=== PATIENT | female | born 1945 | race Caucasian/White ===

== ENCOUNTER 2020-12-26 15:11 | Inpatient (IN) | payer MEDICAID, MEDICARE, OTHER ==
[~2020-12-26] VITALS: Ht 167.6 cm; Wt 75.7 kg
--- NOTE | 2020-12-26 15:14 | NUR ---
[id number] FRM HOME, NOTED ALTERED X 3 DAYS W/ O2 SATURATION IN HIGH 80'S. ON 04 11 3LPM VIA NC. CONNECTED TO THE MONITOR AND PULSE OX. KEPT COMFORTABLE,W ILL CONTINUE TO MONITOR ACCORDINGLY.
[2020-12-26 15:42] LABS: ABG BASE EXCESS -1.3 mmol/L; ABG OXYGEN SATURATION 92.1 % (92.0-98.5); ABG PCO2 33.4 mmHg (35.0-45.0); ABG PH 7.438 (7.350-7.450); ABG PO2 60.9 mmHg (75.0-100.0); AaDO2 99.3 mmHg; COHb 0.3 % (0.5-1.5); MetHb 0.4 % (0.0-1.5); O2Hb 91.5 % (94.0-97.0); SITE, ABG Right Radial; VENT MODE, BG 2L NC
[2020-12-26] MEDS ORDERED: LORA-258 PO (15:56)
[2020-12-26] MEDS ORDERED: DICL100G34 TP (15:56)
[2020-12-26] MEDS ORDERED: PRED5DRO17 RIGHTEYE (15:56)
[2020-12-26] MEDS ORDERED: BROM3DRO RIGHTEYE (15:56)
[2020-12-26] MEDS ORDERED: AMLO-212 PO (15:56)
[2020-12-26] MEDS ORDERED: GABA-532 PO (15:56)
[2020-12-26] MEDS ORDERED: OLME40TA18 PO (15:56)
[2020-12-26] MEDS ORDERED: ARIP2TAB3 PO (15:56)
[2020-12-26] MEDS ORDERED: CITA20TA16 PO (15:56)
[2020-12-26] MEDS ORDERED: MONT10TA22 PO (15:56)
[2020-12-26] MEDS ORDERED: METO-357 PO (15:57)
[2020-12-26] MEDS ORDERED: LATA2.5D15 EACHEYE (15:57)
[2020-12-26] MEDS ORDERED: FLUT1BLS INH (15:57)
--- NOTE | 2020-12-26 16:52 | NUR ---
CALLED FOR MIDLINE
[2020-12-26 17:04] LABS: BILIRUBIN,URINE Negative (NEGATIVE); COLOR,URINE YELLOW (YELLOW); LEUKOCYTE ESTERASE ,URINE Negative (NEGATIVE); NITRITE, URINE Negative (NEGATIVE); PH,URINE 6.5 (5.0-8.0); PROTEIN,URINE Negative (NEGATIVE); UGLUCOSE Negative (NEGATIVE); UROBILINOGEN,URINE 0.2 EU/dL (0.2)
--- NOTE | 2020-12-26 17:10 | NUR ---
covid swab and urine collected and sent to lab.
[2020-12-26 17:15] LABS: RBC,URINE 0-2 /HPF (0-2)
[2020-12-26 17:16] LABS: BACTERIA,URINE None seen /HPF (None Seen); SQUAMOUS EPITHELIAL CELL,UR Few /HPF (None Seen)
--- NOTE | 2020-12-26 18:08 | NUR ---
received a call from the lab reagrding patient covid result (+), notified.
[2020-12-26] MEDS ORDERED: CEFTRIAXONE 1 G in IV D5W 50 ML IV ONE (18:30)
[2020-12-26] MEDS ORDERED: AZITHROMYCIN 500 MG in IV D5W 250 ML IV ONE (18:30)
[2020-12-26] MEDS ORDERED: CEFTRIAXONE 1GM BAG (ER ONLY) 50 ML IV ONE (18:36)
--- NOTE | 2020-12-26 18:58 | NUR ---
blood collected from the midline and sent to lab.
[2020-12-26 19:08] LABS: HEMATOCRIT 42 % (33-45); HEMOGLOBIN 14.2 g/dL (11.5-14.8); LYMPHOCYTES % (AUTO) 24.1 % (20.0-44.0); MEAN CORPUSCULAR HGB CONC 34 g/dl (31.0-36.0); MEAN CORPUSCULAR VOLUME 97 fL (82-100); MONOCYTES # (AUTO) 0.2 K/uL (0.1-1.30); MONOCYTES % (AUTO) 4.3 % (2.0-12.0); NEUTROPHILS % (AUTO) 70.6 % (43.0-81.0); PLATELET COUNT (AUTO) 162 K/uL (150-450); RED BLOOD CELL COUNT(AUTO) 4.35 MIL/uL (4.0-5.2); WHITE BLOOD COUNT (AUTO) 4.3 K/uL (4.3-11.0)
[2020-12-26 19:17] LABS: CALCIUM, SERUM 8.2 mg/dL (8.5-10.1); CREATININE 1.1 mg/dL (0.6-1.3); POTASSIUM 3.8 mmol/L (3.5-5.1)
--- NOTE | 2020-12-26 19:20 | NUR ---
report given to Winifred ATKINS for agnélica.
[2020-12-26 19:31] LABS: ALBUMIN 3.6 g/dL (3.4-5.0); BILIRUBIN,DIRECT 0.2 mg/dL (0.0-0.2); BILIRUBIN,TOTAL 0.3 mg/dL (0.2-1.0); TOTAL PROTEIN, SERUM 7.7 g/dL (6.4-8.2)
[2020-12-26 19:43] LABS: D-DIMER 1.52 mg/L(FEU (0.17-0.50)
[2020-12-26 20:25] LABS: C-REACTIVE PROTEIN 4.9 mg/dL (0.0-0.9)
[2020-12-26] MEDS ORDERED: IOHEXOL-350 100 ML VIAL IV ONE (20:37)
[2020-12-26] MEDS ORDERED: CT SWABBABLE VALVE TRANS SET 1 EA INFUS.SET MC ONE (20:38)
[2020-12-26] MEDS ORDERED: IV NS 0.9% 250 ML IV ONE (20:38)
[2020-12-26] MEDS ORDERED: DEXAMETHASONE SOD PHOSPHATE 10 MG/ML VIAL IV ONE (21:00)
--- NOTE | 2020-12-26 21:05 | NUR ---
PATIENT GOING TO CT
--- NOTE | 2020-12-26 21:17 | NUR ---
PATIETN BACK FROM CT
--- NOTE | 2020-12-26 21:26 | NUR ---
PER ER MD LIN, 1G TYLENOL REC. VERBAL ORDER.
--- NOTE | 2020-12-26 21:26 | NUR ---
TELE BED 102
[2020-12-26] MEDS ORDERED: ACETAMINOPHEN 650 MG/SUPP.RECT RC ONE (21:29)
[2020-12-26] MEDS ORDERED: ACETAMINOPHEN 650 MG/SUPP.RECT RC PRN ×2 (21:30)
[2020-12-26] MEDS ORDERED: DEXAMETHASONE SOD PHOSPHATE 10 MG/ML VIAL ONE (21:30)
--- NOTE | 2020-12-26 21:32 | NUR ---
ULTRASOUND AT BEDSIDE
--- NOTE | 2020-12-26 21:40 | NUR ---
CALLED JORGE FOR TA READ
--- NOTE | 2020-12-26 22:42 | NUR ---
report given to goldy ATKINS
[2020-12-26] MEDS ORDERED: Z GUARD REMEDY 2 OZ OINT TP PRN (23:00)
[2020-12-26] MEDS ORDERED: ONDANSETRON HCL/PF 4 MG/2 ML VIAL IVP PRN (23:00)
[2020-12-26] MEDS ORDERED: ENOXAPARIN SODIUM 40 MG/0.4 ML DISP.SYRIN SQ SCH (23:00)
--- NOTE | 2020-12-26 23:08 | NUR ---
RN NOTES, AT 2305 RECEIVED PATIENT FROM ER IN COMPANY OF 2 NURSE, PATIENT PLACED ON BED, UPON TAKING VS NOTED PATIENT VERY TACHYPNEIC, RR 60, 98/60, 101.2, 100% AT 5LPM, AT THIS TIME HAYLEY MARTINEZ ENTER ROOM, ASSESSED PATIENT AND GAVE ORDER TO CALL RT STAT, SUCTIONED PATIENT AND TRANSFERRED TO ICU.
--- NOTE | 2020-12-26 23:12 | NUR ---
RN NOTES, RT AT BEDSIDE, MICHELLE HARDY AT BEDSIDE AND ORDERED STAT ABGS.
--- NOTE | 2020-12-26 23:22 | NUR ---
MANAGED CARE NURSE: PT RECEIVED FROM [facility] TRANSFER. ON 5L 02 VIA NC, ON DROPLET ISOLATION FOR COVID PNA. NOTED WT TACHYPNEA AND SHALLOW BREATHING. ALERT TO SELF, UNABLE TO MAKE NEEDS KNOWN. SINUS TACH ON PAD CUTTER. LOW GRADE FEVER. COLD BED BATH RENDERED. NO SKIN BREAKDOWN. TIN MIDLINE AND LEFT WRIST IV INTACT WT NO S/S OF INFILTRATION. F/C PATENT AND INTACT DRAINING YELLOW URINE TO GRAVITY. HOB ON HIGH SAGE'S. BED IN LOWEST POSITION AND LOCKED, BED ALARM ON, SIDE RAILS UP X3. WILL CONTINUE TO MONITOR.
[2020-12-26 23:29] LABS: ABG OXYGEN SATURATION 95.6 % (92.0-98.5); ABG PO2 69.7 mmHg (75.0-100.0); AaDO2 187.9 mmHg; COHb 0.2 % (0.5-1.5); MetHb 0.3 % (0.0-1.5); O2Hb 95.1 % (94.0-97.0); SITE, ABG Right Brachial; VENT MODE, BG Nasal Cannula
[2020-12-26 23:30] VITALS: BP 94/61
[2020-12-26] MEDS ORDERED: CEFEPIME 2 GM in IV D5W 100 ML IV ONE (23:30)
--- NOTE | 2020-12-26 23:40 | NUR ---
RN NOTES, PATIENT TRANSFERRED WITH ALL ACLS PROTOCOL, TO ICU ROOM 255, REPORT GIVEN TO BECKIE ATKINS.
[2020-12-27] VITALS (33 sets, daily range): BP systolic 89–156; BP diastolic 30–101
[2020-12-27] MEDS: IV NS 0.9% 250 ML IV PRN (00:06)
[2020-12-27] MEDS ORDERED: CEFEPIME 1 GM VIAL ONE (00:07)
--- NOTE | 2020-12-27 00:45 | NUR ---
ATHLETIC TRAINING INTERNSHIP: PT RESTLESS, TRYING TO REMOVE IV AND TUBINGS. OBTAINED ORDER FOR BILAT. SOFT WRIST RESTRAINTS. SAFETY PRECAUTION NOTED AT ALL TIMES.
[2020-12-27 04:32] LABS: BASOPHILS # (AUTO) 0.1 K/uL (0.0-0.2); BASOPHILS % (AUTO) 0.8 % (0.0-2.0); HEMATOCRIT 40 % (33-45); HEMOGLOBIN 13.3 g/dL (11.5-14.8); LYMPHOCYTES % (AUTO) 14.7 % (20.0-44.0); MEAN CORPUSCULAR HGB CONC 34 g/dl (31.0-36.0); MEAN CORPUSCULAR VOLUME 99 fL (82-100); MONOCYTES # (AUTO) 0.2 K/uL (0.1-1.30); MONOCYTES % (AUTO) 2.4 % (2.0-12.0); NEUTROPHILS # (AUTO) 5.5 K/uL (1.8-8.9); NEUTROPHILS % (AUTO) 82.1 % (43.0-81.0); PLATELET COUNT (AUTO) 150 K/uL (150-450); WHITE BLOOD COUNT (AUTO) 6.7 K/uL (4.3-11.0)
[2020-12-27 04:43] LABS: CHOLESTEROL 75 mg/dL (<200); HDL CHOLESTEROL 18 mg/dL (40-60); LDL 35 mg/dL (0-99); TRIGLYCERIDES 155 mg/dL (30-150)
[2020-12-27 04:56] LABS: CALCIUM, SERUM 7.8 mg/dL (8.5-10.1); CARBON DIOXIDE 23 mmol/L (21-32); CHLORIDE 102 mmol/L (98-107); CREATININE 1.5 mg/dL (0.6-1.3); GLUCOSE 171 mg/dL (74-106); MAGNESIUM 2.1 mg/dL (1.8-2.4); PHOSPHORUS 5.2 mg/dL (2.5-4.9); POTASSIUM 4.3 mmol/L (3.5-5.1); SODIUM SERUM 137 mmol/L (136-145); UREA NITROGEN, BLOOD 21 mg/dL (7-18)
--- NOTE | 2020-12-27 06:15 | NUR ---
SILVERWARE WASHER: STILL ON 5L 02 VIA NC. NO ACUTE DISTRESS, NO EVIDENCE OF DISCOMFORT. UNABLE TO FOLLOW COMMANDS. NSR ON JAVASCRIPT PROGRAMMER. AFEBRILE. WT EPISODES OF TRYING TO REACH FOR TUBINGS. BILAT. SOFT WRIST RESTRAINTS IN PLACE. SKIN AND CIRCULATION WNL. SAFETY PRECAUTION NOTED AT ALL TIMES.
--- NOTE | 2020-12-27 07:30 | NUR ---
CENTRAL SUPPLY ASSISTANT OPENING NOTES Patient received asleep and on 5 liters and 02 sat of 90%. Breathing even and labored. Lung sounds noted with wheezing. Louie cath and hanging to gravity. Patient noted with bilateral wrist restraints with no s/s of skin breakdown. HOB kept elevated. Bed is in lowest and locked position.
--- NOTE | 2020-12-27 09:00 | NUR ---
02 saturation of 87-89% on 5lpm via n/c. Dr Conley made aware, Order for abg. Order placed and RT made aware.
[2020-12-27 09:22] LABS: ABG BASE EXCESS -7.4 mmol/L; ABG OXYGEN SATURATION 89.6 % (92.0-98.5); ABG PCO2 34.5 mmHg (35.0-45.0); ABG PH 7.327 (7.350-7.450); ABG PO2 56.8 mmHg (75.0-100.0); AaDO2 210.4 mmHg; COHb 0.3 % (0.5-1.5); MetHb 0.3 % (0.0-1.5); O2Hb 89.1 % (94.0-97.0); SITE, ABG Right Brachial; VENT MODE, BG NASAL CANNULA
--- NOTE | 2020-12-27 09:30 | NUR ---
Patient's abg results relayed to Dr Conley and new orders for HI- FLOW 02 via n/c on 40 liters at 100% fi 02. RT placed 02 delivery method. 02 saturation of 98%.
[2020-12-27] MEDS ORDERED: TOCILIZUMAB 400 MG in IV NS 0.9% 80 ML IV ONE (10:30)
[2020-12-27] MEDS ORDERED: REMDESIVIR (CHARGED) 200 MG, *LOADING DOSE 1 EA in IV NS 0.9% 210 ML IV ONE (10:30)
[2020-12-27] MEDS ORDERED: ENOXAPARIN SODIUM 40 MG/0.4 ML DISP.SYRIN SQ SCH (10:30)
--- NOTE | 2020-12-27 10:35 | NUR ---
Patient's Fi 02 lowered to 80% from 100 % at 40 liters by RT, will monitor
[2020-12-27] MEDS ORDERED: IV NS 0.9% 1,000 ML IV ONE (13:30)
[2020-12-27 15:21] LABS: C-REACTIVE PROTEIN 7.2 mg/dL (0.0-0.9)
[2020-12-27] MEDS: AZITHROMYCIN 500 MG in IV D5W 250 ML IV SCH (19:15)
--- NOTE | 2020-12-27 19:28 | NUR ---
CORRECTIONS SERGEANT CLOSING NOTES Patient is alert but confused and forgetful. Breathing even and unlabored. on hi flow o2 at 40 lpm and fi02 of 80% with saturation of 98%. No c/o pain or discomfort. Louie cath with output of 500 cc during shift. Patient able to free self and removed all iv lines during end of the shift. MD made aware. New midline placed in right upper arm. Patient noted with bilateral wrist restraints with no s/s of skin breakdown. HOB kept elevated. Bed is in lowest and locked position. Endorsed to next shift for JOSE.
--- NOTE | 2020-12-27 19:45 | NUR ---
ICU/ACCOUNT REVIEW SPECIALIST RECIEVED REPORT FROM DAY SHIFT NURSE. SEE FLOWSHEET FOR ASSESSMENT, THERE ARE NO SKIN ISSUES THAT ARE ADDRESSED ON THE FLOWSHEET. THERE ARE IV'S WHICH ARE ADDRESSED ON THE IV SPREAD SHEET. PT WAS TURNED AND REPOSITIONED FOR COMFORT AND CARE. WILL CONTINUE TO MONITOR THIS PT. NO ACUTE DISTRESS SEEN AT THIS TIME.
--- NOTE | 2020-12-27 20:07 | NUR ---
RECEIVED PT ON HFNC, PT IS AWAKE AND TOLERATING SETTINGS. O2 SAT 100%. CONTINUE TO MONITOR. Addendum: 12/27/20 at 2009 by RAQUEL BERMUDEZ RT Amended: Links added.
--- NOTE | 2020-12-27 22:30 | NUR ---
ICU/ACOUSTICAL ENGINEER PT WAS GIVEN ORAL CARE ALONG WITH PM CARE. PT REMAINS ON HIGH FLOW WITH CURRENT SETTINGS WITH SATURATION AT 99-100%. PT WAS TURNED AND REPOSITIONED FOR COMFORT AND CARE. WILL CONTINUE TO MONITOR THIS PT. NO ACUTE DISTRESS SEEN AT THIS TIME.
[2020-12-27] MEDS: CEFEPIME 2 GM in IV D5W 100 ML IV SCH (22:55)
[2020-12-27] MEDS ORDERED: ENOXAPARIN SODIUM 30 MG/0.3 ML DISP.SYRIN SQ SCH (23:00)
[2020-12-28] VITALS (25 sets, daily range): BP systolic 98–140; BP diastolic 59–92
--- NOTE | 2020-12-28 01:39 | NUR ---
FiO2 titrated to 65%, RN notified. O2 sat 99%.
--- NOTE | 2020-12-28 01:45 | NUR ---
ICU/JUNIOR ENGINEER FIO2 WAS DECREASED DOWN TO 65% FROM 80%, PT REMAINS ON HIGH FLOW. WILL CONTINUE TO THIS PT'S SATURATION.
--- NOTE | 2020-12-28 03:00 | NUR ---
ICU/TUFTING MACHINE OPERATOR SINGLE NEEDLE PT WAS GIVEN ORAL CARE ALONG WITH AM CARE. PT REMAINS ON HIGH FLOW WITH CURRENT SETTINGS WITH SATURATION AT 99-100%. PT WAS TURNED AND REPOSITIONED FOR COMFORT AND CARE. WILL CONTINUE TO MONITOR THIS PT. NO ACUTE DISTRESS SEEN AT THIS TIME.
[2020-12-28 04:42] LABS: BASOPHILS % (AUTO) 0.2 % (0.0-2.0); HEMATOCRIT 36 % (33-45); LYMPHOCYTES # (AUTO) 0.9 K/uL (0.8-4.8); LYMPHOCYTES % (AUTO) 15.4 % (20.0-44.0); MEAN CORPUSCULAR HGB CONC 34 g/dl (31.0-36.0); MEAN CORPUSCULAR VOLUME 98 fL (82-100); MONOCYTES # (AUTO) 0.4 K/uL (0.1-1.30); MONOCYTES % (AUTO) 6.1 % (2.0-12.0); NEUTROPHILS # (AUTO) 4.8 K/uL (1.8-8.9); NEUTROPHILS % (AUTO) 78.3 % (43.0-81.0); RED BLOOD CELL COUNT(AUTO) 3.62 MIL/uL (4.0-5.2); WHITE BLOOD COUNT (AUTO) 6.1 K/uL (4.3-11.0)
[2020-12-28] MEDS: IV NS 0.9% 250 ML IV PRN (04:55)
[2020-12-28 04:58] LABS: CALCIUM, SERUM 7.8 mg/dL (8.5-10.1); CARBON DIOXIDE 23 mmol/L (21-32); CHLORIDE 105 mmol/L (98-107); CREATININE 1.1 mg/dL (0.6-1.3); GLUCOSE 126 mg/dL (74-106); MAGNESIUM 2.2 mg/dL (1.8-2.4); PHOSPHORUS 2.4 mg/dL (2.5-4.9); POTASSIUM 3.5 mmol/L (3.5-5.1); SODIUM SERUM 141 mmol/L (136-145); UREA NITROGEN, BLOOD 23 mg/dL (7-18)
--- NOTE | 2020-12-28 05:14 | NUR ---
ICU/PLATE PUT IN WORKER AM LABS ALONG WITH CHEST XARY DONE , AWAIT FOR ANY ABNORMAL RESULTS.
[2020-12-28 05:49] LABS: CREATINE KINASE, TOTAL > 1000 U/L (26-192); FERRITIN > 1000 ng/mL (8-388)
[2020-12-28 06:54] LABS: BAND % (MANUAL) 1 % (0.0-5.0); LYMPHOCYTES % (MANUAL) 16 % (16-48); MONOCYTES % (MANUAL) 3 % (0-11.0); NEUTROPHILS % (MANUAL) 80 (42-76)
[2020-12-28 06:56] LABS: PLATELET COUNT (AUTO) 143 K/uL (150-450)
--- NOTE | 2020-12-28 07:30 | NUR ---
FIRER LOW PRESSURE OPENING NOTES Patient received awake and on hi flow with fi02 of 65% liters and 02 sat of 98%. Breathing even and labored. Louie cath and hanging to gravity. Patient noted with bilateral wrist restraints with no s/s of skin breakdown. HOB kept elevated. Bed is in lowest and locked position. Midline noted to be on right upper arm and saline lock. Safety precautions noted.
--- NOTE | 2020-12-28 07:45 | NUR ---
RT changed patient's hi flow to 6 lpm via nc/ o2 sat of 93%. will monitor.
[2020-12-28 08:55] LABS: ABG BASE EXCESS -0.7 mmol/L; ABG OXYGEN SATURATION 93.5 % (92.0-98.5); ABG PCO2 37.3 mmHg (35.0-45.0); ABG PH 7.417 (7.350-7.450); AaDO2 205.2 mmHg; COHb 0.2 % (0.5-1.5); MetHb 0.1 % (0.0-1.5); O2Hb 93.2 % (94.0-97.0); SITE, ABG Right Radial; VENT MODE, BG NASAL CANNULA
[2020-12-28] MEDS ORDERED: REMDESIVIR (CHARGED) 100 MG in IV NS 0.9% 100 ML IV SCH (10:30)
[2020-12-28] MEDS ORDERED: REMDESIVIR (CHARGED) 200 MG, *LOADING DOSE 1 EA in IV NS 0.9% 210 ML IV ONE (11:30)
[2020-12-28] MEDS: DEXAMETHASONE SOD PHOSPHATE 10 MG/ML VIAL IV SCH (11:43)
[2020-12-28] MEDS ORDERED: Sodium Phosphate 30 MMOL in IV NS 0.9% 250 ML IV SCH (12:30)
[2020-12-28] MEDS: AZITHROMYCIN 500 MG in IV D5W 250 ML IV SCH (18:03)
--- NOTE | 2020-12-28 19:26 | NUR ---
BUTCHER SCULLION CLOSING NOTES Patient is alert but confused and forgetful. Breathing even and unlabored. on 02 via n/c at 6 lpm with saturation of 98%. No c/o pain or discomfort. Louie cath with output of 800 cc during shift. Patient noted with bilateral wrist restraints with no s/s of skin breakdown. HOB kept elevated. Bed is in lowest and locked position. Endorsed to next shift for JOSE.
--- NOTE | 2020-12-28 19:45 | NUR ---
ICU/DOBBY LOOM WEAVER RECIEVED REPORT FROM DAY SHIFT NURSE. SEE FLOWSHEET FOR ASSESSMENT, THERE ARE NO SKIN ISSUES THAT ARE ADDRESSED ON THE FLOWSHEET. THERE ARE NO IV'S WHICH ARE ADDRESSED. PT WAS TURNED AND REPOSITIONED FOR COMFORT AND CARE. WILL CONTINUE TO MONITOR THIS PT. NO ACUTE DISTRESS SEEN AT THIS TIME.
--- NOTE | 2020-12-28 21:10 | NUR ---
ICU/MONONITROTOLUENE OPERATOR PT WAS REPOSITIONED FOR COMFORT AND CARE. PT REMAINS AGITATED AND MOVING LEGS TRYING TO GET OUT OF BED. BED ALARMS ARE IN PLACE.
[2020-12-28] MEDS: ENOXAPARIN SODIUM 40 MG/0.4 ML DISP.SYRIN SQ SCH (22:00)
--- NOTE | 2020-12-28 22:30 | NUR ---
ICU/DIRECTOR MEDICAL ECONOMICS PT WAS REPOSITIONED FOR COMFORT AND CARE. PT REMAINS AGITATED AND MOVING LEGS TRYING TO GET OUT OF BED.
[2020-12-28] MEDS: CEFEPIME 2 GM in IV D5W 100 ML IV SCH (22:38)
[2020-12-29] VITALS (27 sets, daily range): BP systolic 100–200; BP diastolic 30–122
--- NOTE | 2020-12-29 00:30 | NUR ---
ICU/POLICE DISTRICT SWITCHBOARD OPERATOR PT WAS REPOSITIONED FOR COMFORT AND CARE. PT REMAINS AGITATED AND MOVING LEGS TRYING TO GET OUT OF BED. PT REMAINS AGITATED.
--- NOTE | 2020-12-29 02:10 | NUR ---
ICU/SOD FARMER PT WAS GIVEN AM CARE, THEN REPOSITIONED FOR COMFORT AND CARE. PT CONTINUES TO BE CONFUSED AND TRYING TO GET OUT OF BED. BED ALARM IN PLACE ALONG WITH RESTRAINTS TO KEEP OXYGEN ON.
[2020-12-29 04:34] LABS: BASOPHILS % (AUTO) 0.5 % (0.0-2.0); HEMATOCRIT 36 % (33-45); HEMOGLOBIN 12.4 g/dL (11.5-14.8); LYMPHOCYTES # (AUTO) 0.5 K/uL (0.8-4.8); LYMPHOCYTES % (AUTO) 8.9 % (20.0-44.0); MEAN CORPUSCULAR HGB CONC 35 g/dl (31.0-36.0); MEAN CORPUSCULAR VOLUME 98 fL (82-100); MONOCYTES # (AUTO) 0.4 K/uL (0.1-1.30); MONOCYTES % (AUTO) 6.9 % (2.0-12.0); NEUTROPHILS # (AUTO) 4.4 K/uL (1.8-8.9); NEUTROPHILS % (AUTO) 83.7 % (43.0-81.0); PLATELET COUNT (AUTO) 170 K/uL (150-450); RED BLOOD CELL COUNT(AUTO) 3.67 MIL/uL (4.0-5.2); WHITE BLOOD COUNT (AUTO) 5.3 K/uL (4.3-11.0)
--- NOTE | 2020-12-29 04:45 | NUR ---
ICU/TAFE REGISTRAR PT SATURATED DOWN TO 87% WITH INCREASED HEART RATE. HIGH FLOW WAS PLACED BACK ON WITH 45FIO2 AND 20L. WILL MONITOR THIS PT.
--- NOTE | 2020-12-29 05:03 | NUR ---
PT PLACED BACK ON HFNC DUE TO LOW O2 SATURATIONS. RN AWARE.
[2020-12-29 05:16] LABS: ALBUMIN 3.2 g/dL (3.4-5.0); BILIRUBIN,DIRECT 0.1 mg/dL (0.0-0.2); BILIRUBIN,TOTAL 0.3 mg/dL (0.2-1.0); CALCIUM, SERUM 8.1 mg/dL (8.5-10.1); CREATININE 1.2 mg/dL (0.6-1.3); MAGNESIUM 2.2 mg/dL (1.8-2.4); PHOSPHORUS 2.2 mg/dL (2.5-4.9); POTASSIUM 3.8 mmol/L (3.5-5.1); TOTAL PROTEIN, SERUM 7.2 g/dL (6.4-8.2)
[2020-12-29 05:55] LABS: CREATINE KINASE, TOTAL 1492 U/L (26-192); FERRITIN 2257 ng/mL (8-388)
[2020-12-29 06:44] LABS: BAND % (MANUAL) 2 % (0.0-5.0); LYMPHOCYTES % (MANUAL) 10 % (16-48); MONOCYTES % (MANUAL) 8 % (0-11.0); NEUTROPHILS % (MANUAL) 80 (42-76)
--- NOTE | 2020-12-29 06:51 | NUR ---
ICU/CAFETERIA AIDE [facility] OF [facility] 12.6 CALLED THE SENIOR PREMIUM AUDITOR ABOUT THIS. AWAIT FOR CALL BACK.
--- NOTE | 2020-12-29 07:30 | NUR ---
RN OPENING NOTES PT RECEIVED ON HIGH FLOW NASAL CANULA sat >92% WITH 20 L PLACED RECEIVING 45 FIO2%. PATIENT IS PLACED ON RESTRAINTS PATIENT ATTEMPTS TO PULL LOVELL AND REMOVE FROM BED. PT TACHY HR ABOVE 100-105's. CRITICAL LAB OF [facility] OF 12.6 PASSED FROM QUALITY CONTROL TECH [employer] NAVJOT. WILL FOLLOW UP WITH MD. PATIENT PLACED ON LOW BED POSITION. WILL FOLLOW UP.
--- NOTE | 2020-12-29 07:31 | NUR ---
ICU/HUSBANDRY TECHNICIAN CRITICAL LAB OF [facility] 12.[address] FANG. PASSED THIS ON TO DAY NURSE TO FOLLOW UP WITH THE DAY MD.
[2020-12-29] MEDS: DEXAMETHASONE SOD PHOSPHATE 10 MG/ML VIAL IV SCH (09:04)
[2020-12-29] MEDS ORDERED: Sodium Phosphate 15 MMOL in IV NS 0.9% 245 ML IV SCH (11:00)
[2020-12-29] MEDS: REMDESIVIR (CHARGED) 100 MG in IV NS 0.9% 100 ML IV SCH (12:07)
[2020-12-29] MEDS: IV 1/2NS 1000 ML 1,000 ML IV SCH (13:55)
[2020-12-29] MEDS: AZITHROMYCIN 500 MG in IV D5W 250 ML IV SCH (18:00)
--- NOTE | 2020-12-29 18:38 | NUR ---
RN CLOSING NOTES PT STABLE O2 SAT >92%. PT RECEIVING HFNC 20L AT 40% FiO2. URINE OUTPUT OF 1200M THROUGHOUT SHIFT. PT CONFUSED AND REQUIRES FREQUENT REPOSITIONING. PT REFUSED DINNER. PT LEFT ON LOWEST BED POSITION.
--- NOTE | 2020-12-29 20:20 | NUR ---
ICU/FILTER TENDER PT'S SATURATION FELL WHILE ON 20LITERS AND [id number]%. RT NOTIFED ABOUT THIS INCREASED THE FIO2 TO 50% PLUS 30LITERS. WILL CONTINUE TO MONITOR THIS PT AND HER SATURATION.
[2020-12-29] MEDS: ENOXAPARIN SODIUM 40 MG/0.4 ML DISP.SYRIN SQ SCH (21:49)
--- NOTE | 2020-12-29 22:45 | NUR ---
ICU/DIRECTOR DATABASE SATHYA IS DRIVER LICENSE EXAMINER, NOTIFED HER ABOUT THE MORNING LAB OF [facility] 12.6. DAY MD DID NOT ADDRESS THIS. SHE WAS NOTIFED AND SAID SHE WOULD ADDRESS THIS.
[2020-12-29] MEDS: CEFEPIME 2 GM in IV D5W 100 ML IV SCH (23:58)
[2020-12-30] VITALS (25 sets, daily range): BP systolic 112–161; BP diastolic 31–123
--- NOTE | 2020-12-30 01:00 | NUR ---
ICU/GREEN CHAIN MARKER PT WAS REPOSITIONED FOR COMFORT AND CARE. PT REMAINS AGITATED AND MOVING LEGS TRYING TO GET OUT OF BED. PT REMAINS AGITATED.
--- NOTE | 2020-12-30 04:30 | NUR ---
ICU/HARBOR MASTER AM LABS WERE DONE AWAIT FOR ANY ABNORMAL RESULTS.
--- NOTE | 2020-12-30 07:25 | NUR ---
RN NOTES PT FOUND SUPINE DISPLAYING NO S/S OF DISTRESS, FLACC = 0 AND BREATHING IS EVEN AND UNLABORED ON RA. PT IS CONFUSED AND HAS REMOVED HIGH ALMA OXYGEN FROM FACE. PT ALSO SLUMPED DOWN TO LOWER ASPECT OF BED. RESTRAINTS PERMIT CONSIDERABLE MOVEMENT OF ARMS. LOVELL CATH IS INTACT AND PATIENT DRAINING BY GRAVITY. VSS, RN WILL TREAT AND MONITOR THROUGHOUT SHIFT. SAFETY MEASURES IN PLACE, BED LOCKED AND IN LOWEST POSITION, SIDE RAILS UPX3, CALL LIGHT WITHIN REACH, BED ALARM ARMED.
[2020-12-30] MEDS: DEXAMETHASONE SOD PHOSPHATE 10 MG/ML VIAL IV SCH (08:09)
--- NOTE | 2020-12-30 08:15 | NUR ---
RN NOTES UPON ENTERING, PT'S LEFT LEG WAS HUNG OVER SIDE RAIL. SPO2 = 62%. HI ALMA O2 REAPPLIED, SPO2 GREATLY IMPROVED. RESTRAINTS GIVEN TRIAL REMOVAL. PT IMMEDIATELY ATTEMPTED TO REMOVE IV LINES AND HI ALMA NC. AROM PERFORMED BILATERALLY UPPER EXTREMITY. RESTRAINTS REAPPLIED AND TIGHTENED LEASH TO PERMIT LITTLE MOVEMENT. RADIAL PULSES PALPATED BILATERALLY, CAP REFILL < 3 SECONDS. PT SUPINE WITH LEGS ELEVATED TO DISCOURAGE MOVEMENT IN BED. PT LEFT OFFLOADED TO THE LEFT, BED ALARM ARMED WITH STABLE V/S.
[2020-12-30 09:42] LABS: BASOPHILS % (AUTO) 0.5 % (0.0-2.0); EOSINOPHILS % (AUTO) 0.1 % (0.0-6.0); HEMATOCRIT 37 % (33-45); HEMOGLOBIN 12.4 g/dL (11.5-14.8); LYMPHOCYTES # (AUTO) 0.6 K/uL (0.8-4.8); LYMPHOCYTES % (AUTO) 16.9 % (20.0-44.0); MEAN CORPUSCULAR HGB CONC 34 g/dl (31.0-36.0); MEAN CORPUSCULAR VOLUME 99 fL (82-100); MONOCYTES # (AUTO) 0.6 K/uL (0.1-1.30); MONOCYTES % (AUTO) 16.2 % (2.0-12.0); NEUTROPHILS # (AUTO) 2.4 K/uL (1.8-8.9); NEUTROPHILS % (AUTO) 66.3 % (43.0-81.0); PLATELET COUNT (AUTO) 203 K/uL (150-450); RED BLOOD CELL COUNT(AUTO) 3.73 MIL/uL (4.0-5.2); WHITE BLOOD COUNT (AUTO) 3.7 K/uL (4.3-11.0)
[2020-12-30] MEDS: GLUCERNA SHAKE 237 ML CAN PO SCH ×2 (11:30→17:00)
[2020-12-30] MEDS: IV 1/2NS 1000 ML 1,000 ML IV SCH (11:33)
[2020-12-30] MEDS: REMDESIVIR (CHARGED) 100 MG in IV NS 0.9% 100 ML IV SCH (12:05)
[2020-12-30 13:37] LABS: CHLORIDE 115 mmol/L (98-107); POTASSIUM 3.9 mmol/L (3.5-5.1); SODIUM SERUM 150 mmol/L (136-145)
[2020-12-30 13:38] LABS: BILIRUBIN,DIRECT 0.1 mg/dL (0.0-0.2); BILIRUBIN,TOTAL 0.4 mg/dL (0.2-1.0); CALCIUM, SERUM 8.1 mg/dL (8.5-10.1); CARBON DIOXIDE 25 mmol/L (21-32); CREATININE 1.1 mg/dL (0.6-1.3); GLUCOSE 218 mg/dL (74-106); PHOSPHORUS 2.8 mg/dL (2.5-4.9); UREA NITROGEN, BLOOD 20 mg/dL (7-18)
[2020-12-30 13:39] LABS: ALANINE AMINOTRANSFERASE 77 U/L (12-78); ALBUMIN 3.2 g/dL (3.4-5.0); ALKALINE PHOSPHATASE 71 U/L (46-116); ASPARTATE AMINOTRANSFERASE 123 U/L (15-37); TOTAL PROTEIN, SERUM 7.3 g/dL (6.4-8.2)
[2020-12-30 14:01] LABS: C-REACTIVE PROTEIN 3.3 mg/dL (0.0-0.9)
--- NOTE | 2020-12-30 19:00 | NUR ---
RN NOTES PT FOUND SUPINE DISPLAYING NO S/S OF DISTRESS, FLACC = 0 AND BREATHING IS EVEN AND UNLABORED ON HI FLOW NC. PT JUST CLEANED, RESTRAINTS APPLIED FOR SAFETY, PULSES PALPATED BILATERALLY AND CAP REFILL < 3 SECONDS. L UA MIDLINE IS PATIENT AND INTACT. LOVELL CATH IS BELOW PATIENT AND DRAINING BY GRAVITY. SBAR AND REPORT GIVEN TO TRADE MANAGER. SAFETY MEASURES IN PLACE, BED LOCKED AND IN LOWEST POSITION, SIDE RAILS UPX3, CALL LIGHT WITHIN REACH, BED ALARM ARMED. PT ENDORSED IN STABLE CONDITION FOR JOSE, ALL QUESTIONS ANSWERED.
[2020-12-30] MEDS: AZITHROMYCIN 500 MG in IV D5W 250 ML IV SCH (19:03)
--- NOTE | 2020-12-30 19:31 | NUR ---
RT Notes Pt received on High Flow Nasal Cannula on flow of 30LPM and FIO2 50%. Pt awake and tolerating settings. Pt SPO2 is 94%. Will cont to monitor. Addendum: 12/30/20 at 1959 by JESSENIA ANAYA RT Amended: Links added.
--- NOTE | 2020-12-30 19:40 | NUR ---
ICU/PRINTING PRESS OPERATOR APPRENTICE RECIEVED REPORT FROM DAY SHIFT NURSE. SEE FLOWSHEET FOR ASSESSMENT, THERE ARE NO SKIN ISSUES THAT ARE ADDRESSED ON THE FLOWSHEET. THERE IS A MAINTENANCE IV'S WHICH IS ADDRESSED. PT TURNS SELF AND REPOSITIONS SELF FOR COMFORT AND CARE. WILL CONTINUE TO MONITOR THIS PT. NO ACUTE DISTRESS SEEN AT THIS TIME. PT REMAINS ON HIGH FLOW
--- NOTE | 2020-12-30 20:10 | NUR ---
ICU/CONTRACT ADMINISTRATION MANAGER LOOKS LIKE LOVENOX WAS PULLED OUT FROM THE PIXIS DURING THE DAY SHIFT HOWEVER WAS NOT SCANNED. CHARGE NURSE MADE AWARE OF THIS.
[2020-12-30] MEDS: ENOXAPARIN SODIUM 40 MG/0.4 ML DISP.SYRIN SQ SCH (22:09)
[2020-12-30] MEDS: CEFEPIME 2 GM in IV D5W 100 ML IV SCH (22:11)
--- NOTE | 2020-12-30 23:10 | NUR ---
ICU/PACKAGING TECH DAUGHTER CALLED [phone] CALLED GAVE UPDATE ON PT'S STATUS. SAID SHE WILL CALL AGAIN TOMORROW.
[2020-12-31] VITALS (24 sets, daily range): BP systolic 98–176; BP diastolic 39–109
--- NOTE | 2020-12-31 02:00 | NUR ---
ICU/CIVIL RIGHTS INVESTIGATOR PT APPEARS TO ASLEEP, RESTRAINTS WERE TAKEN OFF. WILL MONITOR THIS PT.
--- NOTE | 2020-12-31 04:30 | NUR ---
ICU/VICE PRESIDENT EDUCATION AM LABS WERE DONE, AWAIT FOR ANY ABNORMAL RESULTS.
--- NOTE | 2020-12-31 06:00 | NUR ---
ICU/CLEANERS PT APPEARS CALM, RESTRAINTS WERE TAKEN OFF. WILL MONITOR THIS PT SHOULD SHE GET AGITATED TRY TO GET OUT OF BED THEN CAN PLACE BACK AGAIN.
[2020-12-31 06:01] LABS: BASOPHILS % (AUTO) 0.2 % (0.0-2.0); HEMATOCRIT 38 % (33-45); HEMOGLOBIN 12.7 g/dL (11.5-14.8); LYMPHOCYTES # (AUTO) 0.5 K/uL (0.8-4.8); LYMPHOCYTES % (AUTO) 13.2 % (20.0-44.0); MEAN CORPUSCULAR HGB CONC 33 g/dl (31.0-36.0); MEAN CORPUSCULAR VOLUME 102 fL (82-100); MONOCYTES # (AUTO) 0.7 K/uL (0.1-1.30); MONOCYTES % (AUTO) 16.4 % (2.0-12.0); NEUTROPHILS # (AUTO) 2.9 K/uL (1.8-8.9); NEUTROPHILS % (AUTO) 70.2 % (43.0-81.0); PLATELET COUNT (AUTO) 222 K/uL (150-450); RED BLOOD CELL COUNT(AUTO) 3.77 MIL/uL (4.0-5.2); WHITE BLOOD COUNT (AUTO) 4.2 K/uL (4.3-11.0)
[2020-12-31 06:12] LABS: ALANINE AMINOTRANSFERASE 72 U/L (12-78); ALKALINE PHOSPHATASE 66 U/L (46-116); ASPARTATE AMINOTRANSFERASE 109 U/L (15-37); BILIRUBIN,DIRECT 0.1 mg/dL (0.0-0.2); BILIRUBIN,TOTAL 0.3 mg/dL (0.2-1.0); CALCIUM, SERUM 7.9 mg/dL (8.5-10.1); CARBON DIOXIDE 26 mmol/L (21-32); CHLORIDE 117 mmol/L (98-107); CREATININE 1.1 mg/dL (0.6-1.3); GLUCOSE 228 mg/dL (74-106); SODIUM SERUM 150 mmol/L (136-145); TOTAL PROTEIN, SERUM 6.9 g/dL (6.4-8.2); UREA NITROGEN, BLOOD 23 mg/dL (7-18)
[2020-12-31] MEDS: IV NS 0.9% 250 ML IV PRN (06:27)
[2020-12-31] MEDS: IV 1/2NS 1000 ML 1,000 ML IV SCH (06:27)
[2020-12-31 06:51] LABS: CREATINE KINASE, TOTAL 1232 U/L (26-192); FERRITIN 2595 ng/mL (8-388)
--- NOTE | 2020-12-31 07:25 | NUR ---
RN NOTES PT FOUND SEMI SAGE'S POSITION DISPLAYING NO S/S OF DISTRESS, FLACC = 0 AND BREATHING IS EVEN AND UNLABORED ON HIGH FLOW OXYGEN. PT OFF RESTRAINTS AND PT HAS NOT YET REMOVED LINES/TUBES. R UA MIDLINE IS PATIENT AND INTACT. LOVELL CATH IS BELOW PATIENT DRAINING BY GRAVITY. VSS, RN WILL MONITOR AND TREAT THROUGHOUT SHIFT. SAFETY MEASURES IN PLACE, BED LOCKED AND IN LOWEST POSITION, SIDE RAILS UPX3, CALL LIGHT WITHIN REACH, BED ALARM ARMED.
[2020-12-31] MEDS: DEXAMETHASONE SOD PHOSPHATE 10 MG/ML VIAL IV SCH (08:43)
[2020-12-31] MEDS: GLUCERNA SHAKE 237 ML CAN PO SCH ×2 (08:53→17:07)
[2020-12-31] MEDS: ACETAMINOPHEN 650 MG/SUPP.RECT RC PRN (08:55)
--- NOTE | 2020-12-31 09:00 | NUR ---
RN NOTE PT FOUND ATTEMPTING TO GET OUT OF BED, PT PLACED SAFELY BACK IN BED, RESTRAINTS REAPPLIED, PULSES PALPATED BILATERALLY AND CAP REFILL < 3 SECONDS BILATERALLY. PT LEFT IN BED SET TO THE LOWEST POSITION, SIDE RAILS UPX3, CALL LIGHT WITHIN REACH, BED ALARM ARMED.
[2020-12-31] MEDS: REMDESIVIR (CHARGED) 100 MG in IV NS 0.9% 100 ML IV SCH (12:13)
[2020-12-31] MEDS: IV D5W 1,000 ML IV PRN (13:32)
--- NOTE | 2020-12-31 14:02 | NUR ---
RN NOTE INTERVENTION DOC PT IS CONFUSED Addendum: 12/31/20 at 1403 by ELKIN MENDEZ RN Amended: Links added.
--- NOTE | 2020-12-31 19:00 | NUR ---
RN NOTES PT FOUND SEMI SAGE'S POSITION DISPLAYING NO S/S OF DISTRESS, FLACC = 0 AND BREATHING IS EVEN AND UNLABORED ON HIGH FLOW OXYGEN. FACIAL ERYTHEMA HAS BEEN REPORTED TO PROVIDERS AND THEY ARE AWARE. PT OFF RESTRAINTS AGAIN. R UA MIDLINE IS PATIENT AND INTACT. LOVELL CATH IS BELOW PATIENT DRAINING BY GRAVITY. SBAR AND REPORT GIVEN TO CLINICAL NURSE REVIEWER. SAFETY MEASURES IN PLACE, BED LOCKED AND IN LOWEST POSITION, SIDE RAILS UPX3, CALL LIGHT WITHIN REACH, BED ALARM ARMED. PT ENDORSED IN STABLE CONDITION FOR JOSE. ALL QUESTIONS ANSWERED.
--- NOTE | 2020-12-31 19:45 | NUR ---
RN NOTE PT RECEIVED IN BED. PT IS A/OX1/CONFUSED. CURRENTLY ON HIGH FLOW OXYGEN AT 30L AND 50% FIO2. PT SHOWING NSR ON MONITOR. LOVELL CATH NOTED. RESTRAINTS NOTED. IV ACCESS NOTED ON RIGHT UPPER ARM MIDLINE. D5W RUNNING AT 50 ML/HR. LINE FLUSHED, PATENT, AND INTACT WITH NO SIGNS OF INFILTRATION. ALL SAFETY MEASURES IMPLEMENTED. CALL LIGHT WITHIN REACH. BED ALARM ON. BED LOCKED AND IN LOWEST POSITION. WILL CONTINUE TO MONITOR AND ASSESS FOR ANY CHANGES THROUGHOUT THE SHIFT.
[2020-12-31] MEDS: ENOXAPARIN SODIUM 40 MG/0.4 ML DISP.SYRIN SQ SCH (20:51)
[2020-12-31] MEDS: CEFEPIME 2 GM in IV D5W 100 ML IV SCH (23:10)
[2021-01-01] VITALS (24 sets, daily range): BP systolic 93–154; BP diastolic 41–104
[2021-01-01 05:05] LABS: ALANINE AMINOTRANSFERASE 69 U/L (12-78); ALKALINE PHOSPHATASE 65 U/L (46-116); ASPARTATE AMINOTRANSFERASE 84 U/L (15-37); BILIRUBIN,DIRECT 0.1 mg/dL (0.0-0.2); BILIRUBIN,TOTAL 0.2 mg/dL (0.2-1.0); CALCIUM, SERUM 8.1 mg/dL (8.5-10.1); CARBON DIOXIDE 26 mmol/L (21-32); CHLORIDE 119 mmol/L (98-107); CREATININE 1.1 mg/dL (0.6-1.3); GLUCOSE 288 mg/dL (74-106); MAGNESIUM 2.1 mg/dL (1.8-2.4); PHOSPHORUS 2.6 mg/dL (2.5-4.9); SODIUM SERUM 154 mmol/L (136-145); UREA NITROGEN, BLOOD 26 mg/dL (7-18)
[2021-01-01 05:37] LABS: BASOPHILS # (AUTO) 0.1 K/uL (0.0-0.2); EOSINOPHILS % (AUTO) 0.1 % (0.0-6.0); HEMATOCRIT 39 % (33-45); HEMOGLOBIN 12.9 g/dL (11.5-14.8); LYMPHOCYTES # (AUTO) 0.7 K/uL (0.8-4.8); LYMPHOCYTES % (AUTO) 11.7 % (20.0-44.0); MEAN CORPUSCULAR HGB CONC 33 g/dl (31.0-36.0); MEAN CORPUSCULAR VOLUME 99 fL (82-100); MONOCYTES # (AUTO) 0.8 K/uL (0.1-1.30); MONOCYTES % (AUTO) 13.9 % (2.0-12.0); NEUTROPHILS # (AUTO) 4.4 K/uL (1.8-8.9); NEUTROPHILS % (AUTO) 73.3 % (43.0-81.0); RED BLOOD CELL COUNT(AUTO) 3.91 MIL/uL (4.0-5.2); WHITE BLOOD COUNT (AUTO) 6.1 K/uL (4.3-11.0)
[2021-01-01 06:02] LABS: PLATELET COUNT (AUTO) 257 K/uL (150-450)
[2021-01-01 06:05] LABS: BAND % (MANUAL) 3 % (0.0-5.0); LYMPHOCYTES % (MANUAL) 16 % (16-48); MONOCYTES % (MANUAL) 5 % (0-11.0); NEUTROPHILS % (MANUAL) 76 (42-76)
--- NOTE | 2021-01-01 06:56 | NUR ---
RN NOTE NO CHANGES IN PT CONDITION DURING SHIFT. PT IS A/OX1/CONFUSED. CURRENTLY ON HIGH FLOW OXYGEN AT 30L AND 50% FIO2. PT SHOWING NSR ON MONITOR. LOVELL CATH NOTED WITH 850 ML OUTPUT. IV ACCESS NOTED ON RIGHT UPPER ARM MIDLINE. D5W RUNNING AT 50 ML/HR. LINE FLUSHED, PATENT, AND INTACT WITH NO SIGNS OF INFILTRATION. ALL DUE MEDS GIVEN ORDERED. PT KEPT CLEAN AND COMFORTABLE. ALL SAFETY MEASURES IMPLEMENTED. CALL LIGHT WITHIN REACH. BED ALARM ON. BED LOCKED AND IN LOWEST POSITION. WILL ENDORSE TO MORNING SHIFT RN FOR JOSE.
[2021-01-01] MEDS: IV D5W 1,000 ML IV PRN (07:58)
[2021-01-01] MEDS: GLUCERNA SHAKE 237 ML CAN PO SCH ×2 (07:58→17:00)
[2021-01-01] MEDS: DEXAMETHASONE SOD PHOSPHATE 10 MG/ML VIAL IV SCH (08:00)
--- NOTE | 2021-01-01 08:15 | NUR ---
RT Pt received on high flow nasal cannula, pt tried on 6L nasal cannula and tolerating well with adequate SpO2. No SOB or respiratory distress noted. Addendum: 01/01/21 at 0828 by KATELYN FOSS RT Amended: Links added.
[2021-01-01] MEDS: ACETAMINOPHEN 325 MG TABLET PO PRN (10:53)
[2021-01-01] MEDS: REMDESIVIR (CHARGED) 100 MG in IV NS 0.9% 100 ML IV SCH (12:16)
--- NOTE | 2021-01-01 17:47 | NUR ---
RN NOTES; PT TRANSFERRED FROM ICU AT APPROXIMATELY 1730. PT A/OX1 WITH MILD CONFUSION. PT DX COVID PNA. SKIN IS INTACT. NO SOB NOTED, NO DISTRESS NOTED. TIN ML, PATENT WITH NO SIGNS OF INFILTRATION. PT RUNNING DSW @100ML/HR. SAFETY MEASURES RENDERED, BED LOCKED IN LOWEST POS. WITH CALL LIGHT WITHIN REACH. WILL CONTINUE TO MONITOR.
--- NOTE | 2021-01-01 18:45 | NUR ---
RN CLOSING NOTE PATIENT IN BED, AWAKE. PATIENT ON 5L O2 NC WITH NO SIGNS OF LABORED BREATHING AT THIS TIME. PATIENT ON TELE MONITOR. LOVELL CATHETER IN PLACE AND PATENT. BILATERAL SOFT WRIST RESTRAINS ON, SKIN INTACT. RIGHT UA MIDLINE 18G IN PLACE RUNNING D5W AT 50CC/HR. NO SIGNS OF DISTRESS AT THIS TIME. BED LOCKED AND IN LOWEST POSITION, 3 SIDE RAILS UP, CALL LIGHT WITHIN REACH, ALL SAFETY MEASURES IMPLEMENTED. WILL ENDORSE TO FACILITY SALES AND ADMIN NURSE.
--- NOTE | 2021-01-01 20:00 | NUR ---
WATER SERVICE DISPATCHER NOTE 0730:RECEIVED REPORT FROM PM NURSE.PATIENT IN BED, AWAKE CONFUSED,DUTCH SPEAKING. PATIENT ON HIGH FLOW O2 WITH NO SIGNS OF LABORED BREATHING AT THIS TIME. PATIENT ON TELE MONITOR SR. LOVELL CATHETER IN PLACE AND PATENT DRAINING CLEAR YELLOW URINE. BILATERAL SOFT WRIST RESTRAINS ON, SKIN CHECK DONE.SKIN INTACT.MILD REDNESS NOTED ON BUE. RIGHT UA MIDLINE 18G IN PLACE RUNNING D5W AT 50CC/HR. BED LOCKED AND IN LOWEST POSITION, 3 SIDE RAILS UP, CALL LIGHT WITHIN REACH, ALL SAFETY MEASURES IMPLEMENTED. WILL CONTINUE TO MONITOR. 1000:FAMILY MEMBER UPDATED ABOUT PATIENT CONDITION,SPOKE TO THE PATIENT IN THE ROOM WITH PHONE. 1500:OK TO TRANSFER PATIENT TO [facility] PER ,SEEN THE PATIENT. 1715:PATIENT TRANSFERRED TO [facility],WITH HER BELONGINGS CELL PHONE AND MECHANICAL PRODUCT DESIGN ENGINEER,NO OTHER BELONGINGS.REPORT GIVEN TO ÁNGELA ATKINS.SKIN IS INTACT.IV IN PLACE AND INTACT.DINNER TO GIVE TO PATIENT.
--- NOTE | 2021-01-01 20:00 | NUR ---
[facility] RN NOTE PT IN BED AWAKE. A/O X 2, SPEAKS CHADIAN ONLY. NO SOB, NO DISTRESS OR DISCOMFORT NOTED. DENIES PAIN. TIN MIDLINE #18 G INTACT AND PATENT. INFUSING D5W AT 100 ML/HR, NO S/S OF INFILTRATION NOTED. PT REMAIN IN ISOLATION FOR COVID POSITIVE. ISOLATION PRECAUTIONS TAKEN. ON TELE SR HR 84. PT WITH BILATERAL SOFT WRIST RESTRAINTS. SIDE RAILS UP X 3 AND CALL LIGHT WITHIN REACH. VSS. CONTINUE TO MONITOR HER.
[2021-01-01] MEDS: ENOXAPARIN SODIUM 40 MG/0.4 ML DISP.SYRIN SQ SCH (20:58)
[2021-01-01] MEDS: CEFEPIME 2 GM in IV D5W 100 ML IV SCH (23:11)
[2021-01-02] VITALS: BP 110/74
--- NOTE | 2021-01-02 00:30 | NUR ---
[facility] RN NOTE PT NOTED REMOVED HER O2 NC, QUICKLY REAPPLIED THE NC, O2 DROPPED TO 85% ON 5L NC. APPLIED NON REBREATHING MASK WITH 15L O2, O2 SAT CAME UP TO 96%, INFORMED MICHELLE HARDY NP. NO NEW ORDER GIVEN CONTINUE TO MONITOR PT WITH NRB MASK 15L O2. PT MENTAL STATUS NO CHANGE. NO PAIN OR DISTRESS NOTED. NO SOB NOTED. CONTINUE TO MONITOR HER.
--- NOTE | 2021-01-02 03:00 | NUR ---
[facility] RN NOTE PT ABLE TO REMOVE THE MASK , O2 DROPPED TO 80'S. QUICKLY SECRUED THE NRB MASK AT 15 L, O2 SAT CAME BACK UP TO 96%. CONTINUE TO MONITOR HER CLOSELY.
[2021-01-02 04:00] VITALS: BP 130/80
[2021-01-02] MEDS: IV D5W 1,000 ML IV PRN (05:12)
--- NOTE | 2021-01-02 06:17 | NUR ---
[facility] RN NOTE PT IN BED AWAKE. KEPT ON SLIDING DOWN AND ABLE TO REMOVE MASK, EVEN WITH BILATERAL RESTRAINTS. REMINDED PT NOT TO DO THAT. ON TELE SR WITH OCCASIONAL PVC. REPOSITIONED HER Q2H, KEPT HER DRY AND CLEAN. ALL NEEDS ATTENDED. WILL ENDORSE TO DAY SHIFT NURSE FOR CONTINUE TO CARE.
--- NOTE | 2021-01-02 07:12 | NUR ---
[facility] OPENING NOTES; RECEIVED PT SLEEPING, IN SUPINE POS. PT A/OX1, PT IS CONFUSED, DOES NOT SPEAK ALGERIAN. SIN IS INTACT. PT ON NRB MASK @ 15L SATING AT 96-97%. TIN MIDLINE NOTED, PATENT, WITH NO SIGNS OF INFILTRATION. RELEASED RESTRAINTS. SKIN IS INTACT. PT REPOSITIONED. WILL CONTINUE TO MONITOR.
[2021-01-02 08:00] VITALS: BP 140/90
[2021-01-02] MEDS: GLUCERNA SHAKE 237 ML CAN PO SCH ×2 (08:18→17:17)
[2021-01-02] MEDS: DEXAMETHASONE SOD PHOSPHATE 10 MG/ML VIAL IV SCH (08:18)
[2021-01-02 12:00] VITALS: BP 123/84
[2021-01-02 12:23] LABS: BASOPHILS # (AUTO) 0.1 K/uL (0.0-0.2); BASOPHILS % (AUTO) 0.7 % (0.0-2.0); EOSINOPHILS % (AUTO) 0.2 % (0.0-6.0); HEMATOCRIT 39 % (33-45); HEMOGLOBIN 13.4 g/dL (11.5-14.8); LYMPHOCYTES # (AUTO) 0.9 K/uL (0.8-4.8); MEAN CORPUSCULAR HGB CONC 34 g/dl (31.0-36.0); MEAN CORPUSCULAR VOLUME 102 fL (82-100); MONOCYTES # (AUTO) 0.9 K/uL (0.1-1.30); NEUTROPHILS # (AUTO) 6.9 K/uL (1.8-8.9); NEUTROPHILS % (AUTO) 79.1 % (43.0-81.0); PLATELET COUNT (AUTO) 279 K/uL (150-450); RED BLOOD CELL COUNT(AUTO) 3.82 MIL/uL (4.0-5.2); WHITE BLOOD COUNT (AUTO) 8.7 K/uL (4.3-11.0)
[2021-01-02 16:00] VITALS: BP 140/89
[2021-01-02 16:05] LABS: CREATININE 1.1 mg/dL (0.6-1.3); POTASSIUM 4.6 mmol/L (3.5-5.1)
[2021-01-02 16:06] LABS: CALCIUM, SERUM 8.2 mg/dL (8.5-10.1)
[2021-01-02 16:17] LABS: ALBUMIN 2.9 g/dL (3.4-5.0); BILIRUBIN,TOTAL 0.5 mg/dL (0.2-1.0); MAGNESIUM 2.4 mg/dL (1.8-2.4); PHOSPHORUS 3.9 mg/dL (2.5-4.9)
[2021-01-02 16:18] LABS: TOTAL PROTEIN, SERUM 7.2 g/dL (6.4-8.2)
--- NOTE | 2021-01-02 16:52 | NUR ---
RN NOTES; LAB CALLED TO REPORT PT GLUCOSE WAS 416. RECHECK B/S TO CONFIRM WITH RESULT 379. PAGED DNP. PT IS ON D5W @100ML/HR. PT IS EATING AND DRINKING BETWEEN 50%-75%. PT IS TAKING DEXAMETHASONE. AWAITING FOR FURTHER ORDERS. WILL CONTINUE TO MONITOR.
[2021-01-02] MEDS: BLOOD SUGAR DIAGNOSTIC 1 EACH STRIP IN SCH ×2 (17:18→22:20)
[2021-01-02] MEDS: prednisoLONE ACETATE 1% SUSP 5 ML BOTTLE RIGHTEYE SCH (17:24)
[2021-01-02] MEDS: INSULIN REGULAR, HUMAN 100 UNIT/ML 3 ML VIAL SQ PRN ×2 (17:25→22:22)
[2021-01-02] MEDS ORDERED: DEXTROSE 50%-WATER 50 ML DISP.SYRIN IV PRN (17:30)
--- NOTE | 2021-01-02 18:48 | NUR ---
RN CLOSING NOTES PT IN BED RESTING, PT REPOSITIONED Q2H. PT A/OX1, CONFUSED. PT DOES NOT SPEAK MONGOLIAN. PT ON NRB @ 15L SAT AT 99%. PT ON R&L SOFT WRIST RESTRAINTS TO BE RENEWED AT 0300. TIN#18 RUNNING D5W @100ML/HR. PATENT, WITH NO SIGNS OF INFILTRATION. PT ON ACCU CHECK Q6H. NO SIGNIFICANT CHANGES IN PT HEALTH STATUS. PT KEPT CLEAN, DRY, AND COMFORTABLE. SAFETY MEASURES RENDERED, BED IN LOWEST POSITION, LOCKED WITH CALL LIGHT WITHIN REACH. ENDORSED TO PHYSICAL THERAPY TEACHER RN IN STABLE CONDITION.
[2021-01-02 20:00] VITALS: BP 137/86
[2021-01-02] MEDS: CITALOPRAM HYDROBROMIDE 20 MG TABLET PO SCH (21:13)
[2021-01-02] MEDS: LATANOPROST EYE DROP 0.005% 2.5 ML BOTTLE EACHEYE SCH (21:13)
[2021-01-02] MEDS: ARIPIPRAZOLE 2 MG TABLET PO SCH (21:13)
[2021-01-02] MEDS: ENOXAPARIN SODIUM 40 MG/0.4 ML DISP.SYRIN SQ SCH (21:35)
[2021-01-02] MEDS: CEFEPIME 2 GM in IV D5W 100 ML IV SCH (22:12)
[2021-01-03] VITALS (30 sets, daily range): BP systolic 80–159; BP diastolic 23–132
--- NOTE | 2021-01-03 06:52 | NUR ---
RN CLOSING NOTES; PATIENT ON 15L NRM, PATIENT ATTEMPTING TO REMOVE MASK EVEN WITH RESTRAINS, PATIENT TENTS TO DESATURATES QUICKLY, SOON PATIENT REMOVES O2 MASK, O2 DROPS TO 70S, CLOSELY MONITORING DURING THE NIGHT, KEPT PATIENT SAFE ALL NIGHT, BILATERAL WRIST RESTRAINS IN PLACED, FREQUENT SKIN CHECKS DONE, NO CIRCULATION COMPROMISED, AND NO ABNORMALITIES NOTES AT SITE, PT KEPT CLEAN, DRY, ALL SAFETY MEASURES RENDERED, BED LOCKED AND IN LOWEST POSITION, WITH CALL LIGHT WITHIN REACH, WILL ENDORSED PATIENT TO ONCOMING NURSE FOR CONTINUATION OF CARE.
[2021-01-03 06:54] LABS: CALCIUM, SERUM 8.9 mg/dL (8.5-10.1); MAGNESIUM 2.6 mg/dL (1.8-2.4); PHOSPHORUS 3.1 mg/dL (2.5-4.9)
[2021-01-03 07:29] LABS: BASOPHILS # (AUTO) 0.1 K/uL (0.0-0.2); BASOPHILS % (AUTO) 0.9 % (0.0-2.0); EOSINOPHILS % (AUTO) 0.4 % (0.0-6.0); HEMATOCRIT 40 % (33-45); HEMOGLOBIN 13.9 g/dL (11.5-14.8); LYMPHOCYTES # (AUTO) 1.3 K/uL (0.8-4.8); LYMPHOCYTES % (AUTO) 11.7 % (20.0-44.0); MEAN CORPUSCULAR HGB CONC 35 g/dl (31.0-36.0); MEAN CORPUSCULAR VOLUME 104 fL (82-100); MONOCYTES # (AUTO) 1.1 K/uL (0.1-1.30); MONOCYTES % (AUTO) 10.2 % (2.0-12.0); NEUTROPHILS # (AUTO) 8.5 K/uL (1.8-8.9); NEUTROPHILS % (AUTO) 76.8 % (43.0-81.0); PLATELET COUNT (AUTO) 322 K/uL (150-450); RED BLOOD CELL COUNT(AUTO) 3.86 MIL/uL (4.0-5.2)
--- NOTE | 2021-01-03 07:32 | NUR ---
RN NOTE PATIENT IS IN BED WITH HOB AT SEMI FOWLERS POSITION. PATIENT IS ON 15L NRB MASK. PATIENT IS CONFUSED. TIN MIDLINE IS PATENT AND INTACT. BED IS LOCKED IN THE LOWEST POSITION, 3 GUARD RAILS RAISED, CALL MCGOVERN WITHIN REACH, AND ALL HOSPITAL SAFETY PRECAUTIONS ARE BEING FOLLOWED. WILL CONTINUE TO MONITOR THROUGHOUT SHIFT.
[2021-01-03] MEDS: BLOOD SUGAR DIAGNOSTIC 1 EACH STRIP IN SCH ×4 (07:44→22:00)
--- NOTE | 2021-01-03 08:00 | NUR ---
RN NOTE DESIRAE MIDLINE REMOVED BY PATIENT.
[2021-01-03 08:35] LABS: C-REACTIVE PROTEIN 2.1 mg/dL (0.0-0.9)
[2021-01-03] MEDS: GABAPENTIN 100 MG CAPSULE PO SCH (08:43)
[2021-01-03] MEDS: FLUTICASONE/VILANTEROL 1 EACH BLST.W.DEV IH SCH (08:44)
[2021-01-03] MEDS: DEXAMETHASONE SOD PHOSPHATE 10 MG/ML VIAL IV SCH ×2 (08:44→09:00)
[2021-01-03] MEDS: GLUCERNA SHAKE 237 ML CAN PO SCH ×2 (08:44→16:23)
[2021-01-03] MEDS: prednisoLONE ACETATE 1% SUSP 5 ML BOTTLE RIGHTEYE SCH ×3 (08:45→16:41)
[2021-01-03] MEDS ORDERED: LOSARTAN POTASSIUM 50 MG TABLET PO SCH (09:00)
[2021-01-03] MEDS ORDERED: AMLODIPINE BESYLATE 5 MG TABLET PO SCH (09:00)
[2021-01-03] MEDS ORDERED: METOPROLOL SUCCINATE 50 MG TAB.SR.24H PO SCH (09:00)
[2021-01-03] MEDS: INSULIN REGULAR, HUMAN 100 UNIT/ML 3 ML VIAL SQ PRN ×3 (11:40→23:43)
--- NOTE | 2021-01-03 12:00 | NUR ---
RN NOTE PATIENT SATURATING 85% ON 15L NRB. RT NOTIFIED AND PLACED PATIENT ON HI FLOW 40L 100%. DR. PATEL AWARE. WILL CONTINUE TO MONITOR.
--- NOTE | 2021-01-03 12:15 | NUR ---
RT PT FOUND ON 15L VIA NRB, SpO2 AT 85-86%. PLACED PT ON HFNC 40L, 100% PER MD ORDER. SARAH ATKINS AWARE. WILL CONTINUE TO MONITOR THE PATIENT CLOSELY.
--- NOTE | 2021-01-03 14:06 | NUR ---
RT NOTE ABG MACHINE DOWN. DOWNTIME PROCEDURES DONE. POST ABG RESULTS SHOWN TO CHARGE NURSE ADALBERTO. NO CHANGES AT THIS TIME. TRANSFERRED PT TO ICU PER MD ORDER. PLACED PT BACK ON HFNC AT 40L, 100%. WILL CONTINUE TO MONITOR THE PATIENT CLOSELY FOR ANY CHANGES.
--- NOTE | 2021-01-03 14:53 | NUR ---
RN NOTES RECEIVED PT FROM TELE IN ROOM 255, PT IS FRISIAN SPEAKING , CONFUSED , OPEN EYES TO VERBAL STIMULI, LETHARGIC , ON TELE SR HR IN 80'S , ON HIGH FLOW O2 , LOVELL DRAINING TO GRAVITY. R UPPER ARM MIDLINE SITE CLEAN ,DRY AND INTACT, SR UP x3, CALL LIGHT WITHIN EASY REACH, CONTINUE TO MONITOR
[2021-01-03] MEDS: IV D5W 1,000 ML IV PRN (15:28)
--- NOTE | 2021-01-03 18:15 | NUR ---
RN NOTES PT SBP IS IN LOW 80'S , REHAB NURSE NOTIFIED, ORDER RECEIVED TO START PT ON LEVO DRIP .
[2021-01-03] MEDS: NOREPINEPHRINE 8 MG in IV NS 0.9% 242 ML IV PRN (18:22)
--- NOTE | 2021-01-03 18:40 | NUR ---
RN NOTES PT REMAINS ON HIGH FLOW O2 , LETHARGIC , RESPONDS TO VERBAL STIMULI, ON LEVO , DRIP AT .1 MCG/KG/HR, O2 SAT WNL, SR UP x3, CALL LIGHT WITHIN EASY REACH, BED LOCKED AND IN LOWEST POSITION, WILL ENDORSE TO TIEING MACHINE OPERATOR NURSE FOR CONTINUITY OF CARE .
--- NOTE | 2021-01-03 21:08 | NUR ---
RECEIVED PT ON HFNC 40L AND FIO2 100%. O2 SAT 92%. CONTINUE TO MONITOR. Addendum: 01/03/21 at 2109 by RAQUEL BERMUDEZ RT Amended: Links added.
--- NOTE | 2021-01-03 21:46 | NUR ---
ICU/BRAIN PICKER LOVENOX SQ LOOKS LIKE IT WAS PULLED OUT IN THE MORNING. THIS WAS CHANGED TO REFLECT THAT THIS SHOULD BE GIVEN IN THE MORNING.
[2021-01-03] MEDS: MONTELUKAST SODIUM (10MG) 10 MG TABLET PO SCH (22:00)
[2021-01-03] MEDS: LATANOPROST EYE DROP 0.005% 2.5 ML BOTTLE EACHEYE SCH (22:00)
[2021-01-03] MEDS: CITALOPRAM HYDROBROMIDE 20 MG TABLET PO SCH (22:00)
[2021-01-03] MEDS: ARIPIPRAZOLE 2 MG TABLET PO SCH (22:00)
[2021-01-03] MEDS: CEFEPIME 2 GM in IV D5W 100 ML IV SCH (22:30)
--- NOTE | 2021-01-03 23:31 | NUR ---
ICU/CAR CLEANER MEDICATION @2200 MARLO CEBALLOS SINGULAR WERE HELD DUE TO PT IS VERY LETHARGIC. THIS WAS HELD DUE TO THE FACT FOR POTENTIAL ASPIRATION. WILL CONTINUE TO MONITOR THIS PT.
[2021-01-04] VITALS (94 sets, daily range): BP systolic 48–147; BP diastolic 13–97
[2021-01-04] MEDS: IV D5W 1,000 ML IV PRN ×3 (01:06→20:23)
--- NOTE | 2021-01-04 01:35 | NUR ---
ICU/FIRE CONTROL TECHNICIAN G LEFT TWITCHING NOTED MADE MD AWARE, ALSO SATURATION IS HIGH 80'S. MD SCRAP BREAKER MADE AWARE OF THIS SAID TO DO ABG THEN CALL BACK WITH RESULTS.
--- NOTE | 2021-01-04 01:58 | NUR ---
STAT ABG DONE. RN NOTIFIED WITH THE RESULT.
--- NOTE | 2021-01-04 02:10 | NUR ---
ICU/DISPLAY ASSOCIATE STAT ABG DONE, RESULTS GIVEN TO TICKET MAKER HAMM[facility]. PT IS PLACED IN 15 LITERS NRB MASK. ALSO CHARGE NURSE AWARE OF THESE RESULTS. PT IS NOW 40L WITH FIO2 100% PLUS 15L NRB, PT HAS COVID.
--- NOTE | 2021-01-04 04:07 | NUR ---
ICU/TRANSPORTATION ENGINEERING TECHNICIAN PT WAS CLEAN AND REPOSITIONED TO HELP INCREASE OXYGENATION.
[2021-01-04 04:24] LABS: BASOPHILS % (AUTO) 0.4 % (0.0-2.0); EOSINOPHILS % (AUTO) 1.4 % (0.0-6.0); HEMATOCRIT 32 % (33-45); HEMOGLOBIN 12.5 g/dL (11.5-14.8); LYMPHOCYTES # (AUTO) 1.5 K/uL (0.8-4.8); LYMPHOCYTES % (AUTO) 13.5 % (20.0-44.0); MEAN CORPUSCULAR HGB CONC 39 g/dl (31.0-36.0); MEAN CORPUSCULAR VOLUME 111 fL (82-100); MONOCYTES # (AUTO) 0.7 K/uL (0.1-1.30); MONOCYTES % (AUTO) 5.8 % (2.0-12.0); NEUTROPHILS % (AUTO) 78.9 % (43.0-81.0); PLATELET COUNT (AUTO) 317 K/uL (150-450); RED BLOOD CELL COUNT(AUTO) 2.85 MIL/uL (4.0-5.2); WHITE BLOOD COUNT (AUTO) 11.5 K/uL (4.3-11.0)
[2021-01-04 04:36] LABS: CALCIUM, SERUM 7.5 mg/dL (8.5-10.1); CARBON DIOXIDE 24 mmol/L (21-32); CHLORIDE 117 mmol/L (98-107); CREATININE 1.5 mg/dL (0.6-1.3); GLUCOSE 220 mg/dL (74-106); MAGNESIUM 2.5 mg/dL (1.8-2.4); PHOSPHORUS 3.8 mg/dL (2.5-4.9); POTASSIUM 3.7 mmol/L (3.5-5.1); SODIUM SERUM 152 mmol/L (136-145); UREA NITROGEN, BLOOD 43 mg/dL (7-18)
--- NOTE | 2021-01-04 06:35 | NUR ---
ICU/RICE DRIER PT CONTINUES TO HAVE LOW SATURATION AT 86-89% WHILE ON HIGH FLOW PLUS NRB 15LITERS. WILL CONTINUE TO MONITOR THIS PT.
--- NOTE | 2021-01-04 07:00 | NUR ---
RN NOTES RECEIVED PT ON BED, QATARI SPEAKING , CONFUSED , OPEN EYES TO VERBAL STIMULI, LETHARGIC , ON HIGH FLOW O2 AND NONREBREATHER MASK , O2 SAT IN LOW 90'S , ON TELE SR HR IN 80'S , ON LEVO DRIP AT .1 MCG/KG/MIN RUNNING FOR BP SUPPORT, LOVELL DRAINING TO GRAVITY. R UPPER ARM MIDLINE SITE CLEAN ,DRY AND INTACT, SR UP x3, CALL LIGHT WITHIN EASY REACH, CONTINUE TO MONITOR
[2021-01-04] MEDS: BLOOD SUGAR DIAGNOSTIC 1 EACH STRIP IN SCH ×5 (07:44→23:30)
[2021-01-04] MEDS: INSULIN REGULAR, HUMAN 100 UNIT/ML 3 ML VIAL SQ PRN ×3 (07:44→17:46)
[2021-01-04] MEDS: GLUCERNA SHAKE 237 ML CAN PO SCH ×2 (08:00→16:49)
[2021-01-04] MEDS: GABAPENTIN 100 MG CAPSULE PO SCH (08:11)
[2021-01-04] MEDS: prednisoLONE ACETATE 1% SUSP 5 ML BOTTLE RIGHTEYE SCH ×3 (08:12→16:50)
[2021-01-04] MEDS: FLUTICASONE/VILANTEROL 1 EACH BLST.W.DEV IH SCH (08:13)
[2021-01-04] MEDS: DEXAMETHASONE SOD PHOSPHATE 10 MG/ML VIAL IV SCH (08:13)
--- NOTE | 2021-01-04 08:14 | NUR ---
RN NOTES PT IS LETHARGIC AND DOES NOT FOLLOW COMMAND, PO MEDS AND NASAL SPRAYS HELD AT THIS TIME
[2021-01-04] MEDS: ACETAMINOPHEN 650 MG/SUPP.RECT RC PRN (08:16)
--- NOTE | 2021-01-04 11:00 | NUR ---
RN NOTES PT'S DAUGHTER REQUESTING TO TALK TO PCP, MAY REAL ESTATE BROKER NOTIFIED.
[2021-01-04] MEDS: NOREPINEPHRINE 8 MG in IV NS 0.9% 242 ML IV PRN (11:51)
--- NOTE | 2021-01-04 12:00 | NUR ---
RN NOTES PT ON HIGH FLOW AND NON REBREATHER MASK , O2 SAT WNL, CONTINUE TO MONITOR.
[2021-01-04] MEDS: ACETAMINOPHEN 325 MG TABLET PO PRN (15:50)
--- NOTE | 2021-01-04 18:00 | NUR ---
RN NOTES PT REMAINS ON HIGH FLOW AND NONREBREATHER MASK, O2 SAT WNL. PT IS LETHARGIC AT TIMES ,IVF AT 100CC/HR RUNNING , LEVO DRIP AT .06 MCG/KG/MIN RUNNING FOR BP SUPPORT, T=99.0 AXILIARY, AT THIS TIME, SR UP x3, CALL LIGHT WITHIN EASY REACH, BED LOCKED AND IN LOWEST POSITION, WILL ENDORSE TO EMERGENCY DEPARTMENT COORDINATOR NURSE FOR CONTINUITY OF CARE .
--- NOTE | 2021-01-04 19:00 | NUR ---
RN NOTE RECEIVED PATIENT IN BED, LETHARGIC, SLUGGISH, IN NO S/SX OF ACUTE DISTRESS AT THIS TIME. RESPIRATIONS APPEARS UNLABORED, SATURATION AT 95% ON 40L VIA HIGH FLOW NC AT 100% FIO2 AND 15LPM VIA NON REBREATHER MASK, SR ON THE MONITOR, HR IS 68. NOTED TIN MIDLINE, PATENT AND FLUSHING WELL, NO S/S OF INFECTION, WITH D5W INFUSING AT 100 ML/HR, AND LEVOPHED AT DOSE RATE OF 0.06 MCG/KG/MIN. B SOFT WRIST RESTRAINTS IN PLACE, SKIN AND CIRCULATION WAS CHECKED PER PROTOCOL. LOVELL CATHETER CONNECTED TO URINE BAG IN PLACE, DRAINING TO A CLEAR, YELLOW OUTPUT. SAFETY MEASURES IMPLEMENTED. PATIENT BED ALARM IS ON. HEAD OF BED ELEVATED. BED IS LOCKED, IN LOWEST POSITION AND SIDE RAILS UP. CALL LIGHT WITHIN REACH OF THE PATIENT. WILL CONTINUE TO MONITOR AND REASSESS FOR ANY CHANGES.
--- NOTE | 2021-01-04 20:19 | NUR ---
RECEIVED PT ON DOUBLE OXYGEN SET UP HFNC 40L, 100% + NRB 15L. O2 SAT 97%. CONTINUE TO MONITOR. Addendum: 01/04/21 at 2020 by RAQUEL BERMUDEZ RT Amended: Links added.
[2021-01-04] MEDS: CITALOPRAM HYDROBROMIDE 20 MG TABLET PO SCH (22:00)
[2021-01-04] MEDS: ARIPIPRAZOLE 2 MG TABLET PO SCH (22:00)
[2021-01-04] MEDS: LATANOPROST EYE DROP 0.005% 2.5 ML BOTTLE EACHEYE SCH (22:00)
[2021-01-04] MEDS: MONTELUKAST SODIUM (10MG) 10 MG TABLET PO SCH (22:00)
[2021-01-04] MEDS: CEFEPIME 2 GM in IV D5W 100 ML IV SCH (22:12)
--- NOTE | 2021-01-04 22:20 | NUR ---
RN NOTE ACCUCHECK RESULTED 356 DESPITE PT UNABLE TO EAT SINCE LAST NIGHT DUE TO RISK OF ASPIRATION PATIENT HAS BEEN LETHARGIC. DR CUEVA WAS NOTIFIED, ORDER RECEIVED TO CHANGE SLIDING SCALE FROM MILD TO AGGRESSIVE. ACCOUNTING MACHINE MECHANIC EUGENIO AWARE.
[2021-01-04] MEDS: *INSULIN REGULAR(HUMULIN R)HUM 100 UNIT/ML VIAL SQ PRN (23:34)
[2021-01-05] VITALS (75 sets, daily range): BP systolic 39–149; BP diastolic 28–94
--- NOTE | 2021-01-05 01:00 | NUR ---
RN NOTE NOTED PATIENT MORE AWAKE, AND REQUESTED FOR WATER. PROVIDED PATIENT WITH SLOW SIPS, NO GAGGING OR COUGHING NOTED. WILL CONTINUE TO MONITOR PATIENT.
[2021-01-05 04:27] LABS: BASOPHILS % (AUTO) 0.3 % (0.0-2.0); EOSINOPHILS % (AUTO) 0.2 % (0.0-6.0); HEMATOCRIT 32 % (33-45); HEMOGLOBIN 12.2 g/dL (11.5-14.8); LYMPHOCYTES % (AUTO) 7.6 % (20.0-44.0); MEAN CORPUSCULAR HGB CONC 38 g/dl (31.0-36.0); MEAN CORPUSCULAR VOLUME 107 fL (82-100); MONOCYTES # (AUTO) 0.8 K/uL (0.1-1.30); MONOCYTES % (AUTO) 6.6 % (2.0-12.0); NEUTROPHILS % (AUTO) 85.3 % (43.0-81.0); PLATELET COUNT (AUTO) 332 K/uL (150-450); RED BLOOD CELL COUNT(AUTO) 2.97 MIL/uL (4.0-5.2); WHITE BLOOD COUNT (AUTO) 12.9 K/uL (4.3-11.0)
[2021-01-05 04:42] LABS: ALANINE AMINOTRANSFERASE 47 U/L (12-78); ALBUMIN 2.4 g/dL (3.4-5.0); ALKALINE PHOSPHATASE 67 U/L (46-116); ASPARTATE AMINOTRANSFERASE 38 U/L (15-37); BILIRUBIN,TOTAL 0.3 mg/dL (0.2-1.0); CARBON DIOXIDE 24 mmol/L (21-32); CHLORIDE 114 mmol/L (98-107); CREATININE 1.4 mg/dL (0.6-1.3); GLUCOSE 297 mg/dL (74-106); MAGNESIUM 2.4 mg/dL (1.8-2.4); PHOSPHORUS 2.4 mg/dL (2.5-4.9); SODIUM SERUM 147 mmol/L (136-145); TOTAL PROTEIN, SERUM 7.1 g/dL (6.4-8.2); UREA NITROGEN, BLOOD 34 mg/dL (7-18)
[2021-01-05 05:10] LABS: FERRITIN 1674 ng/mL (8-388)
[2021-01-05 05:26] LABS: C-REACTIVE PROTEIN 13.7 mg/dL (0.0-0.9)
[2021-01-05] MEDS: IV D5W 1,000 ML IV PRN ×2 (06:52→16:52)
[2021-01-05] MEDS: BLOOD SUGAR DIAGNOSTIC 1 EACH STRIP IN SCH ×4 (07:49→21:36)
[2021-01-05] MEDS: GLUCERNA SHAKE 237 ML CAN PO SCH ×2 (08:00→17:19)
[2021-01-05] MEDS: prednisoLONE ACETATE 1% SUSP 5 ML BOTTLE RIGHTEYE SCH ×3 (09:00→17:20)
--- NOTE | 2021-01-05 09:00 | NUR ---
RN NOTE UNABLE TO ADMINISTER PREDNISOLONE ACETATE CALLED PHARMACY TO DISPENSE MEDICATION, MEDICATION NOT DELIVERED AFTER FOLLOW UP MULTIPLE TIMES.
[2021-01-05] MEDS: INSULIN REGULAR, HUMAN 100 UNIT/ML 3 ML VIAL SQ PRN ×3 (09:12→17:37)
[2021-01-05] MEDS: FLUTICASONE/VILANTEROL 1 EACH BLST.W.DEV IH SCH (09:12)
[2021-01-05] MEDS: DEXAMETHASONE SOD PHOSPHATE 10 MG/ML VIAL IV SCH (09:12)
[2021-01-05] MEDS: ENOXAPARIN SODIUM 40 MG/0.4 ML DISP.SYRIN SQ SCH (09:13)
[2021-01-05] MEDS: GABAPENTIN 100 MG CAPSULE PO SCH (09:13)
[2021-01-05] MEDS ORDERED: K PHOS NEUTRAL 250 MG TABLET PO ONE (10:00)
--- NOTE | 2021-01-05 11:26 | NUR ---
RN NOTE UNABLE TO ADMINISTER PREDNISOLONE ACETATE CALLED PHARMACY TO DISPENSE MEDICATION, MEDICATION NOT DELIVERED AFTER FOLLOW UP MULTIPLE TIMES. DR OLVERA, NOTIFIED AND MADE AWARE.
--- NOTE | 2021-01-05 14:30 | NUR ---
RN NOTE REPORT GIVEN TO RN COTY.
--- NOTE | 2021-01-05 14:30 | NUR ---
Patient's report received from nurse and patient will be monitored.
[2021-01-05] MEDS: NOREPINEPHRINE 8 MG in IV NS 0.9% 242 ML IV PRN (16:51)
--- NOTE | 2021-01-05 19:06 | NUR ---
RN CLOSING NOTES Patient is alert and oriented with forgetfulness. Patient is on high flow 40 liters with 100%. Patient is saturating of 98%. No c/o pain or discomfort. Bilateral soft wrist restraints noted and restraints free period. Patient's hob kept elevated. Will continue to monitor. Call light with in reach.
--- NOTE | 2021-01-05 19:35 | NUR ---
PT IS AWAKE ON HFNC 40L, FIO2 100%. PT TOLERATING SETTINGS. O2 SAT 92%. CONTINUE TO MONITOR. Addendum: 01/05/21 at 1937 by RAQUEL BERMUDEZ RT Amended: Links added.
[2021-01-05] MEDS: LORAZEPAM 0.5 MG TABLET PO PRN (20:05)
[2021-01-05] MEDS: CITALOPRAM HYDROBROMIDE 20 MG TABLET PO SCH (21:35)
[2021-01-05] MEDS: ARIPIPRAZOLE 2 MG TABLET PO SCH (21:35)
[2021-01-05] MEDS: MONTELUKAST SODIUM (10MG) 10 MG TABLET PO SCH (21:36)
[2021-01-05] MEDS: *INSULIN REGULAR(HUMULIN R)HUM 100 UNIT/ML VIAL SQ PRN (21:45)
[2021-01-05] MEDS: LATANOPROST EYE DROP 0.005% 2.5 ML BOTTLE EACHEYE SCH (22:00)
[2021-01-06] VITALS (54 sets, daily range): BP systolic 99–151; BP diastolic 35–87
[2021-01-06] MEDS: IV D5W 1,000 ML IV PRN ×2 (02:16→13:05)
[2021-01-06 04:49] LABS: EOSINOPHILS % (AUTO) 0.1 % (0.0-6.0); HEMOGLOBIN 11.8 g/dL (11.5-14.8); MONOCYTES # (AUTO) 0.8 K/uL (0.1-1.30)
[2021-01-06 05:00] LABS: BASOPHILS # (AUTO) 0.1 K/uL (0.0-0.2); BASOPHILS % (AUTO) 0.6 % (0.0-2.0); HEMATOCRIT 35 % (33-45); LYMPHOCYTES # (AUTO) 1.1 K/uL (0.8-4.8); LYMPHOCYTES % (AUTO) 7.3 % (20.0-44.0); MEAN CORPUSCULAR HGB CONC 34 g/dl (31.0-36.0); MEAN CORPUSCULAR VOLUME 103 fL (82-100); MONOCYTES % (AUTO) 5.2 % (2.0-12.0); NEUTROPHILS # (AUTO) 12.6 K/uL (1.8-8.9); NEUTROPHILS % (AUTO) 86.8 % (43.0-81.0); PLATELET COUNT (AUTO) 324 K/uL (150-450); RED BLOOD CELL COUNT(AUTO) 3.38 MIL/uL (4.0-5.2); WHITE BLOOD COUNT (AUTO) 14.5 K/uL (4.3-11.0)
[2021-01-06 05:25] LABS: CARBON DIOXIDE 24 mmol/L (21-32); CHLORIDE 110 mmol/L (98-107); CREATININE 1.2 mg/dL (0.6-1.3); GLUCOSE 332 mg/dL (74-106); MAGNESIUM 2.3 mg/dL (1.8-2.4); PHOSPHORUS 2.4 mg/dL (2.5-4.9); POTASSIUM 3.7 mmol/L (3.5-5.1); SODIUM SERUM 143 mmol/L (136-145); UREA NITROGEN, BLOOD 24 mg/dL (7-18)
--- NOTE | 2021-01-06 07:10 | NUR ---
RN OPENING NOTES RECEIVED PT IN BED, AWAKE. PITCAIRN ISLANDER SPEAKING. ON 40L VIA HIGH FLOW NC AT 100% FIO2. NO SOB OOR S/SX OF ACUTE DISTRESS AT THIS TIME. SR ON MONITOR. TIN MIDLINE INTACT, PATENT AND FLUSHED. D5W @100 ML/HR AND LEVO @0.04MCG/KG/MIN. B SOFT WRIST RESTRAINTS IN PLACE. SKIN AND CIRCULATION WAS CHECKED PER PROTOCOL. LOVELL CATH IN PLACE DRAINING CLEAR YELLOW URINE. SAFETY MEASURES IMPLEMENTED. CALL LIGHT WITHIN REACH. HOB ELEVATED. BED LOCKED AND IN LOWEST POSITION WITH SIDE RAILS UP X3. WILL CONTINUE TO MONITOR.
[2021-01-06] MEDS: BLOOD SUGAR DIAGNOSTIC 1 EACH STRIP IN SCH ×4 (08:00→22:20)
[2021-01-06] MEDS: GLUCERNA SHAKE 237 ML CAN PO SCH ×2 (08:00→18:21)
[2021-01-06] MEDS: DEXAMETHASONE SOD PHOSPHATE 10 MG/ML VIAL IV SCH (08:08)
[2021-01-06] MEDS: GABAPENTIN 100 MG CAPSULE PO SCH (08:08)
[2021-01-06] MEDS: FLUTICASONE/VILANTEROL 1 EACH BLST.W.DEV IH SCH (08:09)
[2021-01-06] MEDS: prednisoLONE ACETATE 1% SUSP 5 ML BOTTLE RIGHTEYE SCH ×3 (08:09→16:42)
[2021-01-06] MEDS: INSULIN REGULAR, HUMAN 100 UNIT/ML 3 ML VIAL SQ PRN ×4 (08:13→22:59)
[2021-01-06] MEDS: ENOXAPARIN SODIUM 40 MG/0.4 ML DISP.SYRIN SQ SCH (08:14)
[2021-01-06] MEDS ORDERED: K PHOS NEUTRAL 250 MG TABLET PO ONE (09:00)
[2021-01-06] MEDS: HYDROCORTISONE SOD SUCCINATE 100 MG/2 ML VIAL IV SCH ×2 (12:34→22:56)
--- NOTE | 2021-01-06 13:34 | NUR ---
RT Sterile water bag for Vapotherm changed. No SOB or respiratory distress noted. Addendum: 01/06/21 at 1335 by KATELYN FOSS RT Amended: Links added.
--- NOTE | 2021-01-06 16:00 | NUR ---
RN NOTES PT PULLED OUT MIDLINE. CHARGE NURSE MADE. NURSING SUP MADE AWARE. ATTEMPTED PERIPHERAL IV, UNSUCCESSFUL. VS STABLE.
--- NOTE | 2021-01-06 16:30 | NUR ---
RN NOTES PER NURSING SUP MIDLINE NURSE WILL BE AVAILABLE @2200.
--- NOTE | 2021-01-06 18:00 | NUR ---
RN NOTES BS OF 125, NO INSULIN COVERAGE.
--- NOTE | 2021-01-06 19:16 | NUR ---
RN NOTES NO SIGNIFICANT CHANGES THROUGHOUT THE SHIFT. FOR MIDLINE INSERTION. NO SOB. ALL DUE MEDS GIVEN. NEEDS ATTENDED. KEPT CLEAN AND COMFORTABLE. SAFETY MEASURES IN PLACE. ENDORSED TO NIGHT RN FOR JOSE.
--- NOTE | 2021-01-06 19:45 | NUR ---
RECAPPER OPENING NOTE REC'D PT IN BED, ALERT, VINCENTIAN SPEAKING. PT IS ON HIGH FLOW 40L @90% NO RESP DISTRESS OR SOB NOTED. PT REMAINS WITH SR ON TELE MONITOR, BP WNL OFF LEVO. PT HAS NO IV ACCESS AT THIS TIME, PT PULLED OUT ACCESS PER REPORT. MIDLINE NURSE TO PLACE THIS SHIFT, WILL RSEUME IVF WHEN PLACED. PT HAS LOVELL CATH DRAINING TO GRAVITY. AT THIS TIME PT REMAINS ON SOFT YARA WRIST RESTRAINTS, CIRCULATION SKIN CHECKED PER PROTOCOL. SAFETY MEASURES IN PLACE. HOB ELEVATED TOLERATED.SIDE RAILS UP X3, BED LOCKED IN LOWEST POSITION BED ALARM ON. WILL CONT TO MONITOR THROUGHOUT SHIFT.
--- NOTE | 2021-01-06 21:30 | NUR ---
PT O2 SAT 84-86% FIO2 INCREASED TO 100% WILL CONT TO MONITOR Addendum: 01/07/21 at 0602 by ROSIBEL BROTHERS RN PT O2 SAT AFTER INCREASE O2 89-91%
[2021-01-06] MEDS: LATANOPROST EYE DROP 0.005% 2.5 ML BOTTLE EACHEYE SCH (22:00)
[2021-01-06] MEDS: CITALOPRAM HYDROBROMIDE 20 MG TABLET PO SCH (22:20)
[2021-01-06] MEDS: ARIPIPRAZOLE 2 MG TABLET PO SCH (22:20)
[2021-01-06] MEDS: MONTELUKAST SODIUM (10MG) 10 MG TABLET PO SCH (22:20)
--- NOTE | 2021-01-06 22:50 | NUR ---
RN NOTE MIDLINE PLACED, TIN #18 GOOD BLOOD RETURN NOTED, PT CONNECTED BACK TO IVF D5W RUNNING AT 60ML/HR
[2021-01-06] MEDS: *INSULIN REGULAR(HUMULIN R)HUM 100 UNIT/ML VIAL SQ PRN (23:46)
[2021-01-07] VITALS (45 sets, daily range): BP systolic 37–149; BP diastolic 16–108
--- NOTE | 2021-01-07 01:00 | NUR ---
RN NOTE PER DAY SHIFT NURSE, PT HAS POOR INTAKE, UNSUCCESSFUL WHEN FEEDING FOOD DAUGHTER BROUGHT FROM HOME. PT TOOK ONLY A FEW SMALL BITES.
[2021-01-07] MEDS: LORAZEPAM 0.5 MG TABLET PO PRN (01:28)
[2021-01-07] MEDS: HYDROCORTISONE SOD SUCCINATE 100 MG/2 ML VIAL IV SCH ×3 (04:16→21:17)
[2021-01-07 04:25] LABS: BASOPHILS # (AUTO) 0.1 K/uL (0.0-0.2); BASOPHILS % (AUTO) 0.7 % (0.0-2.0); HEMATOCRIT 33 % (33-45); LYMPHOCYTES # (AUTO) 0.7 K/uL (0.8-4.8); LYMPHOCYTES % (AUTO) 7.1 % (20.0-44.0); MEAN CORPUSCULAR HGB CONC 33 g/dl (31.0-36.0); MEAN CORPUSCULAR VOLUME 99 fL (82-100); MONOCYTES # (AUTO) 0.5 K/uL (0.1-1.30); MONOCYTES % (AUTO) 5.2 % (2.0-12.0); NEUTROPHILS # (AUTO) 8.3 K/uL (1.8-8.9); PLATELET COUNT (AUTO) 232 K/uL (150-450); RED BLOOD CELL COUNT(AUTO) 3.36 MIL/uL (4.0-5.2); WHITE BLOOD COUNT (AUTO) 9.5 K/uL (4.3-11.0)
[2021-01-07 05:00] LABS: D-DIMER 1.46 mg/L(FEU (0.17-0.50)
[2021-01-07 05:19] LABS: BILIRUBIN,TOTAL 0.5 mg/dL (0.2-1.0); CALCIUM, SERUM 7.8 mg/dL (8.5-10.1); CREATININE 1.1 mg/dL (0.6-1.3); MAGNESIUM 2.1 mg/dL (1.8-2.4); PHOSPHORUS 3.3 mg/dL (2.5-4.9); POTASSIUM 3.9 mmol/L (3.5-5.1); TOTAL PROTEIN, SERUM 6.2 g/dL (6.4-8.2)
[2021-01-07] MEDS: IV D5W 1,000 ML IV PRN ×2 (05:36→13:33)
[2021-01-07 06:16] LABS: C-REACTIVE PROTEIN 3.7 mg/dL (0.0-0.9)
--- NOTE | 2021-01-07 06:38 | NUR ---
RN CLOSING NOTE PT IS TOLERATING INCREASE IN FIO2, O2 SATURATION IS 92% AT THIS TIME, TIN MIDLINE PLACED, SOFTWARE ASSET MANAGEMENT ANALYST UTILIZED, IVF RUNNING ORDERED. PT HAD 375CC URINE OUTPUT, BED BATH DOWN, ORAL CARE DONE. PT FREQUENTLY OFFERED NOURISHMENT/HYDRATION. NO S/S OF PAIN NOTED. BP STABLE OFF LEVO. SAFETY MEASURES IN PLACE. HOB ELEVATED TOLERATED, SIDE RAILS UP X3, BED LOCKED IN LOWEST POSITION WITH BED ALARM ON. WILL ENDORSE TO DAY SHIFT RN FOR CONTINUATION OF CARE
--- NOTE | 2021-01-07 07:00 | NUR ---
RN NOTES RECEIVED PT ON BED, ALERT, BULGARIAN SPEAKING. PT IS ON HIGH FLOW 40L @90% NO RESP DISTRESS OR SOB NOTED. PT REMAINS WITH SR ON TELE MONITOR, RIGHT UPPER ARM MIDLINE SITE CLEAN, DRY AND INTACT, PT HAS LOVELL CATH DRAINING TO GRAVITY. AT THIS TIME PT REMAINS ON SOFT YARA WRIST RESTRAINTS, CIRCULATION SKIN CHECKED PER PROTOCOL. SAFETY MEASURES IN PLACE. HOB ELEVATED TOLERATED.SIDE RAILS UP X3, BED LOCKED IN LOWEST POSITION BED ALARM ON. WILL CONT TO MONITOR .
[2021-01-07] MEDS: INSULIN REGULAR, HUMAN 100 UNIT/ML 3 ML VIAL SQ PRN ×4 (08:14→21:54)
[2021-01-07] MEDS: BLOOD SUGAR DIAGNOSTIC 1 EACH STRIP IN SCH ×4 (08:14→21:53)
[2021-01-07] MEDS: GABAPENTIN 100 MG CAPSULE PO SCH (08:16)
[2021-01-07] MEDS: ENOXAPARIN SODIUM 40 MG/0.4 ML DISP.SYRIN SQ SCH (08:16)
[2021-01-07] MEDS: DEXAMETHASONE SOD PHOSPHATE 10 MG/ML VIAL IV SCH (08:16)
[2021-01-07] MEDS: FLUTICASONE/VILANTEROL 1 EACH BLST.W.DEV IH SCH (08:17)
[2021-01-07] MEDS: GLUCERNA SHAKE 237 ML CAN PO SCH ×2 (08:18→16:43)
[2021-01-07] MEDS: prednisoLONE ACETATE 1% SUSP 5 ML BOTTLE RIGHTEYE SCH ×3 (08:18→16:44)
--- NOTE | 2021-01-07 10:00 | NUR ---
RN NOTE HIGH FLOW DECREASED TO 40% AND FIO2 TO 90% , O2 SAT WNL , NO DISTRESS NOTED, CONTINUE TO MONITOR.
--- NOTE | 2021-01-07 14:00 | NUR ---
RN NOTES PT IS MORE ALERT AND ORIENTED, O2 SAT WNL, ON 90% AND 40 L HIGH FLOW , CONTINUE TO MONITOR.
--- NOTE | 2021-01-07 18:00 | NUR ---
RN NOTES NO SIGNIFICANT CHANGES NOTED ON THIS SHIFT, PT REMAINS ON HIGH FLOW AT 90% AND 40L . O2 SAT WNL, WILL ENDORSE TO PROFESSOR OF ARCHAEOLOGY NURSE FOR CONTINUITY OF CARE .
--- NOTE | 2021-01-07 19:30 | NUR ---
RN NOTES RECEIVED PATIENT AWAKE ON BED. ON ISOALTION PRECAUTION DUE TO COVID+ WITH HI FLOW O2 40L AND FIO2 90%. AFEBRILE. VSS. PATIENT IS AOX2 PERSIAN SPEAKING. SR ON MONITOR. DENIES PAIN NO SOB OR APPARENT DISTRESS NOTED. IV SITE ON TIN MIDLINE RUNNING WITH D5W @ 60 ML.HR INTACT AND PATENT WITH GOOD BLD RETURN. ENCOURAGED TO TURN AND REPOSITION SAFELY WHILE ON BED. OFF FROM RESTRAINT WILL CLOSELY MONITOR. KEPT PT CLEAN AND DRY.
[2021-01-07] MEDS: CITALOPRAM HYDROBROMIDE 20 MG TABLET PO SCH (21:17)
[2021-01-07] MEDS: ARIPIPRAZOLE 2 MG TABLET PO SCH (21:18)
[2021-01-07] MEDS: MONTELUKAST SODIUM (10MG) 10 MG TABLET PO SCH (21:18)
[2021-01-07] MEDS: LATANOPROST EYE DROP 0.005% 2.5 ML BOTTLE EACHEYE SCH (21:20)
[2021-01-08] VITALS (27 sets, daily range): BP systolic 89–145; BP diastolic 47–82
[2021-01-08 04:36] LABS: BASOPHILS % (AUTO) 0.3 % (0.0-2.0); EOSINOPHILS % (AUTO) 0.1 % (0.0-6.0); HEMATOCRIT 32 % (33-45); HEMOGLOBIN 10.9 g/dL (11.5-14.8); LYMPHOCYTES # (AUTO) 0.8 K/uL (0.8-4.8); LYMPHOCYTES % (AUTO) 8.9 % (20.0-44.0); MEAN CORPUSCULAR HGB CONC 34 g/dl (31.0-36.0); MEAN CORPUSCULAR VOLUME 99 fL (82-100); MONOCYTES # (AUTO) 0.4 K/uL (0.1-1.30); MONOCYTES % (AUTO) 4.7 % (2.0-12.0); NEUTROPHILS # (AUTO) 7.7 K/uL (1.8-8.9); PLATELET COUNT (AUTO) 219 K/uL (150-450); RED BLOOD CELL COUNT(AUTO) 3.25 MIL/uL (4.0-5.2)
[2021-01-08 04:44] LABS: CALCIUM, SERUM 7.6 mg/dL (8.5-10.1); CREATININE 0.9 mg/dL (0.6-1.3); POTASSIUM 4.1 mmol/L (3.5-5.1)
[2021-01-08] MEDS: HYDROCORTISONE SOD SUCCINATE 100 MG/2 ML VIAL IV SCH ×3 (05:07→20:30)
--- NOTE | 2021-01-08 07:00 | NUR ---
RN NOTES RECEIVED PATIENT AWAKE ON BED. ON ISOLATION PRECAUTION DUE TO COVID+ WITH HI FLOW O2 40L AND FIO2 90%. AFEBRILE. PATIENT IS AOX2 STATELESS SPEAKING. SR ON MONITOR. DENIES PAIN NO SOB OR APPARENT DISTRESS NOTED. IV SITE ON TIN MIDLINE RUNNING WITH D5W @ 60 ML/hr , ENCOURAGED PO INTAKE AND TO TURN AND REPOSITION SAFELY WHILE ON BED. SR UP x3, CALL LIGHT WITHIN EASY REACH, CONTINUE TO MONITOR.
[2021-01-08] MEDS: IV D5W 1,000 ML IV PRN ×2 (07:07→07:13)
--- NOTE | 2021-01-08 07:14 | NUR ---
RN NOTES PATIENT ASLEEP WELL. NO ACUTE RESPIRATORY DISTRESS ON HI FLOW 40LPM FIO2 90%. DENIES PAIN. AFEBRILE. VSS. SR ON MONITOR. CONTINUE ON IVF OF D5 W @ 60 ML/HR. NO SIGNIFICANT CHANGES THROUGHOUT THE SHIFT. WILL ENDORSED CONTINUITY OF CARE TO AM NURSE.
[2021-01-08] MEDS: GLUCERNA SHAKE 237 ML CAN PO SCH ×2 (08:00→16:34)
[2021-01-08] MEDS: BLOOD SUGAR DIAGNOSTIC 1 EACH STRIP IN SCH ×4 (08:16→21:24)
[2021-01-08] MEDS: INSULIN REGULAR, HUMAN 100 UNIT/ML 3 ML VIAL SQ PRN ×2 (08:16→12:31)
[2021-01-08] MEDS: prednisoLONE ACETATE 1% SUSP 5 ML BOTTLE RIGHTEYE SCH ×3 (08:17→16:35)
[2021-01-08] MEDS: FLUTICASONE/VILANTEROL 1 EACH BLST.W.DEV IH SCH (08:17)
[2021-01-08] MEDS: GABAPENTIN 100 MG CAPSULE PO SCH (08:17)
[2021-01-08] MEDS: ENOXAPARIN SODIUM 40 MG/0.4 ML DISP.SYRIN SQ SCH (08:18)
--- NOTE | 2021-01-08 10:09 | NUR ---
fio2 incresed chula 90% to 95% due to 82% saturation. Addendum: 01/08/21 at 1010 by DUSTIN GAN RT Amended: Links added.
--- NOTE | 2021-01-08 14:00 | NUR ---
RN NOTES NAS D/ANTONIA PER DR FLOYD ORDER .
--- NOTE | 2021-01-08 18:00 | NUR ---
RN NOTES PT REMAINS ON 95% AND 40L HIGH FLOW O2, O2 SAT 88-93%, TACHYPNEIC AT TIMES , AFEBRILE , NO SIGNIFICANT. CHANGES NOTED ON THIS SHIFT, WILL ENDORSE TO DISASTER RECOVERY CONSULTANT NURSE FOR CONTINUITY OF CARE
--- NOTE | 2021-01-08 19:10 | NUR ---
EQUIPMENT SERVICES ASSOCIATE NOTE RECEIVED PATIENT IN BED RESTING ALERT ORIENTED X2 VERBALLY RESPONSIVE ON HIGH FLOW OXYGEN 40L FIO2:95% O2:90% IV SITE IS ON RIGHT UPPER ARM MIDLINE INTACT PATENT,INCONTINENT BOWEL/BLADDER SAFETY MEASURE IMPLEMENT BED IN LOW POSITION AND LOCKED HEAD OF THE BED ELEVATED,CONTINUE TO MONITOR.
[2021-01-08] MEDS: MONTELUKAST SODIUM (10MG) 10 MG TABLET PO SCH (21:00)
[2021-01-08] MEDS: ARIPIPRAZOLE 2 MG TABLET PO SCH (21:00)
[2021-01-08] MEDS: CITALOPRAM HYDROBROMIDE 20 MG TABLET PO SCH (21:00)
[2021-01-08] MEDS: LATANOPROST EYE DROP 0.005% 2.5 ML BOTTLE EACHEYE SCH (21:00)
[2021-01-08] MEDS: *INSULIN REGULAR(HUMULIN R)HUM 100 UNIT/ML VIAL SQ PRN (21:25)
[2021-01-09] VITALS (26 sets, daily range): BP systolic 70–145; BP diastolic 45–89
--- NOTE | 2021-01-09 03:00 | NUR ---
RN/ICU- PT. NON COMPLIANT, REMOVING O2 HF NC AND NRB IN SPITE OF VERBAL REMINDER,DESATURATING ALL THE WAY DOWN TO 45%. BILATERAL SOFT WRIST RESTRAINTS APPLIED PER PROTOCOL. WILL NOTIFY DNP [facility] AND OBTAIN ORDER.
--- NOTE | 2021-01-09 03:08 | NUR ---
RT NOTE CALLED FOR NON COMPLIANT PT, REMOVING HFNC. FOUND PT SATTING IN THE 50'S. NRB PLACED ON PT. WILL CONT TO MONITOR. Addendum: 01/09/21 at 0628 by ALLEGRA VILLALTA RT Amended: Links added.
--- NOTE | 2021-01-09 03:20 | NUR ---
HUNTER NOTE PUT PATIENT ON 40L HIGH FLOW OXYGEN WITH 15 L NON BREATHER MASK NOTIFIED INVENTORY CONTROL COORDINATOR SHERICE CUEVA CONTINUE TO MONITOR.
[2021-01-09] MEDS: HYDROCORTISONE SOD SUCCINATE 100 MG/2 ML VIAL IV SCH ×3 (04:20→20:17)
[2021-01-09 04:54] LABS: BASOPHILS % (AUTO) 0.3 % (0.0-2.0); EOSINOPHILS % (AUTO) 0.2 % (0.0-6.0); HEMATOCRIT 36 % (33-45); HEMOGLOBIN 12.7 g/dL (11.5-14.8); LYMPHOCYTES # (AUTO) 1.2 K/uL (0.8-4.8); LYMPHOCYTES % (AUTO) 8.8 % (20.0-44.0); MEAN CORPUSCULAR HGB CONC 35 g/dl (31.0-36.0); MEAN CORPUSCULAR VOLUME 103 fL (82-100); MONOCYTES # (AUTO) 0.3 K/uL (0.1-1.30); MONOCYTES % (AUTO) 2.6 % (2.0-12.0); NEUTROPHILS # (AUTO) 11.6 K/uL (1.8-8.9); NEUTROPHILS % (AUTO) 88.1 % (43.0-81.0); PLATELET COUNT (AUTO) 236 K/uL (150-450); RED BLOOD CELL COUNT(AUTO) 3.49 MIL/uL (4.0-5.2); WHITE BLOOD COUNT (AUTO) 13.2 K/uL (4.3-11.0)
[2021-01-09 05:03] LABS: CALCIUM, SERUM 8.3 mg/dL (8.5-10.1); CARBON DIOXIDE 24 mmol/L (21-32); CHLORIDE 108 mmol/L (98-107); CREATININE 0.9 mg/dL (0.6-1.3); GLUCOSE 92 mg/dL (74-106); MAGNESIUM 2.2 mg/dL (1.8-2.4); PHOSPHORUS 3.3 mg/dL (2.5-4.9); POTASSIUM 3.7 mmol/L (3.5-5.1); SODIUM SERUM 143 mmol/L (136-145); UREA NITROGEN, BLOOD 24 mg/dL (7-18)
[2021-01-09 05:38] LABS: FERRITIN 1453 ng/mL (8-388)
[2021-01-09 05:48] LABS: C-REACTIVE PROTEIN 4.3 mg/dL (0.0-0.9)
--- NOTE | 2021-01-09 06:58 | NUR ---
LACE MENDER NOTE PATIENT REMAINS ON ALERT ORIENTED X2 ON HIGH FLOW OXYGEN 40L FIO2:95% AND 15L NONBREATHER MASK O2:90% IV SITE IS ON RIGHT UPPER ARM MIDLINE INTACT PATENT ALL DUE MEDS GIVEN MD ORDERED SHE HAD ONE BM IN SHIFT REPOSITIONED EVERY 2 HOURS,SOFT BILATERAL WRIST RESTRAIN IN PLACE CHECKED EVERY 15MIS\ FOR SKIN BREAKDOWN AND CIRCULATION HEAD OF BED ELEVATED ALL NEEDS MET ENDORSE NEXT COMING SHIFT FOR CONTINUATION OF CARE.
--- NOTE | 2021-01-09 07:22 | NUR ---
RN NOTE PATIENT IS IN BED WITH HOB AT SEMI FOWLERS POSITION. PATIENT IS ON HIGH FLOW 40L 95% AND NRB 15L SATURATING 90%. PATIENT IS AOX1. TIN ML IS PATENT AND INTACT. BED IS LOCKED IN THE LOWEST POSITION, 3 GUARD RAILS RAISED, CALL MCGOVERN WITHIN REACH, AND ALL HOSPITAL SAFETY PRECAUTIONS ARE BEING FOLLOWED. WILL CONTINUE TO MONITOR THROUGHOUT SHIFT.
--- NOTE | 2021-01-09 07:30 | NUR ---
RT PATIENT REC'D ON HFNC 40L 100% MAINTAINING SPO2 ABOVE 90%. PATIENT AWAKE, CONFUSED, APPEARS COMFORTABLE. CHANDLERU BAG AT HOB Addendum: 01/09/21 at 1032 by MARIAN SHELTON RT Amended: Links added.
[2021-01-09] MEDS: BLOOD SUGAR DIAGNOSTIC 1 EACH STRIP IN SCH ×4 (07:45→21:47)
[2021-01-09] MEDS: GLUCERNA SHAKE 237 ML CAN PO SCH ×2 (08:00→16:42)
[2021-01-09] MEDS: GABAPENTIN 100 MG CAPSULE PO SCH (08:07)
[2021-01-09] MEDS: ENOXAPARIN SODIUM 40 MG/0.4 ML DISP.SYRIN SQ SCH ×2 (08:09→16:41)
[2021-01-09] MEDS: INSULIN REGULAR, HUMAN 100 UNIT/ML 3 ML VIAL SQ PRN ×3 (08:14→17:42)
[2021-01-09] MEDS: prednisoLONE ACETATE 1% SUSP 5 ML BOTTLE RIGHTEYE SCH ×3 (08:27→16:42)
[2021-01-09] MEDS: FLUTICASONE/VILANTEROL 1 EACH BLST.W.DEV IH SCH (08:27)
[2021-01-09 11:51] LABS: ABG OXYGEN SATURATION 90.8 % (92.0-98.5); ABG PCO2 27.7 mmHg (35.0-45.0); ABG PH 7.482 (7.350-7.450); ABG PO2 59.8 mmHg (75.0-100.0); AaDO2 625.5 mmHg; COHb 0.3 % (0.5-1.5); MetHb 0.2 % (0.0-1.5); O2Hb 90.3 % (94.0-97.0); SITE, ABG Right Radial; VENT MODE, BG 40L 100% HF + NRB
--- NOTE | 2021-01-09 18:47 | NUR ---
RN NOTE PATIENT IS IN BED WITH HOB AT SEMI FOWLERS POSITION. PATIENT IS ON HIGH FLOW 40L 100% AND NRB 15L SATURATING 88%. PATIENT IS AOX1. TIN ML IS PATENT AND INTACT. BED IS LOCKED IN THE LOWEST POSITION, 3 GUARD RAILS RAISED, CALL MCGOVERN WITHIN REACH, AND ALL HOSPITAL SAFETY PRECAUTIONS ARE BEING FOLLOWED. ALL DUE MEDS GIVEN ADN PATIENT REMAINED STABLE THROUGHOUT SHIFT. WILL ENDORSE TO PIANO MECHANIC RN.
--- NOTE | 2021-01-09 21:04 | NUR ---
RT NOTE PT RECEIVED ON HIGH FLOW 40LPM @ 100%. PT AWAKE/ALERT. PT ON VAPOTHERM AND TOLERATING WELL AT THIS TIME. WATER BAG CHECKED. WILL CONTINUE TO MONITOR CLOSELY. Addendum: 01/09/21 at 2105 by RAFAEL FRANCOIS RT Amended: Links added.
--- NOTE | 2021-01-09 21:04 | NUR ---
RT NOTE PT IS ON HIGH FLOW NASAL CANNULA WITH 100% NONREBREATHER MASK.
[2021-01-09] MEDS: LATANOPROST EYE DROP 0.005% 2.5 ML BOTTLE EACHEYE SCH (21:20)
[2021-01-09] MEDS: CITALOPRAM HYDROBROMIDE 20 MG TABLET PO SCH (21:20)
[2021-01-09] MEDS: MONTELUKAST SODIUM (10MG) 10 MG TABLET PO SCH (21:20)
[2021-01-09] MEDS: ARIPIPRAZOLE 2 MG TABLET PO SCH (21:20)
[2021-01-09] MEDS: *INSULIN REGULAR(HUMULIN R)HUM 100 UNIT/ML VIAL SQ PRN (21:50)
--- NOTE | 2021-01-09 23:09 | NUR ---
PT ON BED ASLEEP STILL ON HIGHFLOW 40L 100% FIO2 AND 15L VIA NRM SPO2 88-91% NO SIGN OF RESPIRATORY DISTRESS, WILL CONT TO MONITOR THE PT
[2021-01-10] VITALS (27 sets, daily range): BP systolic 108–166; BP diastolic 58–110
--- NOTE | 2021-01-10 02:14 | NUR ---
RT NOTE PT REMOVED OFF 100% NON-REBREATHER. PT TOLERATING WELL. RN SOY NOTIFIED. WILL CONTINUE TO MONITOR CLOSELY.
[2021-01-10] MEDS: HYDROCORTISONE SOD SUCCINATE 100 MG/2 ML VIAL IV SCH ×3 (04:48→21:03)
[2021-01-10 04:53] LABS: BASOPHILS % (AUTO) 0.3 % (0.0-2.0); EOSINOPHILS % (AUTO) 0.4 % (0.0-6.0); HEMATOCRIT 37 % (33-45); LYMPHOCYTES # (AUTO) 0.7 K/uL (0.8-4.8); LYMPHOCYTES % (AUTO) 6.2 % (20.0-44.0); MEAN CORPUSCULAR HGB CONC 35 g/dl (31.0-36.0); MEAN CORPUSCULAR VOLUME 102 fL (82-100); MONOCYTES # (AUTO) 0.3 K/uL (0.1-1.30); MONOCYTES % (AUTO) 2.6 % (2.0-12.0); NEUTROPHILS # (AUTO) 10.1 K/uL (1.8-8.9); NEUTROPHILS % (AUTO) 90.5 % (43.0-81.0); PLATELET COUNT (AUTO) 232 K/uL (150-450); RED BLOOD CELL COUNT(AUTO) 3.64 MIL/uL (4.0-5.2); WHITE BLOOD COUNT (AUTO) 11.1 K/uL (4.3-11.0)
[2021-01-10 05:07] LABS: CALCIUM, SERUM 8.2 mg/dL (8.5-10.1); CARBON DIOXIDE 25 mmol/L (21-32); CHLORIDE 114 mmol/L (98-107); CREATININE 0.9 mg/dL (0.6-1.3); GLUCOSE 90 mg/dL (74-106); MAGNESIUM 2.4 mg/dL (1.8-2.4); PHOSPHORUS 3.4 mg/dL (2.5-4.9); POTASSIUM 4.1 mmol/L (3.5-5.1); SODIUM SERUM 148 mmol/L (136-145); UREA NITROGEN, BLOOD 22 mg/dL (7-18)
--- NOTE | 2021-01-10 07:18 | NUR ---
RN OPENING NOTES; PT IN BED RESTING IN SUPINE POS. A/OX2, SPANISH SPEAKING. NO DISTRESS NOTED, PT HAS NO C/O PAIN. SAFETY MEASURES RENDERED, BED IN LOWEST POS. LOCKED WITH CALL LIGHT IN PLACE. AWAITING MIDLINE INSERTION TODAY. WILL CONTINUE TO MONITOR.
--- NOTE | 2021-01-10 07:29 | NUR ---
PT ON BED ASLEEP EASY TO WAKE UP STILL A//O X2 CONFUSION STILL NOTED, ON HIGH FLOW 40L % 100% WITH SPO2 >90% NO SING OF RESPIRATORY DISTRESS, HAVE R WRIST # 22 IV PATENT AND FLUSHED, HAVE PUREWICK EXTERNAL VAGINAL CATHETER CONNECTED TO SUCTION WITH OUT PUT 150ML YELLOW URINE, STILL HAVE BILATERAL WRIST SOFT RESTRAINT CIRCULATION WAS CHECKED, BED ON LOWEST POSITION AND LOCKED SIDE RAILS UP X2 CALL LIGHT WITHIN REACH WILL ENDORSED TO AM SHIFT NURSE
[2021-01-10] MEDS: BLOOD SUGAR DIAGNOSTIC 1 EACH STRIP IN SCH ×4 (07:44→21:28)
[2021-01-10] MEDS: INSULIN REGULAR, HUMAN 100 UNIT/ML 3 ML VIAL SQ PRN ×3 (07:44→16:54)
--- NOTE | 2021-01-10 07:45 | NUR ---
RN NOTES; BS TAKEN WITH RESULTS OF 121. NO INSULIN NEEDED PER SLIDING SCALE.
[2021-01-10] MEDS: GLUCERNA SHAKE 237 ML CAN PO SCH ×2 (07:59→16:45)
[2021-01-10] MEDS: GABAPENTIN 100 MG CAPSULE PO SCH (08:16)
[2021-01-10] MEDS: ENOXAPARIN SODIUM 40 MG/0.4 ML DISP.SYRIN SQ SCH ×2 (08:17→16:46)
[2021-01-10] MEDS: FLUTICASONE/VILANTEROL 1 EACH BLST.W.DEV IH SCH (08:17)
[2021-01-10] MEDS: prednisoLONE ACETATE 1% SUSP 5 ML BOTTLE RIGHTEYE SCH ×3 (08:28→16:45)
[2021-01-10 15:54] LABS: C-REACTIVE PROTEIN 18.2 mg/dL (0.0-0.9)
--- NOTE | 2021-01-10 16:54 | NUR ---
RN NOTES; B/S TAKEN WITH RESULT OF 95. NO INSULIN GIVEN PER SLIDING SCALE.
--- NOTE | 2021-01-10 18:48 | NUR ---
RN CLOSING NOTES; PT IN BED RESTING SUPINE POS. PT ON NON REBREATHER AT 15L, SAT BETWEEN 86-96. OKLUCILA WITH PATIENT SAT ABOUT 85. PT A/OX2, SPEAKS ITALIAN. DAUGHTER CALLED AND WAS GIVEN UPDATE ON PT CONDITION. ALL MEDICATIONS GIVEN AND TOLERATED WELL. TIN ML PUT IN TODAY, FLUSHED AND PATENT. ALL SAFETY MEASURES RENDERED AND WELL TOLERATED. PT KEPT CLEAN, DRY AND COMFORTABLE. BED LOCKED IN LOWEST POS. WITH CALL LIGHT WITHIN REACH. NO SIGNIFICANT CHANGES IN PT HEALTH STATUS. ENDORSED TO TEACHING DIETITIAN RN IN STABLE CONDITION.
--- NOTE | 2021-01-10 19:05 | NUR ---
RECEIVED PT ON BED ASLEEP EASY TO WAKE UP ON O2 HIG FLOW 40L 100% FIO2 SPO2 88-92%NO SIGN OF RESPIRATORY DISTRESS, TELE MONITOR READS SINUS RHYTHM 80'S HAVE TIN MIDLINE PATENT AND FLUSHED, HAVE PUREWICK ON PLACE CONNECTED TO SUCTION, HAVE BILATERAL WRIST SOFT RESTRAINTS DUE TO PT PULLING LINES AND HER OXYGEN AND SHE DESATURATE VERY QUICK, CIRCULATION WAS CHECKED AND ORAL FLUID WAS OFFERED, PT DRINK VERY WELL BUT STILL HAVE VERY POOR APPETITE, BED ON LOWEST POSITION AND LOCKED SIDE RAILS UP X2 CALL LIGHT WITHIN REACH WILL CONT TO MONITOR
--- NOTE | 2021-01-10 20:07 | NUR ---
RECEIVED PT ON HIGH FLOW 40L, FIO2 100%. PT IS AWAKE TOLERATING SETTINGS. CONTINUE TO MONITOR. Addendum: 01/10/21 at 2009 by RAQUEL BERMUDEZ RT Amended: Links added.
[2021-01-10] MEDS: MONTELUKAST SODIUM (10MG) 10 MG TABLET PO SCH (21:05)
[2021-01-10] MEDS: CITALOPRAM HYDROBROMIDE 20 MG TABLET PO SCH (21:05)
[2021-01-10] MEDS: ARIPIPRAZOLE 2 MG TABLET PO SCH (21:05)
[2021-01-10] MEDS: LATANOPROST EYE DROP 0.005% 2.5 ML BOTTLE EACHEYE SCH (21:05)
[2021-01-10] MEDS: *INSULIN REGULAR(HUMULIN R)HUM 100 UNIT/ML VIAL SQ PRN (21:29)
[2021-01-11] VITALS (24 sets, daily range): BP systolic 105–162; BP diastolic 49–97
[2021-01-11 04:26] LABS: BASOPHILS % (AUTO) 0.2 % (0.0-2.0); EOSINOPHILS % (AUTO) 0.9 % (0.0-6.0); HEMATOCRIT 35 % (33-45); HEMOGLOBIN 11.7 g/dL (11.5-14.8); LYMPHOCYTES # (AUTO) 0.5 K/uL (0.8-4.8); LYMPHOCYTES % (AUTO) 3.7 % (20.0-44.0); MEAN CORPUSCULAR HGB CONC 34 g/dl (31.0-36.0); MEAN CORPUSCULAR VOLUME 101 fL (82-100); MONOCYTES # (AUTO) 0.2 K/uL (0.1-1.30); MONOCYTES % (AUTO) 1.5 % (2.0-12.0); NEUTROPHILS # (AUTO) 12.7 K/uL (1.8-8.9); NEUTROPHILS % (AUTO) 93.7 % (43.0-81.0); PLATELET COUNT (AUTO) 234 K/uL (150-450); RED BLOOD CELL COUNT(AUTO) 3.42 MIL/uL (4.0-5.2); WHITE BLOOD COUNT (AUTO) 13.6 K/uL (4.3-11.0)
[2021-01-11 05:11] LABS: CALCIUM, SERUM 7.7 mg/dL (8.5-10.1); CARBON DIOXIDE 24 mmol/L (21-32); CHLORIDE 115 mmol/L (98-107); CREATININE 0.9 mg/dL (0.6-1.3); GLUCOSE 147 mg/dL (74-106); MAGNESIUM 2.2 mg/dL (1.8-2.4); PHOSPHORUS 3.7 mg/dL (2.5-4.9); POTASSIUM 4.1 mmol/L (3.5-5.1); SODIUM SERUM 150 mmol/L (136-145); UREA NITROGEN, BLOOD 22 mg/dL (7-18)
[2021-01-11] MEDS: HYDROCORTISONE SOD SUCCINATE 100 MG/2 ML VIAL IV SCH ×3 (05:17→21:35)
[2021-01-11 05:18] LABS: CREATINE KINASE, TOTAL 26 U/L (26-192); FERRITIN 926 ng/mL (8-388)
--- NOTE | 2021-01-11 07:05 | NUR ---
RN NOTES RECEIVED PATIENT AWAKE ON BED. ON ISOLATION PRECAUTION DUE TO COVID+ WITH HI FLOW O2 40L AND FIO2 100%, AFEBRILE. JAMAICAN SPEAKING. SR ON MONITOR. DENIES PAIN NO SOB OR APPARENT DISTRESS NOTED. IV SITES LEAN DRY AND INTACT, ENCOURAGED PO INTAKE AND TO TURN AND REPOSITION SAFELY WHILE ON BED. SR UP x3, CALL LIGHT WITHIN EASY REACH, BED LOCKED AND IN LOWEST POSITION, CONTINUE TO MONITOR.
--- NOTE | 2021-01-11 07:13 | NUR ---
PT ON BED ASLEEP EASY TO WAKE UP STILL A//O X2 CONFUSION STILL NOTED, ON HIGH FLOW 40L % 100% WITH SPO2 >90% NO SING OF RESPIRATORY DISTRESS, HAVE R WRIST # 22 IV AND TIN MIDLINE PATENT AND FLUSHED, HAVE PUREWICK EXTERNAL VAGINAL CATHETER CONNECTED TO SUCTION , STILL HAVE BILATERAL WRIST SOFT RESTRAINT CIRCULATION WAS CHECKED, BED ON LOWEST POSITION AND LOCKED SIDE RAILS UP X2 CALL LIGHT WITHIN REACH WILL ENDORSED TO AM SHIFT NURSE
[2021-01-11] MEDS: GABAPENTIN 100 MG CAPSULE PO SCH (08:03)
[2021-01-11] MEDS: ENOXAPARIN SODIUM 40 MG/0.4 ML DISP.SYRIN SQ SCH (08:04)
[2021-01-11] MEDS: prednisoLONE ACETATE 1% SUSP 5 ML BOTTLE RIGHTEYE SCH ×3 (08:05→17:14)
[2021-01-11] MEDS: FLUTICASONE/VILANTEROL 1 EACH BLST.W.DEV IH SCH (08:05)
[2021-01-11] MEDS: GLUCERNA SHAKE 237 ML CAN PO SCH ×2 (08:05→17:00)
[2021-01-11] MEDS: BLOOD SUGAR DIAGNOSTIC 1 EACH STRIP IN SCH ×4 (08:27→21:51)
[2021-01-11] MEDS: INSULIN REGULAR, HUMAN 100 UNIT/ML 3 ML VIAL SQ PRN ×3 (08:28→21:50)
--- NOTE | 2021-01-11 10:00 | NUR ---
RN NOTES DR REDDY NOTIFIED REGARDING YARA. DVT , NEW ORDER RECEIVED. CONTINUE TO MONITOR .
--- NOTE | 2021-01-11 12:00 | NUR ---
RN NOTES DR CROSS NOTIFIED REGARDING DVT RESULTS .
[2021-01-11] MEDS: APIXABAN 5 MG TABLET PO SCH (17:12)
--- NOTE | 2021-01-11 18:00 | NUR ---
RN NOTES PT STILL ON 100% AND 40 L HIGH FLOW , O2 SAT IN 90'S , PT REFUSING TO EAT , ONLY WANTS WATER, ENCOURAGED PO INTAKE , PT REFUSED TO EAT FOOD FROM HOME ALSO, MD AWARE, IV SITES CLEAN, DRY AND INTACT, PT IS CONFUSED AT TIMES, PULLS ON HER HIGH FLOW O2 AND IV SITES . YARA SOFT RESTRAINS ON FOR PT SAFETY, SR UP x3, BED LOCKED AND IN LOWEST POSITION, WILL ENDORSE TO KILN REMOVER NURSE FOR CONTINUITY OF CARE.
--- NOTE | 2021-01-11 19:30 | NUR ---
RN/ICU-RECEIVED PT. FROM DAYSHIFT WILBERT GUERRIER, PT. AWAKE ,ALERT, GEORGIAN SPEAKING,RESTLESS ON STIMULATION, WANTING TO REMOVE YARA. SOFT WRIST RESTRAINTS. BUT PT. NOTED TO PULL O2 SUPPORT OFF WHEN OFF RESTRAINTS AND DESATURATES TO THE 40'S. BREATHING SPONTANEOUSLY TO ROOM AIR W/ O2 SUPPORT OF HF 40L/100%, SATS.-96%. EKG SR W/ HR-88/MIN. BP-117/78, NO S/S OF DISTRESS OR PAIN. AFEBRILE-98.4/F. ON AIRBORNE/CONTACT ISOLATION FOR COVID 19. PRECAUTIONS IN EFFECT. PT. IS A FULL CODE.
[2021-01-11] MEDS: ARIPIPRAZOLE 2 MG TABLET PO SCH (21:35)
[2021-01-11] MEDS: MONTELUKAST SODIUM (10MG) 10 MG TABLET PO SCH (21:35)
[2021-01-11] MEDS: LATANOPROST EYE DROP 0.005% 2.5 ML BOTTLE EACHEYE SCH (21:35)
[2021-01-11] MEDS: CITALOPRAM HYDROBROMIDE 20 MG TABLET PO SCH (21:36)
--- NOTE | 2021-01-11 22:57 | NUR ---
RN/ICU-DAUGHTER ROSA CALLED, REGARDING UPDATE ON PT. STATUS.REQUESTING TO DC ISOLATION TO BE W/ PATIENT. WILL FOLLOW UP IN AM W/ MD AND INFECTION CONTROL REGARDING FAMILY REQUEST. WILL CONTINUE TO MONITOR PT. CLOSELY AND PRACTICE ISOLATION PER PROTOCOL.
[2021-01-12] VITALS (27 sets, daily range): BP systolic 104–151; BP diastolic 53–95
[2021-01-12] MEDS: HYDROCORTISONE SOD SUCCINATE 100 MG/2 ML VIAL IV SCH ×3 (05:08→21:25)
[2021-01-12 05:09] LABS: BASOPHILS % (AUTO) 0.4 % (0.0-2.0); EOSINOPHILS % (AUTO) 0.3 % (0.0-6.0); HEMATOCRIT 36 % (33-45); LYMPHOCYTES # (AUTO) 0.6 K/uL (0.8-4.8); LYMPHOCYTES % (AUTO) 5.6 % (20.0-44.0); MEAN CORPUSCULAR HGB CONC 34 g/dl (31.0-36.0); MEAN CORPUSCULAR VOLUME 100 fL (82-100); MONOCYTES # (AUTO) 0.2 K/uL (0.1-1.30); MONOCYTES % (AUTO) 2.1 % (2.0-12.0); NEUTROPHILS % (AUTO) 91.6 % (43.0-81.0); PLATELET COUNT (AUTO) 252 K/uL (150-450); RED BLOOD CELL COUNT(AUTO) 3.57 MIL/uL (4.0-5.2)
[2021-01-12 05:29] LABS: ALBUMIN 1.9 g/dL (3.4-5.0); BILIRUBIN,TOTAL 0.4 mg/dL (0.2-1.0); CALCIUM, SERUM 8.3 mg/dL (8.5-10.1); CREATININE 1.1 mg/dL (0.6-1.3); MAGNESIUM 2.5 mg/dL (1.8-2.4); PHOSPHORUS 3.6 mg/dL (2.5-4.9); POTASSIUM 3.4 mmol/L (3.5-5.1); TOTAL PROTEIN, SERUM 7.2 g/dL (6.4-8.2)
--- NOTE | 2021-01-12 07:00 | NUR ---
RN NOTES RECEIVED PATIENT AWAKE ON BED. ON ISOLATION PRECAUTION DUE TO COVID+ WITH HI FLOW O2 40L AND 90% , AFEBRILE. GIBRALTARIAN SPEAKING. SR ON MONITOR. DENIES PAIN NO SOB OR APPARENT DISTRESS NOTED. IV SITES LEAN DRY AND INTACT, ENCOURAGED PO INTAKE AND TO TURN AND REPOSITION SAFELY WHILE ON BED. SR UP x3, CALL LIGHT WITHIN EASY REACH, BED LOCKED AND IN LOWEST POSITION, CONTINUE TO MONITOR.
[2021-01-12] MEDS: GLUCERNA SHAKE 237 ML CAN PO SCH ×2 (08:00→17:00)
[2021-01-12] MEDS: BLOOD SUGAR DIAGNOSTIC 1 EACH STRIP IN SCH ×4 (08:34→21:26)
[2021-01-12] MEDS: INSULIN REGULAR, HUMAN 100 UNIT/ML 3 ML VIAL SQ PRN ×2 (08:34→12:08)
[2021-01-12] MEDS: GABAPENTIN 100 MG CAPSULE PO SCH (08:35)
[2021-01-12] MEDS: APIXABAN 5 MG TABLET PO SCH ×2 (08:35→17:24)
[2021-01-12] MEDS: FLUTICASONE/VILANTEROL 1 EACH BLST.W.DEV IH SCH (08:36)
[2021-01-12] MEDS: prednisoLONE ACETATE 1% SUSP 5 ML BOTTLE RIGHTEYE SCH ×3 (08:37→17:25)
[2021-01-12] MEDS ORDERED: POTASSIUM CHLORIDE 20 MEQ TAB.PRT.SR PO SCH (10:00)
[2021-01-12] MEDS: POTASSIUM CL. PREMIX PERIPHER. 50 ML IV SCH ×2 (10:14→11:37)
--- NOTE | 2021-01-12 12:00 | NUR ---
RN NOTES PT REFUSED TO EAT LUNCH.
--- NOTE | 2021-01-12 16:00 | NUR ---
RN NOTES PT TOLERATING 75% AND 40 L HIGH FLOW , O2 SAT WNL, STILL REFUSING TO EAT , CONTINUE TO MONITOR .
--- NOTE | 2021-01-12 18:23 | NUR ---
RN NOTES NO SIGNIFICANT CHANGES NOTED ON THIS SHIFT, PT ON 40L AND 75% HIGH FLOW, O2 SAT WNL , WILL ENDORSE TO WILDLIFE VETERINARIAN NURSE FOR CONTINUITY OF CARE .
--- NOTE | 2021-01-12 19:15 | NUR ---
ENGRAVER SEALS RCD PT W/DX COVID 19 PT IS ALERT ARABIC SPEAKING; RESTLESS NOTED MULTIPLE TIMES BY PREVIOUS NURSE TO BE REMOVING HFNC; BSWR REMAIN IN PLACE. NSR ON MONITOR. TOLERATING HFNC 40 L FIO2 75%. SKIN INTACT. TIN MIDLINE SL NO BLOOD RETURN NOTED. BLE DVT NO REDNESS OR SWELLING NOTED. PROVIDED ORAL CARE.
--- NOTE | 2021-01-12 19:49 | NUR ---
RECEIVED PT ON HFNC 40L FIO2 75%. PT IS AWAKE AND TOLERATING SETTINGS. CONTINUE TO MONITOR. Addendum: 01/12/21 at 1949 by RAQUEL BERMUDEZ RT Amended: Links added.
[2021-01-12] MEDS: ARIPIPRAZOLE 2 MG TABLET PO SCH (21:25)
[2021-01-12] MEDS: MONTELUKAST SODIUM (10MG) 10 MG TABLET PO SCH (21:25)
[2021-01-12] MEDS: CITALOPRAM HYDROBROMIDE 20 MG TABLET PO SCH (21:25)
[2021-01-12] MEDS: LATANOPROST EYE DROP 0.005% 2.5 ML BOTTLE EACHEYE SCH (21:26)
[2021-01-12] MEDS: *INSULIN REGULAR(HUMULIN R)HUM 100 UNIT/ML VIAL SQ PRN (21:49)
--- NOTE | 2021-01-12 21:50 | NUR ---
VEST TAILOR BLOOD GLUCOSE 173; 3 UNITS REGULAR INSULIN GIVEN. TURNED AND REPOSITIONED. PT NOTED TO HAVE REMOVED HFNC EARLIER; BSWR REMAIN IN PLACE.
[2021-01-13] VITALS (28 sets, daily range): BP systolic 89–139; BP diastolic 51–104
[2021-01-13] MEDS: HYDROCORTISONE SOD SUCCINATE 100 MG/2 ML VIAL IV SCH ×3 (04:02→21:02)
[2021-01-13 05:20] LABS: BASOPHILS % (AUTO) 0.4 % (0.0-2.0); EOSINOPHILS % (AUTO) 0.6 % (0.0-6.0); HEMATOCRIT 37 % (33-45); HEMOGLOBIN 12.5 g/dL (11.5-14.8); LYMPHOCYTES # (AUTO) 0.7 K/uL (0.8-4.8); LYMPHOCYTES % (AUTO) 6.7 % (20.0-44.0); MEAN CORPUSCULAR HGB CONC 34 g/dl (31.0-36.0); MEAN CORPUSCULAR VOLUME 103 fL (82-100); MONOCYTES # (AUTO) 0.2 K/uL (0.1-1.30); NEUTROPHILS # (AUTO) 9.7 K/uL (1.8-8.9); NEUTROPHILS % (AUTO) 90.3 % (43.0-81.0); PLATELET COUNT (AUTO) 171 K/uL (150-450); RED BLOOD CELL COUNT(AUTO) 3.57 MIL/uL (4.0-5.2); WHITE BLOOD COUNT (AUTO) 10.8 K/uL (4.3-11.0)
[2021-01-13] MEDS: GABAPENTIN 100 MG CAPSULE PO SCH (07:57)
[2021-01-13] MEDS: prednisoLONE ACETATE 1% SUSP 5 ML BOTTLE RIGHTEYE SCH ×3 (07:59→16:55)
[2021-01-13] MEDS: FLUTICASONE/VILANTEROL 1 EACH BLST.W.DEV IH SCH (07:59)
[2021-01-13] MEDS: BLOOD SUGAR DIAGNOSTIC 1 EACH STRIP IN SCH ×4 (08:00→21:39)
[2021-01-13] MEDS: GLUCERNA SHAKE 237 ML CAN PO SCH ×2 (08:00→16:55)
--- NOTE | 2021-01-13 08:00 | NUR ---
rn notes seen patient on HF 40/75%, no CUTE RESPIRATORY DISTRESS, A/O X3. PATIENT REFUSED PAIN. ASSIST PATIENT MORNING CARE TOLERATED BREAKFAST 25%, MOUTH CARE DONE, DUE MEDICATION ADMINISTERED. PAIN MEDICATION ADMINISTERED, VSS. ASSIST TURN AND REPOSTION Q 2HR. PATIENT SKIN INTACT, RECHECKED BILATERAL WRIST RESTRAIN CIRCULATION. CALL LIGHT WITHIN TO REACH. WILL FOLLOW UP.
[2021-01-13] MEDS: APIXABAN 5 MG TABLET PO SCH ×2 (08:02→16:53)
[2021-01-13] MEDS: INSULIN REGULAR, HUMAN 100 UNIT/ML 3 ML VIAL SQ PRN ×2 (08:49→13:11)
[2021-01-13 10:32] LABS: ALBUMIN 1.9 g/dL (3.4-5.0); BILIRUBIN,TOTAL 0.4 mg/dL (0.2-1.0); CALCIUM, SERUM 8.2 mg/dL (8.5-10.1); CREATININE 1.1 mg/dL (0.6-1.3); MAGNESIUM 2.7 mg/dL (1.8-2.4); PHOSPHORUS 4.2 mg/dL (2.5-4.9); POTASSIUM 3.9 mmol/L (3.5-5.1)
--- NOTE | 2021-01-13 13:00 | NUR ---
RN NOTES BS-232 MG/DL COVERAGE GIVEN. ASSIST FOR LUNCH 15% WITH TOTAL ASSIST WHICH WAS BRINGS BY THE DAUGHTER FROM HOME. PATIENT KEEP ASKING WATER TO DRINK. ASSIST TURN AND REPOSTION Q 2 HR. [address] CROSS GET ORDER CHANGE DIET WELL CHOPPED FOOD . ORDER TAKEN AND CARRIED OUT.
--- NOTE | 2021-01-13 18:30 | NUR ---
RN NOTES PATENT STABLE , NO ACUTE RESPIRATORY DISTRESS. POOR EATER 15% WITH ASSIST, REFUSED PAIN DUE MEDICATION ADMINISTERED, VSS. PATIENT ABLE TO TURN AND REPOSTION WITH GUIDELINES, TURKMEN SPEAKER, CALL LIGHT WITHIN TO REACH. BS-121 MG/DL NO COVERAGE GIVEN. ENDORSED ONCOMING NURSE FOLLOW JOSE.
--- NOTE | 2021-01-13 19:43 | NUR ---
RT NOTE PT RECEIVED ON HIGH FLOW NASAL CANNULA 40LPM @ 75%. PT IS AWAKE/ALERT. HIGH FLOW PLUGGED TO RED OUTLET. WATER BAG CHECKED. PT TOLERATING CURRENT SETTINGS WELL. WILL CONTINUE TO MONITOR CLOSELY. Addendum: 01/13/21 at 2006 by RAFAEL FRANCOIS RT Amended: Links added.
[2021-01-13] MEDS: ARIPIPRAZOLE 2 MG TABLET PO SCH (21:02)
[2021-01-13] MEDS: CITALOPRAM HYDROBROMIDE 20 MG TABLET PO SCH (21:03)
[2021-01-13] MEDS: MONTELUKAST SODIUM (10MG) 10 MG TABLET PO SCH (21:03)
[2021-01-13] MEDS: LATANOPROST EYE DROP 0.005% 2.5 ML BOTTLE EACHEYE SCH (21:38)
[2021-01-14] VITALS (27 sets, daily range): BP systolic 62–158; BP diastolic 42–90
--- NOTE | 2021-01-14 03:39 | NUR ---
RT NOTE FIO2 TITRATION TO 65%. PT TOLERATING WELL. WILBERT GARCIA NOTIFIED. WILL CONTINUE TO MONITOR CLOSELY.
[2021-01-14 05:01] LABS: ALANINE AMINOTRANSFERASE 58 U/L (12-78); ALKALINE PHOSPHATASE 108 U/L (46-116); ASPARTATE AMINOTRANSFERASE 41 U/L (15-37); BILIRUBIN,TOTAL 0.5 mg/dL (0.2-1.0); CALCIUM, SERUM 8.1 mg/dL (8.5-10.1); CARBON DIOXIDE 26 mmol/L (21-32); CHLORIDE 117 mmol/L (98-107); CREATININE 1.1 mg/dL (0.6-1.3); GLUCOSE 200 mg/dL (74-106); MAGNESIUM 2.7 mg/dL (1.8-2.4); PHOSPHORUS 4.6 mg/dL (2.5-4.9); POTASSIUM 4.2 mmol/L (3.5-5.1); SODIUM SERUM 152 mmol/L (136-145); TOTAL PROTEIN, SERUM 7.1 g/dL (6.4-8.2); UREA NITROGEN, BLOOD 33 mg/dL (7-18)
[2021-01-14 05:31] LABS: BASOPHILS # (AUTO) 0.1 K/uL (0.0-0.2); BASOPHILS % (AUTO) 0.9 % (0.0-2.0); EOSINOPHILS % (AUTO) 0.4 % (0.0-6.0); HEMATOCRIT 34 % (33-45); HEMOGLOBIN 11.4 g/dL (11.5-14.8); LYMPHOCYTES # (AUTO) 0.9 K/uL (0.8-4.8); LYMPHOCYTES % (AUTO) 8.7 % (20.0-44.0); MEAN CORPUSCULAR HGB CONC 34 g/dl (31.0-36.0); MEAN CORPUSCULAR VOLUME 98 fL (82-100); MONOCYTES # (AUTO) 0.2 K/uL (0.1-1.30); MONOCYTES % (AUTO) 2.4 % (2.0-12.0); NEUTROPHILS # (AUTO) 8.7 K/uL (1.8-8.9); NEUTROPHILS % (AUTO) 87.6 % (43.0-81.0); PLATELET COUNT (AUTO) 166 K/uL (150-450); RED BLOOD CELL COUNT(AUTO) 3.46 MIL/uL (4.0-5.2)
[2021-01-14] MEDS: HYDROCORTISONE SOD SUCCINATE 100 MG/2 ML VIAL IV SCH ×3 (05:42→21:25)
--- NOTE | 2021-01-14 06:30 | NUR ---
EMPLOYMENT COACH: NO SIGNIFICANT JOSE DURING THE SHIFT. ABLE TO TOLERATE WEANING HFNC TO 65% FI02 FROM 75%. O2 SAT 92% AND ABOVE. TOLERATED SEMI-PRONING DURING THE SHIFT. ALERT AND AWAKE, ABLE TO FOLLOW SIMPLE COMMANDS AND MAKE NEEDS KNOWN. VS WITHIN BASELINE. BILAT. WRIST RESTRAINTS IN PLACE FOR EPISODES OF TRYING TO PULL OUT TUBINGS AND ABLE TO PULL OUT IV ACCESS. NO ACTIVE BLEEDING. SKIN AND CIRCULATION WNL. GOOD SKIN CARE RENDERED. BED KEPT IN LOWEST POSITION AND LOCKED, BED ALARM ON. SIDE RAILS UP X2. CALL LIGHT WITHIN REACH.
[2021-01-14] MEDS: BLOOD SUGAR DIAGNOSTIC 1 EACH STRIP IN SCH ×4 (07:26→21:27)
[2021-01-14] MEDS: GLUCERNA SHAKE 237 ML CAN PO SCH ×2 (07:27→17:23)
[2021-01-14] MEDS: FLUTICASONE/VILANTEROL 1 EACH BLST.W.DEV IH SCH (08:00)
--- NOTE | 2021-01-14 08:00 | NUR ---
RN NOTES RECEIVED PATIENT GETTING NEW MIDLINE ON LEFT UPPER ARM INSERTION AT THIS TIME, BS-188MG/DL COVERAGE GIVEN, VSS, REFUSED PAIN, NO SOB NOTES. PATIENT ON HF40/65%, ADMINISTERED DUE MEDICATION, REFUSED PAIN. ASSIST BREAKFAST 25% TOLERATED WITH TOTAL ASSIST. TURN AND REPOSTION Q 2 HR. WILL FOLLOW UP. RECHECKED BILATERAL SOFT RESTRAIN CIRCULATION Q 2 HR.
[2021-01-14] MEDS: prednisoLONE ACETATE 1% SUSP 5 ML BOTTLE RIGHTEYE SCH ×3 (08:01→17:23)
[2021-01-14] MEDS: GABAPENTIN 100 MG CAPSULE PO SCH (08:06)
[2021-01-14] MEDS: APIXABAN 5 MG TABLET PO SCH ×2 (08:08→17:24)
[2021-01-14] MEDS: INSULIN REGULAR, HUMAN 100 UNIT/ML 3 ML VIAL SQ PRN ×2 (08:09→12:30)
--- NOTE | 2021-01-14 13:21 | NUR ---
rn notes bs264 mg/dl, coverag given, patient a/o x3 with mild delirium, assist turn and reposition q 2 hr. due medication administered. Patient seen hospitalist Dr Coreas, no new orders. call light within to reach. continued monitoring.
[2021-01-14] MEDS: IV 1/2NS 1000 ML 1,000 ML IV PRN (17:00)
--- NOTE | 2021-01-14 17:00 | NUR ---
RN NOTES ADMINISTERED DEXTROSE BS-WAS 42MG/DL. ALSO GIVEN ASSIST DINNER TO EAT, AND SOME JUICES. WILL FOLLOW UP.
[2021-01-14] MEDS: DEXTROSE 50%-WATER 50 ML DISP.SYRIN IV PRN (17:40)
--- NOTE | 2021-01-14 18:30 | NUR ---
RN NOTES RECHECKED BS-216MG/DL NO COVERAGE GIVEN, PATIENT A/O X3 WITH SOME CONFUSION. DUE MEDICATION ADMINISTERED, VSS, URINATED 200ML, INFUSING 1/2 NS @50ML/HR ON LEFT UA MIDLINE INTACT. RECHECKED BILATERAL RESTRAIN, RENEWED RESTRAIN ORDER. CALL LIGHT WITHIN TO REACH. ENDORSED ONCOMING NURSE JOSE. ASSIST TURN AND REPOSTION Q 2 HR.
--- NOTE | 2021-01-14 19:30 | NUR ---
LIQUOR BRIDGE OPERATOR NOTE PT IN BED AWAKE. A/O X 2 UPPER SORBIAN SPEAKING. NO DISTRESS OR DISCOMFORT NOTED. NO S/S OF PAIN. IVF 1/2 NS INFUSING AT 50 ML/HR. NO S/S OF INFILTRATION NOTED. ON TELE SR 75. NO S/S OF HYPO OR HYPERGLYCEMIA NOTED. REPOSITION HER FOR COMFORT AND SKIN MANAGEMENT. KEPT HER DRY AND CLEAN. ALL NEEDS ATTENDED. VSS. CONTINUE TO MONITOR HER.
[2021-01-14] MEDS: CITALOPRAM HYDROBROMIDE 20 MG TABLET PO SCH (21:24)
[2021-01-14] MEDS: MONTELUKAST SODIUM (10MG) 10 MG TABLET PO SCH (21:24)
[2021-01-14] MEDS: LORAZEPAM 0.5 MG TABLET PO PRN (21:25)
[2021-01-14] MEDS: LATANOPROST EYE DROP 0.005% 2.5 ML BOTTLE EACHEYE SCH (21:26)
[2021-01-14] MEDS: ARIPIPRAZOLE 2 MG TABLET PO SCH (21:28)
--- NOTE | 2021-01-14 21:30 | NUR ---
VICE SQUAD POLICE OFFICER NOTE BS 181, PT REFUSED IT, DAY SHIFT PT BS DROPPED. CONTINUE TO MONITOR HER.
--- NOTE | 2021-01-14 23:30 | NUR ---
RT NOTE FIO2 INCREASED TO 100% DUE TO LOW SATURATION. WILBERT ARECHIGA AWARE. WILL CONTINUE TO MONITOR.
[2021-01-15] VITALS (29 sets, daily range): BP systolic 74–138; BP diastolic 48–80
[2021-01-15 04:37] LABS: BASOPHILS # (AUTO) 0.1 K/uL (0.0-0.2); BASOPHILS % (AUTO) 0.5 % (0.0-2.0); EOSINOPHILS % (AUTO) 0.5 % (0.0-6.0); HEMATOCRIT 33 % (33-45); LYMPHOCYTES # (AUTO) 0.6 K/uL (0.8-4.8); LYMPHOCYTES % (AUTO) 5.3 % (20.0-44.0); MEAN CORPUSCULAR HGB CONC 33 g/dl (31.0-36.0); MEAN CORPUSCULAR VOLUME 99 fL (82-100); MONOCYTES # (AUTO) 0.2 K/uL (0.1-1.30); MONOCYTES % (AUTO) 1.9 % (2.0-12.0); NEUTROPHILS # (AUTO) 11.1 K/uL (1.8-8.9); NEUTROPHILS % (AUTO) 91.8 % (43.0-81.0); PLATELET COUNT (AUTO) 151 K/uL (150-450); RED BLOOD CELL COUNT(AUTO) 3.33 MIL/uL (4.0-5.2)
[2021-01-15] MEDS: HYDROCORTISONE SOD SUCCINATE 100 MG/2 ML VIAL IV SCH ×3 (04:50→21:01)
[2021-01-15 05:15] LABS: ALANINE AMINOTRANSFERASE 50 U/L (12-78); ALBUMIN 1.8 g/dL (3.4-5.0); ALKALINE PHOSPHATASE 87 U/L (46-116); ASPARTATE AMINOTRANSFERASE 33 U/L (15-37); BILIRUBIN,TOTAL 0.5 mg/dL (0.2-1.0); CALCIUM, SERUM 7.5 mg/dL (8.5-10.1); CARBON DIOXIDE 27 mmol/L (21-32); CHLORIDE 118 mmol/L (98-107); CREATININE 1.1 mg/dL (0.6-1.3); GLUCOSE 200 mg/dL (74-106); MAGNESIUM 2.3 mg/dL (1.8-2.4); PHOSPHORUS 3.5 mg/dL (2.5-4.9); POTASSIUM 4.1 mmol/L (3.5-5.1); SODIUM SERUM 152 mmol/L (136-145); TOTAL PROTEIN, SERUM 6.4 g/dL (6.4-8.2); UREA NITROGEN, BLOOD 31 mg/dL (7-18)
--- NOTE | 2021-01-15 05:28 | NUR ---
RT NOTE FIO2 TITRATED TO 85%. PT SPO2 @ 92-93%. GEOSCIENCE SPECIALIST ED NOTIFIED. PT TOLERATING WELL.
--- NOTE | 2021-01-15 06:55 | NUR ---
TELEVISION WRITER NOTE PT IN BED AWAKE. INCONTINENCE CARE GIVEN. URINE SUCTION UNIT WORKING WELL. ON TELE SR HR 77. IVF NS AT 50 MLL/HR INFUSING WELL. NO S/S OF INFILTRATION NOTED. KEPT HER DRY AND CLEAN. ALL NEEDS ATTENDED. VSS ENDORSE TO DAY SHIFT NURSE FOR CONTINUE TO CARE.
[2021-01-15] MEDS: BLOOD SUGAR DIAGNOSTIC 1 EACH STRIP IN SCH ×4 (07:42→21:44)
[2021-01-15] MEDS: GLUCERNA SHAKE 237 ML CAN PO SCH ×2 (07:43→16:48)
--- NOTE | 2021-01-15 08:00 | NUR ---
rn notes received patient awake, asking water as usual, bs-216 mg/dl coverage given, assist eating breakfast tolerated 25%. Refused pain. no acute respiratory distress at this time, Hf-40-65%. due medication administered, infusing 1/2 NS @50ml/hr intact on left ua midline. patient still need constant redirection. rechecked bilateral soft restrain q 2 hr. call light within to reach. assist turn and reposition q 2 hr. will follow up.
[2021-01-15] MEDS: GABAPENTIN 100 MG CAPSULE PO SCH (08:07)
[2021-01-15] MEDS: APIXABAN 5 MG TABLET PO SCH ×2 (08:07→16:46)
[2021-01-15] MEDS: FLUTICASONE/VILANTEROL 1 EACH BLST.W.DEV IH SCH (08:08)
[2021-01-15] MEDS: prednisoLONE ACETATE 1% SUSP 5 ML BOTTLE RIGHTEYE SCH ×3 (08:08→16:48)
[2021-01-15] MEDS: INSULIN REGULAR, HUMAN 100 UNIT/ML 3 ML VIAL SQ PRN ×2 (08:11→12:13)
--- NOTE | 2021-01-15 12:05 | NUR ---
RN NOTES SEEN PATIENT VIA HOSPITALIST Dr AMARO, AND GET NEW ORDER DIET CHANGE FOR PUREED, AND FLUID THINKER, BS-205 MG/DL, DUE MEDICATION ADMINISTERED, PATIENT A/OX2 AT THIS TIME.
[2021-01-15] MEDS: IV 1/2NS 1000 ML 1,000 ML IV PRN (12:09)
--- NOTE | 2021-01-15 17:00 | NUR ---
RN NOTES BS-66MG/DL, ADMINISTERED ORANGE JUICE, AND ASSIST EATING DINNER, PER DAUGHTER BROTH HOME FOOD ASSIST EATING WELL, TOLERATED 30%. WILL FOLLOW UP.
--- NOTE | 2021-01-15 18:30 | NUR ---
RN NOTES RECHECKED BS-138 MG/DL, OFFERED MORE ORANGE JUICE,. PATIENT STABLE, AT THIS TIME, NO ACUTE RESPIRATORY DISTRESS, DUE MEDICATION ADMINISTERED, PM CARE DONE. URINE OUTPUT WAS 500ML. ASSIST TURN AND REPOSTION Q 2 HR. ENDORSED ONCOMING NURSE FOLLOW PLAN OF CARE.
--- NOTE | 2021-01-15 20:00 | NUR ---
RN NOTES RECEIVED PATIENT ASLEEP ON BED WITH HFNC 40L FIO2 65% SATURATION BETWEEN 90-93%. BREATHING EVEN AND UNLABORED. RESPONSIVE TO NAME AND TACTILE STIMULI. AFEBRILE. VSS. ISOLATION PRECAUTION STRICTLY OBSERVED DUE TO + COVID PNA. PATIENT ON IVF 1/2 NS @ 50 ML/HR INTACT AND PATENT. INCONTINENT CARE RENDERED DESPITE THE PUREWICK IS IN PLACED. RIGHT WRIST RESTRAINT KEPT IN PLACED. KEPT PT CLEAN AND COMFORTABLE IN BED. KEPT BED IN LOW POSITION. WILL CLOSELY MONITOR.
[2021-01-15] MEDS: CITALOPRAM HYDROBROMIDE 20 MG TABLET PO SCH (21:07)
[2021-01-15] MEDS: MONTELUKAST SODIUM (10MG) 10 MG TABLET PO SCH (21:07)
[2021-01-15] MEDS: ARIPIPRAZOLE 2 MG TABLET PO SCH (21:07)
[2021-01-15] MEDS: LATANOPROST EYE DROP 0.005% 2.5 ML BOTTLE EACHEYE SCH (21:10)
[2021-01-15] MEDS: *INSULIN REGULAR(HUMULIN R)HUM 100 UNIT/ML VIAL SQ PRN (21:43)
[2021-01-16] VITALS (26 sets, daily range): BP systolic 94–167; BP diastolic 56–101
--- NOTE | 2021-01-16 02:00 | NUR ---
RN NOTES NOTED PATIENT GOWN HAS BLOOD, RIGHT WRIST RESTRAINT WAS OFF AND MIDLINE PULLED OUT. NEEDLE INTACT DRESSING TO IV SITE INITIATE. PLACED NEW PERIPHERAL IV SITE ON RIGHT FOREARM WITH GOOD BLOOD RETURN CONTINUE ON 03/11 NS @ 50 CC/HR. KEPT PT CLEAN AND DRY.. WILL CONTINUE TO MONITOR.
[2021-01-16 04:33] LABS: BASOPHILS # (AUTO) 0.1 K/uL (0.0-0.2); BASOPHILS % (AUTO) 0.7 % (0.0-2.0); HEMATOCRIT 32 % (33-45); HEMOGLOBIN 10.6 g/dL (11.5-14.8); LYMPHOCYTES # (AUTO) 0.8 K/uL (0.8-4.8); LYMPHOCYTES % (AUTO) 7.5 % (20.0-44.0); MEAN CORPUSCULAR HGB CONC 34 g/dl (31.0-36.0); MEAN CORPUSCULAR VOLUME 99 fL (82-100); MONOCYTES # (AUTO) 0.2 K/uL (0.1-1.30); MONOCYTES % (AUTO) 1.7 % (2.0-12.0); NEUTROPHILS # (AUTO) 9.3 K/uL (1.8-8.9); NEUTROPHILS % (AUTO) 89.1 % (43.0-81.0); PLATELET COUNT (AUTO) 133 K/uL (150-450); WHITE BLOOD COUNT (AUTO) 10.4 K/uL (4.3-11.0)
[2021-01-16 04:37] LABS: ALANINE AMINOTRANSFERASE 38 U/L (12-78); ALBUMIN 1.7 g/dL (3.4-5.0); ALKALINE PHOSPHATASE 87 U/L (46-116); ASPARTATE AMINOTRANSFERASE 30 U/L (15-37); BILIRUBIN,TOTAL 0.3 mg/dL (0.2-1.0); CALCIUM, SERUM 7.6 mg/dL (8.5-10.1); CARBON DIOXIDE 29 mmol/L (21-32); CHLORIDE 116 mmol/L (98-107); GLUCOSE 162 mg/dL (74-106); MAGNESIUM 2.3 mg/dL (1.8-2.4); PHOSPHORUS 2.9 mg/dL (2.5-4.9); POTASSIUM 3.9 mmol/L (3.5-5.1); SODIUM SERUM 150 mmol/L (136-145); TOTAL PROTEIN, SERUM 6.2 g/dL (6.4-8.2); UREA NITROGEN, BLOOD 28 mg/dL (7-18)
[2021-01-16] MEDS: HYDROCORTISONE SOD SUCCINATE 100 MG/2 ML VIAL IV SCH ×3 (05:36→21:52)
[2021-01-16] MEDS: IV 1/2NS 1000 ML 1,000 ML IV PRN ×2 (05:41→21:59)
--- NOTE | 2021-01-16 06:28 | NUR ---
RN NOTES SPOKE TO DR. VELAZQUEZ INFORMED THAT MIDLINE GOT PULLED OUT BY PATIENT. PER MD NO NEED FOR MIDLINE UNLESS IT REALLY NEEDED SINCE THE PATIENT HAS PERIPHERAL LINE. PATIENT ASLEEP AT THIS TIME. NO SOB OR RESPIRATORY DISTRESS. CONTINUE ON STRICT ISOLATION PRECAUTION DUE TO COVID PNA. BILATERAL WRIST RESTRAINT KEPT IN PLACED. KEPT PT CLEAN AND DRY. WILL ENDORSED CONTINUITY OF CARE TO NURSE.
--- NOTE | 2021-01-16 07:00 | NUR ---
RN NOTES RECEIVED PATIENT ON BED WELSH SPEAKING , WITH HFNC 40L FIO2 65% SATURATION BETWEEN 90-93%. BREATHING EVEN AND UNLABORED. RESPONSIVE TO NAME AND TACTILE STIMULI. ON TELE SR HR IN 70'S, AFEBRILE. VSS. ISOLATION PRECAUTION STRICTLY OBSERVED DUE TO + COVID PNA. PATIENT ON IVF 1/2 NS @ 50 ML/HR INTACT AND PATENT. INCONTINENT CARE RENDERED DESPITE THE PUREWICK IS IN PLACED. RIGHT WRIST RESTRAINT KEPT IN PLACED. KEPT PT CLEAN AND COMFORTABLE IN BED. KEPT BED IN LOW POSITION. WILL CLOSELY MONITOR
[2021-01-16] MEDS: GLUCERNA SHAKE 237 ML CAN PO SCH ×2 (08:00→17:00)
[2021-01-16] MEDS: APIXABAN 5 MG TABLET PO SCH ×2 (08:19→17:12)
[2021-01-16] MEDS: GABAPENTIN 100 MG CAPSULE PO SCH (08:19)
[2021-01-16] MEDS: FLUTICASONE/VILANTEROL 1 EACH BLST.W.DEV IH SCH (08:20)
[2021-01-16] MEDS: INSULIN REGULAR, HUMAN 100 UNIT/ML 3 ML VIAL SQ PRN ×2 (08:21→11:42)
[2021-01-16] MEDS: BLOOD SUGAR DIAGNOSTIC 1 EACH STRIP IN SCH ×4 (08:21→21:57)
[2021-01-16] MEDS: prednisoLONE ACETATE 1% SUSP 5 ML BOTTLE RIGHTEYE SCH ×3 (08:25→17:13)
--- NOTE | 2021-01-16 12:00 | NUR ---
RN NOTES PT TOLERATING HIGH FLOW AT 40 L AND 65% , O2 SAT IN LOW 90'S. ENCOURAGED PO INTAKE, CONTINUE TO MONITOR .
--- NOTE | 2021-01-16 17:00 | NUR ---
RN NOTES O2 SAT IN HIGH 80'S , HIGH FLOW FIO2 INCREASED TO 70%, CONTINUE TO MONITOR .
[2021-01-16] MEDS: ACETAMINOPHEN 325 MG TABLET PO PRN (17:24)
[2021-01-16] MEDS ORDERED: VASOPRESSIN INJ 40 UNIT in IV NS 0.9% 38 ML IV PRN (18:00)
--- NOTE | 2021-01-16 18:00 | NUR ---
RN NOTES PT REMANINS ON HIGH FLOW , A/Ox3, POOR APPETITE, ON TELE SR , IVF AT 70 CC/HR RUNNING VIA RFA IV SITE, NO SIGNIFICANT CHANGES NOTED ON THIS SHIFT , WILL ENDORSE TO GASOLINE POWER SHOVEL OPERATOR NURSE FOR CONTINUITY OF CARE .
--- NOTE | 2021-01-16 19:20 | NUR ---
RN NOTES RECEIVED PATIENT ASLEEP ON BED ON HFNC 40L FIO2 70% SATURATION BETWEEN 90% BREATHING EVEN AND UNLABORED. AOX1-2 WITH EPISODE OF CONFUSION NOTED. CUBAN SPEAKING ONLY. NSR ON MONITOR. AFEBRILE. VSS. DROPLET PRECAUTION STRICTLY OBSERVED DUE TO + COVID PNA. PATIENT ON IVF /2 NS @ 70 ML/HR INTACT AND PATENT ON RIGHT FOREARM. BILATERAL SOFT WRIST RESTRAINT KEPT IN PLACED. KEPT PT CLEAN AND COMFORTABLE IN BED. KEPT BED IN LOW POSITION. ALARM ON . WILL CLOSELY MONITOR.
[2021-01-16] MEDS: CITALOPRAM HYDROBROMIDE 20 MG TABLET PO SCH (21:52)
[2021-01-16] MEDS: ARIPIPRAZOLE 2 MG TABLET PO SCH (21:52)
[2021-01-16] MEDS: MONTELUKAST SODIUM (10MG) 10 MG TABLET PO SCH (21:52)
[2021-01-16] MEDS: LATANOPROST EYE DROP 0.005% 2.5 ML BOTTLE EACHEYE SCH (21:57)
[2021-01-17] VITALS (24 sets, daily range): BP systolic 116–155; BP diastolic 64–98
[2021-01-17 04:57] LABS: BASOPHILS % (AUTO) 0.1 % (0.0-2.0); EOSINOPHILS % (AUTO) 0.3 % (0.0-6.0); HEMATOCRIT 32 % (33-45); HEMOGLOBIN 10.6 g/dL (11.5-14.8); LYMPHOCYTES # (AUTO) 0.7 K/uL (0.8-4.8); MEAN CORPUSCULAR HGB CONC 34 g/dl (31.0-36.0); MEAN CORPUSCULAR VOLUME 99 fL (82-100); MONOCYTES # (AUTO) 0.2 K/uL (0.1-1.30); MONOCYTES % (AUTO) 2.2 % (2.0-12.0); NEUTROPHILS # (AUTO) 9.4 K/uL (1.8-8.9); NEUTROPHILS % (AUTO) 90.4 % (43.0-81.0); PLATELET COUNT (AUTO) 140 K/uL (150-450); WHITE BLOOD COUNT (AUTO) 10.4 K/uL (4.3-11.0)
[2021-01-17 05:27] LABS: CALCIUM, SERUM 7.5 mg/dL (8.5-10.1); CARBON DIOXIDE 29 mmol/L (21-32); CHLORIDE 118 mmol/L (98-107); CREATININE 1.1 mg/dL (0.6-1.3); GLUCOSE 216 mg/dL (74-106); MAGNESIUM 2.2 mg/dL (1.8-2.4); PHOSPHORUS 3.5 mg/dL (2.5-4.9); POTASSIUM 3.7 mmol/L (3.5-5.1); SODIUM SERUM 153 mmol/L (136-145); UREA NITROGEN, BLOOD 24 mg/dL (7-18)
[2021-01-17] MEDS: HYDROCORTISONE SOD SUCCINATE 100 MG/2 ML VIAL IV SCH ×3 (06:38→20:29)
--- NOTE | 2021-01-17 07:00 | NUR ---
RN NOTES RECEIVED PATIENT ON HIGH FLOW O2 , 40L FIO2 70% , O2 SAT WNL, TACHYPNEIC AT TIMES, ANXIOUS , UZBEK SPEAKING ONLY. NSR ON MONITOR. AFEBRILE. VSS. DROPLET PRECAUTION STRICTLY OBSERVED DUE TO + COVID PNA. PATIENT ON IVF 1/2 NS @ 70 ML/HR INTACT AND PATENT ON RIGHT FOREARM. BILATERAL SOFT WRIST RESTRAINT KEPT IN PLACED FOR PT SAFTEY , PT HAS TENDENCY TO PULL ON HER HIGH FLOW N/C , KEPT PT CLEAN AND COMFORTABLE IN BED. SR UP x3, CALL LIGHT WITHIN EASY REACH, BED LOCKED AND IN LOWEST POSITION, . WILL CLOSELY MONITOR.
--- NOTE | 2021-01-17 07:13 | NUR ---
RN NOTES PATIENT ASLEEP WELL ON BED. BREATHING EVEN AND UNLABORED. DENIES PAIN. NO SOB OR APPARENT DISTRESS. AFEBRILE. VSS. SATURATION KEPT >90%. WITH HIGH FLOW O2 40LPM FIO2 70% VIA NC. CONTINUE ON PUREWICK TOLERATED WELL. IVF 1/2 NS @ 70 ML/HR TOLERATED. TURNED AND REPOSITIONED Q2H AND PRN. KEPT PT CLEAN AND COMFORTABLE IN BED. DROPLET PRECAUTION CONTINUE . ENDORSED CONTINUITY OF CARE TO AM NURSE.
[2021-01-17] MEDS: INSULIN REGULAR, HUMAN 100 UNIT/ML 3 ML VIAL SQ PRN ×3 (08:21→17:29)
[2021-01-17] MEDS: FLUTICASONE/VILANTEROL 1 EACH BLST.W.DEV IH SCH (08:22)
[2021-01-17] MEDS: GLUCERNA SHAKE 237 ML CAN PO SCH ×2 (08:22→17:12)
[2021-01-17] MEDS: BLOOD SUGAR DIAGNOSTIC 1 EACH STRIP IN SCH ×4 (08:22→21:17)
[2021-01-17] MEDS: APIXABAN 5 MG TABLET PO SCH ×2 (08:24→17:10)
[2021-01-17] MEDS: GABAPENTIN 100 MG CAPSULE PO SCH (08:24)
[2021-01-17] MEDS: prednisoLONE ACETATE 1% SUSP 5 ML BOTTLE RIGHTEYE SCH ×3 (08:25→17:12)
--- NOTE | 2021-01-17 12:00 | NUR ---
RN NOTES FIO2 IS 65%, PT TOLERATING WELL, O2 SAT WNL, CONTINUE TO MONITOR .
[2021-01-17] MEDS: IV 1/2NS 1000 ML 1,000 ML IV PRN (13:03)
--- NOTE | 2021-01-17 16:00 | NUR ---
RN NOTES FIO2 55% , 40 L HIGH FLOW AT THIS TIME, O2 SAT WNL, CONTINUE TO MONITOR .
[2021-01-17] MEDS: IV D5W 1,000 ML IV PRN (17:27)
--- NOTE | 2021-01-17 18:42 | NUR ---
RN NOTES PATIENT ON HIGH FLOW O2 40L , 55%, O2 SAT WNL, BREATHING EVEN AND UNLABORED. PT'S DAUGHTER AT THE BEDSIDE VISITING PT, DENIES PAIN. NO SOB OR APPARENT DISTRESS. AFEBRILE. CONTINUE ON PUREWICK TOLERATED WELL. IVF AT 75 ML/HR TOLERATED. TURNED AND REPOSITIONED Q2H AND PRN. KEPT PT CLEAN AND COMFORTABLE IN BED. WILL ENDORSE TO [facility]ERS NURSE FOR CONTINUITY OF CARE.
--- NOTE | 2021-01-17 20:00 | NUR ---
CYLINDER WORKER NOTES RECEIVED PTS IN BED AWAKE A/OX3 SPEAKS CHINESE ON 40 LITERS HI FLOW 45%FIO2 SATING 91-92% NO SOB NO DISTRESS BREATHING EVEN AND UNLABORED. DENIES PAIN. AFEBRILE. VSS. CONTINUE ON PUREWICK TOLERATED WELL. LEFT FA g#20 INTACT AND PATENT , IVF D5W AT @ 75 ML/HR TOLERATED. TURNED AND REPOSITIONED Q2H AND PRN. KEPT PT CLEAN AND COMFORTABLE IN BED. DUE MEDS GIVEN ORDERED . ON BILATERAL RESTRAINT ON TO PREVENT PULLING OF INVASIVE TUBING ALL NEEDS ATTENDED TOO CALL LIGHT WITH IN REACH , WILL CONTINUE TO MONITOR PTS.
--- NOTE | 2021-01-17 20:07 | NUR ---
RECEIVED PT ON HFNC 40L, 45%. NO RESP DISTRESS. PT SLEEPING. CONTINUE TO MONITOR. Addendum: 01/17/21 at 2008 by RAQUEL BERMUDEZ RT Amended: Links added.
[2021-01-17] MEDS: ARIPIPRAZOLE 2 MG TABLET PO SCH (21:01)
[2021-01-17] MEDS: MONTELUKAST SODIUM (10MG) 10 MG TABLET PO SCH (21:01)
[2021-01-17] MEDS: CITALOPRAM HYDROBROMIDE 20 MG TABLET PO SCH (21:01)
[2021-01-17] MEDS: LATANOPROST EYE DROP 0.005% 2.5 ML BOTTLE EACHEYE SCH (21:02)
[2021-01-17] MEDS: *INSULIN REGULAR(HUMULIN R)HUM 100 UNIT/ML VIAL SQ PRN (21:13)
--- NOTE | 2021-01-17 21:13 | NUR ---
rn review notes iregular insulin 8 units unable to scan the barcode , use manual scanning witness by Connie rios
--- NOTE | 2021-01-17 21:33 | NUR ---
agriculturist notes Blood sugar for 10pm is 350 8 units of regular insulin given per sliding scale
--- NOTE | 2021-01-17 22:00 | NUR ---
COMPUTER TESTER NOTES DUE MEDS GIVEN ORDERED , PTS ON TELE SR ON THE MONITOR . WILL CONTINUE TO MONITOR PTS.
--- NOTE | 2021-01-17 23:00 | NUR ---
specialist icu notes RECEIVED A CALL FROM DAUGHTER .UPDATED WITH PTS CONDITION , PTS V/S STABLE AFEBRILE ON HI FLOW 40 LITERS ,50%FIO2 SATING 88-89%, NO SOB NO DISTRESS NOTED .AND PTS STILL ON BILATERAL RESTRAINT ON.BLOOD SUGAR OF 350 AT 10PM ,COVERS WITH 8 UNITS OF REGULAR INSULIN PER SLIDING SCALE. WILL CONTINUE TO MONITOR PTS.
--- NOTE | 2021-01-17 23:20 | NUR ---
FIO2 INCREASED TO 50% DUE TO LOW O2 SAT, RN NOTIFIED.
[2021-01-18] VITALS (28 sets, daily range): BP systolic 89–163; BP diastolic 45–98
[2021-01-18] MEDS: IV D5W 1,000 ML IV PRN ×3 (04:38→21:21)
[2021-01-18 05:05] LABS: BASOPHILS # (AUTO) 0.1 K/uL (0.0-0.2); BASOPHILS % (AUTO) 0.8 % (0.0-2.0); EOSINOPHILS % (AUTO) 0.6 % (0.0-6.0); HEMATOCRIT 32 % (33-45); HEMOGLOBIN 10.8 g/dL (11.5-14.8); LYMPHOCYTES # (AUTO) 0.7 K/uL (0.8-4.8); LYMPHOCYTES % (AUTO) 8.3 % (20.0-44.0); MEAN CORPUSCULAR HGB CONC 34 g/dl (31.0-36.0); MEAN CORPUSCULAR VOLUME 99 fL (82-100); MONOCYTES # (AUTO) 0.2 K/uL (0.1-1.30); MONOCYTES % (AUTO) 1.9 % (2.0-12.0); NEUTROPHILS # (AUTO) 7.7 K/uL (1.8-8.9); NEUTROPHILS % (AUTO) 88.4 % (43.0-81.0); PLATELET COUNT (AUTO) 153 K/uL (150-450); RED BLOOD CELL COUNT(AUTO) 3.24 MIL/uL (4.0-5.2); WHITE BLOOD COUNT (AUTO) 8.7 K/uL (4.3-11.0)
[2021-01-18 05:44] LABS: CALCIUM, SERUM 7.7 mg/dL (8.5-10.1); MAGNESIUM 2.5 mg/dL (1.8-2.4); PHOSPHORUS 2.6 mg/dL (2.5-4.9); POTASSIUM 3.1 mmol/L (3.5-5.1)
[2021-01-18] MEDS: HYDROCORTISONE SOD SUCCINATE 100 MG/2 ML VIAL IV SCH ×3 (06:22→20:35)
--- NOTE | 2021-01-18 07:29 | NUR ---
agricultural engineering technologist notes Pts remains in bed awake continue on 40 liters hiflow and 50% fio2 , continue on restraint renewed at 130am , pts endorse to rn day shift el for continuity of care , v/s stable afebrile no distress noted.
--- NOTE | 2021-01-18 07:29 | NUR ---
agriculture research director note Patient, on tele monitor hr in bed alert oriented on high flow of o2 saturation 85%, on tele monitor hr 70 at this time, with soft restrain trying to remove lt hernandez hl i place on ivf as ordered, bed in lowest and locked position , call light within reach with urine device to suction noted 100 ml of yellow color urine , bed in lowest and locked position , will cont to monitor closely all lines,
--- NOTE | 2021-01-18 07:58 | NUR ---
agricultural aircraft pilot note rt at bedside ,changed high flow to fio2 60%, will monitor
[2021-01-18] MEDS: BLOOD SUGAR DIAGNOSTIC 1 EACH STRIP IN SCH ×4 (07:59→21:46)
[2021-01-18] MEDS: GLUCERNA SHAKE 237 ML CAN PO SCH ×2 (08:14→16:27)
[2021-01-18] MEDS: GABAPENTIN 100 MG CAPSULE PO SCH (08:17)
[2021-01-18] MEDS: APIXABAN 5 MG TABLET PO SCH ×2 (08:18→16:26)
[2021-01-18] MEDS: prednisoLONE ACETATE 1% SUSP 5 ML BOTTLE RIGHTEYE SCH ×3 (08:19→16:27)
[2021-01-18] MEDS: FLUTICASONE/VILANTEROL 1 EACH BLST.W.DEV IH SCH (08:23)
[2021-01-18] MEDS: INSULIN REGULAR, HUMAN 100 UNIT/ML 3 ML VIAL SQ PRN ×4 (08:51→22:17)
--- NOTE | 2021-01-18 09:00 | NUR ---
VET TECH NOTE FED PATIENT ,ATE 25% OF BREAKFAST ,ALL NEEDS ATTENDED
[2021-01-18] MEDS: POTASSIUM CHLORIDE 20 MEQ TAB.PRT.SR PO SCH ×2 (09:33→10:39)
--- NOTE | 2021-01-18 09:48 | NUR ---
RETAIL COVERAGE MERCHANDISER LEAD NOTE DR CASTRO SUPERVISOR FERTILIZER AT BEDSIDE ,AWARE OF PATIENT CONDITION THAT HIGH FLOW AT THIS TIME 60% SATURATION 88% ,WILL MONITOR
--- NOTE | 2021-01-18 11:18 | NUR ---
DIRECTOR OF SLEEP NOTE TURN REPOSITION ON SIDE SATURATION 96% AT THIS TIME
--- NOTE | 2021-01-18 12:52 | NUR ---
CONCRETE PLACEMENT EQUIPMENT OPERATOR NOTE SEEN BY DR FLOYD IS SUPPORT ANALYST AWARE THAT NA 15 OK TO DRINK FREE WATER ,WILL F\U Addendum: 01/18/21 at 1253 by ANTOINE GARCIA RN DAUGHTER AT BEDSIDE FED PATIENT, ATE 50% OF DIET
--- NOTE | 2021-01-18 15:00 | NUR ---
LOAF COUNTER NOTE ROUND MADE , ALL NEEDS ATTENDED ,SATURATION 95% AT THIS TIME, WILL MONITOR
--- NOTE | 2021-01-18 18:00 | NUR ---
GUT DROPPER NOTE FED PATIENT, ABLE TO EAT 25% OF DINNER , CONT ON IVF ORDERED ,ABLE TO URINATE 800 ML OF YELLOW COLOR URINE , ON TELE MONITOR SR , STILL ON HIGH FLOW FIO2 60% 40L SATURATION 94% AT THIS TIME,ON IVF A ORDERED , STILL WITH SOFT RESTRAIN UNABLE TO REMOVE PATIENT TRYING TO REMOVE ALL LINES, KEEP CLEAN DRY , CALL LIGHT WITHIN REACH , TURN REPOSITION , SAFETY MEASURE IN PLACED
--- NOTE | 2021-01-18 19:00 | NUR ---
RN NOTE RECEIVED PATIENT IN BED RESTING ALERT ORIENTED X2-3 VERBALLY RESPONSIVE ON 40L HIGH FLOW OXYGEN FIO2:60% O2:96% IV SITE IS ON RIGHT FOREARM INTACT PATENT ON IV HYDRATION D5W 75CC/HR,INCONTINENT BOWEL/BLADDER,SOFT BILATERAL SOFT RESTRAIN IN PLACE WILL CHECK EVERY 15 MINS FOR SKIN BREAKDOWN AND CIRCULATION,SAFETY MEASURE IMPLEMENT BED IN LOW POSITION AND LOCKED,HEAD OF THE BED ELEVATED CONTINUE TO MONITOR
--- NOTE | 2021-01-18 19:15 | NUR ---
design engineer agricultural equipment note face to face assessment done ,still truing to remove all lines, per dr Hua Wilkinson ok to renew soft restrain , order carried out
--- NOTE | 2021-01-18 20:04 | NUR ---
RECEIVED PT ON HFNC 40L, 60%. NO RESP DISTRESS. O2 SAT 96%. CONTINUE TO MONITOR. Addendum: 01/18/21 at 2005 by RAQUEL BERMUDEZ RT Amended: Links added.
--- NOTE | 2021-01-18 20:40 | NUR ---
RN NOTE PATIENT DAUGHTER CAME TO VISIT PATIENT AND FED THE PATIENT CONTINUE TO MONITOR.
[2021-01-18] MEDS: LATANOPROST EYE DROP 0.005% 2.5 ML BOTTLE EACHEYE SCH (21:07)
[2021-01-18] MEDS: CITALOPRAM HYDROBROMIDE 20 MG TABLET PO SCH (21:27)
[2021-01-18] MEDS: MONTELUKAST SODIUM (10MG) 10 MG TABLET PO SCH (21:27)
[2021-01-18] MEDS: ARIPIPRAZOLE 2 MG TABLET PO SCH (21:45)
[2021-01-19] VITALS (25 sets, daily range): BP systolic 96–157; BP diastolic 51–93
[2021-01-19] MEDS: HYDROCORTISONE SOD SUCCINATE 100 MG/2 ML VIAL IV SCH ×3 (04:33→21:07)
[2021-01-19 04:40] LABS: BASOPHILS % (AUTO) 0.5 % (0.0-2.0); EOSINOPHILS % (AUTO) 0.8 % (0.0-6.0); HEMATOCRIT 31 % (33-45); HEMOGLOBIN 10.6 g/dL (11.5-14.8); LYMPHOCYTES # (AUTO) 0.9 K/uL (0.8-4.8); LYMPHOCYTES % (AUTO) 10.1 % (20.0-44.0); MEAN CORPUSCULAR HGB CONC 34 g/dl (31.0-36.0); MEAN CORPUSCULAR VOLUME 97 fL (82-100); MONOCYTES # (AUTO) 0.2 K/uL (0.1-1.30); MONOCYTES % (AUTO) 2.7 % (2.0-12.0); NEUTROPHILS % (AUTO) 85.9 % (43.0-81.0); PLATELET COUNT (AUTO) 139 K/uL (150-450); WHITE BLOOD COUNT (AUTO) 9.3 K/uL (4.3-11.0)
[2021-01-19 04:59] LABS: CALCIUM, SERUM 7.2 mg/dL (8.5-10.1); CARBON DIOXIDE 30 mmol/L (21-32); CHLORIDE 110 mmol/L (98-107); CREATININE 0.8 mg/dL (0.6-1.3); GLUCOSE 180 mg/dL (74-106); MAGNESIUM 2.1 mg/dL (1.8-2.4); PHOSPHORUS 2.6 mg/dL (2.5-4.9); POTASSIUM 3.5 mmol/L (3.5-5.1); SODIUM SERUM 146 mmol/L (136-145); UREA NITROGEN, BLOOD 16 mg/dL (7-18)
--- NOTE | 2021-01-19 06:52 | NUR ---
RN NOTE PATIENT REMAINS ON ALERT ORIENTED 2-3 VERBALLY RESPONSIVE ON HIGH FLOW OXYGEN 40L FIO2 60% O2:90% IV SITE IS ON RIGHT FOREARM INTACT PATENT ON IV HYDRATION D5W 75CC/HR,ALL DUE MEDS GIVEN MD ORDERED KEPT CLEAN AND DRY ALL THE TIME,REPOSITIONED EVERY 2 HOURS,ENDORSE NEXT COMING SHIFT FOR CONTINUATION OF CARE.
[2021-01-19] MEDS ORDERED: hydrALAZINE HCL IV 20 MG VIAL IV PRN (07:00)
--- NOTE | 2021-01-19 07:00 | NUR ---
RN NOTES RECEIVED PATIENT ON HIGH FLOW O2 , 40L FIO2 60% , O2 SAT WNL, ANXIOUS , GABONESE SPEAKING ONLY. NSR ON MONITOR. AFEBRILE. PATIENT ON IVF AT 75 ML/HR RUNNING , IV SITE , INTACT AND PATENT ON RIGHT FOREARM. BILATERAL SOFT WRIST RESTRAINT KEPT IN PLACED FOR PT SAFETY , PT HAS TENDENCY TO PULL ON HER HIGH FLOW N/C , KEPT PT CLEAN AND COMFORTABLE IN BED. SR UP x3, CALL LIGHT WITHIN EASY REACH, BED LOCKED AND IN LOWEST POSITION, . WILL CLOSELY MONITOR.
[2021-01-19] MEDS: INSULIN REGULAR, HUMAN 100 UNIT/ML 3 ML VIAL SQ PRN ×3 (07:53→16:54)
[2021-01-19] MEDS: GLUCERNA SHAKE 237 ML CAN PO SCH ×2 (07:54→16:26)
[2021-01-19] MEDS: BLOOD SUGAR DIAGNOSTIC 1 EACH STRIP IN SCH ×4 (07:54→21:32)
[2021-01-19] MEDS: FLUTICASONE/VILANTEROL 1 EACH BLST.W.DEV IH SCH (08:01)
[2021-01-19] MEDS: prednisoLONE ACETATE 1% SUSP 5 ML BOTTLE RIGHTEYE SCH ×3 (08:06→16:26)
[2021-01-19] MEDS: APIXABAN 5 MG TABLET PO SCH ×2 (08:09→16:28)
[2021-01-19] MEDS: GABAPENTIN 100 MG CAPSULE PO SCH (08:10)
[2021-01-19] MEDS: IV D5W 1,000 ML IV PRN ×2 (11:46→21:35)
--- NOTE | 2021-01-19 12:00 | NUR ---
RN NOTES PT ON 40L AND 40% FIO2 HIGH FLOW O2, NO DISTRESS NOTED, CONTINUE TO MONITOR .
--- NOTE | 2021-01-19 18:31 | NUR ---
RN NOTE PATIENT REMAINS ALERT ORIENTED 2-3 VERBALLY RESPONSIVE ON HIGH FLOW OXYGEN 40L FIO2 40% O2 SAT WNL, IV SITE IS ON RIGHT FOREARM INTACT PATENT ON IV HYDRATION D5W 75CC/HR, ORDERED KEPT CLEAN AND DRY , REPOSITIONED EVERY 2 HOURS,WILL ENDORSE TO [employer] SHIFT NURSE FOR CONTINUITY OF CARE.
--- NOTE | 2021-01-19 20:30 | NUR ---
ICU/SHOPPER MARKETING MANAGER RECIEVED PT ON FIO2 AT 40 HOWEVER AFTER PT WAS GIVEN PM CARE, PT'S SATURATION CAME DOWN TO 85-87%. INCREASED THE FIO2 TO 45. WILL CONTINUE TO MONITOR THIS PT'S SATURATION.
[2021-01-19] MEDS: LATANOPROST EYE DROP 0.005% 2.5 ML BOTTLE EACHEYE SCH (21:09)
[2021-01-19] MEDS: MONTELUKAST SODIUM (10MG) 10 MG TABLET PO SCH (21:09)
[2021-01-19] MEDS: CITALOPRAM HYDROBROMIDE 20 MG TABLET PO SCH (21:09)
[2021-01-19] MEDS: ARIPIPRAZOLE 2 MG TABLET PO SCH (21:09)
[2021-01-19] MEDS: *INSULIN REGULAR(HUMULIN R)HUM 100 UNIT/ML VIAL SQ PRN (21:35)
--- NOTE | 2021-01-19 22:00 | NUR ---
ICU/VINER OPERATOR PT'S SATURATION AFTER INCREASE OF FIO2 HAS BEEN 92-95%. WILL CONTINUE TO MONITOR THIS PT'S SATURATION. NO ACUTE DISTRESS SEEN.
[2021-01-20] VITALS (24 sets, daily range): BP systolic 85–155; BP diastolic 48–90
[2021-01-20] MEDS: HYDROCORTISONE SOD SUCCINATE 100 MG/2 ML VIAL IV SCH ×3 (04:55→21:56)
[2021-01-20] MEDS: BLOOD SUGAR DIAGNOSTIC 1 EACH STRIP IN SCH ×4 (07:52→21:54)
[2021-01-20] MEDS: GABAPENTIN 100 MG CAPSULE PO SCH (08:46)
[2021-01-20] MEDS: INSULIN REGULAR, HUMAN 100 UNIT/ML 3 ML VIAL SQ PRN ×3 (08:50→17:36)
[2021-01-20] MEDS: APIXABAN 5 MG TABLET PO SCH ×2 (08:50→17:20)
[2021-01-20] MEDS: GLUCERNA SHAKE 237 ML CAN PO SCH ×2 (08:51→17:04)
[2021-01-20] MEDS: FLUTICASONE/VILANTEROL 1 EACH BLST.W.DEV IH SCH (09:00)
[2021-01-20] MEDS: prednisoLONE ACETATE 1% SUSP 5 ML BOTTLE RIGHTEYE SCH ×3 (09:00→17:04)
[2021-01-20] MEDS: IV D5W 1,000 ML IV PRN (10:52)
[2021-01-20] MEDS: MONTELUKAST SODIUM (10MG) 10 MG TABLET PO SCH (21:53)
[2021-01-20] MEDS: CITALOPRAM HYDROBROMIDE 20 MG TABLET PO SCH (21:53)
[2021-01-20] MEDS: ARIPIPRAZOLE 2 MG TABLET PO SCH (21:53)
[2021-01-20] MEDS: LATANOPROST EYE DROP 0.005% 2.5 ML BOTTLE EACHEYE SCH (21:54)
[2021-01-21] VITALS (27 sets, daily range): BP systolic 88–137; BP diastolic 35–94
[2021-01-21] MEDS: HYDROCORTISONE SOD SUCCINATE 100 MG/2 ML VIAL IV SCH ×3 (05:25→21:49)
[2021-01-21 05:52] LABS: BASOPHILS # (AUTO) 0.1 K/uL (0.0-0.2); BASOPHILS % (AUTO) 0.6 % (0.0-2.0); EOSINOPHILS % (AUTO) 0.9 % (0.0-6.0); HEMATOCRIT 31 % (33-45); HEMOGLOBIN 11.2 g/dL (11.5-14.8); LYMPHOCYTES # (AUTO) 1.4 K/uL (0.8-4.8); LYMPHOCYTES % (AUTO) 13.7 % (20.0-44.0); MEAN CORPUSCULAR HGB CONC 36 g/dl (31.0-36.0); MEAN CORPUSCULAR VOLUME 102 fL (82-100); MONOCYTES # (AUTO) 0.3 K/uL (0.1-1.30); MONOCYTES % (AUTO) 2.6 % (2.0-12.0); NEUTROPHILS # (AUTO) 8.1 K/uL (1.8-8.9); NEUTROPHILS % (AUTO) 82.2 % (43.0-81.0); PLATELET COUNT (AUTO) 171 K/uL (150-450); RED BLOOD CELL COUNT(AUTO) 3.09 MIL/uL (4.0-5.2); WHITE BLOOD COUNT (AUTO) 9.9 K/uL (4.3-11.0)
[2021-01-21 06:17] LABS: ALBUMIN 1.7 g/dL (3.4-5.0); BILIRUBIN,TOTAL 0.4 mg/dL (0.2-1.0); CALCIUM, SERUM 7.3 mg/dL (8.5-10.1); CREATININE 0.9 mg/dL (0.6-1.3); TOTAL PROTEIN, SERUM 6.2 g/dL (6.4-8.2)
[2021-01-21] MEDS: IV D5W 1,000 ML IV PRN (06:24)
[2021-01-21 06:38] LABS: POTASSIUM 2.7 mmol/L (3.5-5.1)
--- NOTE | 2021-01-21 06:45 | NUR ---
ICU/ROR ENGINEER THIS MORNING POTASSIUM IS 2.7, CALLED THE MD TOOL AND DIE MAKER REI, WHO ORDERED 60MEQ KCL. THIS ORDER WAS PLACED IN COMPUTER AND WILL CARRY OUT BOTH BY DAY AND TECHNICAL DIRECTOR.
[2021-01-21] MEDS: POTASSIUM CL. PREMIX PERIPHER. 50 ML IV SCH ×2 (07:44→09:44)
[2021-01-21] MEDS: BLOOD SUGAR DIAGNOSTIC 1 EACH STRIP IN SCH ×4 (07:44→22:49)
[2021-01-21] MEDS: GLUCERNA SHAKE 237 ML CAN PO SCH ×2 (07:56→16:50)
[2021-01-21] MEDS: FLUTICASONE/VILANTEROL 1 EACH BLST.W.DEV IH SCH (07:58)
--- NOTE | 2021-01-21 08:00 | NUR ---
rn notes received patient a/o x3 with forgetfulness, Turkish speaker. patient on nc-6l at this time. so2-92NC. patient has no acute respiratory distress, vss. patient bs- 194 mg/dl coverage given, due medication administered. patient has soft restrain bilateral wrist rechecked circulation. patient able to turn and reposition in the bed with small assist. tolerated breakfast 30% by self. has redness perineal area, applied z-guard. assist turn and reposition q 2 hr. call light within to reach. will follow up.
--- NOTE | 2021-01-21 08:00 | NUR ---
RT PATIENT REMOVED FROM HFNC AND PLACED ON 6L NC LUIZ WELL, MAINTAINING SPO2 ABOVE 92%
[2021-01-21] MEDS ORDERED: IV NS 0.9% 250 ML IV PRN (08:30)
[2021-01-21] MEDS: INSULIN REGULAR, HUMAN 100 UNIT/ML 3 ML VIAL SQ PRN ×3 (08:50→16:58)
--- NOTE | 2021-01-21 09:00 | NUR ---
rn notes patient get midline insertion on right ua at this time per hospitalist order.
[2021-01-21] MEDS: GABAPENTIN 100 MG CAPSULE PO SCH (09:46)
[2021-01-21] MEDS: APIXABAN 5 MG TABLET PO SCH ×2 (09:52→16:50)
[2021-01-21] MEDS: prednisoLONE ACETATE 1% SUSP 5 ML BOTTLE RIGHTEYE SCH ×3 (09:52→16:51)
[2021-01-21] MEDS ORDERED: POTASSIUM CHLORIDE 20 MEQ TAB.PRT.SR PO ONE (11:30)
--- NOTE | 2021-01-21 13:34 | NUR ---
RN NOTES BS-266MG/DL COVERAGE GIVEN, INFUSING D5W WITH 75/ML/HR. RIGHT MIDLINE INTACT. TOLERATED LUNCH 75%, DAUGHTER NEXT TO THE BED. SEEN LEASING PROPERTY MANAGER DR GLYNN GET ORDER PT. ORDER TAKEN AND CARRIED OUT.
--- NOTE | 2021-01-21 18:30 | NUR ---
RN NOTES BS-25 MG/DL COVERAGE GIVEN, PATIENT STABLE , PM CARE DONE, DUE MEDICATION ADMINISTERED, REFUSED PAIN. TOLERATED DINNER 30% BY SELF. PATIENT STABLE, ABLE TO VERBALIZE NEEDS. CALL LIGHT WITHIN TO REACH. ENDORSED ONCOMING NURSE FOLLOW JOSE.
[2021-01-21] MEDS: CITALOPRAM HYDROBROMIDE 20 MG TABLET PO SCH (22:50)
[2021-01-21] MEDS: MONTELUKAST SODIUM (10MG) 10 MG TABLET PO SCH (22:50)
[2021-01-21] MEDS: LATANOPROST EYE DROP 0.005% 2.5 ML BOTTLE EACHEYE SCH (22:50)
[2021-01-21] MEDS: ARIPIPRAZOLE 2 MG TABLET PO SCH (22:50)
[2021-01-22] VITALS (29 sets, daily range): BP systolic 73–144; BP diastolic 37–91
[2021-01-22] MEDS: HYDROCORTISONE SOD SUCCINATE 100 MG/2 ML VIAL IV SCH ×3 (04:11→21:18)
[2021-01-22 04:35] LABS: BASOPHILS # (AUTO) 0.1 K/uL (0.0-0.2); BASOPHILS % (AUTO) 0.9 % (0.0-2.0); EOSINOPHILS % (AUTO) 1.1 % (0.0-6.0); HEMATOCRIT 31 % (33-45); HEMOGLOBIN 10.7 g/dL (11.5-14.8); LYMPHOCYTES # (AUTO) 1.3 K/uL (0.8-4.8); LYMPHOCYTES % (AUTO) 12.8 % (20.0-44.0); MEAN CORPUSCULAR HGB CONC 34 g/dl (31.0-36.0); MEAN CORPUSCULAR VOLUME 97 fL (82-100); MONOCYTES # (AUTO) 0.2 K/uL (0.1-1.30); NEUTROPHILS # (AUTO) 8.5 K/uL (1.8-8.9); NEUTROPHILS % (AUTO) 83.2 % (43.0-81.0); PLATELET COUNT (AUTO) 176 K/uL (150-450); RED BLOOD CELL COUNT(AUTO) 3.25 MIL/uL (4.0-5.2); WHITE BLOOD COUNT (AUTO) 10.3 K/uL (4.3-11.0)
[2021-01-22 04:47] LABS: CALCIUM, SERUM 7.5 mg/dL (8.5-10.1); CREATININE 0.9 mg/dL (0.6-1.3); MAGNESIUM 2.2 mg/dL (1.8-2.4); PHOSPHORUS 3.2 mg/dL (2.5-4.9); POTASSIUM 3.4 mmol/L (3.5-5.1)
[2021-01-22] MEDS: BLOOD SUGAR DIAGNOSTIC 1 EACH STRIP IN SCH ×4 (06:10→21:27)
--- NOTE | 2021-01-22 06:46 | NUR ---
ICU/ACTIVITIES COUNSELOR PT HAS BEEN ON 6 LITERS VIA N/C WITH SATURATION AT LOW 90'S HOWEVER @0600 THIS MORNING PT'S SATURATION FELL TO LOW 80'S, RT CALLED TO PLACE PT BACK ON HIGH FLOW.
--- NOTE | 2021-01-22 07:53 | NUR ---
WOUND CARE CONSULT: PT SEEN FOR RASH ON BUTTOCKS. RECOMMENDATIONS MADE FOR SKIN PROTECTION. DISCUSSED WITH NURSING STAFF. PT INCONTINENT OF URINE AND LOOSE STOOL. MD IN AGREEMENT WITH PLAN OF CARE.
--- NOTE | 2021-01-22 08:00 | NUR ---
rn notes Received patient at this time agitated because of non-rebreathe mask, and saturation going down 88%trying to remove mask. patient Uzbek speaker a/ox2/3 with confusion, forgetfulness, explained 9mportant of keep mask on. administered due medication. patient calm down after reinforcement, tolerated breakfast well self. call light within to reach. bs-92mg/dl, will follow up.
[2021-01-22] MEDS: GABAPENTIN 100 MG CAPSULE PO SCH (08:34)
[2021-01-22] MEDS: GLUCERNA SHAKE 237 ML CAN PO SCH ×2 (08:34→17:21)
[2021-01-22] MEDS: APIXABAN 5 MG TABLET PO SCH ×2 (08:35→17:20)
[2021-01-22] MEDS: FLUTICASONE/VILANTEROL 1 EACH BLST.W.DEV IH SCH (08:35)
[2021-01-22] MEDS: prednisoLONE ACETATE 1% SUSP 5 ML BOTTLE RIGHTEYE SCH ×3 (08:36→17:21)
[2021-01-22] MEDS: CLOTRIMAZOLE 1% 15 GM TUBE TP SCH ×2 (09:24→17:21)
--- NOTE | 2021-01-22 10:16 | NUR ---
rn notes pt with the patient at this time, sitting in the edge of the bed. patient was complaining of dizziness. b0p 99/64, p-64, o2-97 o2nc. assist patient back to the bed.
[2021-01-22] MEDS ORDERED: POTASSIUM CHLORIDE 20 MEQ TAB.PRT.SR PO SCH (10:30)
[2021-01-22] MEDS: INSULIN REGULAR, HUMAN 100 UNIT/ML 3 ML VIAL SQ PRN ×2 (12:08→17:23)
--- NOTE | 2021-01-22 12:08 | NUR ---
rn notes bs-174 mg/dl coverage given , tolerated lunch 60% self, assist turn and reposition q 2 hr.
--- NOTE | 2021-01-22 14:15 | NUR ---
rn notes assist patient to seat edge of the bed , but stile can not tolerated because of feeling dizzy, pm care done, assist turn and reposition q 2 hr, will follow up.
--- NOTE | 2021-01-22 18:30 | NUR ---
RN NOTES PATIENT STABLE, ON O2-6LNC, NO ACUTE RESPIRATORY DISTRESS, BS-155MG/DL, COVERAGE GIVEN, DUE MEDICATION ADMINISTERED, PATIENT TOLERATED DINNER 100% SELF. DAUGHTER NEXT TO THE BED. PATIENT USING DIAPER AND PRE VICH FOR SUCTION URINE. CALL LIGHT WITHIN TO REACH. ENDORSED ONCOMING NURSE FOLLOW JOSE.
--- NOTE | 2021-01-22 19:33 | NUR ---
RN NOTES RECEIVED PATIENT AWAKE ON BED SLEEPY. FOLLOWS COMMAND. NO SOB OR RESPIRATORY DISTRESS ON O2 6LPM VIA NC. SATURATION 95%. AFEBRILE. VSS. SR ON MONITOR. WITH IV TIN MIDLINE AND RFA G 20 INTACT AND PATENT. FLUSHED WELL. PATIENT HAS PUREWICK FAMILY REQUESTED AND TOLERATED WELL, INCONTINENT CARE STILL PROVIDED. KEPT PT CLEAN AND COMFORTABLE IN BED. CALL LIGHT KEPT WITHIN EASY REACH. WILL CONTINUE TO MONITOR.
[2021-01-22] MEDS: MONTELUKAST SODIUM (10MG) 10 MG TABLET PO SCH (21:18)
[2021-01-22] MEDS: CITALOPRAM HYDROBROMIDE 20 MG TABLET PO SCH (21:18)
[2021-01-22] MEDS: ARIPIPRAZOLE 2 MG TABLET PO SCH (21:18)
[2021-01-22] MEDS: LATANOPROST EYE DROP 0.005% 2.5 ML BOTTLE EACHEYE SCH (21:27)
[2021-01-22] MEDS: *INSULIN REGULAR(HUMULIN R)HUM 100 UNIT/ML VIAL SQ PRN (21:37)
--- NOTE | 2021-01-22 22:15 | NUR ---
RN NOTES PATIENT HAS GOOD APPETITE, ATE THE REST OF HIS OWN FOOD IN THE CONTAINER AND TOLERATED WELL. KEPT HOB ELEVATED FOR AWHILE.
[2021-01-23] VITALS (25 sets, daily range): BP systolic 87–155; BP diastolic 50–93
[2021-01-23 04:42] LABS: BASOPHILS # (AUTO) 0.1 K/uL (0.0-0.2); BASOPHILS % (AUTO) 0.6 % (0.0-2.0); EOSINOPHILS % (AUTO) 0.8 % (0.0-6.0); HEMATOCRIT 32 % (33-45); HEMOGLOBIN 10.6 g/dL (11.5-14.8); LYMPHOCYTES # (AUTO) 1.1 K/uL (0.8-4.8); LYMPHOCYTES % (AUTO) 11.8 % (20.0-44.0); MEAN CORPUSCULAR HGB CONC 34 g/dl (31.0-36.0); MEAN CORPUSCULAR VOLUME 98 fL (82-100); MONOCYTES # (AUTO) 0.2 K/uL (0.1-1.30); MONOCYTES % (AUTO) 2.5 % (2.0-12.0); NEUTROPHILS # (AUTO) 7.9 K/uL (1.8-8.9); NEUTROPHILS % (AUTO) 84.3 % (43.0-81.0); PLATELET COUNT (AUTO) 199 K/uL (150-450); RED BLOOD CELL COUNT(AUTO) 3.22 MIL/uL (4.0-5.2); WHITE BLOOD COUNT (AUTO) 9.3 K/uL (4.3-11.0)
[2021-01-23 05:05] LABS: CALCIUM, SERUM 7.5 mg/dL (8.5-10.1); CARBON DIOXIDE 31 mmol/L (21-32); CHLORIDE 102 mmol/L (98-107); GLUCOSE 254 mg/dL (74-106); MAGNESIUM 2.2 mg/dL (1.8-2.4); PHOSPHORUS 3.3 mg/dL (2.5-4.9); POTASSIUM 3.4 mmol/L (3.5-5.1); SODIUM SERUM 139 mmol/L (136-145); UREA NITROGEN, BLOOD 22 mg/dL (7-18)
[2021-01-23] MEDS: HYDROCORTISONE SOD SUCCINATE 100 MG/2 ML VIAL IV SCH (06:26)
--- NOTE | 2021-01-23 07:00 | NUR ---
RN NOTES PATIENT REMAINED STABLE. NO CHANGE OF MENTAL STATUS. BREATHING EVEN AND UNLABORED. ON O2 6LPM VIA NC. SATURATION BETWEEN 90- 94%. AFEBRILE. VSS. CONTINUE ON BSR DUE TO EPISODE OF PULLING OUT LINES. DENIES PAIN. IV KEPT IN PLACED. ALL DUE MEDICINE TOLERATED WELL. BED KEPT IN LOWEST POSITION. SAFETY MEASURES PROVIDED. WILL ENDORSED CONT. OF CARE TO AM NURSE.
--- NOTE | 2021-01-23 08:00 | NUR ---
RN NOTES PT RECEIVED IN BED ALERT AND ORIENTED X2-3, ANXIOUS BECAUSE OF RESTRAIN BILATERAL, LAO SPEAKER, PT ON OXYGEN 2L/MIN WITH NO SIG OF SOB, NO PAIN REPORTED, PT AM CARE DONE MADE PT COMFORTABLE DUE MED ADMINISTERED. PT TOLERATED BREAKFAST WELL 100% SELF. IV MIDLINE ON RIGHT UPPER ARM INTACT AND FLUSHING WELL, BLOOD SUGAR 150 INDULINE GIVEN, PATIENT IS BACK TO SLEEP COMFORTABLE AND WARM, CALL LIGHT WITHIN REACH AND BED ALARM ON SAFETY MEASURES IN PLACE, WILL CONTINUE TO MONITOR
[2021-01-23] MEDS: GLUCERNA SHAKE 237 ML CAN PO SCH ×2 (08:05→17:15)
[2021-01-23] MEDS: FLUTICASONE/VILANTEROL 1 EACH BLST.W.DEV IH SCH (08:06)
[2021-01-23] MEDS: prednisoLONE ACETATE 1% SUSP 5 ML BOTTLE RIGHTEYE SCH ×3 (08:06→17:14)
[2021-01-23] MEDS: CLOTRIMAZOLE 1% 15 GM TUBE TP SCH ×2 (08:07→17:14)
[2021-01-23] MEDS: BLOOD SUGAR DIAGNOSTIC 1 EACH STRIP IN SCH ×4 (08:08→17:06)
[2021-01-23] MEDS: GABAPENTIN 100 MG CAPSULE PO SCH (08:09)
[2021-01-23] MEDS: APIXABAN 5 MG TABLET PO SCH ×2 (08:09→17:12)
[2021-01-23] MEDS: INSULIN REGULAR, HUMAN 100 UNIT/ML 3 ML VIAL SQ PRN ×2 (08:15→12:00)
[2021-01-23] MEDS ORDERED: POTASSIUM CHLORIDE 20 MEQ TAB.PRT.SR PO SCH (09:30)
--- NOTE | 2021-01-23 14:40 | NUR ---
RN NOTES PHYSICAL THERAPY WAS AT BEDSIDE WITH THE PATIENT WHO WAS ABLE TO STAND UP BUT WAS NOT ABLE TO AMBULATE BECAUSE OF DIZZINESS, VITAL SIGN ARE STABLE, WATER OFFERED, PT IS COMFORTABLE BACK TO BED
[2021-01-23] MEDS: *INSULIN REGULAR(HUMULIN R)HUM 100 UNIT/ML VIAL SQ PRN ×2 (17:05→22:57)
--- NOTE | 2021-01-23 18:23 | NUR ---
RN PT TRANSFERRED TO TELE-[facility] ROOM 109 BED 1 WITH STABLE CONDITION, PATIENT ON NC 6L, NO ACUTE RESPIRATORY DISTRESS, VSS, TELEPHONE REPORT GIVEN TO WILBERT HASKINS. DUE MEDICATION ADMINISTERED, BS-137 MG/DL COVERAGE GIVEN. PATIENT LAST MINUTES REMOVED IV FILER METAL PATTERNS NOTIFIED TO INSERT NEW LINE. PATIENT HAS NO IV INFUSION MEDS. RN VERBALIZED UNDERSTANDING. WILL FOLLOW UP JOSE.
--- NOTE | 2021-01-23 18:30 | NUR ---
RN NOTE PATIENT ARRIVED FROM ICU TO [facility] UNIT AT ROOM 109 ALERT ORIENTED 2-3 AUGUSTIN SPEAKING ON 6L OXYGEN VIA NASAL CANNULA O2:94% NO IV ACCESS PATIENT REMOVED BEFORE TRANSFER,INCONTINENT TO BOWEL/BLADDER SAFETY MEASURE IMPLEMENT PUT BED IN LOW POSITION AND LOCKED,HEAD OF THE BED ELEVATED, BED ALARM IS DOUGHNUT MACHINE OPERATOR HELPER LIGHT WITHIN REACH ENDORSE NEXT COMING SHIFT FOR CONTINUATION OF CARE.
--- NOTE | 2021-01-23 20:00 | NUR ---
RN NOTE RECEIVED PT AWAKE ALERT, BANGLADESHI SPEAKING. ON 6L O2 VIA NC. NOT IN ANY DISTRESS. PT ON TELE MONITORING SHOWS SINUS RHYTHM WITH HR OF 71. DENIES ANY PAIN AT THIS TIME. PT WITH SOFT WRIST RESTRAINTS. GOOD CIRCULATION. PT WITH NO IV LINE, UNABLE TO FIND GOOD VEIN. NOTED WITH MULTIPLE BRUISES ON ARM AND HAND MORE LIKELY FROM NEEDLE POKE. ALL SAFETY MEASURES IN PLACE PER PROTOCOL. WILL CONTINUE TO MONITOR.
--- NOTE | 2021-01-23 21:30 | NUR ---
RN NOTE NEW MIDLINE 18G INSERTED BY PICC LINE NURSE. FLUSHES WELL. WITH GOOD BLOOD RETURN.
[2021-01-23] MEDS ORDERED: ARIPIPRAZOLE 2 MG TABLET ONE (22:22)
[2021-01-23] MEDS: MONTELUKAST SODIUM (10MG) 10 MG TABLET PO SCH (22:23)
[2021-01-23] MEDS: ARIPIPRAZOLE 2 MG TABLET PO SCH (22:23)
[2021-01-23] MEDS: CITALOPRAM HYDROBROMIDE 20 MG TABLET PO SCH (22:23)
[2021-01-23] MEDS: LATANOPROST EYE DROP 0.005% 2.5 ML BOTTLE EACHEYE SCH (22:47)
--- NOTE | 2021-01-23 22:59 | NUR ---
RN NOTE PT FSBS 108. NO INSULIN COVERAGE GIVEN.
[2021-01-24] VITALS: BP 150/81
--- NOTE | 2021-01-24 | NUR ---
RN NOTE PT DESATS TO 81 % ON 6L. NO SIGNS OF DISTRESS NOTED. PT KEEP ON TALKING IN [place]. CHANGED TO SIMPLE MASK AT 10L, SATING TO 86-88%. PUT ON NON REBREATHER 15L. O2 SAT AT 94-95%. WILL CONTINUE TO MONITOR.
[2021-01-24 04:00] VITALS: BP 150/82
[2021-01-24 06:33] LABS: BASOPHILS % (AUTO) 0.3 % (0.0-2.0); EOSINOPHILS % (AUTO) 3.8 % (0.0-6.0); HEMATOCRIT 33 % (33-45); HEMOGLOBIN 11.6 g/dL (11.5-14.8); LYMPHOCYTES # (AUTO) 1.3 K/uL (0.8-4.8); LYMPHOCYTES % (AUTO) 11.8 % (20.0-44.0); MEAN CORPUSCULAR HGB CONC 35 g/dl (31.0-36.0); MEAN CORPUSCULAR VOLUME 100 fL (82-100); MONOCYTES # (AUTO) 0.2 K/uL (0.1-1.30); MONOCYTES % (AUTO) 1.5 % (2.0-12.0); NEUTROPHILS # (AUTO) 8.8 K/uL (1.8-8.9); NEUTROPHILS % (AUTO) 82.6 % (43.0-81.0); PLATELET COUNT (AUTO) 223 K/uL (150-450); RED BLOOD CELL COUNT(AUTO) 3.32 MIL/uL (4.0-5.2); WHITE BLOOD COUNT (AUTO) 10.6 K/uL (4.3-11.0)
--- NOTE | 2021-01-24 07:00 | NUR ---
RN NOTE PT REMAIN ON NRB AT 15L, 99% TRIED TO TITRATE TO 10L SIMPLE MASK, PT WOULD DESAT TO 83%. NO S/SX OF RESP DISTRESS NOTED. PT CONTINUE WITH BILATERAL WRIST RESTRAINTS, STILL WITH EPISODES OF PULLING OUT TUBINGS. NO NEW SKIN BREAKDOWN NOTED. ON FREQUENT VISUAL CHECK. ALL SAFETY MEASURES MAINTAINED. WILL ENDORSE TO NEXT SHIFT NURSE FOR JOSE.
[2021-01-24 07:11] LABS: CALCIUM, SERUM 7.7 mg/dL (8.5-10.1); CREATININE 0.8 mg/dL (0.6-1.3); MAGNESIUM 2.3 mg/dL (1.8-2.4); PHOSPHORUS 2.9 mg/dL (2.5-4.9); POTASSIUM 3.4 mmol/L (3.5-5.1)
--- NOTE | 2021-01-24 07:45 | NUR ---
RN NOTES PATIENT RECEIVED IN BED ALERT AND ORIENTED X 2 [place] ISLANDER SPEAKER. WITH NO SIGN OF DISTRESS AT THIS TIME, ON CONTINUES OXYGEN 15L VIA NON REBREATHER MASK TOLERATING WELL NOT IN DISTRESS, RIGHT UPPER ARM MIDLINE, INTACT AND PATENT. PATIENT ON PUREWICK, SAFETY MEASURES IN PLACE CALL LIGHT WITHIN REACH, FALL AND SAFETY PRECAUTIONS MAINTAINED. BED LOCKED AND IN LOWEST POSITION WILL CONTINUE TO MONITOR
[2021-01-24 08:00] VITALS: BP 143/70
[2021-01-24] MEDS: BLOOD SUGAR DIAGNOSTIC 1 EACH STRIP IN SCH ×4 (08:00→21:33)
[2021-01-24] MEDS: GLUCERNA SHAKE 237 ML CAN PO SCH ×2 (08:02→17:02)
[2021-01-24] MEDS: DEXTROSE 50%-WATER 50 ML DISP.SYRIN IV PRN (08:12)
--- NOTE | 2021-01-24 08:12 | NUR ---
RN NOTE PATIENT AWAKE AND ORIENTED. VERBALLY RESPONSIVE SRI LANKAN SPEAKING , BLOOD SUGAR LEVEL OF 54 NOTIFIED MICHELLE HARDY, ADMINISTERED D50 ORDERED, WILL CONTINUE TO MONITOR.
[2021-01-24] MEDS: GABAPENTIN 100 MG CAPSULE PO SCH (08:17)
[2021-01-24] MEDS: HYDROCORTISONE SOD SUCCINATE 100 MG/2 ML VIAL IV SCH (08:19)
[2021-01-24] MEDS: APIXABAN 5 MG TABLET PO SCH ×2 (08:20→17:04)
[2021-01-24] MEDS: prednisoLONE ACETATE 1% SUSP 5 ML BOTTLE RIGHTEYE SCH ×3 (08:27→17:01)
[2021-01-24] MEDS: FLUTICASONE/VILANTEROL 1 EACH BLST.W.DEV IH SCH (08:27)
[2021-01-24] MEDS: CLOTRIMAZOLE 1% 15 GM TUBE TP SCH ×2 (08:34→17:01)
--- NOTE | 2021-01-24 08:43 | NUR ---
RN NOTE RECHECK PATIENT BLOOD GLUCOSE LEVEL OF 130, PATIENT AWAKE AND ORIENTED VERBALLY RESPONSIVE.
[2021-01-24 09:55] LABS: BAND % (MANUAL) 2 % (0.0-5.0); EOSINOPHILS % (MANUAL) 4 % (0-4); LYMPHOCYTES % (MANUAL) 9 % (16-48); MONOCYTES % (MANUAL) 2 % (0-11.0); NEUTROPHILS % (MANUAL) 83 (42-76)
[2021-01-24 10:20] LABS: ABG BASE EXCESS 5.9 mmol/L; ABG OXYGEN SATURATION 95.8 % (92.0-98.5); ABG PO2 80.7 mmHg (75.0-100.0); AaDO2 591.3 mmHg; MetHb 0.4 % (0.0-1.5); O2Hb 95.4 % (94.0-97.0); SITE, ABG Left Radial; VENT MODE, BG NRB
--- NOTE | 2021-01-24 11:23 | NUR ---
RN NOTES PATIENT SEEN BY HAYLEY, BED SIDE REPORT GIVEN, UPDATED REGARDING PT CURRENT CONDITION
[2021-01-24] MEDS ORDERED: POTASSIUM CHLORIDE 20 MEQ TAB.PRT.SR PO SCH (11:30)
[2021-01-24 12:00] VITALS: BP 123/77
[2021-01-24] MEDS: INSULIN REGULAR, HUMAN 100 UNIT/ML 3 ML VIAL SQ PRN ×2 (12:44→18:08)
[2021-01-24 16:00] VITALS: BP 100/63
--- NOTE | 2021-01-24 18:53 | NUR ---
RN NOTES PATIENT RESTING IN BED ALERT AND ORIENTED X 2 CYPRIOT SPEAKER. WITH NO SIGN OF DISTRESS AT THIS TIME, ON CONTINUES OXYGEN 10L VIA NON REBREATHER MASK TOLERATING WELL NOT IN DISTRESS AT THIS TIME, RIGHT UPPER ARM MIDLINE, INTACT AND PATENT. PATIENT ON PUREWICK, 1300 OUTPUT, SAFETY MEASURES IN PLACE CALL LIGHT WITHIN REACH, FALL AND SAFETY PRECAUTIONS MAINTAINED. BED LOCKED AND IN LOWEST POSITION WILL ENDORSE TO PASSENGER SERVICE MANAGER NURSE
[2021-01-24 20:00] VITALS: BP 136/78
[2021-01-24] MEDS: ARIPIPRAZOLE 2 MG TABLET PO SCH (21:07)
[2021-01-24] MEDS: MONTELUKAST SODIUM (10MG) 10 MG TABLET PO SCH (21:07)
[2021-01-24] MEDS: CITALOPRAM HYDROBROMIDE 20 MG TABLET PO SCH (21:08)
--- NOTE | 2021-01-24 21:30 | NUR ---
RN NOTES DAUGHTER CAME AND VISITED HER MOM AND FEED THE PATIENT. DAUGHTER IS AWARE ABOUT THE WHOLE CONDITION OF THE PATIENT. REQUESTING TO DISCHARGE THE PATIENT TOMORROW AND THEY TAKE CARE OF HER WITH O2 DEVICE AT HOME. WILL ENDORSED TO AM SHIFT TO FOLLOW UP PRIMARY MD IN AM. DAUGHTER IS AWARE.
[2021-01-24] MEDS: LATANOPROST EYE DROP 0.005% 2.5 ML BOTTLE EACHEYE SCH (22:52)
[2021-01-25] VITALS: BP 124/78
[2021-01-25 04:00] VITALS: BP 147/87
--- NOTE | 2021-01-25 06:37 | NUR ---
RN NOTES PATIENT IS AOX 2. WITH PERIODS OF CONFUSION. AFEBRILE. VSS. NO SOB OR RESPIRATORY DISTRESS ON O2 5-6 LPM VIA NC SATURATION BETWEEN 91-95%. SENIOR ORACLE PL SQL DEVELOPER KEPT IN PLACED DUE TO EPISODE OF PULLING OUT O2 AND PATIENT ABRUPTLY DESATING. NO SIGNIFICANT CHANGES THROUGHOUT THE SHIFT. PUREWICK KEPT ON AND CHANGES WHEN NEEDED. INCONTINENT CARE PROVIDED. KEPT PT CLEAN AND DRY. HOB KEPT ELEVATED WILL ENDORSED CONTINUITY OF CARE TO AM NURSE.
[2021-01-25 07:20] LABS: CALCIUM, SERUM 7.9 mg/dL (8.5-10.1); CREATININE 0.9 mg/dL (0.6-1.3); POTASSIUM 3.3 mmol/L (3.5-5.1)
--- NOTE | 2021-01-25 07:20 | NUR ---
RN NOTE PT OBSERVED IN BED, AWAKE, ON NRB 15 LPM 02 SAT 96%, NO RESPIRATORY DISTRESS NOTED. A/O X 2, CONGOLESE SPEAKING. PT ON BILATERAL SOFT RESTRAINTS, SKIN INTACT. MIDLINE ON RIGHT UPPER ARM 18 GAUGE, PATENT. SAFETY MEASURES OBSERVED. CALL LIGHT WITHIN REACH. WILL CONTINUE TO MONITOR.
--- NOTE | 2021-01-25 07:30 | NUR ---
RN NOTE PATIENT BS OF 61 GAVE ORANGE JUICE WILL CONTINUE TO MONITOR.
[2021-01-25] MEDS: DEXTROSE 50%-WATER 50 ML DISP.SYRIN IV PRN (07:43)
--- NOTE | 2021-01-25 07:44 | NUR ---
RN NOTE RE CHECK BLOOD GLUCOSE LEVEL RESULTED 55, WILL ADMINISTER D50% ORDERED.
[2021-01-25 08:00] VITALS: BP 128/75
[2021-01-25] MEDS: BLOOD SUGAR DIAGNOSTIC 1 EACH STRIP IN SCH ×4 (08:21→22:56)
[2021-01-25] MEDS: INSULIN REGULAR, HUMAN 100 UNIT/ML 3 ML VIAL SQ PRN ×3 (08:30→17:26)
[2021-01-25] MEDS: GLUCERNA SHAKE 237 ML CAN PO SCH ×2 (08:48→16:48)
[2021-01-25] MEDS ORDERED: SULFAMETH/TRIMETH 800/160 MG 1 UDTAB TABLET PO SCH (09:00)
[2021-01-25] MEDS ORDERED: ATOVAQUONE 750 MG/5 ML UDC PO SCH (09:00)
[2021-01-25] MEDS: GABAPENTIN 100 MG CAPSULE PO SCH (09:13)
[2021-01-25] MEDS: HYDROCORTISONE SOD SUCCINATE 100 MG/2 ML VIAL IV SCH (09:13)
[2021-01-25] MEDS: FLUTICASONE/VILANTEROL 1 EACH BLST.W.DEV IH SCH (09:13)
[2021-01-25] MEDS: APIXABAN 5 MG TABLET PO SCH ×2 (09:15→16:40)
[2021-01-25] MEDS: ATOVAQUONE 750 MG/5 ML UDC PO SCH (09:15)
[2021-01-25] MEDS: prednisoLONE ACETATE 1% SUSP 5 ML BOTTLE RIGHTEYE SCH ×3 (09:19→16:43)
[2021-01-25] MEDS: CLOTRIMAZOLE 1% 15 GM TUBE TP SCH ×2 (09:19→16:43)
[2021-01-25] MEDS ORDERED: Sodium Chloride 77 MEQ in IV 10% DEXTROSE 1,000 ML IV PRN (09:30)
[2021-01-25] MEDS ORDERED: POTASSIUM CHLORIDE 20 MEQ TAB.PRT.SR PO ONE (09:30)
[2021-01-25 09:36] LABS: BASOPHILS # (AUTO) 0.1 K/uL (0.0-0.2); BASOPHILS % (AUTO) 0.6 % (0.0-2.0); EOSINOPHILS % (AUTO) 3.9 % (0.0-6.0); HEMATOCRIT 33 % (33-45); HEMOGLOBIN 11.1 g/dL (11.5-14.8); LYMPHOCYTES # (AUTO) 1.7 K/uL (0.8-4.8); LYMPHOCYTES % (AUTO) 17.7 % (20.0-44.0); MEAN CORPUSCULAR HGB CONC 34 g/dl (31.0-36.0); MEAN CORPUSCULAR VOLUME 99 fL (82-100); MONOCYTES # (AUTO) 0.2 K/uL (0.1-1.30); NEUTROPHILS # (AUTO) 7.2 K/uL (1.8-8.9); NEUTROPHILS % (AUTO) 75.8 % (43.0-81.0); PLATELET COUNT (AUTO) 238 K/uL (150-450); RED BLOOD CELL COUNT(AUTO) 3.35 MIL/uL (4.0-5.2); WHITE BLOOD COUNT (AUTO) 9.4 K/uL (4.3-11.0)
[2021-01-25] MEDS ORDERED: IV D5W 1,000 ML IV PRN (10:00)
[2021-01-25 12:00] VITALS: BP 128/75
--- NOTE | 2021-01-25 15:54 | NUR ---
RN NOTE BP OF 80/50 NOTIFIED HAYLEY MARTINEZ, NO NEW ORDERS AT THIS TIME.
[2021-01-25 16:00] VITALS: BP 80/50
--- NOTE | 2021-01-25 18:56 | NUR ---
RN NOTE PT OBSERVED IN BED, AWAKE, ON NRB 8 LPM 02 SAT 96%, NO RESPIRATORY DISTRESS NOTED. A/O X 2, BENGALI SPEAKING. PT ON BILATERAL SOFT RESTRAINTS, SKIN INTACT. MIDLINE ON RIGHT UPPER ARM 18 GAUGE, PATENT. POTASSIUM REPLACED ORDERED. SAFETY MEASURES OBSERVED. CALL LIGHT WITHIN REACH. WILL CONTINUE TO MONITOR. WILL ENDORSE TO NOC SHIFT.
[2021-01-25 21:52] VITALS: BP_SYST 116; BP_SYST 123; BP_DIAS 69; BP_DIAS 99
[2021-01-25] MEDS: MONTELUKAST SODIUM (10MG) 10 MG TABLET PO SCH (22:19)
[2021-01-25] MEDS: ARIPIPRAZOLE 2 MG TABLET PO SCH (22:19)
[2021-01-25] MEDS: CITALOPRAM HYDROBROMIDE 20 MG TABLET PO SCH (22:20)
[2021-01-25] MEDS: *INSULIN REGULAR(HUMULIN R)HUM 100 UNIT/ML VIAL SQ PRN (22:56)
[2021-01-25] MEDS: LATANOPROST EYE DROP 0.005% 2.5 ML BOTTLE EACHEYE SCH (22:57)
[2021-01-26] VITALS: BP 122/69
[2021-01-26 04:00] VITALS: BP 132/68
--- NOTE | 2021-01-26 06:53 | NUR ---
RN notes In bed resting comfortably with no distress noted. Breathing even and unlabored. On 6lpm mask, tolerating well. Alert and oriented, indonesian speaking. No complaint of pain or discomfort. Vital signs wnl. Kept clean and dry. Will endorse to next shift for continuity of care.
[2021-01-26] MEDS: BLOOD SUGAR DIAGNOSTIC 1 EACH STRIP IN SCH ×4 (07:49→23:50)
[2021-01-26 07:55] LABS: BASOPHILS # (AUTO) 0.1 K/uL (0.0-0.2); BASOPHILS % (AUTO) 0.7 % (0.0-2.0); HEMATOCRIT 36 % (33-45); HEMOGLOBIN 11.7 g/dL (11.5-14.8); LYMPHOCYTES # (AUTO) 1.5 K/uL (0.8-4.8); LYMPHOCYTES % (AUTO) 19.9 % (20.0-44.0); MEAN CORPUSCULAR HGB CONC 33 g/dl (31.0-36.0); MEAN CORPUSCULAR VOLUME 99 fL (82-100); MONOCYTES # (AUTO) 0.2 K/uL (0.1-1.30); MONOCYTES % (AUTO) 2.6 % (2.0-12.0); NEUTROPHILS # (AUTO) 5.7 K/uL (1.8-8.9); NEUTROPHILS % (AUTO) 73.8 % (43.0-81.0); PLATELET COUNT (AUTO) 250 K/uL (150-450); RED BLOOD CELL COUNT(AUTO) 3.62 MIL/uL (4.0-5.2); WHITE BLOOD COUNT (AUTO) 7.7 K/uL (4.3-11.0)
[2021-01-26 08:00] VITALS: BP 129/70
[2021-01-26] MEDS: GLUCERNA SHAKE 237 ML CAN PO SCH ×2 (08:00→17:52)
[2021-01-26] MEDS: GABAPENTIN 100 MG CAPSULE PO SCH (08:35)
[2021-01-26] MEDS: ACETAMINOPHEN 325 MG TABLET PO PRN (08:35)
[2021-01-26] MEDS: HYDROCORTISONE SOD SUCCINATE 100 MG/2 ML VIAL IV SCH (08:36)
[2021-01-26] MEDS: APIXABAN 5 MG TABLET PO SCH ×2 (08:39→17:51)
[2021-01-26 08:55] LABS: CALCIUM, SERUM 8.2 mg/dL (8.5-10.1); MAGNESIUM 2.2 mg/dL (1.8-2.4); PHOSPHORUS 2.9 mg/dL (2.5-4.9); POTASSIUM 3.9 mmol/L (3.5-5.1)
[2021-01-26] MEDS: CLOTRIMAZOLE 1% 15 GM TUBE TP SCH ×2 (09:00→17:51)
[2021-01-26] MEDS ORDERED: DEXTROSE 50%-WATER 50 ML DISP.SYRIN IV PRN (09:30)
[2021-01-26] MEDS: prednisoLONE ACETATE 1% SUSP 5 ML BOTTLE RIGHTEYE SCH ×3 (10:17→17:52)
[2021-01-26] MEDS: ATOVAQUONE 750 MG/5 ML UDC PO SCH (10:17)
--- NOTE | 2021-01-26 10:32 | NUR ---
RN OPENING NOTE PATIENT IN STABLE CONDITION. RECEIVING OXYGEN VIA REGULAR MASK @ 6L/MIN. O2 SAT 90% AND ABOVE. ALL SAFETY MEASURE IN PLACE. BED ON LOWEST POSITION WITH HOB ELEVATED AND 3 SIDE RAIL UP. CALL LIGHT WITHIN REACH. WILL CONTINUE TO MONITOR.
[2021-01-26 12:00] VITALS: BP 130/64
[2021-01-26 12:44] LABS: ABG BASE EXCESS 6.4 mmol/L; ABG PCO2 51.2 mmHg (35.0-45.0); ABG PH 7.414 (7.350-7.450); ABG PO2 75.3 mmHg (75.0-100.0); COHb 0.3 % (0.5-1.5); MetHb 0.3 % (0.0-1.5); O2Hb 93.8 % (94.0-97.0); SITE, ABG Right Radial; VENT MODE, BG SIMPLE MASK
[2021-01-26] MEDS: FLUTICASONE/VILANTEROL 1 EACH BLST.W.DEV IH SCH (12:47)
[2021-01-26] MEDS: INSULIN REGULAR, HUMAN 100 UNIT/ML 3 ML VIAL SQ PRN ×3 (12:59→23:44)
[2021-01-26 16:00] VITALS: BP 101/57
[2021-01-26] MEDS ORDERED: IV NS 0.9% 500 ML IV ONE (16:00)
--- NOTE | 2021-01-26 18:59 | NUR ---
RN CLOSING NOTE PATIENT REMAIN INSTABLE CONDITION WITH NO SIGN OF DISTRESS. PATIENT O2 DELIVERY HAVE BEEN TITRATE DOWN FROM SIMPLE MASK AT 6L TO NC AT 4L. A/O X2. PUREED DIET. TAKE PILLS WITH APPLE SAUCE. ALL SAFETY MEASURE IN PLACE. BED ON LOWEST POSITION WITH HOB ELEVATED AND 3 SIDE RAIL UP. CALL LIGHT WITHIN REACH. WILL CONTINUE TO MONITOR AND GIVE REPORT TO ON COMING NURSE.
[2021-01-26 20:00] VITALS: BP 135/69
[2021-01-26] MEDS: LATANOPROST EYE DROP 0.005% 2.5 ML BOTTLE EACHEYE SCH (21:28)
[2021-01-26] MEDS: ARIPIPRAZOLE 2 MG TABLET PO SCH (21:29)
[2021-01-26] MEDS: CITALOPRAM HYDROBROMIDE 20 MG TABLET PO SCH (21:29)
[2021-01-26] MEDS: MONTELUKAST SODIUM (10MG) 10 MG TABLET PO SCH (21:29)
--- NOTE | 2021-01-26 23:00 | NUR ---
PATIENT RECEIVED IN BED ASLEEP AT THIS MOMENT. O2 SAT WITH 5L/MIN VIA NASAL CANNULA. COOPERATIVE WITH CARE. MEDICATIONS GIVEN ORDERED AND TOLERATED WELL. DAUGHTER AT BEDSIDE. VITAL SIGNS STABLE. BILATERAL SOFT RESTRAINT ON BOTH ARM TO PREVENT INJURY. BLOOD SUGAR 174. 3 UNITS OF REGULAR INSULIN GIVEN. NO S/S OF HYPER/HYPOGLYCEMIA NOTED. NO OTHER SIGNIFICANT CHANGES. WILL CONTINUE TO MONITOR.
[2021-01-27] VITALS: BP 151/88
--- NOTE | 2021-01-27 02:43 | NUR ---
Pt desaturate to 82-86% SPO2 on 6LPM NC, place pt on 10 LPM NRB, pt went up to 96%, will continue to monitor Addendum: 01/27/21 at 0245 by DAWOOD SANDOVAL RT Amended: Links added.
[2021-01-27 04:00] VITALS: BP 117/70
--- NOTE | 2021-01-27 04:47 | NUR ---
RN NOTES 0430 NOTED PATIENT TO BE LESS RESPONSIVE. ASKED ANOTHER RN TO TRANSLATE, NEURO CHECK DONE. UNABLE TO FOLLOW COMMANDS. CALLED CREATIVE WRITING PROFESSOR AND CHECKED BLOOD SUGAR 11MG/DL, D50 1 AMP GIVEN ;PATIENT MORE RESPONSIVE, FOLLOWS COMMANDS WITH THE RN THAT SPEAKS HER LANGUAGE. CREATIVE WRITING PROFESSOR CANCELLED. 0442 BS RECHECKED 70mg/dl; PASSED SWALLOW SCREEN AND GAVE ORANGE JUICE PER REQUEST. WILL CONTINUE TO MONITOR
--- NOTE | 2021-01-27 04:48 | NUR ---
rapid response called, pt desaturating to 87-88%, increase FIO2 to 100% with NRB mask, pt SPO2 went up to 95% Addendum: 01/27/21 at 0450 by DAWOOD SANDOVAL RT Amended: Links added.
--- NOTE | 2021-01-27 06:15 | NUR ---
RN CLOSING NOTE: RECEIVED RESIDENT IN BED ALERT AND VERBALLY RESPONSIVE. BLOOD SUGAR CHECKED 124- NO S/S OF HYPER/HYPOGLYCEMIA. RESIDENT IS HIGH FLOW NON-BREATHING 15 L/MIN. O2 SAT 98%. NO RESPIRATORY DISTRESS NOTED. BILATERAL SOFT RESTRAINTS ON PLACE. BED IN LOW POSITION WITH BOTH SIDE RAILS UP. NO C/O PAIN OR DISCOMFORT. INCONTINENT ON BOWEL AND BLADDER. NO BOWEL MOVEMENT. ABLE TO VOID X2 WITHOUT ANY DIFFICULTIES.NO CHANGE IN CONDITIONS. WILL ENDORSE TO MORNING SHIFT NURSE.
[2021-01-27 06:27] LABS: BASOPHILS # (AUTO) 0.1 K/uL (0.0-0.2); BASOPHILS % (AUTO) 0.6 % (0.0-2.0); EOSINOPHILS % (AUTO) 2.1 % (0.0-6.0); HEMATOCRIT 35 % (33-45); HEMOGLOBIN 11.5 g/dL (11.5-14.8); LYMPHOCYTES # (AUTO) 2.2 K/uL (0.8-4.8); LYMPHOCYTES % (AUTO) 22.3 % (20.0-44.0); MEAN CORPUSCULAR HGB CONC 33 g/dl (31.0-36.0); MEAN CORPUSCULAR VOLUME 98 fL (82-100); MONOCYTES # (AUTO) 0.3 K/uL (0.1-1.30); PLATELET COUNT (AUTO) 236 K/uL (150-450); RED BLOOD CELL COUNT(AUTO) 3.58 MIL/uL (4.0-5.2); WHITE BLOOD COUNT (AUTO) 9.8 K/uL (4.3-11.0)
[2021-01-27 06:40] LABS: CREATININE 1.1 mg/dL (0.6-1.3); MAGNESIUM 2.2 mg/dL (1.8-2.4); PHOSPHORUS 3.1 mg/dL (2.5-4.9); POTASSIUM 3.4 mmol/L (3.5-5.1)
--- NOTE | 2021-01-27 07:35 | NUR ---
WILBERT OPEN NOTES: RECEIVED PATIENT IN BED ALERT AND ORIENTED X3 WITH NO SIGN OF DISTRESS OR SOB AT THIS TIME, PT ON NON-BREATHING 15 L/MIN. O2 SAT 98%. BILATERAL SOFT RESTRAINTS IN PLACE. SKIN INTACT, TIN MID LINE IN PACE PATENT AND FLUSHING WELL, SAFETY MEASURES IN PLACE CALL LIGHT WITHIN REACH BED IN LOWEST POSITION WILL CONTINUE TO MONITOR Addendum: 01/27/21 at 1423 by ISIDRA PRATT RN correction: PATIENT ON NON REBREATHER MASK 15L
[2021-01-27] MEDS: BLOOD SUGAR DIAGNOSTIC 1 EACH STRIP IN SCH ×4 (07:52→22:06)
[2021-01-27 08:00] VITALS: BP 150/91
[2021-01-27] MEDS: GABAPENTIN 100 MG CAPSULE PO SCH ×2 (09:00→09:19)
[2021-01-27] MEDS: HYDROCORTISONE SOD SUCCINATE 100 MG/2 ML VIAL IV SCH (09:18)
[2021-01-27] MEDS: APIXABAN 5 MG TABLET PO SCH ×2 (09:20→17:02)
[2021-01-27] MEDS: GLUCERNA SHAKE 237 ML CAN PO SCH ×2 (09:24→16:53)
[2021-01-27] MEDS: CLOTRIMAZOLE 1% 15 GM TUBE TP SCH ×2 (09:25→16:54)
[2021-01-27] MEDS: prednisoLONE ACETATE 1% SUSP 5 ML BOTTLE RIGHTEYE SCH ×3 (09:26→16:54)
[2021-01-27] MEDS: FLUTICASONE/VILANTEROL 1 EACH BLST.W.DEV IH SCH (09:29)
[2021-01-27] MEDS: ATOVAQUONE 750 MG/5 ML UDC PO SCH (09:30)
[2021-01-27] MEDS ORDERED: GABAPENTIN 100 MG CAPSULE PO ONE (10:00)
[2021-01-27] MEDS ORDERED: IV D5/0.45 NACL 1,000 ML IV PRN (10:30)
[2021-01-27] MEDS ORDERED: POTASSIUM CHLORIDE 20 MEQ TAB.PRT.SR PO ONE ×2 (10:30)
[2021-01-27 11:11] LABS: ABG BASE EXCESS 8.5 mmol/L; ABG PCO2 46.9 mmHg (35.0-45.0); ABG PH 7.468 (7.350-7.450); ABG PO2 62.7 mmHg (75.0-100.0); MetHb 0.3 % (0.0-1.5); O2Hb 90.4 % (94.0-97.0); SITE, ABG Right Brachial; VENT MODE, BG O2 MASK
[2021-01-27 12:00] VITALS: BP 98/61
--- NOTE | 2021-01-27 15:35 | NUR ---
RN NOTES DAUGHTER REMOVED NRM MASK AND PLACED PT ON O2 NASAL CANULA AT 5 LITERS. SATTING 93%. NOTIFIED .
[2021-01-27 16:00] VITALS: BP 111/65
--- NOTE | 2021-01-27 18:00 | NUR ---
rn notes accu-check 266 doctor Cheyenne informed there is no coverage continue to monitor
--- NOTE | 2021-01-27 18:43 | NUR ---
RN CLOSING NOTE: PATIENT REMAINS IN BED ALERT AND VERBALLY RESPONSIVE. LAST BLOOD SUGAR CHECKED 266 WITH NO COVERAGE, DR HARDY INFORMED. PT IS ON 4L NASAL CANULA TOLERATING WELL, O2 SAT 94-95 %. NO RESPIRATORY DISTRESS NOTED. BILATERAL SOFT RESTRAINTS ON PLACE. NO SIGN OF PAIN OR DISCOMFORT. PER DOCTOR IS OK TO USE PUREWICK BROUGHT BY THE DAUGHTER CHANGE IT [place] 12H. SAFETY MEASURES IN PLACE BED IN LOWEST POSITION WITH BOTH SIDE RAILS UP.WILL ENDORSE TO NEXT SHIFT NURSE.
[2021-01-27 20:00] VITALS: BP 131/80
[2021-01-27] MEDS: CITALOPRAM HYDROBROMIDE 20 MG TABLET PO SCH (21:36)
[2021-01-27] MEDS: ARIPIPRAZOLE 2 MG TABLET PO SCH (21:41)
[2021-01-27] MEDS: LATANOPROST EYE DROP 0.005% 2.5 ML BOTTLE EACHEYE SCH (22:07)
[2021-01-27] MEDS: MONTELUKAST SODIUM (10MG) 10 MG TABLET PO SCH (22:11)
--- NOTE | 2021-01-27 22:28 | NUR ---
RN NOTES 2200 assumed care per daughter's request. Patient alert and responsive. BS checked as 183; no coverage ordered. On IVF;with midline on TIN patent and intact. Repositioned for comfort. O2 saturation 95% at this time
[2021-01-28] VITALS: BP 141/83
[2021-01-28 04:00] VITALS: BP 137/75
[2021-01-28 07:20] LABS: BASOPHILS # (AUTO) 0.1 K/uL (0.0-0.2); BASOPHILS % (AUTO) 0.7 % (0.0-2.0); EOSINOPHILS % (AUTO) 2.6 % (0.0-6.0); HEMATOCRIT 31 % (33-45); HEMOGLOBIN 10.3 g/dL (11.5-14.8); LYMPHOCYTES # (AUTO) 2.8 K/uL (0.8-4.8); LYMPHOCYTES % (AUTO) 29.3 % (20.0-44.0); MEAN CORPUSCULAR HGB CONC 34 g/dl (31.0-36.0); MEAN CORPUSCULAR VOLUME 97 fL (82-100); MONOCYTES # (AUTO) 0.4 K/uL (0.1-1.30); NEUTROPHILS % (AUTO) 63.4 % (43.0-81.0); PLATELET COUNT (AUTO) 227 K/uL (150-450); RED BLOOD CELL COUNT(AUTO) 3.15 MIL/uL (4.0-5.2); WHITE BLOOD COUNT (AUTO) 9.4 K/uL (4.3-11.0)
--- NOTE | 2021-01-28 07:27 | NUR ---
RN OPEN NOTES: RECEIVED PATIENT IN BED ALERT AND ORIENTED X3 WITH NO SIGN OF DISTRESS OR SOB AT THIS TIME, MACEDONIAN SPEAKING PT IS ON NASAL CANULA 5L/MIN O2 SAT 94%. BILATERAL SOFT RESTRAINTS IN PLACE. SKIN INTACT, TIN MID LINE IN PACE PATENT AND FLUSHING WELL, SAFETY MEASURES IN PLACE CALL LIGHT WITHIN REACH BED IN LOWEST POSITION WILL CONTINUE TO MONITOR
[2021-01-28 07:38] LABS: CALCIUM, SERUM 8.6 mg/dL (8.5-10.1); CREATININE 0.9 mg/dL (0.6-1.3); MAGNESIUM 2.3 mg/dL (1.8-2.4); PHOSPHORUS 2.9 mg/dL (2.5-4.9); POTASSIUM 4.3 mmol/L (3.5-5.1)
[2021-01-28 08:00] VITALS: BP 149/84
[2021-01-28] MEDS: BLOOD SUGAR DIAGNOSTIC 1 EACH STRIP IN SCH ×4 (08:40→21:29)
[2021-01-28] MEDS: GLUCERNA SHAKE 237 ML CAN PO SCH ×2 (08:41→16:23)
[2021-01-28] MEDS: HYDROCORTISONE SOD SUCCINATE 100 MG/2 ML VIAL IV SCH (09:36)
[2021-01-28] MEDS: FLUTICASONE/VILANTEROL 1 EACH BLST.W.DEV IH SCH (09:36)
[2021-01-28] MEDS: APIXABAN 5 MG TABLET PO SCH ×2 (09:39→16:31)
[2021-01-28] MEDS: ATOVAQUONE 750 MG/5 ML UDC PO SCH (09:39)
[2021-01-28] MEDS: prednisoLONE ACETATE 1% SUSP 5 ML BOTTLE RIGHTEYE SCH ×3 (09:43→16:24)
[2021-01-28] MEDS: CLOTRIMAZOLE 1% 15 GM TUBE TP SCH ×2 (09:43→16:26)
[2021-01-28 12:00] VITALS: BP 141/77
--- NOTE | 2021-01-28 12:00 | NUR ---
RN NOTES PULMONOLOGY AT BED SIDE SPOKE TO FAMILY MEMBER TO KEEP NON REBREATHER MASK ON 15L/MIN PT IS TOLERATING WELL
[2021-01-28] MEDS ORDERED: FUROSEMIDE 20 MG/2 ML VIAL IV SCH (14:00)
[2021-01-28] MEDS ORDERED: FUROSEMIDE 20 MG/2 ML VIAL IV ONE (15:30)
--- NOTE | 2021-01-28 15:38 | NUR ---
rn notes furosemide administered per doctor Cheyenne order will continue to monitor
[2021-01-28 16:00] VITALS: BP 103/62
--- NOTE | 2021-01-28 18:25 | NUR ---
RN CLOSING NOTE: PATIENT REMAINS IN BED ALERT AND VERBALLY RESPONSIVE. RESTING COMFORTABLE WITH NO SIGN OF DISTRESS OR SOB AT THIS MOMENT, PT IS BACK TO NRM 15/L PER PULMONOLOGY ORDER, TOLERATING WELL, O2 SAT 98 %. LAST BLOOD SUGAR CHECKED 265 WITH NO COVERAGE, FUROSEMIDE IV 2ML ADMINISTERED TOLERATED WELL, ENSURE ORDERED AT BED TIME TO PREVENT HYPOGLYCEMIA, BILATERAL SOFT RESTRAINTS ON PLACE AND RENEWED, NO SIGN OF PAIN OR DISCOMFORT. PUREWICK OUTPUT 2000 ML, SAFETY MEASURES IN PLACE BED IN LOWEST POSITION WITH BOTH SIDE RAILS UP. WILL ENDORSE TO NEXT SHIFT NURSE.
--- NOTE | 2021-01-28 19:20 | NUR ---
RN NOTE PATIENT ON NON BREATHER MASK AT 10 L STATING AT 97%, IS NOT IN ANY DISTRESS, AND DOES NOT HAVE LABORED BREATHING. PATIENT RESTING IN BED, WITH DAUGHTER AT SIDE. A/O X2 PATIENT HAS PERWICK, ON SOFT BILATERAL RESTRAINTS, WILL CHECK FOR SKIN BREAKDOWN AND CIRCULATION EVERY 15 MINS.. SAFETY MEASURES IN PLACE, BED IN LOW POSITION, ELEVATED, LOCKED, WITH THREE SIDE RAILS UP. NO SIGN OF PAIN OR DISCOMFORT. WILL TO CONTINUE TO MONITOR.
[2021-01-28 20:00] VITALS: BP 114/66
[2021-01-28] MEDS: ARIPIPRAZOLE 2 MG TABLET PO SCH (21:28)
[2021-01-28] MEDS: LATANOPROST EYE DROP 0.005% 2.5 ML BOTTLE EACHEYE SCH (21:28)
[2021-01-28] MEDS: MONTELUKAST SODIUM (10MG) 10 MG TABLET PO SCH (21:28)
[2021-01-28] MEDS: CITALOPRAM HYDROBROMIDE 20 MG TABLET PO SCH (21:28)
[2021-01-28] MEDS: ENSURE ENLIVE CHOC 237 ML CAN PO SCH (21:54)
[2021-01-29] VITALS: BP 111/61
[2021-01-29 04:00] VITALS: BP 126/68
--- NOTE | 2021-01-29 06:41 | NUR ---
RN NOTE PATIENT REMAINS IN BED RESTING,. PATIENT IS NOT IN DISCOMFORT OR PAIN AT THE TIME. IS A/O *2. BED IN LOW POSITION, WITH THREE SIDE RAILS UP. ON 10 l NON BREATHER MASK. BILATERAL SOFT RESTRAINTS APPLIED. NO SKIN BREAKDOWN, AND PROPER CIRCULATION EVIDENT. ALL DUE MEDS GIVEN MD ORDER. KEPT PATIENT CLEAN AND DRY THROUGHOUT THE SHIFT. ALL NEEDS MET, WILL ENDORSE THE ONCOMING SHIFT FOR CONTINUOS CARE.
[2021-01-29 07:13] LABS: BASOPHILS # (AUTO) 0.1 K/uL (0.0-0.2); BASOPHILS % (AUTO) 1.3 % (0.0-2.0); EOSINOPHILS % (AUTO) 2.4 % (0.0-6.0); HEMATOCRIT 27 % (33-45); HEMOGLOBIN 9.3 g/dL (11.5-14.8); LYMPHOCYTES # (AUTO) 2.7 K/uL (0.8-4.8); LYMPHOCYTES % (AUTO) 31.8 % (20.0-44.0); MEAN CORPUSCULAR HGB CONC 34 g/dl (31.0-36.0); MEAN CORPUSCULAR VOLUME 95 fL (82-100); MONOCYTES # (AUTO) 0.4 K/uL (0.1-1.30); MONOCYTES % (AUTO) 4.2 % (2.0-12.0); NEUTROPHILS # (AUTO) 5.1 K/uL (1.8-8.9); NEUTROPHILS % (AUTO) 60.3 % (43.0-81.0); RED BLOOD CELL COUNT(AUTO) 2.84 MIL/uL (4.0-5.2); WHITE BLOOD COUNT (AUTO) 8.5 K/uL (4.3-11.0)
[2021-01-29] MEDS: BLOOD SUGAR DIAGNOSTIC 1 EACH STRIP IN SCH ×4 (07:30→22:12)
--- NOTE | 2021-01-29 07:30 | NUR ---
RN OPENING NOTES Patient on NRB 10 LITERS with 02 sat of 98%, No c/o sob or pain. Breathing even and unlabored. Patient noted with bilateral soft wrist restraints, no s/s of skin breakdown.Willl continue to monitor. Bed is in lowest and locked position.
[2021-01-29 07:37] LABS: CALCIUM, SERUM 7.8 mg/dL (8.5-10.1); CREATININE 0.9 mg/dL (0.6-1.3); MAGNESIUM 1.9 mg/dL (1.8-2.4); PHOSPHORUS 3.4 mg/dL (2.5-4.9)
[2021-01-29 08:00] VITALS: BP 124/69
[2021-01-29] MEDS: GLUCERNA SHAKE 237 ML CAN PO SCH ×2 (08:00→17:21)
[2021-01-29] MEDS: CLOTRIMAZOLE 1% 15 GM TUBE TP SCH ×2 (09:29→17:21)
[2021-01-29] MEDS: FLUTICASONE/VILANTEROL 1 EACH BLST.W.DEV IH SCH (09:29)
[2021-01-29] MEDS: ATOVAQUONE 750 MG/5 ML UDC PO SCH (09:36)
[2021-01-29] MEDS: prednisoLONE ACETATE 1% SUSP 5 ML BOTTLE RIGHTEYE SCH ×3 (09:36→17:21)
[2021-01-29] MEDS: HYDROCORTISONE SOD SUCCINATE 100 MG/2 ML VIAL IV SCH (09:36)
[2021-01-29] MEDS: POTASSIUM CHLORIDE 20 MEQ TAB.PRT.SR PO SCH ×3 (11:46→13:45)
[2021-01-29 12:00] VITALS: BP 115/66
[2021-01-29] MEDS: APIXABAN 5 MG TABLET PO SCH ×2 (12:42→17:41)
[2021-01-29] MEDS: FUROSEMIDE 40 MG/4 ML VIAL IV SCH ×2 (13:51→17:39)
[2021-01-29 14:00] LABS: PLATELET COUNT (AUTO) 197 K/uL (150-450)
[2021-01-29 16:00] VITALS: BP 98/68
--- NOTE | 2021-01-29 19:25 | NUR ---
RN CLOSING NOTES Patient on NRB 10 LITERS with 02 sat of 95%, No c/o sob or pain. Breathing even and unlabored. Patient noted with bilateral soft wrist restraints, no s/s of skin breakdown.Willl continue to monitor. Bed is in lowest and locked position.Endorsed to next shift.
--- NOTE | 2021-01-29 19:30 | NUR ---
RN OPENING NOTES Received patient from previous shift awake, with daughter at bed side. Patient was not in distress, was on non rebreather mask with 10L oxygen. Had no labor breathing, or retractions. Patient has soft bilateral restraints, checked for circulation on both arms. Bed in low position, locked, call light in reach. Patient is A/O * 3. Will continue to monitor patient throughout the shift.
[2021-01-29 20:00] VITALS: BP 97/61
[2021-01-29] MEDS ORDERED: ARIPIPRAZOLE 5 MG TABLET ONE (21:36)
[2021-01-29] MEDS: CITALOPRAM HYDROBROMIDE 20 MG TABLET PO SCH (21:43)
[2021-01-29] MEDS: ARIPIPRAZOLE 2 MG TABLET PO SCH (21:43)
[2021-01-29] MEDS: MONTELUKAST SODIUM (10MG) 10 MG TABLET PO SCH (21:43)
[2021-01-29] MEDS: LATANOPROST EYE DROP 0.005% 2.5 ML BOTTLE EACHEYE SCH (21:44)
[2021-01-29] MEDS: ENSURE ENLIVE CHOC 237 ML CAN PO SCH (22:00)
[2021-01-30] VITALS (7 sets, daily range): BP systolic 89–123; BP diastolic 42–71
--- NOTE | 2021-01-30 06:00 | NUR ---
RN CLOSING NOTES Patient resting in bed. Patient was not in distress, was on non rebreather mask with 10L oxygen. Had no labor breathing, or retractions. Patient has soft bilateral restraints, checked for circulation on both arms. Bed in low position, locked, call light in reach. Patient is A/O * 3. Patient diaper, gown, linen changed, and water was given to patient. Will endorse to oncoming shift.
[2021-01-30 06:42] LABS: BASOPHILS # (AUTO) 0.1 K/uL (0.0-0.2); BASOPHILS % (AUTO) 0.9 % (0.0-2.0); EOSINOPHILS % (AUTO) 2.7 % (0.0-6.0); HEMATOCRIT 28 % (33-45); HEMOGLOBIN 9.4 g/dL (11.5-14.8); LYMPHOCYTES # (AUTO) 2.1 K/uL (0.8-4.8); LYMPHOCYTES % (AUTO) 31.7 % (20.0-44.0); MEAN CORPUSCULAR HGB CONC 34 g/dl (31.0-36.0); MEAN CORPUSCULAR VOLUME 97 fL (82-100); MONOCYTES # (AUTO) 0.3 K/uL (0.1-1.30); MONOCYTES % (AUTO) 4.2 % (2.0-12.0); NEUTROPHILS # (AUTO) 4.1 K/uL (1.8-8.9); NEUTROPHILS % (AUTO) 60.5 % (43.0-81.0); PLATELET COUNT (AUTO) 204 K/uL (150-450); RED BLOOD CELL COUNT(AUTO) 2.88 MIL/uL (4.0-5.2); WHITE BLOOD COUNT (AUTO) 6.7 K/uL (4.3-11.0)
[2021-01-30 06:53] LABS: ALBUMIN 1.7 g/dL (3.4-5.0); BILIRUBIN,TOTAL 0.5 mg/dL (0.2-1.0); CALCIUM, SERUM 7.4 mg/dL (8.5-10.1); MAGNESIUM 1.9 mg/dL (1.8-2.4); PHOSPHORUS 3.8 mg/dL (2.5-4.9); POTASSIUM 3.1 mmol/L (3.5-5.1); TOTAL PROTEIN, SERUM 5.9 g/dL (6.4-8.2)
--- NOTE | 2021-01-30 07:30 | NUR ---
WELDER FITTER APPRENTICE OPENING NOTE RECEIVED PT AWAKE IN BED. A/O X3. PT IS [place] CITIZEN-SPEAKING. PT ON 10PM O2 VIA NRB SATS 97%. NO SOB OR S/S OF RESPIRATORY DISTRESS NOTED. PT ON EXTERNAL COTTON BALER READING NSR. PT HAS NO C/O PAIN OR DISCOMFORT AT THIS TIME. IV ACCESS IN TIN MIDLINE, INTACT AND PATENT. PT WITH BILATERAL SOFT WRIST RESTRAINTS FOR SAFETY, GOOD CIRCULATION NOTED. SAFETY PRECAUTIONS MAINTAINED. BED IN LOWEST LOCKED POSITION, HOB ELEVATED, SIDE RAILS UP X2. CALL LIGHT AND TABLE WITHIN REACH. WILL CONTINUE TO MONITOR.
[2021-01-30] MEDS: BLOOD SUGAR DIAGNOSTIC 1 EACH STRIP IN SCH ×3 (07:46→18:01)
[2021-01-30] MEDS: POTASSIUM CHLORIDE 20 MEQ TAB.PRT.SR PO SCH ×3 (08:34→11:11)
[2021-01-30] MEDS: HYDROCORTISONE SOD SUCCINATE 100 MG/2 ML VIAL IV SCH (08:34)
[2021-01-30] MEDS: ATOVAQUONE 750 MG/5 ML UDC PO SCH (08:34)
[2021-01-30] MEDS: APIXABAN 5 MG TABLET PO SCH ×2 (08:35→17:43)
[2021-01-30] MEDS: GLUCERNA SHAKE 237 ML CAN PO SCH ×2 (09:00→18:13)
[2021-01-30] MEDS: FLUTICASONE/VILANTEROL 1 EACH BLST.W.DEV IH SCH (09:00)
[2021-01-30] MEDS: CLOTRIMAZOLE 1% 15 GM TUBE TP SCH ×2 (09:01→17:47)
[2021-01-30] MEDS: prednisoLONE ACETATE 1% SUSP 5 ML BOTTLE RIGHTEYE SCH ×3 (09:02→17:45)
--- NOTE | 2021-01-30 13:23 | NUR ---
RT Attempted to perform ABG but patient refused (RTs Isacc Viveros). RN at bedside during refusal and aware. Patient currently on NRB 10Lpm (Sp02 97%). Will continue to monitor
--- NOTE | 2021-01-30 18:11 | NUR ---
RN NOTE BS NOTED AT 229. INFORMED DR. TAO AND RECEIVED ORDERS FOR MODERATE SLIDING SCALE ACHS. ORDERS READ BACK, ENTERED, AND CARRIED OUT.
[2021-01-30] MEDS: BLOOD SUGAR DIAGNOSTIC 1 EACH STRIP VI SCH ×2 (18:33→23:11)
--- NOTE | 2021-01-30 18:38 | NUR ---
TEA ROOM MANAGER CLOSING NOTE PT IS AWAKE IN BED. A/O X3. PT IS GUAT[place]AL[place]-SPEAKING. PT ON 10PM O2 VIA NRB SATS 98%. NO SOB OR S/S OF RESPIRATORY DISTRESS NOTED. PT ON EXTERNAL ADMINISTRATIVE OPERATIONS COORDINATOR READING NSR. PT HAS NO C/O PAIN OR DISCOMFORT AT THIS TIME. IV ACCESS IN TIN MIDLINE, INTACT AND PATENT. PT WITH BILATERAL SOFT WRIST RESTRAINTS FOR SAFETY, GOOD CIRCULATION NOTED. ALL NEEDS HAVE BEEN MET. SAFETY PRECAUTIONS MAINTAINED AT ALL TIMES. BED IN LOWEST LOCKED POSITION, HOB ELEVATED, SIDE RAILS UP X2. CALL LIGHT AND TABLE WITHIN REACH. WILL ENDORSE TO ONCOMING NURSE FOR JOSE.
[2021-01-30] MEDS: INSULIN REGULAR, HUMAN 100 UNIT/ML 3 ML VIAL SQ PRN (19:11)
--- NOTE | 2021-01-30 20:00 | NUR ---
RN OPENING NOTES RECEIVED PATIENT IN BED, RESTING, WITH DAUGHTER AT SITE. PATIENT ON NON REBREATHER MASK @10 L . PATIENT A/O *3. IV SITE AT RIGHT UPPER ARM- MIDLINE. NO SHORTNESS OF BREATH, PATIENT IS NOT IN DISTRESS OR PAIN. CONGOLESE/BELGIAN SPEAKING.BED IN LOW POSITION, RESTRAINTS RENEWED.HEAD OF THE BED ELEVATED, 3 SIDE RAILS UP. CALL LIGHT WITHIN REACH.
--- NOTE | 2021-01-30 21:06 | NUR ---
RN NOTE PATIENT HAD ELEVATED T WAVE, REPORTED BY CONTROL ROOM TECHNICIAN. PATIENT ALREADY RECEIVED 60MEQ POTASSIUM DURING DAY SHIFT. MAGNESIUM WITHIN NORMAL LIMITS, 1.9.
[2021-01-30] MEDS: ARIPIPRAZOLE 2 MG TABLET PO SCH (21:46)
[2021-01-30] MEDS: MONTELUKAST SODIUM (10MG) 10 MG TABLET PO SCH (21:46)
[2021-01-30] MEDS: CITALOPRAM HYDROBROMIDE 20 MG TABLET PO SCH (21:46)
[2021-01-30] MEDS: LATANOPROST EYE DROP 0.005% 2.5 ML BOTTLE EACHEYE SCH (21:52)
[2021-01-30] MEDS: ENSURE ENLIVE CHOC 237 ML CAN PO SCH (22:00)
[2021-01-30] MEDS: *INSULIN REGULAR(HUMULIN R)HUM 100 UNIT/ML VIAL SQ PRN (23:23)
[2021-01-31] VITALS: BP 116/60
[2021-01-31 04:00] VITALS: BP 105/50
--- NOTE | 2021-01-31 06:00 | NUR ---
RN CLOSING NOTES PATIENT IN BED, RESTING,SLEEPING. REMOVED HER MASK AND DESATURATED DOWN TO 40 FOR HER O2. PUT O2 ON 15L NON RE BREATHER UNTIL STATS CAME BACK UP, THEN TITRATED HER DOWN ACCORDINGLY TOLERATED. NOW ON SIMPLE MASK 8L, STATING 94%..PATIENT A/O *2, WITH PERIODS OF CONFUSION.. IV SITE AT RIGHT UPPER ARM- MIDLINE.PATIENT IS NOT IN DISTRESS OR PAIN. GREENLANDIC/FAROESE SPEAKING.BED IN LOW POSITION, RESTRAINTS RENEWED.HEAD OF THE BED ELEVATED, 3 SIDE RAILS UP. CALL LIGHT WITHIN REACH. WILL ENDORSE ONCOMING NURSE. Addendum: 01/31/21 at 0705 by Yanci Ashby RN PATIENT ON BILATERAL SOFT RESTRAINTS, CHECKED FOR CIRCULATION AND NO REDNESS PRESENT.
[2021-01-31 08:00] VITALS: BP 125/70
--- NOTE | 2021-01-31 08:10 | NUR ---
RN OPEN NOTES PT RECEIVED RESTING IN BED ON SEMI SAGE POSITION ALERT AND ORIENT X2 WITH NO SIGN OF DISTRESS OR SOB WITH EVEN BREATHING AND UNLABORED ON 9L/MIN SIMPLE MASK TOLERATING WELL O2 SAT 96 %, MIDLINE ON THE TIN PATENT AND INTACT, FLUSHING WELL. TELE READING SR, , SAFETY MEASURES IN PLACE, BD ALARM ON, LOCKED AND IN LOWEST POSITION SIDE RAILS UP CALL LIGHT WITHIN REACH WILL CONTINUE TO MONITOR
[2021-01-31] MEDS: BLOOD SUGAR DIAGNOSTIC 1 EACH STRIP VI SCH ×4 (08:23→22:14)
[2021-01-31] MEDS: GLUCERNA SHAKE 237 ML CAN PO SCH ×2 (08:24→16:39)
[2021-01-31] MEDS: ATOVAQUONE 750 MG/5 ML UDC PO SCH (09:38)
[2021-01-31] MEDS: APIXABAN 5 MG TABLET PO SCH ×2 (09:39→16:43)
[2021-01-31] MEDS: HYDROCORTISONE SOD SUCCINATE 100 MG/2 ML VIAL IV SCH (09:39)
[2021-01-31] MEDS: FLUTICASONE/VILANTEROL 1 EACH BLST.W.DEV IH SCH (09:45)
[2021-01-31] MEDS: CLOTRIMAZOLE 1% 15 GM TUBE TP SCH ×2 (09:45→16:39)
[2021-01-31] MEDS: prednisoLONE ACETATE 1% SUSP 5 ML BOTTLE RIGHTEYE SCH ×3 (09:45→16:39)
[2021-01-31 12:00] VITALS: BP 116/63
[2021-01-31 12:32] LABS: CALCIUM, SERUM 8.1 mg/dL (8.5-10.1); CREATININE 1.1 mg/dL (0.6-1.3); POTASSIUM 3.1 mmol/L (3.5-5.1)
[2021-01-31 12:37] LABS: ALBUMIN 1.8 g/dL (3.4-5.0); BILIRUBIN,TOTAL 0.5 mg/dL (0.2-1.0); MAGNESIUM 2.1 mg/dL (1.8-2.4); PHOSPHORUS 3.9 mg/dL (2.5-4.9); TOTAL PROTEIN, SERUM 6.2 g/dL (6.4-8.2)
[2021-01-31] MEDS ORDERED: POTASSIUM CHLORIDE 20 MEQ TAB.PRT.SR PO ONE (14:30)
[2021-01-31 16:00] VITALS: BP 123/70
[2021-01-31] MEDS: *INSULIN REGULAR(HUMULIN R)HUM 100 UNIT/ML VIAL SQ PRN ×2 (17:26→22:20)
--- NOTE | 2021-01-31 18:55 | NUR ---
RN closing NOTES PT REMAINS RESTING IN BED ON SEMI SAGE POSITION ALERT AND ORIENT X2 WITH NO SIGN OF DISTRESS OR SOB WITH EVEN BREATHING AND UNLABORED ON 8L/MIN SIMPLE MASK TOLERATING WELL O2 SAT 96 %, MIDLINE ON THE TIN PATENT AND INTACT, FLUSHING WELL. TELE READING SR, , SAFETY MEASURES IN PLACE, BD ALARM ON, LOCKED AND IN LOWEST POSITION SIDE RAILS UP CALL LIGHT WITHIN REACH WILL ENDORSE TO DIMENSIONAL ENGINEER NURSE
--- NOTE | 2021-01-31 19:30 | NUR ---
RN OPENING NOTE RECEIVED PATIENT IN BED. A/OX3, UKRAINIAN SPEAKING, LANGUAGE BARRIER. ON OXYGEN 6L/MIN VIA SIMPLE MASK. RESPIRATIONS ARE EVEN AND UNLABORED. NO S/S SOB NOTED. NO C/O PAIN AT THIS TIME. IN NO APPARENT DISTRESS. TELE MONITOR READS SINUS RHYTHM HR 72. IV ACCESS IN TIN MIDLINE PATENT AND SLAINE LOCKED, PATIENT IS CONNECTED TO PUREWICK. BILATERAL SOFT WRIST RESTRAINTS ARE PRESENT BUT NOT CURRENTLY ON PATIENT DAUGHTER IS AT BEDSIDE. BED IS LOW AND LOCKED, HOB ELEVATED IN SEMI FOWLERS, SIDE RIALS UP X3, CALL LIGHT WITHIN REACH. DAUGHTER WILL INFORM ME WHEN SHE IS LEAVING I CAN PLACE RESTRAINTS ON PATIENT.
[2021-01-31 20:00] VITALS: BP 106/72
--- NOTE | 2021-01-31 20:15 | NUR ---
RN NOTE DAUGHTER IS LEAVING, BILATERAL SOFT WRIST RESTRAINTS APPLIED, PATIENT REPOSITIONED. DAUGHTER STATES THAT PATIENT IS C/O HEADACHE, OFFERED PRN TYLENOL BUT PATIENT REFUSED.
[2021-01-31] MEDS: LATANOPROST EYE DROP 0.005% 2.5 ML BOTTLE EACHEYE SCH (21:07)
[2021-01-31] MEDS: MONTELUKAST SODIUM (10MG) 10 MG TABLET PO SCH (21:10)
[2021-01-31] MEDS: CITALOPRAM HYDROBROMIDE 20 MG TABLET PO SCH (21:11)
[2021-01-31] MEDS: ENSURE ENLIVE CHOC 237 ML CAN PO SCH (21:11)
[2021-01-31] MEDS: ARIPIPRAZOLE 2 MG TABLET PO SCH (21:11)
[2021-02-01] VITALS: BP 123/71
[2021-02-01 04:00] VITALS: BP 158/86
--- NOTE | 2021-02-01 07:30 | NUR ---
RN OPEN NOTE PATIENT RECEIVED RESTING IN BED. A/OX3, ON OXYGEN 10L/MIN VIA NONREBREATHER. DOWN TO 88% ON NRB 10L/MIN. SINUS RHYTHM. TIN MIDLINE SALINE LOCKED, BILATERAL SOFT WRIST RESTRAINTS ARE ON, READJUSTED MULTIPLE TIMES THROUGHOUT SHIFT. GOOD CAP REFILL. BED REMAINS LOW AND LOCKED, HOB ELEVATED IN SEMI FOWLERS, SIDE RIALS UP X3, CALL LIGHT WITHIN REACH. CONTINUE ASSESS AND MONITOR
--- NOTE | 2021-02-01 07:45 | NUR ---
RN CLOSING NOTE PATIENT RESTING IN BED. A/OX3, LANGUAGE BARRIER. ON OXYGEN 10L/MIN VIA NONREBREATHER. PATIENT DESATURATED WHEN LAYING FLAT FOR CLEANING. DOWN TO 88% ON NRB 15L/MIN. PATIENT HAS BEEN SEEN REMOVING HER OXYGEN MULTIPLE TIME AND O2 SATURATION SEEN IN THE 70S. SINUS RHYTHM. TIN MIDLINE SALINE LOCKED, UNFORTUNATELY THE PUREWICK DID NOT COLLECT URINE ON THIS SHIFT BUT SHE DID VOID AND WAS CHANGED 3 TIMES. BILATERAL SOFT WRIST RESTRAINTS ARE ON, READJUSTED MULTIPLE TIMES THROUGHOUT SHIFT. GOOD CAP REFILL. BED REMAINS LOW AND LOCKED, HOB ELEVATED IN SEMI FOWLERS, SIDE RIALS UP X3, CALL LIGHT WITHIN REACH. ENDORSED TO ONCOMING SHIFT.
[2021-02-01] MEDS: BLOOD SUGAR DIAGNOSTIC 1 EACH STRIP VI SCH ×4 (07:54→22:12)
[2021-02-01] MEDS: DEXTROSE 50%-WATER 50 ML DISP.SYRIN IV PRN (07:54)
--- NOTE | 2021-02-01 07:55 | NUR ---
pt blood glucose 55, notify supervisor metal fabricating and 5% dextrose given per order
[2021-02-01] MEDS: GLUCERNA SHAKE 237 ML CAN PO SCH ×2 (08:22→16:35)
[2021-02-01] MEDS: ATOVAQUONE 750 MG/5 ML UDC PO SCH (08:23)
[2021-02-01] MEDS: HYDROCORTISONE SOD SUCCINATE 100 MG/2 ML VIAL IV SCH (08:23)
[2021-02-01] MEDS: APIXABAN 5 MG TABLET PO SCH ×2 (08:25→16:35)
[2021-02-01] MEDS: FLUTICASONE/VILANTEROL 1 EACH BLST.W.DEV IH SCH (08:26)
[2021-02-01] MEDS: prednisoLONE ACETATE 1% SUSP 5 ML BOTTLE RIGHTEYE SCH ×3 (08:30→16:35)
[2021-02-01] MEDS: CLOTRIMAZOLE 1% 15 GM TUBE TP SCH ×2 (08:31→16:35)
[2021-02-01 09:59] VITALS: BP 108/61
[2021-02-01 12:00] VITALS: BP 99/41
--- NOTE | 2021-02-01 12:51 | NUR ---
BLLOD SUGAR AT 1200 WAS 160, CALL DR THOMAS, STATED PUT INSULIN ON HOLD PT ALERT , AWAKE . AND DOING WELL
[2021-02-01 16:00] VITALS: BP 100/59
[2021-02-01] MEDS: INSULIN REGULAR, HUMAN 100 UNIT/ML 3 ML VIAL SQ PRN (17:45)
--- NOTE | 2021-02-01 19:21 | NUR ---
RN CLOSING NOTE PATIENT REMAIN RESTING IN BED. A/OX3, LANGUAGE BARRIER. TITRATING OXYGEN FROM 10L/MIN VIA NONREBREATHER.TO 5L VIA NC. PATIENT HAS BEEN SEEN REMOVING HER OXYGEN MULTIPLE TIME AND O2 SATURATION SEEN IN THE 70S. SINUS RHYTHM. TIN MIDLINE SALINE REMOVED BY PT, AND NEW URA MIDLINE REPLACED. BLOOD GLUCOSE WAS 55 AT 7:30 AND D50 ADMINISTERED. BLOOD SUGAR WAS 297 AT 1700, 9 UNIT INSULIN GIVEN. SHE DID VOID AND WAS CHANGED 3 TIMES. BILATERAL SOFT WRIST RESTRAINTS ARE ON, READJUSTED MULTIPLE TIMES THROUGHOUT SHIFT. GOOD CAP REFILL. BED REMAINS LOW AND LOCKED, HOB ELEVATED IN SEMI FOWLERS, SIDE RIALS UP X3, CALL LIGHT WITHIN REACH. ENDORSED TO ONCOMING SHIFT.
--- NOTE | 2021-02-01 19:30 | NUR ---
RN NOTES RECEIVED REPORT FROM MORNING NURSE. PATIENT IN BED A/O X3 LUXEMBOURGER SPEAKING WITH PERIODS OF CONFUSION DAUGHTER AT BEDSIDE. WITH IV ACCESS AT R UA MIDLINE PATENT FLUSHES WELL. ON OXYGEN INHALATION AT 5LPM VIA NC TOLERATING WELL SATING 96%. WITH BILATERAL SOFT RESTRAINTS. ALL SAFETY MEASURES IN PLACE, BED ON LOWEST POSITION AND LOCKED. CALL LIGHT WITHIN REACH. HOB ELEVATED. WILL CONTINUE TO MONITOR PATIENT
[2021-02-01 20:00] VITALS: BP 98/59
[2021-02-01] MEDS: CITALOPRAM HYDROBROMIDE 20 MG TABLET PO SCH (21:48)
[2021-02-01] MEDS: MONTELUKAST SODIUM (10MG) 10 MG TABLET PO SCH (21:48)
[2021-02-01] MEDS: ARIPIPRAZOLE 2 MG TABLET PO SCH (21:48)
[2021-02-01] MEDS: LATANOPROST EYE DROP 0.005% 2.5 ML BOTTLE EACHEYE SCH (21:50)
[2021-02-01] MEDS: ENSURE ENLIVE CHOC 237 ML CAN PO SCH (22:07)
[2021-02-01] MEDS: *INSULIN REGULAR(HUMULIN R)HUM 100 UNIT/ML VIAL SQ PRN (22:19)
[2021-02-02] VITALS: BP 121/68
[2021-02-02 04:00] VITALS: BP 138/83
--- NOTE | 2021-02-02 06:55 | NUR ---
RN NOTES PATIENT COMFORTABLE IN BED NO SOB. ALL DUE MEDS GIVEN, HOB ELEVATED, CALL LIGHT WITHIN REACH. BOTH SIDERAILS UP FOR SAFETY, CALL LIGHT WITHIN REACH. STILL ON SOFT RESTRAINS. FREQUENT VISUAL MONITORING RENDERED. ALL NEEDS ATTENDED. WNDORSED
[2021-02-02 07:04] LABS: BASOPHILS # (AUTO) 0.1 K/uL (0.0-0.2); BASOPHILS % (AUTO) 0.8 % (0.0-2.0); EOSINOPHILS % (AUTO) 1.6 % (0.0-6.0); HEMATOCRIT 31 % (33-45); HEMOGLOBIN 10.6 g/dL (11.5-14.8); LYMPHOCYTES # (AUTO) 3.2 K/uL (0.8-4.8); LYMPHOCYTES % (AUTO) 38.6 % (20.0-44.0); MEAN CORPUSCULAR HGB CONC 34 g/dl (31.0-36.0); MEAN CORPUSCULAR VOLUME 101 fL (82-100); MONOCYTES # (AUTO) 0.3 K/uL (0.1-1.30); MONOCYTES % (AUTO) 3.2 % (2.0-12.0); NEUTROPHILS # (AUTO) 4.7 K/uL (1.8-8.9); NEUTROPHILS % (AUTO) 55.8 % (43.0-81.0); PLATELET COUNT (AUTO) 260 K/uL (150-450); RED BLOOD CELL COUNT(AUTO) 3.05 MIL/uL (4.0-5.2); WHITE BLOOD COUNT (AUTO) 8.4 K/uL (4.3-11.0)
[2021-02-02] MEDS: BLOOD SUGAR DIAGNOSTIC 1 EACH STRIP VI SCH ×4 (07:30→21:11)
--- NOTE | 2021-02-02 07:31 | NUR ---
RN OPENING NOTE RECEIVE REPORT FROM OUT GOING NURSE. PATIENT IN STABLE CONDITION AT TIME OF REPORT. CURRENTLY ON SIMPLE MASK AT 8L/MIN. WILL SWITCH TO NC AT 5L/MIN. SACRAL REDNESS. BED BOUND. ALL SAFETY MEASURE IN PLACE BED ON LOWEST POSITION WITH HOB ELEVATED AND 3 SIDE RAIL UP. CALL LIGHT WITHIN REACH. WILL CONTINUE TO MONITOR.
[2021-02-02 07:35] LABS: ALBUMIN 1.9 g/dL (3.4-5.0); BILIRUBIN,TOTAL 0.4 mg/dL (0.2-1.0); CALCIUM, SERUM 8.1 mg/dL (8.5-10.1); MAGNESIUM 2.6 mg/dL (1.8-2.4); PHOSPHORUS 3.5 mg/dL (2.5-4.9); POTASSIUM 3.6 mmol/L (3.5-5.1); TOTAL PROTEIN, SERUM 6.5 g/dL (6.4-8.2)
[2021-02-02 08:00] VITALS: BP 149/77
[2021-02-02] MEDS: GLUCERNA SHAKE 237 ML CAN PO SCH ×2 (08:00→17:00)
[2021-02-02] MEDS: FLUTICASONE/VILANTEROL 1 EACH BLST.W.DEV IH SCH (09:14)
[2021-02-02] MEDS: prednisoLONE ACETATE 1% SUSP 5 ML BOTTLE RIGHTEYE SCH ×3 (09:14→17:22)
[2021-02-02] MEDS: HYDROCORTISONE SOD SUCCINATE 100 MG/2 ML VIAL IV SCH (09:15)
[2021-02-02] MEDS: ATOVAQUONE 750 MG/5 ML UDC PO SCH (09:15)
[2021-02-02] MEDS: CLOTRIMAZOLE 1% 15 GM TUBE TP SCH ×2 (09:15→17:23)
[2021-02-02] MEDS: APIXABAN 5 MG TABLET PO SCH ×2 (09:16→17:17)
[2021-02-02 12:00] VITALS: BP 126/67
[2021-02-02] MEDS: *INSULIN REGULAR(HUMULIN R)HUM 100 UNIT/ML VIAL SQ PRN ×3 (13:08→21:15)
[2021-02-02 16:00] VITALS: BP 102/56
--- NOTE | 2021-02-02 18:11 | NUR ---
RN CLOSING NOTE PATIENT REMAIN STABLE THROUGH OUT SHIFT WITH NO SIGN OF DISTRESS. PATIENT WAS ON SIMPLE MASK WHEN RECEIVE PATIENT FROM WAFER FABRICATOR NURSE. 02 DELIVERY HAVE BEEN TITRATED TO NC @ 4L/MIN. O2 SAT IS 95% AND ABOVE. TOOK ALL MEDICATIONS. PATIENT WAS CLEAN AND TURNED PER PROTOCOL. PROPER INSOLATION PRECAUTION IN PLACE. ALL SAFETY MEASURE IN PLACE. BED ON LOWEST POSITION WITH HOB ELEVATED WITH 3 SIDE RAIL UP AND CALL LIGHT WITHIN REACH. WILL CONTINUE TO MONITOR AND ENDORSE TO ON COMING NURSE.
--- NOTE | 2021-02-02 19:00 | NUR ---
RN NOTE RECEIVED PATIENT IN BED, DAUGHTER AT BEDSIDE, AWAKE AND ALERT WITH PERIODS OF CONFUSION, IN NO S/SX OF ACUTE DISTRESS AT THIS TIME. SATURATION AT 97 ON 4L VIA NC%, SR ON THE MONITOR, HR IS 79. NOTED TIN MIDLINE, PATENT AND FLUSHING WELL, NO S/S OF INFECTION. SAFETY MEASURES IMPLEMENTED. PATIENT BED ALARM IS ON. HEAD OF BED ELEVATED. BED IS LOCKED, IN LOWEST POSITION AND SIDE RAILS UP. CALL LIGHT WITHIN REACH OF THE PATIENT. WILL CONTINUE TO MONITOR AND REASSESS FOR ANY CHANGES.
[2021-02-02 20:00] VITALS: BP 117/78
[2021-02-02] MEDS: ARIPIPRAZOLE 2 MG TABLET PO SCH (21:07)
[2021-02-02] MEDS: MONTELUKAST SODIUM (10MG) 10 MG TABLET PO SCH (21:07)
[2021-02-02] MEDS: CITALOPRAM HYDROBROMIDE 20 MG TABLET PO SCH (21:08)
[2021-02-02] MEDS: LATANOPROST EYE DROP 0.005% 2.5 ML BOTTLE EACHEYE SCH (21:11)
[2021-02-02] MEDS: ENSURE ENLIVE CHOC 237 ML CAN PO SCH (21:12)
[2021-02-03] VITALS: BP 140/83
[2021-02-03 04:00] VITALS: BP 97/52
[2021-02-03 07:17] LABS: CALCIUM, SERUM 8.4 mg/dL (8.5-10.1); CREATININE 0.9 mg/dL (0.6-1.3); MAGNESIUM 2.7 mg/dL (1.8-2.4); PHOSPHORUS 3.5 mg/dL (2.5-4.9); POTASSIUM 3.5 mmol/L (3.5-5.1)
[2021-02-03 07:33] LABS: MONOCYTES # (AUTO) 0.3 K/uL (0.1-1.30)
[2021-02-03] MEDS: BLOOD SUGAR DIAGNOSTIC 1 EACH STRIP VI SCH ×4 (07:39→22:03)
--- NOTE | 2021-02-03 07:45 | NUR ---
RN OPENING NOTE- PATIENT IN STABLE CONDITION AT TIME OF REPORT. CURRENTLY ON SIMPLE MASK AT 10L/MIN. WILL TITRATE TO NC AT 5L/MIN. SACRAL REDNESS. BED BOUND. SOFT RESTRAINTS WRISTS IN PLACE. MIDLINE TIN. ALL SAFETY MEASURE IN PLACE BED ON LOWEST POSITION WITH HOB ELEVATED AND 3 SIDE RAIL UP. CALL LIGHT WITHIN REACH. WILL CONTINUE TO MONITOR
[2021-02-03 08:00] VITALS: BP 121/68
[2021-02-03] MEDS: GLUCERNA SHAKE 237 ML CAN PO SCH ×2 (08:00→17:00)
[2021-02-03 08:27] LABS: BASOPHILS % (AUTO) 0.3 % (0.0-2.0); EOSINOPHILS % (AUTO) 1.9 % (0.0-6.0); HEMATOCRIT 34 % (33-45); HEMOGLOBIN 11.1 g/dL (11.5-14.8); LYMPHOCYTES # (AUTO) 3.9 K/uL (0.8-4.8); LYMPHOCYTES % (AUTO) 37.5 % (20.0-44.0); MEAN CORPUSCULAR HGB CONC 33 g/dl (31.0-36.0); MEAN CORPUSCULAR VOLUME 97 fL (82-100); NEUTROPHILS # (AUTO) 5.9 K/uL (1.8-8.9); NEUTROPHILS % (AUTO) 57.3 % (43.0-81.0); PLATELET COUNT (AUTO) 225 K/uL (150-450); RED BLOOD CELL COUNT(AUTO) 3.45 MIL/uL (4.0-5.2); WHITE BLOOD COUNT (AUTO) 10.3 K/uL (4.3-11.0)
[2021-02-03] MEDS: HYDROCORTISONE SOD SUCCINATE 100 MG/2 ML VIAL IV SCH (09:03)
[2021-02-03] MEDS: ATOVAQUONE 750 MG/5 ML UDC PO SCH (09:04)
[2021-02-03] MEDS: prednisoLONE ACETATE 1% SUSP 5 ML BOTTLE RIGHTEYE SCH ×3 (09:04→17:14)
[2021-02-03] MEDS: APIXABAN 5 MG TABLET PO SCH ×2 (09:05→17:16)
[2021-02-03] MEDS: FLUTICASONE/VILANTEROL 1 EACH BLST.W.DEV IH SCH (09:34)
[2021-02-03] MEDS: CLOTRIMAZOLE 1% 15 GM TUBE TP SCH ×2 (09:34→17:15)
[2021-02-03 12:00] VITALS: BP 113/66
[2021-02-03] MEDS: INSULIN REGULAR, HUMAN 100 UNIT/ML 3 ML VIAL SQ PRN ×3 (12:24→22:07)
[2021-02-03 16:00] VITALS: BP 122/65
--- NOTE | 2021-02-03 18:35 | NUR ---
RN CLOSING NOTE- FAMILY AT BEDSIDE EARLIER ASKING TO TAKE PT HOME. HAD THEM SPEAK W DR BARRIGA. PT SATS STILL AT 95-97 % W O2 AT 6 LPM. PO INTAKE FAIR, MED COMPLIANT, NEEDS ATTENDED, CALL LIGHT IN [facility]. BED LOCKED, SOFT WRIST RESTRAINTS IN PLACE. MONITOR ASSIST
--- NOTE | 2021-02-03 19:11 | NUR ---
RN NOTES: RECEIVED AWAKE ON BED, SHE WAS ON SOFT RESTRAINT TEMPORARILY REMOVED WHILE HER DAUGHTER IS PRESENT IN THE BED SIDE, NO SIGN OF AGGRESSIVE BEHAVIOR.SHE IS ON TELE MONITOR SR RATE-82, SPO2-91-92% WITH O2 AT 4L/MIN VIA NC, PER DAUGHTER THEY ARE JUST WAITING FOR HER TO BE TAPER DOWN THEN THEY WILL BE GOING HOME, ON MIDLINE-TIN, PATENT.FALL, SAFETY AND ASPIRATION PRECAUTION OBSERVED.
[2021-02-03 20:00] VITALS: BP 109/70
[2021-02-03] MEDS: CITALOPRAM HYDROBROMIDE 20 MG TABLET PO SCH (21:07)
[2021-02-03] MEDS: LATANOPROST EYE DROP 0.005% 2.5 ML BOTTLE EACHEYE SCH (21:07)
[2021-02-03] MEDS: ARIPIPRAZOLE 2 MG TABLET PO SCH (21:07)
[2021-02-03] MEDS: ENSURE ENLIVE CHOC 237 ML CAN PO SCH (21:07)
[2021-02-03] MEDS: MONTELUKAST SODIUM (10MG) 10 MG TABLET PO SCH (21:08)
--- NOTE | 2021-02-03 22:16 | NUR ---
RN NOTES: BLOOD SUGAR CHECKED-153, INSULIN GIVEN PER SCALE, GIVEN SOME SNACK AND OTHER DUE MEDS, WILL CONTINUE TO MONITOR FOR SIGN OF HYPER/HYPOGLYCEMIA.
[2021-02-04] VITALS: BP 144/97
--- NOTE | 2021-02-04 00:06 | NUR ---
RN NOTES: -SHE WAS AWAKE IN BETWEEN, RN STAYED WITH HER SHE IS MORE RELAX, SPO2 REMAIN 92-93% WITH O2 AT 4-5L/MIN. -CALLED BACK HER DAUGHTER KAMALJIT AND NOTIFIED, SHE TOOK ALL HER MEDICATION,SHE IS MORE RELAX, REFUSE TO DRINK HER ENSURE, SHE SAID LATER, WILL CONTINUE TO MONITOR, HER SPO2 IS STABILIZED 92-93%.
--- NOTE | 2021-02-04 01:26 | NUR ---
RN NOTES: TURNING AND REPOSITIONING DONE, REMAIN SPO2-92-93% , NO PAIN OR DISCOMFORT, ABLE TO SLEEP AND REST, RESTRAIN CIRCULATION CHECKED, SHE IS ABLE TO MOVE HER HANDS AND NO REDNESS NOTED.
[2021-02-04 04:00] VITALS: BP 151/88
--- NOTE | 2021-02-04 07:34 | NUR ---
RN OPENING NOTES Patient seen comfortably lying in bed, no apparent distress noted, respirations even and unlabored, no SOB, denies any pain or discomfort at this time, no grimacing. Call light left within reach, safety precautions in place, brakes locked, side rails up X 2, will monitor closely for any changes.
--- NOTE | 2021-02-04 07:37 | NUR ---
RN NOTES: ABLE TO REST AND SLEEP, MORNING CARE DONE, NEEDS ATTENDED , GO BACK TO SLEEP, ENDORSED FOR CONTINUITY OF CARE.
[2021-02-04 08:00] VITALS: BP 152/91
[2021-02-04] MEDS: APIXABAN 5 MG TABLET PO SCH ×2 (09:25→16:24)
[2021-02-04] MEDS: HYDROCORTISONE SOD SUCCINATE 100 MG/2 ML VIAL IV SCH (09:26)
[2021-02-04] MEDS: FLUTICASONE/VILANTEROL 1 EACH BLST.W.DEV IH SCH (09:26)
[2021-02-04] MEDS: ATOVAQUONE 750 MG/5 ML UDC PO SCH (09:26)
[2021-02-04] MEDS: prednisoLONE ACETATE 1% SUSP 5 ML BOTTLE RIGHTEYE SCH ×3 (09:27→16:25)
[2021-02-04] MEDS: CLOTRIMAZOLE 1% 15 GM TUBE TP SCH ×2 (09:28→16:25)
[2021-02-04] MEDS: BLOOD SUGAR DIAGNOSTIC 1 EACH STRIP VI SCH ×4 (09:54→22:53)
[2021-02-04] MEDS: GLUCERNA SHAKE 237 ML CAN PO SCH ×2 (09:55→16:25)
[2021-02-04 12:00] VITALS: BP 119/71
[2021-02-04] MEDS: INSULIN REGULAR, HUMAN 100 UNIT/ML 3 ML VIAL SQ PRN ×2 (12:25→16:26)
[2021-02-04 16:00] VITALS: BP 114/71
--- NOTE | 2021-02-04 18:21 | NUR ---
RN CLOSING NOTES Patient in bed, AO X 2-3, [place] speaking, respirations even and unlabored, no dizziness, no palpitations, denies any pain or discomfort, no grimacing, no apparent distress noted, no SOB. All medications given per MD order, tolerating well. No s/s of hypo/hyperglycemia noted, no change in level of consciousness, no tremors, insulin given per sliding scale per MD order, tolerating well. Patient has an order for soft wrist restraint for safety, visual check rendered every 15 minutes, patient repositioned frequently, no s/s of circulation impairment noted at this time, skin warm to touch, no pallor or cyanosis noted. Kept clean and dry, all needs attended, aspiration precautions observed at all times, call light left within reach, safety precautions in place, brakes locked, side rails up X 2, will endorse to next shift for continuity of care.
--- NOTE | 2021-02-04 19:30 | NUR ---
SPINNING LATHE OPERATOR OPENING NOTES: RECEIVED PATIENT FROM DAY SHIFT, PATIENT IN BED, A/O X2, PATIENT FAMILY MEMBER PRESENT (DAUGHTER), BED LOCKED AND AT LOWEST POSITION, SIDE RAILS UP X2, RESTRAINTS ARE ON BILATERALLY ON THE ARMS, CALL LIGHT WITHIN REACH, PATIENT ON NC 3L, SATURATING AT 96%, TIN MIDLINE PATENT AND INTACT, WILL CONTINUE TO MONITOR AND ADMINISTER NURSING INTERVENTIONS AND PLAN OF CARE NEEDED.
[2021-02-04 20:00] VITALS: BP 100/60
[2021-02-04] MEDS: MONTELUKAST SODIUM (10MG) 10 MG TABLET PO SCH (22:28)
[2021-02-04] MEDS: CITALOPRAM HYDROBROMIDE 20 MG TABLET PO SCH (22:28)
[2021-02-04] MEDS: ARIPIPRAZOLE 2 MG TABLET PO SCH (22:28)
[2021-02-04] MEDS: ENSURE ENLIVE CHOC 237 ML CAN PO SCH (22:33)
[2021-02-04] MEDS: LATANOPROST EYE DROP 0.005% 2.5 ML BOTTLE EACHEYE SCH (22:41)
[2021-02-05] VITALS: BP 129/77
[2021-02-05 04:00] VITALS: BP 137/85
--- NOTE | 2021-02-05 06:31 | NUR ---
CERTIFIED MEDICAL RECORDS CODER CLOSING NOTES: PATIENT IN BED, RESTING, A/O X3, V/S WNL, ON NC 3L SATURATION 92%, MONITOR SHOWS SR 70-80S, ALGERIAN SPEAKING ONLY, RESTRAINTS NEED RENEWAL AT 1845, TIN MIDLINE INTACT AND PATENT, MAKE SURE TO THICKEN HER WATER TO PREVENT ASPIRATION, SATURATION IS WNL WHEN SITTING UP, BED AT LOWEST POSITION, BRAKES LOCKED AND IN PLACE, SIDE RAILS UP X2, CALL LIGHT WITHIN REACH, WILL ENDORSE TO DAY SHIFT NURSE, WILL CONTINUE TO MONITOR AND IMPLEMENT NURSING INTERVENTIONS NECESSARY.
--- NOTE | 2021-02-05 07:30 | NUR ---
ATG ARCHITECT OPENING NOTES: PATIENT IN BED, A/O X2, TURKISH SPEAKING, ON 3L O2 O2 SAT AT 88%, TITRATED TO 5L, O2 SAT WENT UP TO 90%. SR HR 81, NO SIGNS OF PAIN OR DISCOMFORT, NO GRIMACINGS, TIN MIDLINE, FLUSHES WELL, SITE CLEAR, CDI DRESSING. RESTRAINTS IN PLACE, RELEASED AND CHECKED FOR CIRCULATION, THEN Q 2 HOURS. SEE NURSING LFOWSHEET FOR SKIN ISSUES. WILL TURN AND REPOSITION Q 2 HOURS. CCHO DIET. FEEDER, BED LOCKED AND AT LOWEST POSITION, SIDE RAILS UP X2, CALL LIGHT WITHIN REACH, WILL CONTINUE TO MONITOR AND ADMINISTER NURSING INTERVENTIONS AND PLAN OF CARE NEEDED.
[2021-02-05 08:00] VITALS: BP 138/77
[2021-02-05] MEDS: GLUCERNA SHAKE 237 ML CAN PO SCH ×2 (08:30→17:36)
[2021-02-05] MEDS: BLOOD SUGAR DIAGNOSTIC 1 EACH STRIP VI SCH ×4 (08:31→22:57)
--- NOTE | 2021-02-05 09:30 | NUR ---
RN NOTES DUE MEDS GIVEN.
[2021-02-05] MEDS: FLUTICASONE/VILANTEROL 1 EACH BLST.W.DEV IH SCH (09:40)
[2021-02-05] MEDS: CLOTRIMAZOLE 1% 15 GM TUBE TP SCH ×2 (09:41→17:37)
[2021-02-05] MEDS: prednisoLONE ACETATE 1% SUSP 5 ML BOTTLE RIGHTEYE SCH ×3 (09:41→17:35)
[2021-02-05] MEDS: HYDROCORTISONE SOD SUCCINATE 100 MG/2 ML VIAL IV SCH (09:45)
[2021-02-05] MEDS: ACETAMINOPHEN 325 MG TABLET PO PRN (09:45)
[2021-02-05] MEDS: ATOVAQUONE 750 MG/5 ML UDC PO SCH (09:47)
[2021-02-05] MEDS: APIXABAN 5 MG TABLET PO SCH ×2 (09:48→17:36)
[2021-02-05 12:00] VITALS: BP 110/65
[2021-02-05 12:56] LABS: BASOPHILS # (AUTO) 0.1 K/uL (0.0-0.2); BASOPHILS % (AUTO) 0.7 % (0.0-2.0); EOSINOPHILS % (AUTO) 1.5 % (0.0-6.0); HEMATOCRIT 29 % (33-45); HEMOGLOBIN 9.8 g/dL (11.5-14.8); LYMPHOCYTES # (AUTO) 2.7 K/uL (0.8-4.8); LYMPHOCYTES % (AUTO) 26.2 % (20.0-44.0); MEAN CORPUSCULAR HGB CONC 34 g/dl (31.0-36.0); MEAN CORPUSCULAR VOLUME 97 fL (82-100); MONOCYTES # (AUTO) 0.3 K/uL (0.1-1.30); MONOCYTES % (AUTO) 2.7 % (2.0-12.0); NEUTROPHILS % (AUTO) 68.9 % (43.0-81.0); PLATELET COUNT (AUTO) 295 K/uL (150-450); RED BLOOD CELL COUNT(AUTO) 3.01 MIL/uL (4.0-5.2); WHITE BLOOD COUNT (AUTO) 10.2 K/uL (4.3-11.0)
[2021-02-05] MEDS: INSULIN REGULAR, HUMAN 100 UNIT/ML 3 ML VIAL SQ PRN (13:30)
[2021-02-05 16:00] VITALS: BP 110/67
[2021-02-05 16:13] LABS: CALCIUM, SERUM 8.4 mg/dL (8.5-10.1); MAGNESIUM 2.6 mg/dL (1.8-2.4); POTASSIUM 3.5 mmol/L (3.5-5.1)
--- NOTE | 2021-02-05 19:12 | NUR ---
POST HOLE DIGGER NOTES PATIENT RESTING COMFORTABLY, DAUGHTER AT BEDSIDE. ALL NEEDS MET. PT NOT IN ANY DISTRESS. WILL ENDORSE TO NEXT SHIFT FOR JOSE.
--- NOTE | 2021-02-05 19:30 | NUR ---
RN NOTE PT RECEIVED IN BED. DAUGHTER AT BEDSIDE. PT IS ON 4L OF O2 VIA NC SHOWING NO S/S OF RESP DISTRESS. BREATHING EVEN AND UNLABORED. PT IS A/OX2, LITHUANIAN SPEAKING. ON LATHE PULLER SHOWING NSR. ON CCHO DIET. RESTRAINTS NOTED. IV ACCESS NOTED ON RIGHT UPPER ARM MIDLINE. LINE FLUSHED, PATENT, AND INTACT WITH NO SIGNS OF INFILTRATION. ALL SAFETY MEASURES IMPLEMENTED. BED ALARM ON. BED LOCKED AND IN LOWEST POSITION. SIDE RAILS UP. WILL CONTINUE TO MONITOR AND ASSESS FOR ANY CHANGES.
--- NOTE | 2021-02-05 19:43 | NUR ---
RN NOTE PER DAUGHTER AT BEDSIDE, OKAY TO GIVE INSULIN PER SLIDING SCALE IF BLOOD SUGAR IS ELEVATED.
[2021-02-05 20:00] VITALS: BP 117/66
[2021-02-05] MEDS: ENSURE ENLIVE CHOC 237 ML CAN PO SCH (22:22)
[2021-02-05] MEDS: LATANOPROST EYE DROP 0.005% 2.5 ML BOTTLE EACHEYE SCH (22:22)
[2021-02-05] MEDS: CITALOPRAM HYDROBROMIDE 20 MG TABLET PO SCH (22:23)
[2021-02-05] MEDS: MONTELUKAST SODIUM (10MG) 10 MG TABLET PO SCH (22:23)
[2021-02-05] MEDS: ARIPIPRAZOLE 2 MG TABLET PO SCH (22:23)
[2021-02-05] MEDS: *INSULIN REGULAR(HUMULIN R)HUM 100 UNIT/ML VIAL SQ PRN (22:59)
[2021-02-06] VITALS: BP 125/73
[2021-02-06 04:00] VITALS: BP 143/83
--- NOTE | 2021-02-06 07:20 | NUR ---
RN OPEN NOTES PT RECEIVED RESTING IN BED ON SEMI SAGE POSITION ALERT AND ORIENT X2 WITH NO SIGN OF DISTRESS OR SOB AT THIS TIME ON 3L/MIN NC TOLERATING WELL O2 SAT 96 % BREATHING EVEN AND UNLABORED, MIDLINE ON THE TIN PATENT AND INTACT, FLUSHING WELL. TELE READING SR, , SAFETY MEASURES IN PLACE, BD ALARM ON, LOCKED AND IN LOWEST POSITION SIDE RAILS UP CALL LIGHT WITHIN REACH WILL CONTINUE TO MONITOR
[2021-02-06 07:36] LABS: CALCIUM, SERUM 8.3 mg/dL (8.5-10.1); CREATININE 0.9 mg/dL (0.6-1.3); MAGNESIUM 2.2 mg/dL (1.8-2.4); PHOSPHORUS 3.6 mg/dL (2.5-4.9); POTASSIUM 3.2 mmol/L (3.5-5.1)
[2021-02-06 07:46] LABS: BASOPHILS # (AUTO) 0.1 K/uL (0.0-0.2); BASOPHILS % (AUTO) 0.6 % (0.0-2.0); EOSINOPHILS % (AUTO) 2.3 % (0.0-6.0); HEMATOCRIT 29 % (33-45); HEMOGLOBIN 9.8 g/dL (11.5-14.8); LYMPHOCYTES # (AUTO) 3.2 K/uL (0.8-4.8); LYMPHOCYTES % (AUTO) 37.4 % (20.0-44.0); MEAN CORPUSCULAR HGB CONC 34 g/dl (31.0-36.0); MEAN CORPUSCULAR VOLUME 98 fL (82-100); MONOCYTES # (AUTO) 0.3 K/uL (0.1-1.30); MONOCYTES % (AUTO) 3.4 % (2.0-12.0); NEUTROPHILS # (AUTO) 4.8 K/uL (1.8-8.9); NEUTROPHILS % (AUTO) 56.3 % (43.0-81.0); PLATELET COUNT (AUTO) 329 K/uL (150-450); RED BLOOD CELL COUNT(AUTO) 2.91 MIL/uL (4.0-5.2); WHITE BLOOD COUNT (AUTO) 8.6 K/uL (4.3-11.0)
[2021-02-06 08:00] VITALS: BP 134/82
--- NOTE | 2021-02-06 08:32 | NUR ---
RN NOTE BLOOD SUGAR IS 65, LEGAL LIBRARIAN IS FEEDING PT, ORANGE JUICE PROVIDED WILL RECHECK IN 15 MIN
[2021-02-06] MEDS: BLOOD SUGAR DIAGNOSTIC 1 EACH STRIP VI SCH ×4 (08:35→21:22)
[2021-02-06] MEDS: GLUCERNA SHAKE 237 ML CAN PO SCH ×2 (08:36→16:32)
[2021-02-06] MEDS: prednisoLONE ACETATE 1% SUSP 5 ML BOTTLE RIGHTEYE SCH ×3 (08:56→16:32)
[2021-02-06] MEDS: CLOTRIMAZOLE 1% 15 GM TUBE TP SCH ×2 (08:56→16:34)
[2021-02-06] MEDS: HYDROCORTISONE SOD SUCCINATE 100 MG/2 ML VIAL IV SCH (08:59)
[2021-02-06] MEDS: ATOVAQUONE 750 MG/5 ML UDC PO SCH (08:59)
[2021-02-06] MEDS: APIXABAN 5 MG TABLET PO SCH ×2 (09:01→16:59)
[2021-02-06] MEDS: FLUTICASONE/VILANTEROL 1 EACH BLST.W.DEV IH SCH (09:05)
[2021-02-06] MEDS ORDERED: POTASSIUM CHLORIDE 20 MEQ TAB.PRT.SR PO SCH (09:30)
--- NOTE | 2021-02-06 11:00 | NUR ---
RN NOTES PHYSICAL THERAPIST AT BED SIDE PT TOLERATED WELL
--- NOTE | 2021-02-06 11:50 | NUR ---
RN NOTES BLOOD SUGAR 131
[2021-02-06 12:00] VITALS: BP 122/70
[2021-02-06] MEDS: INSULIN REGULAR, HUMAN 100 UNIT/ML 3 ML VIAL SQ PRN ×2 (12:01→18:13)
[2021-02-06 16:00] VITALS: BP 118/71
--- NOTE | 2021-02-06 18:48 | NUR ---
RN CLOSING NOTES PT REMAINS RESTING IN BED ON SEMI SAGE POSITION ALERT AND ORIENT X2 WITH NO SIGN OF DISTRESS OR SOB AT THIS TIME ON 3L/MIN NC TOLERATING WELL O2 SAT 96 % BREATHING EVEN AND UNLABORED, DAUGHTER IS IN THE ROOM VISITING PT, MIDLINE ON THE TIN PATENT AND INTACT, FLUSHING WELL. TELE READING SR, , SAFETY MEASURES IN PLACE, BD ALARM ON, LOCKED AND IN LOWEST POSITION, SIDE RAILS UP CALL LIGHT WITHIN REACH WILL ENDORSE TO VP PRODUCTION RN
--- NOTE | 2021-02-06 19:05 | NUR ---
PATIENT IN BED, A/O X2, MALDIVIAN SPEAKING,FAMILY MEMBER AT BEDSIDE ON 3L O2 O2 SAT AT 90-94%, SINUS RHYTHM ON MONITOR HR 81, NO SIGNS OF PAIN OR DISCOMFORT, NO GRIMACINGS, TIN MIDLINE, FLUSHES WELL, SITE CLEAR, CDI DRESSING. RESTRAINTS IN PLACE, RELEASED AND CHECKED FOR CIRCULATION. WILL TURN AND REPOSITION Q 2 HOURS. [facility]. FEEDER, BED LOCKED AND AT LOWEST POSITION, SIDE RAILS UP X2, CALL LIGHT WITHIN REACH, WILL CONTINUE TO MONITOR AND ADMINISTER NURSING INTERVENTIONS AND PLAN OF CARE NEEDED.
[2021-02-06 20:00] VITALS: BP 121/69
[2021-02-06] MEDS: ARIPIPRAZOLE 2 MG TABLET PO SCH (21:10)
[2021-02-06] MEDS: LATANOPROST EYE DROP 0.005% 2.5 ML BOTTLE EACHEYE SCH (21:10)
[2021-02-06] MEDS: CITALOPRAM HYDROBROMIDE 20 MG TABLET PO SCH (21:11)
[2021-02-06] MEDS: MONTELUKAST SODIUM (10MG) 10 MG TABLET PO SCH (21:11)
[2021-02-06] MEDS: ENSURE ENLIVE CHOC 237 ML CAN PO SCH (21:11)
[2021-02-06] MEDS: *INSULIN REGULAR(HUMULIN R)HUM 100 UNIT/ML VIAL SQ PRN (21:23)
[2021-02-07] VITALS: BP 130/86
[2021-02-07 01:50] VITALS: BP 133/78
[2021-02-07] MEDS: DEXTROSE 50%-WATER 50 ML DISP.SYRIN IV PRN (01:52)
--- NOTE | 2021-02-07 01:55 | NUR ---
@ 0140 I CHECKED PT AND REPOSITION HER AND I NOTICE THAT SHE BARELY RESPONDING G TO STIMULI, HER SPO2 IS 88-91 HR IS 78 BP WAS CHECKED, PT HAVE PULSE AND BREATHING EVENLY BUT BARELY RESPONDING TO STIMULI CALL CHARGE NURSE TO ASSESSED PT, BLOOD SUGAR WAS CHECKED AND IT IS 14, PRN D50 ADMINISTERED IMMEDIATELY AND AFTER FEW MINUTES PT BECOME RESPONSIVE AND TALK TO ME, WILL CONT TO MONITOR THE PT
[2021-02-07 04:00] VITALS: BP 148/69
[2021-02-07 06:37] LABS: CALCIUM, SERUM 7.9 mg/dL (8.5-10.1); CREATININE 0.8 mg/dL (0.6-1.3); MAGNESIUM 2.4 mg/dL (1.8-2.4); POTASSIUM 3.2 mmol/L (3.5-5.1)
[2021-02-07 06:40] LABS: BASOPHILS # (AUTO) 0.1 K/uL (0.0-0.2); BASOPHILS % (AUTO) 0.7 % (0.0-2.0); EOSINOPHILS % (AUTO) 2.1 % (0.0-6.0); HEMATOCRIT 29 % (33-45); HEMOGLOBIN 9.8 g/dL (11.5-14.8); LYMPHOCYTES % (AUTO) 38.5 % (20.0-44.0); MEAN CORPUSCULAR HGB CONC 34 g/dl (31.0-36.0); MEAN CORPUSCULAR VOLUME 101 fL (82-100); MONOCYTES # (AUTO) 0.3 K/uL (0.1-1.30); MONOCYTES % (AUTO) 4.4 % (2.0-12.0); NEUTROPHILS # (AUTO) 4.3 K/uL (1.8-8.9); NEUTROPHILS % (AUTO) 54.3 % (43.0-81.0); PLATELET COUNT (AUTO) 319 K/uL (150-450); RED BLOOD CELL COUNT(AUTO) 2.84 MIL/uL (4.0-5.2); WHITE BLOOD COUNT (AUTO) 7.9 K/uL (4.3-11.0)
--- NOTE | 2021-02-07 06:56 | NUR ---
PT ON BED AWAKE AA/OX 2 MORE TALKATIVE NOW, ON O2 3L VIA NC SPO2 90-95% NO SIGN OF RESPIRATORY DISTRESS, TELE MONITOR READS SINUS RHYTHM 80'S ALL NEEDS ATTENDED, BED ON LOWET POSITION AND LOCKED SIDE RAILS UP X2 BILATERAL SOFT WRIST RESTRAINTS STILL ON PLACE CIRCULATION WAS CHECKED REGULARLY, WILL ENDORSE TO AM SHIFT NURSE
--- NOTE | 2021-02-07 07:43 | NUR ---
RN CLOSING NOTES PT RECEIVED IN BED ON SEMI SAGE POSITION ALERT AND ORIENT X2 WITH NO SIGN OF DISTRESS OR SOB AT THIS TIME ON 3L/MIN NC TOLERATING WELL O2 SAT 96 % BREATHING EVEN AND UNLABORED, MIDLINE ON THE TIN PATENT AND INTACT, FLUSHING WELL. TELE READING SR, , SAFETY MEASURES IN PLACE, BD ALARM ON, LOCKED AND IN LOWEST POSITION, SIDE RAILS UP CALL LIGHT WITHIN REACH WILL CONTINUE TO MONITOR Addendum: 02/07/21 at 0745 by MARIJA REID RN [facility] OPEN NOTE
[2021-02-07 08:00] VITALS: BP 153/75
[2021-02-07] MEDS: BLOOD SUGAR DIAGNOSTIC 1 EACH STRIP VI SCH ×2 (08:01→12:13)
[2021-02-07] MEDS: GLUCERNA SHAKE 237 ML CAN PO SCH (08:08)
[2021-02-07] MEDS: HYDROCORTISONE SOD SUCCINATE 100 MG/2 ML VIAL IV SCH (09:15)
[2021-02-07] MEDS: POTASSIUM CHLORIDE 20 MEQ TAB.PRT.SR PO SCH ×2 (09:15→10:44)
[2021-02-07] MEDS: APIXABAN 5 MG TABLET PO SCH (09:16)
[2021-02-07] MEDS: FLUTICASONE/VILANTEROL 1 EACH BLST.W.DEV IH SCH (09:17)
[2021-02-07] MEDS: prednisoLONE ACETATE 1% SUSP 5 ML BOTTLE RIGHTEYE SCH ×2 (09:17→13:29)
[2021-02-07] MEDS: CLOTRIMAZOLE 1% 15 GM TUBE TP SCH (09:17)
[2021-02-07] MEDS: ATOVAQUONE 750 MG/5 ML UDC PO SCH (09:27)
[2021-02-07 12:00] VITALS: BP 142/83
[2021-02-07] MEDS ORDERED: APIX5TAB PO (15:09)
--- NOTE | 2021-02-07 16:34 | NUR ---
RN DC NOTE PT SENT HOME WITH THE AMBULANCE UNIT NUMBER 280 IN STABLE CONDITION ALERT AND ORIENT X2 WITH NO SIGN OF DISTRESS OR SOB AT THIS TIME ON 3L/MIN NC TOLERATING WELL O2 SAT 96 % BREATHING EVEN AND UNLABORED, MIDLINE, ARM BAND AND EXTERNAL MONITOR REMOVED, BELONGING ARE WITH THE PATIENT, SPOKE TO THE DAUGHTER MEDICATION EDUCATION PROVIDED, PRESCRIPTIONS ALREADY VERIFY TO PICC UP WITH PHARMACY , SAFETY MEASURES IN PLACE,
== END 2021-02-07 16:48 | disposition home or self-care (01) | DRG 137 ==
LOC: ER 15:16 → TELE1 21:13 → ICU 23:19 → TELE-TD 01-01 17:21 → TELE1 01-03 08:11 → ICU 01-03 14:54 → TELE-TD 01-23 18:25 → TELE1 01-24 08:26
PROVIDERS: ADMIT Nurse Practitioner Acute Care; ATTEND Nurse Practitioner Family
PROC: 05H933Z Insertion of Infusion Device into Right Brachial Vein, Percutaneous Approach (ICD-10-PCS; principal; 2020-12-26)
PROC: XW033E5 Introduction of Remdesivir Anti-infective into Peripheral Vein, Percutaneous Approach, New Technology Group 5 (ICD-10-PCS; 2020-12-27)
PROC: 05HD33Z Insertion of Infusion Device into Right Cephalic Vein, Percutaneous Approach (ICD-10-PCS; 2020-12-27)
PROC: XW033H5 Introduction of Tocilizumab into Peripheral Vein, Percutaneous Approach, New Technology Group 5 (ICD-10-PCS; 2020-12-27)
PROC: 05H933Z Insertion of Infusion Device into Right Brachial Vein, Percutaneous Approach (ICD-10-PCS; 2021-01-03)
PROC: 05H933Z Insertion of Infusion Device into Right Brachial Vein, Percutaneous Approach (ICD-10-PCS; 2021-01-06)
PROC: 05H933Z Insertion of Infusion Device into Right Brachial Vein, Percutaneous Approach (ICD-10-PCS; 2021-01-10)
PROC: 05HC33Z Insertion of Infusion Device into Left Basilic Vein, Percutaneous Approach (ICD-10-PCS; 2021-01-14)
PROC: 05HB33Z Insertion of Infusion Device into Right Basilic Vein, Percutaneous Approach (ICD-10-PCS; 2021-01-21)
PROC: 05H933Z Insertion of Infusion Device into Right Brachial Vein, Percutaneous Approach (ICD-10-PCS; 2021-01-23)
PROC: 05H933Z Insertion of Infusion Device into Right Brachial Vein, Percutaneous Approach (ICD-10-PCS; 2021-02-01)
DX: U07.1 COVID-19 (principal); A41.89 Other specified sepsis; J96.01 Acute respiratory failure with hypoxia; N17.0 Acute kidney failure with tubular necrosis; J12.82 Pneumonia due to coronavirus disease 2019; D68.59 Other primary thrombophilia; J15.9 Unspecified bacterial pneumonia; E27.40 Unspecified adrenocortical insufficiency; R65.21 Severe sepsis with septic shock; G92.8 Other toxic encephalopathy; Z86.73 Personal history of transient ischemic attack (TIA), and cerebral infarction without residual deficits; E86.1 Hypovolemia; I10 Essential (primary) hypertension; F32.A Depression, unspecified; Z90.49 Acquired absence of other specified parts of digestive tract; Z90.710 Acquired absence of both cervix and uterus; Z79.899 Other long term (current) drug therapy; I67.2 Cerebral atherosclerosis; I70.0 Atherosclerosis of aorta; Z79.01 Long term (current) use of anticoagulants; D69.6 Thrombocytopenia, unspecified; D72.810 Lymphocytopenia; D64.9 Anemia, unspecified; E78.5 Hyperlipidemia, unspecified; E83.39 Other disorders of phosphorus metabolism; I50.33 Acute on chronic diastolic (congestive) heart failure; I11.0 Hypertensive heart disease with heart failure; G93.89 Other specified disorders of brain; E87.8 Other disorders of electrolyte and fluid balance, not elsewhere classified; J98.11 Atelectasis; K76.0 Fatty (change of) liver, not elsewhere classified; E83.41 Hypermagnesemia; E83.51 Hypocalcemia; E87.6 Hypokalemia; E87.0 Hyperosmolality and hypernatremia; E11.9 Type 2 diabetes mellitus without complications; I82.403 Acute embolism and thrombosis of unspecified deep veins of lower extremity, bilateral; T38.0X5A Adverse effect of glucocorticoids and synthetic analogues, initial encounter; Y92.9 Unspecified place or not applicable; E88.09 Other disorders of plasma-protein metabolism, not elsewhere classified
CPT/HCPCS: 36410; 36415; 36600; 70450-TC; 71045-TC; 80048-TC; 80053-TC; 80061-TC; 80076-TC; 81001; 82533; 82550-TC; 82553; 82728-TC; 82803-TC; 82962-TC; 83605-TC; 83615-TC; 83735-TC; 83880; 84100-TC; 84484-TC; 85025-TC; 85378-TC; 85385-TC; 85610-TC; 85730-TC; 86140-TC; 87040-TC; 87081-TC; 87086-TC; 93307-TC; 93970-TC; 94760-TC; 94762-TC; 94799-TC; 97110-TC; 97112-TC; 97116-TC; 97530-TC; 99082-TC; A4216; A6253; A9563; C9803; G0378; J0456; J0692; J0696; J1100; J1650; J1720; J1815; J1940; J3480; J3490; J7030; J7040; J7050; J7060; J7070; Q9967; U0003

== ENCOUNTER 2021-02-08 07:18 | Inpatient (IN) | payer OTHER ==
[~2021-02-08] VITALS: Ht 160 cm; Wt 73.0 kg
[2021-02-08] VITALS (10 sets, daily range): BP systolic 93–129; BP diastolic 55–80
[~2021-02-08 07:18] MED LIST: AMLO-212 PO; APIX5TAB PO; ARIP2TAB3 PO; BROM3DRO RIGHTEYE; CITA20TA16 PO; DICL100G34 TP; FLUT1BLS INH; GABA-532 PO; LATA2.5D15 EACHEYE; MONT10TA22 PO; OLME40TA18 PO; PRED5DRO17 RIGHTEYE
--- NOTE | 2021-02-08 07:25 | NUR ---
Kyler hsieh in EDM - 02/08/21 at 1212 by DEACON To ER bed 6, JOEA [id number] From Home "Dx w/Covid Couple months ago family called today due to shortness of breath, aaox3, connected to monitor, awaiting md banegas
--- NOTE | 2021-02-08 07:25 | NUR ---
To ER bed 6, SUZY RA102 From Home "Dx w/Covid Couple months ago family called today due to shortness of breath, connected to monitor, awaiting md orders
[2021-02-08] MEDS ORDERED: CEFTRIAXONE 1 G in IV D5W 50 ML IV ONE (08:00)
[2021-02-08] MEDS ORDERED: IV NS 0.9% 1,000 ML IV ONE (08:00)
[2021-02-08] MEDS ORDERED: AZITHROMYCIN 500 MG in IV D5W 250 ML IV ONE (08:00)
--- NOTE | 2021-02-08 08:00 | NUR ---
x-ray tech at the bedside
[2021-02-08 08:10] LABS: CALCIUM, SERUM 8.5 mg/dL (8.5-10.1); CARBON DIOXIDE 32 mmol/L (21-32); CHLORIDE 103 mmol/L (98-107); GLUCOSE 101 mg/dL (74-106); POTASSIUM 4.5 mmol/L (3.5-5.1); SODIUM SERUM 141 mmol/L (136-145); UREA NITROGEN, BLOOD 10 mg/dL (7-18)
--- NOTE | 2021-02-08 08:20 | NUR ---
URINE COLLECTED AND SENT TO LAB
[2021-02-08 08:27] LABS: ALANINE AMINOTRANSFERASE 28 U/L (12-78); ALBUMIN 2.3 g/dL (3.4-5.0); ALKALINE PHOSPHATASE 160 U/L (46-116); ASPARTATE AMINOTRANSFERASE 45 U/L (15-37); BILIRUBIN,TOTAL 0.5 mg/dL (0.2-1.0); TOTAL PROTEIN, SERUM 7.9 g/dL (6.4-8.2)
[2021-02-08 08:37] LABS: BASOPHILS # (AUTO) 0.2 K/uL (0.0-0.2); BASOPHILS % (AUTO) 1.4 % (0.0-2.0); EOSINOPHILS % (AUTO) 2.8 % (0.0-6.0); HEMATOCRIT 35 % (33-45); HEMOGLOBIN 11.3 g/dL (11.5-14.8); LYMPHOCYTES # (AUTO) 3.8 K/uL (0.8-4.8); LYMPHOCYTES % (AUTO) 33.3 % (20.0-44.0); MEAN CORPUSCULAR HGB CONC 32 g/dl (31.0-36.0); MEAN CORPUSCULAR VOLUME 95 fL (82-100); MONOCYTES # (AUTO) 0.5 K/uL (0.1-1.30); MONOCYTES % (AUTO) 4.5 % (2.0-12.0); NEUTROPHILS # (AUTO) 6.6 K/uL (1.8-8.9); PLATELET COUNT (AUTO) 488 K/uL (150-450); RED BLOOD CELL COUNT(AUTO) 3.69 MIL/uL (4.0-5.2); WHITE BLOOD COUNT (AUTO) 11.3 K/uL (4.3-11.0)
--- NOTE | 2021-02-08 08:49 | NUR ---
case resolution specialist iggy gave authorization. [id number]
[2021-02-08 08:56] LABS: CREATINE KINASE, TOTAL 56 U/L (26-192)
[2021-02-08 09:05] LABS: BILIRUBIN,URINE Negative (NEGATIVE); COLOR,URINE YELLOW (YELLOW); LEUKOCYTE ESTERASE ,URINE Trace (NEGATIVE); NITRITE, URINE Positive (NEGATIVE); PH,URINE 8.5 (5.0-8.0); PROTEIN,URINE Negative (NEGATIVE); UGLUCOSE Negative (NEGATIVE)
[2021-02-08 09:06] LABS: BACTERIA,URINE 1+ /HPF (None Seen); RBC,URINE 0-2 /HPF (0-2); SQUAMOUS EPITHELIAL CELL,UR Moderate /HPF (None Seen)
[2021-02-08 09:14] LABS: D-DIMER 2.07 mg/L(FEU (0.17-0.50)
[2021-02-08 09:18] LABS: C-REACTIVE PROTEIN 9.7 mg/dL (0.0-0.9)
--- NOTE | 2021-02-08 11:56 | NUR ---
ROOM 256 [facility] OVERFLOW IN ICU
[2021-02-08] MEDS ORDERED: ZOLPIDEM TARTRATE 5 MG TABLET PO PRN (13:00)
[2021-02-08] MEDS ORDERED: MAGNESIUM HYDROXIDE 30 ML UDC PO PRN (13:00)
[2021-02-08] MEDS ORDERED: DEXTROSE 50%-WATER 50 ML DISP.SYRIN IV PRN (13:00)
[2021-02-08] MEDS ORDERED: Z GUARD REMEDY 2 OZ OINT TP PRN (13:00)
[2021-02-08] MEDS ORDERED: ACETAMINOPHEN 325 MG TABLET PO PRN (13:00)
[2021-02-08] MEDS: DEXAMETHASONE SOD PHOSPHATE 10 MG/ML VIAL IV SCH (13:30)
[2021-02-08] MEDS ORDERED: CT SWABBABLE VALVE TRANS SET 1 EA INFUS.SET MC ONE (13:31)
[2021-02-08] MEDS ORDERED: IOHEXOL-350 100 ML VIAL IV ONE (13:31)
[2021-02-08] MEDS ORDERED: IV NS 0.9% 250 ML IV ONE (13:31)
[2021-02-08 13:45] LABS: BAND % (MANUAL) 2 % (0.0-5.0); LYMPHOCYTES % (MANUAL) 36 % (16-48); MONOCYTES % (MANUAL) 5 % (0-11.0); NEUTROPHILS % (MANUAL) 57 (42-76)
[2021-02-08] MEDS ORDERED: DEXAMETHASONE SOD PHOSPHATE 10 MG/ML VIAL ONE (13:55)
--- NOTE | 2021-02-08 15:17 | NUR ---
REPORT GIVEN TO ZULAY ATKINS FOR JOSE
--- NOTE | 2021-02-08 15:25 | NUR ---
PATIENT TRANSPORTED TO FLOOR VIA GURNEY, PATIENT REMAINS IN STABLE CONDITION AT THIS TIME.
--- NOTE | 2021-02-08 15:30 | NUR ---
RN NOTES RECEIVED FROM ER IN ROOM 258. ALERT/ CONFUSED, ZAMBIAN SPEAKING , ON 6 L O2 FACE MASK, O2 SAT WNL, ON TELE SR HR IN 80'S , R ARM IV SITE G 20 CLEAN , DRY AND INTACT, SR UP x3,CALL LIGHT WITHIN EASY REACH, BED LOCKED AND IN LOWEST POSITION, CONTINUE TO MONITOR.
[2021-02-08 15:53] LABS: ABG BASE EXCESS 5.8 mmol/L; ABG OXYGEN SATURATION 93.9 % (92.0-98.5); ABG PCO2 50.1 mmHg (35.0-45.0); ABG PH 7.414 (7.350-7.450); ABG PO2 71.7 mmHg (75.0-100.0); AaDO2 192.2 mmHg; COHb 0.4 % (0.5-1.5); O2Hb 93.5 % (94.0-97.0); SITE, ABG Left Radial; VENT MODE, BG SM
[2021-02-08] MEDS: prednisoLONE ACETATE 1% SUSP 5 ML BOTTLE RIGHTEYE SCH ×2 (16:39→16:43)
[2021-02-08] MEDS: APIXABAN 5 MG TABLET PO SCH (16:40)
[2021-02-08] MEDS: BLOOD SUGAR DIAGNOSTIC 1 EACH STRIP IN SCH ×2 (16:43→22:05)
[2021-02-08 17:22] LABS: BILIRUBIN,DIRECT 0.1 mg/dL (0.0-0.2)
--- NOTE | 2021-02-08 18:00 | NUR ---
RN NOTES ANALYTICAL ENGINEER (ELIJAH) NOTIFIED REGARDING LA =2.8 .
--- NOTE | 2021-02-08 18:33 | NUR ---
RN NOTES PT REMAINS ON FACE MASK AT 6L , TOLERAING WELL, O2 SAT WNL, RESTING ON BED , NO DISTRESS NOTED, WILL ENDORSE TO DESIGN QUALITY ENGINEER NURSE FOR CONTINUITY OF CARE.
--- NOTE | 2021-02-08 19:45 | NUR ---
RN NOTE RECEIVED PT IN BED, ON O2 VIA SIMPLE MASK AT 6L. NOT IN ANY DISTRESS. O2 SAT AT 96%. PT ON RESTRAINTS ON BILATERAL WRIST. PT WITH EPISODES OF PULLING OUT LINES. WITH GOOD CIRCULATION. IV LINE ON RAC PATENT AND INTACT. WILL CONTINUE TO MONITOR. ALL SAFETY MEASURES IN PLACE PER PROTOCOL.
[2021-02-08] MEDS ORDERED: IV NS 0.9% 500 ML IV ONE (21:00)
[2021-02-08] MEDS: CITALOPRAM HYDROBROMIDE 20 MG TABLET PO SCH (21:53)
[2021-02-08] MEDS: ARIPIPRAZOLE 2 MG TABLET PO SCH (21:53)
[2021-02-08] MEDS: MONTELUKAST SODIUM (10MG) 10 MG TABLET PO SCH (21:53)
[2021-02-08] MEDS: LATANOPROST EYE DROP 0.005% 2.5 ML BOTTLE EACHEYE SCH (22:04)
[2021-02-08] MEDS: INSULIN REGULAR, HUMAN 100 UNIT/ML 3 ML VIAL SQ PRN (22:06)
[2021-02-09] VITALS (19 sets, daily range): BP systolic 87–141; BP diastolic 48–82
--- NOTE | 2021-02-09 02:27 | NUR ---
RN NOTE PT SLEEPING AROUSES EASILY. CONTINUE ON O2 AT 6L. NOT IN ANY DISTRESS. CONTINUE TO MONITOR.
[2021-02-09 04:15] LABS: BASOPHILS # (AUTO) 0.1 K/uL (0.0-0.2); BASOPHILS % (AUTO) 1.8 % (0.0-2.0); EOSINOPHILS % (AUTO) 0.3 % (0.0-6.0); HEMATOCRIT 28 % (33-45); HEMOGLOBIN 9.3 g/dL (11.5-14.8); LYMPHOCYTES # (AUTO) 2.4 K/uL (0.8-4.8); LYMPHOCYTES % (AUTO) 32.3 % (20.0-44.0); MEAN CORPUSCULAR HGB CONC 33 g/dl (31.0-36.0); MEAN CORPUSCULAR VOLUME 95 fL (82-100); MONOCYTES # (AUTO) 0.1 K/uL (0.1-1.30); MONOCYTES % (AUTO) 1.5 % (2.0-12.0); NEUTROPHILS # (AUTO) 4.8 K/uL (1.8-8.9); NEUTROPHILS % (AUTO) 64.1 % (43.0-81.0); PLATELET COUNT (AUTO) 429 K/uL (150-450); RED BLOOD CELL COUNT(AUTO) 2.93 MIL/uL (4.0-5.2); WHITE BLOOD COUNT (AUTO) 7.4 K/uL (4.3-11.0)
[2021-02-09 04:28] LABS: CREATININE 0.9 mg/dL (0.6-1.3); MAGNESIUM 2.4 mg/dL (1.8-2.4); POTASSIUM 3.7 mmol/L (3.5-5.1)
--- NOTE | 2021-02-09 06:38 | NUR ---
RN NOTE PATIENT AWAKE, WITH EPISODE OF PULLING OUT SIMPLE MASK. REMAIN ON 6L. NO RESP DISTRESS NOTED. CONTINUE WITH SOFT WRIST RESTRAINTS. NO SKIN BREAKDOWN NOTED, WITH GOOD CIRCULATION. PT CAN FOLLOW SIMPLE COMMANDS BUT CAN BE UNCOOPERATIVE AT TIMES, PT SPEAKS TURKM[place] ONLY. ALL NEEDS WERE ATTENDED. ON FREQUENT VISUAL CHECKS. ALL SAFETY PRECAUTIONS MAINTAINED.
[2021-02-09] MEDS: BLOOD SUGAR DIAGNOSTIC 1 EACH STRIP IN SCH ×4 (06:56→21:41)
[2021-02-09] MEDS: INSULIN REGULAR, HUMAN 100 UNIT/ML 3 ML VIAL SQ PRN ×4 (06:56→21:46)
--- NOTE | 2021-02-09 06:59 | NUR ---
RN NOTE PT FSBS 106, NO INSULIN COVERAGE GIVEN.
--- NOTE | 2021-02-09 07:30 | NUR ---
OPENING NOTE: REPORT RECEIVED FROM DORA ATKINS. PT IS ALERT ORIENTED TO SELF, SAMI SPEAKING ONLY. PT IS IN RESTRAINTS D/T PULLING OFF OXYGEN AND IV SITES, PER MD ORDERS. PT ON 8L SIMPLE MASK OF THIS TIME. PT CHECKED ON HOURLY AND PRN BY NURSING STAFF.
[2021-02-09] MEDS: FLUTICASONE/VILANTEROL 1 EACH BLST.W.DEV IH SCH (08:32)
[2021-02-09] MEDS: LOSARTAN POTASSIUM 50 MG TABLET PO SCH (08:32)
[2021-02-09] MEDS: DEXAMETHASONE SOD PHOSPHATE 10 MG/ML VIAL IV SCH (08:42)
[2021-02-09] MEDS: GABAPENTIN 300 MG CAPSULE PO SCH (08:42)
[2021-02-09] MEDS: AMLODIPINE BESYLATE 5 MG TABLET PO SCH (08:43)
[2021-02-09] MEDS: prednisoLONE ACETATE 1% SUSP 5 ML BOTTLE RIGHTEYE SCH ×3 (08:43→16:38)
[2021-02-09] MEDS: APIXABAN 5 MG TABLET PO SCH ×2 (08:47→16:37)
--- NOTE | 2021-02-09 15:39 | NUR ---
REPORT CALLED TO MAKENNA ATKINS FOR PATIENT TRANSFER TO ROOM 103. PT TRANSFERRED AT 1530 VIA BED WITH OXYGEN AND MONITOR AND 2 RN'S. PT SETTLED IN ROOM, MAKENNA ATKINS HELPED WITH TRANSFER.
--- NOTE | 2021-02-09 15:41 | NUR ---
RN NOTE RECEIVED PT FROM ICU REPORT GIVEN BY BRYAN ATKINS. PT IS ALERT ORIENTED, [place]ER SPEAKING ONLY. ON 5L O2 VIA NC SATURATION 97% NO SOB OR ANY DISTRESS NOTED. BILATERAL SOFT RESTRAINTS IN PLACED. CHECK CIRCULATION PER PROTOCOL. SAFETY MEASURES IMPLEMENTED. CALL LIGHT WITHIN REACH. BED LOCKED IN LOWEST POSITION SIDE RAILS UP X3. WILL CONTINUE TO MONITOR.
--- NOTE | 2021-02-09 15:49 | NUR ---
RN NOTIFIED PT'S DAUGHTER OF PATIENT TRANSFER TO ROOM 103.
--- NOTE | 2021-02-09 18:54 | NUR ---
RN CLOSING NOTES NO SIGNIFICANT CHANGES THROUGHOUT THE SHIFT. NO SOB. DENIES PAIN. ALL DUE MEDS GIVEN. NEEDS ATTENDED. KEPT CLEAN AND COMFORTABLE. SAFETY MEASURES IN PLACE. CALL LIGHT WITHIN REACH. WILL ENDORSE TO NIGHT RN FOR JOSE.
--- NOTE | 2021-02-09 20:00 | NUR ---
Patient is alert to name, oriented to self only. Restraints released, circulation good, skin intact. VSS. No signs of pain or discomfort. No signs of distress. Midline DESIRAE flushed and patent. Will continue to monitor patient closely.
[2021-02-09] MEDS: ARIPIPRAZOLE 2 MG TABLET PO SCH (21:06)
[2021-02-09] MEDS: CITALOPRAM HYDROBROMIDE 20 MG TABLET PO SCH (21:06)
[2021-02-09] MEDS: LATANOPROST EYE DROP 0.005% 2.5 ML BOTTLE EACHEYE SCH (21:06)
[2021-02-09] MEDS: MONTELUKAST SODIUM (10MG) 10 MG TABLET PO SCH (21:06)
[2021-02-10] VITALS: BP 125/78
[2021-02-10 04:00] VITALS: BP 125/73
--- NOTE | 2021-02-10 05:17 | NUR ---
attempted to titrate O2 down to 4L, sats went to high 80s though patient is in no distress and very alert. Put patient back on 5L at saturating 95-97%.
[2021-02-10 06:11] LABS: BASOPHILS % (AUTO) 0.4 % (0.0-2.0); CALCIUM, SERUM 8.7 mg/dL (8.5-10.1); HEMATOCRIT 30 % (33-45); HEMOGLOBIN 9.7 g/dL (11.5-14.8); LYMPHOCYTES % (AUTO) 29.6 % (20.0-44.0); MAGNESIUM 2.4 mg/dL (1.8-2.4); MEAN CORPUSCULAR HGB CONC 33 g/dl (31.0-36.0); MEAN CORPUSCULAR VOLUME 95 fL (82-100); MONOCYTES # (AUTO) 0.5 K/uL (0.1-1.30); MONOCYTES % (AUTO) 4.8 % (2.0-12.0); NEUTROPHILS # (AUTO) 6.6 K/uL (1.8-8.9); NEUTROPHILS % (AUTO) 65.2 % (43.0-81.0); PLATELET COUNT (AUTO) 534 K/uL (150-450); POTASSIUM 3.4 mmol/L (3.5-5.1); WHITE BLOOD COUNT (AUTO) 10.2 K/uL (4.3-11.0)
--- NOTE | 2021-02-10 06:24 | NUR ---
Patient is alert and oriented to self. VSS throughout shift O2 kept > 90% on 5L O2 via NC. No episodes of SOB, no signs of distress. No overnight events, except confusion and being uncooperative at times. Davis. Soft wrist restraints released qhour circulation and skin remain intact. Safety checks q15min. Patient is SR on monitor. Patient able to turn self but assist with greater repositioning q2h, keot clean and dry on purewick system per family request and change chux and linens PRN for leakage of system. Replaced purewick this shift to clean one. Patient tolerated pureed snack that family delivered to staff well. DESIRAE midline flushed and patent. No s/s of hypo or hyperglycemic reactions noted. SR on tele monitor. All safety measures in place.
--- NOTE | 2021-02-10 06:44 | NUR ---
Patient's face appears flushed and forehead/chest feels warm. Temperature reads 97.5 however. Taken off extra blankets, put cold wash cloth on forehead, and bag of ice on chest. Will monitor closely for continued comfort and also endorse to next nurse.
--- NOTE | 2021-02-10 07:20 | NUR ---
RN NOTE PATIENT OBSERVED IN BED AWAKE, ALERT AND ORIENTED X 1, ON NC @ 5LPM O2 SAT OF 95% TOLERATING WELL, ON BILATERAL SOFT WRIST RESTRAINT SKIN INTACT UPON ASSESSMENT, WITH WITH LEFT UPPER ARM MIDLINE PATENT FLUSHING WELL, WITH PURE WICK ON, SAFETY MEASURES OBSERVED, CALL LIGHT WITHIN REACH, WILL CONTINUE TO MONITOR.
[2021-02-10 08:00] VITALS: BP 121/76
[2021-02-10] MEDS: BLOOD SUGAR DIAGNOSTIC 1 EACH STRIP IN SCH ×4 (08:14→22:14)
[2021-02-10] MEDS: INSULIN REGULAR, HUMAN 100 UNIT/ML 3 ML VIAL SQ PRN ×4 (08:14→22:21)
[2021-02-10] MEDS: FLUTICASONE/VILANTEROL 1 EACH BLST.W.DEV IH SCH (08:16)
[2021-02-10] MEDS: GABAPENTIN 300 MG CAPSULE PO SCH (08:16)
[2021-02-10] MEDS: LOSARTAN POTASSIUM 50 MG TABLET PO SCH (08:17)
[2021-02-10] MEDS: AMLODIPINE BESYLATE 5 MG TABLET PO SCH (08:17)
[2021-02-10] MEDS: DEXAMETHASONE SOD PHOSPHATE 10 MG/ML VIAL IV SCH (08:17)
[2021-02-10] MEDS: APIXABAN 5 MG TABLET PO SCH ×2 (08:18→18:03)
[2021-02-10] MEDS: prednisoLONE ACETATE 1% SUSP 5 ML BOTTLE RIGHTEYE SCH ×3 (08:39→18:27)
[2021-02-10] MEDS ORDERED: POTASSIUM CHLORIDE 20 MEQ TAB.PRT.SR PO SCH (10:30)
[2021-02-10 12:00] VITALS: BP 118/75
[2021-02-10 16:00] VITALS: BP 132/81
--- NOTE | 2021-02-10 18:55 | NUR ---
RN NOTE PATIENT OBSERVED IN BED AWAKE, ALERT AND ORIENTED X 1, ON NC @ 4 LPM O2 SAT OF 95% TOLERATING WELL, ON BILATERAL SOFT WRIST RESTRAINT SKIN INTACT UPON ASSESSMENT, WITH WITH LEFT UPPER ARM MIDLINE PATENT FLUSHING WELL, TITRATE O2 3-4 LPM IF POSSIBLE PER MD FOR DISCHARGE. WITH PURE WICK ON, SAFETY MEASURES OBSERVED, CALL LIGHT WITHIN REACH, WILL ENDORSE TO NOC SHIFT.
--- NOTE | 2021-02-10 19:10 | NUR ---
RN NOTES RECEIVED REPORT FROM MORNING RN. PATIENT A/0 X1-2 KHMER SPEAKING. NO SOB NO DISTRESS. WITH IV ACCESS ON DESIRAE PATENT FLUSHES WELL. VITAL SIGNS TAKEN AND RECORDED. STILL WITH BILATERAL SOFT RESTRAINTS IN PLACE. ALL SAFETY MEASURES IN PLACE AT ALL TIMES. HOB ELEVATED, BED ON LOWEST POSITION AND LOCKED. CALL LIGHT WITHIN REACH. WILL CONTINUE TO MONITOR.
[2021-02-10 20:00] VITALS: BP 115/82
[2021-02-10] MEDS: MONTELUKAST SODIUM (10MG) 10 MG TABLET PO SCH (21:19)
[2021-02-10] MEDS: ARIPIPRAZOLE 2 MG TABLET PO SCH (21:19)
[2021-02-10] MEDS: CITALOPRAM HYDROBROMIDE 20 MG TABLET PO SCH (21:19)
--- NOTE | 2021-02-10 22:00 | NUR ---
RN NOTES BS 236 SLIDING SCALE OF REGULAR INSULIN 4 UNITS GIVE SQ. WILL CONTINUE TO MONITOR. PATIENT COMFORTABLE IN BED
[2021-02-10] MEDS: LATANOPROST EYE DROP 0.005% 2.5 ML BOTTLE EACHEYE SCH (22:02)
[2021-02-11] VITALS (7 sets, daily range): BP systolic 104–136; BP diastolic 52–75
--- NOTE | 2021-02-11 07:15 | NUR ---
RN NOTES PATIENT REMAINS IN STABLE CONDITION NO CHANGES IN HEALTH CONDITION. PATIENT STILL WITH OXYGEN INHALATION AT 4LPM VIA NC TOLERATING WELL SATING 94-95%. ALL SAFETY MEASURES IN PLACE AT ALL TIMES. BOTH SIDERAILS UP FOR SAFETY. CALL LIGHT WITHIN REACH. ENCOURAGE TO INCREASE FLUID INTAKE. ALL NEEDS ATTENEDED. CALL LIGHT WITHIN REACH. FREQUENT VISUAL MONITORING RENDERED. ALL DUE MEDS GIVEN. ENDORSED
--- NOTE | 2021-02-11 07:20 | NUR ---
RN NOTE OBSERVED PATIENT IN BED AWAKE, ALERT AND ORIENTED X1 ON, ON O2 4LPM VIA NC DECREASE TO 3LPM, TOLERATING WELL AT THIS TIME O2 SAT OF 95% BREATHING EVEN AND UNLABORED, ON BILATERAL SOFT WRIST RESTRAINT SKIN IS INTACT, LEFT UPPER ARM MIDLINE PATENT FLUSHING WELL SAFETY MEASURE OBSERVED, BED WHEELS LOCK, CALL LIGHT WITHIN REACH, WILL CONTINUE TO MONITOR.
[2021-02-11 08:31] LABS: BASOPHILS % (AUTO) 0.3 % (0.0-2.0); EOSINOPHILS % (AUTO) 0.1 % (0.0-6.0); HEMATOCRIT 32 % (33-45); HEMOGLOBIN 10.4 g/dL (11.5-14.8); LYMPHOCYTES # (AUTO) 2.6 K/uL (0.8-4.8); LYMPHOCYTES % (AUTO) 26.6 % (20.0-44.0); MEAN CORPUSCULAR HGB CONC 33 g/dl (31.0-36.0); MEAN CORPUSCULAR VOLUME 96 fL (82-100); MONOCYTES # (AUTO) 0.6 K/uL (0.1-1.30); MONOCYTES % (AUTO) 6.1 % (2.0-12.0); NEUTROPHILS # (AUTO) 6.5 K/uL (1.8-8.9); NEUTROPHILS % (AUTO) 66.9 % (43.0-81.0); PLATELET COUNT (AUTO) 602 K/uL (150-450); RED BLOOD CELL COUNT(AUTO) 3.28 MIL/uL (4.0-5.2); WHITE BLOOD COUNT (AUTO) 9.7 K/uL (4.3-11.0)
[2021-02-11 08:46] LABS: CALCIUM, SERUM 8.7 mg/dL (8.5-10.1); CREATININE 1.1 mg/dL (0.6-1.3); MAGNESIUM 2.3 mg/dL (1.8-2.4); POTASSIUM 3.2 mmol/L (3.5-5.1)
[2021-02-11] MEDS: DEXAMETHASONE SOD PHOSPHATE 10 MG/ML VIAL IV SCH (08:48)
[2021-02-11] MEDS: GABAPENTIN 300 MG CAPSULE PO SCH (08:48)
[2021-02-11] MEDS: LOSARTAN POTASSIUM 50 MG TABLET PO SCH (08:49)
[2021-02-11] MEDS: AMLODIPINE BESYLATE 5 MG TABLET PO SCH (08:49)
[2021-02-11] MEDS: APIXABAN 5 MG TABLET PO SCH ×2 (08:52→17:32)
[2021-02-11] MEDS: BLOOD SUGAR DIAGNOSTIC 1 EACH STRIP IN SCH ×4 (09:01→21:20)
[2021-02-11] MEDS: FLUTICASONE/VILANTEROL 1 EACH BLST.W.DEV IH SCH (09:03)
[2021-02-11] MEDS: prednisoLONE ACETATE 1% SUSP 5 ML BOTTLE RIGHTEYE SCH ×3 (09:04→17:33)
[2021-02-11] MEDS ORDERED: IV D5W 1,000 ML IV ONE (09:30)
[2021-02-11] MEDS ORDERED: POTASSIUM CHLORIDE 20 MEQ TAB.PRT.SR PO ONE (09:30)
[2021-02-11] MEDS: INSULIN REGULAR, HUMAN 100 UNIT/ML 3 ML VIAL SQ PRN ×3 (12:01→21:24)
--- NOTE | 2021-02-11 18:37 | NUR ---
RN NOTE OBSERVED PATIENT IN BED AWAKE, ALERT AND ORIENTED X1 ON, ON O2 3LPM VIA NC TOLERATING WELL AT THIS TIME O2 SAT OF 95% BREATHING EVEN AND UNLABORED, ON BILATERAL SOFT WRIST RESTRAINT SKIN IS INTACT, LEFT UPPER ARM MIDLINE PATENT FLUSHING WELL, D5 1/2 NS GIVEN 100 CC/HR , POTASSIUM OF 3.2 REPLACED ORDERED, ON ELIQIUS NO BLEEDING NOTED ,SAFETY MEASURE OBSERVED, BED WHEELS LOCK, CALL LIGHT WITHIN REACH, WILL ENDORSE TO NOC SHIFT..
--- NOTE | 2021-02-11 20:00 | NUR ---
REGISTERED SALES ASSISTANT OPENING NOTE RECEIVED PATIENT IN BED A/O X2 , ALERT, CONFUSED AND IN NO DISTRESS. PATIENT ON 3L NASAL CANULA O2 SAT AT 93 WITH NON LABORED BREATHING. PATIENT ON SOFT BILATERAL RESTRAINTS, IV FLUID D5NS FINISHED NOTED ORDER DISCONTINUED, O S/S OF HYPO/HYPERGLYCEMIA. SKIN INTACT WITH PATENT DESIRAE MIDLINE,FLUSHED.PATIENT ON TELE MONITOR WITH SINUS CLAUDE RHYTHM. HOB ELEVATED, BED IN LOW POSITION, CALL LIGHT WITHIN REACH, AND BED LOCKED. Addendum: 02/11/21 at 2325 by Yanci Ashby RN BILATERAL SOFT WRIST RESTRAINS ON, SKIN AROUND RESTRAINTS WITHIN WNL.
[2021-02-11] MEDS: MONTELUKAST SODIUM (10MG) 10 MG TABLET PO SCH (21:18)
[2021-02-11] MEDS: ARIPIPRAZOLE 2 MG TABLET PO SCH (21:18)
[2021-02-11] MEDS: CITALOPRAM HYDROBROMIDE 20 MG TABLET PO SCH (21:18)
[2021-02-11] MEDS: LATANOPROST EYE DROP 0.005% 2.5 ML BOTTLE EACHEYE SCH (21:20)
[2021-02-12] VITALS: BP 141/78
[2021-02-12 04:00] VITALS: BP 144/77
--- NOTE | 2021-02-12 06:35 | NUR ---
STRADDLE TRUCK OPERATOR OPENING NOTE PATIENT RESTING IN BED A/O X 1 , ALERT, CONFUSED AND IN NO DISTRESS. PATIENT ON 3L NASAL CANULA O2 SAT AT 94 WITH NON LABORED BREATHING. PATIENT ON SOFT BILATERAL RESTRAINTS, IV FLUID D5NS FINISHED NOTED ORDER DISCONTINUED, SKIN INTACT WITH PATENT DESIRAE MIDLINE,FLUSHED.PATIENT ON TELE MONITOR WITH SINUS RHYTHM WITH HR 62. HOB ELEVATED, BED IN LOW POSITION, CALL LIGHT WITHIN REACH, AND BED LOCKED. PATIENT HAS PURWICK, DRAINING THE URINE.WILL ENDORSE PLAN OF CARE TO ONCOMING NURSE. Addendum: 02/12/21 at 0642 by Yanci Ashby RN STRADDLE TRUCK OPERATOR CLOSING NOTES - NOT OPENING
--- NOTE | 2021-02-12 07:45 | NUR ---
RN NOTES PATIENT RECEIVED AWAKE IN BED A/O X 1 IN NO DISTRESS. PATIENT ON 3L NASAL CANULA O2 SAT AT 95 WITH NON LABORED BREATHING. PATIENT ON SOFT BILATERAL RESTRAINTS, SKIN INTACT WITH PATENT DESIRAE MIDLINE,FLUSHED, PATIENT ON TELE MONITOR WITH SINUS RHYTHM . HOB ELEVATED, BED IN LOW POSITION, CALL LIGHT WITHIN REACH, AND BED LOCKED. PATIENT HAS PURWICK, DRAINING THE URINE. WILL CONTINEUE ASSESS AND MONITOR AND JOSE.
[2021-02-12 08:00] VITALS: BP 144/78
[2021-02-12] MEDS: BLOOD SUGAR DIAGNOSTIC 1 EACH STRIP IN SCH ×3 (08:02→17:19)
[2021-02-12 09:13] LABS: BASOPHILS # (AUTO) 0.1 K/uL (0.0-0.2); BASOPHILS % (AUTO) 0.7 % (0.0-2.0); EOSINOPHILS % (AUTO) 0.4 % (0.0-6.0); HEMATOCRIT 35 % (33-45); HEMOGLOBIN 11.5 g/dL (11.5-14.8); LYMPHOCYTES # (AUTO) 2.8 K/uL (0.8-4.8); LYMPHOCYTES % (AUTO) 27.9 % (20.0-44.0); MEAN CORPUSCULAR HGB CONC 33 g/dl (31.0-36.0); MEAN CORPUSCULAR VOLUME 94 fL (82-100); MONOCYTES # (AUTO) 0.5 K/uL (0.1-1.30); MONOCYTES % (AUTO) 4.5 % (2.0-12.0); NEUTROPHILS # (AUTO) 6.8 K/uL (1.8-8.9); NEUTROPHILS % (AUTO) 66.5 % (43.0-81.0); PLATELET COUNT (AUTO) 604 K/uL (150-450); RED BLOOD CELL COUNT(AUTO) 3.69 MIL/uL (4.0-5.2); WHITE BLOOD COUNT (AUTO) 10.2 K/uL (4.3-11.0)
[2021-02-12 09:34] LABS: CALCIUM, SERUM 8.8 mg/dL (8.5-10.1); POTASSIUM 2.9 mmol/L (3.5-5.1)
[2021-02-12] MEDS: FLUTICASONE/VILANTEROL 1 EACH BLST.W.DEV IH SCH (09:41)
[2021-02-12] MEDS: AMLODIPINE BESYLATE 5 MG TABLET PO SCH (09:42)
[2021-02-12] MEDS: DEXAMETHASONE SOD PHOSPHATE 10 MG/ML VIAL IV SCH (09:46)
[2021-02-12] MEDS: GABAPENTIN 300 MG CAPSULE PO SCH (09:46)
[2021-02-12] MEDS: LOSARTAN POTASSIUM 50 MG TABLET PO SCH (09:47)
[2021-02-12] MEDS: GLUCERNA SHAKE 237 ML CAN PO SCH ×2 (09:48→17:01)
[2021-02-12] MEDS: prednisoLONE ACETATE 1% SUSP 5 ML BOTTLE RIGHTEYE SCH ×3 (09:48→17:02)
[2021-02-12] MEDS: APIXABAN 5 MG TABLET PO SCH ×2 (09:50→17:01)
[2021-02-12 11:32] LABS: BAND % (MANUAL) 4 % (0.0-5.0); LYMPHOCYTES % (MANUAL) 26 % (16-48); METAMYELOCYTES % 1 % (0-0); MONOCYTES % (MANUAL) 2 % (0-11.0); MYELOCYTES % 1 % (0-0); NEUTROPHILS % (MANUAL) 66 (42-76)
--- NOTE | 2021-02-12 11:42 | NUR ---
RN NOTE PATIENT SEEN BY JORGE NAVA FOR DISCHARGE THIS AFTERNOON.
[2021-02-12] MEDS: INSULIN REGULAR, HUMAN 100 UNIT/ML 3 ML VIAL SQ PRN ×2 (11:48→17:21)
[2021-02-12 12:00] VITALS: BP 131/81
[2021-02-12] MEDS: POTASSIUM CL. PREMIX PERIPHER. 50 ML IV SCH ×4 (13:51→16:42)
[2021-02-12 16:00] VITALS: BP 130/75
--- NOTE | 2021-02-12 19:04 | NUR ---
RN NOTE DISCHARGE TO HOME, MIDLINE REMOVED, DISCHARGE REPORT GIVEN TO TRANSPORT AMBULANCE, PATIENT VTS STABLE.
== END 2021-02-12 21:27 | disposition home or self-care (01) | DRG 133 ==
LOC: ER 07:20 → ICU 12:10 → TELE1 02-09 15:27
PROVIDERS: ADMIT Nurse Practitioner Family; ATTEND Nurse Practitioner Family
PROC: 05HC33Z Insertion of Infusion Device into Left Basilic Vein, Percutaneous Approach (ICD-10-PCS; principal; 2021-02-09)
DX: J96.21 Acute and chronic respiratory failure with hypoxia (principal); G92.8 Other toxic encephalopathy; D68.69 Other thrombophilia; E87.0 Hyperosmolality and hypernatremia; E44.0 Moderate protein-calorie malnutrition; I82.403 Acute embolism and thrombosis of unspecified deep veins of lower extremity, bilateral; E87.2 Acidosis; J18.9 Pneumonia, unspecified organism; Z20.822 Contact with and (suspected) exposure to COVID-19; E87.6 Hypokalemia; I11.0 Hypertensive heart disease with heart failure; Z86.73 Personal history of transient ischemic attack (TIA), and cerebral infarction without residual deficits; Z86.718 Personal history of other venous thrombosis and embolism; E66.9 Obesity, unspecified; D64.9 Anemia, unspecified; Z90.49 Acquired absence of other specified parts of digestive tract; Z90.710 Acquired absence of both cervix and uterus; Z79.01 Long term (current) use of anticoagulants; Z79.51 Long term (current) use of inhaled steroids; Z79.899 Other long term (current) drug therapy; J84.10 Pulmonary fibrosis, unspecified; E78.5 Hyperlipidemia, unspecified; F32.A Depression, unspecified; I70.0 Atherosclerosis of aorta; U09.9 Post COVID-19 condition, unspecified; H40.9 Unspecified glaucoma; Z99.81 Dependence on supplemental oxygen
CPT/HCPCS: 36415; 36600; 71045-TC; 80048-TC; 80053-TC; 81001; 82248-TC; 82550-TC; 82962-TC; 83605-TC; 83615-TC; 83735-TC; 83880; 84484-TC; 85025-TC; 85378-TC; 85730-TC; 86140-TC; 87040-TC; 87081-TC; 87086-TC; 97116-TC; 97530-TC; C9803; G0378; J0456; J0696; J1100; J1815; J3480; J7030; J7040; J7050; J7060; Q9967; U0003

== ENCOUNTER 2021-03-03 23:08 | Inpatient (IN) | payer OTHER ==
[~2021-03-03] VITALS: Ht 157.5 cm; Wt 71.2 kg
--- NOTE | 2021-03-03 20:35 | NUR ---
PATIENT WAS BIBRA AND DAUGHTER FROM HOME FOR LOW O2 SAT AND AMS. ON O2 AT 2LPM VIA NC AT HOME. PT'S BREATHING IS SHALLOW AND LABORED. PLACED PT ON 10L VIA SIMPLE MASK PER MD ORDER. PATIENT WAS SEEN AND EXAMINED BY DR FRANCIS. PT ATTACHED TO MONITOR AND PULSE OX. WILL CONTINUE TO MONITOR AND CARRY OUT MD ORDERS.
--- NOTE | 2021-03-04 | NUR ---
RADIOLOGY AT BEDSIDE FOR CXR
[2021-03-04] MEDS ORDERED: AZITHROMYCIN 500 MG in IV D5W 250 ML IV ONE (00:30)
[2021-03-04] MEDS ORDERED: CEFTRIAXONE 1GM BAG (ER ONLY) 1 GM/50 ML PIGGYBACK IV ONE (00:30)
[2021-03-04] MEDS ORDERED: AZITHROMYCIN 500 MG VIAL ONE (00:48)
[2021-03-04] MEDS ORDERED: CEFTRIAXONE 1GM BAG (ER ONLY) 50 ML IV ONE (00:48)
--- NOTE | 2021-03-04 00:48 | NUR ---
BLOOD OBTAINED AND SENT TO LAB
[2021-03-04 01:02] LABS: BASOPHILS # (AUTO) 0.2 K/uL (0.0-0.2); BASOPHILS % (AUTO) 1.3 % (0.0-2.0); EOSINOPHILS % (AUTO) 4.8 % (0.0-6.0); HEMATOCRIT 35 % (33-45); HEMOGLOBIN 11.6 g/dL (11.5-14.8); LYMPHOCYTES # (AUTO) 3.5 K/uL (0.8-4.8); LYMPHOCYTES % (AUTO) 24.4 % (20.0-44.0); MEAN CORPUSCULAR HGB CONC 33 g/dl (31.0-36.0); MEAN CORPUSCULAR VOLUME 91 fL (82-100); MONOCYTES # (AUTO) 0.3 K/uL (0.1-1.30); MONOCYTES % (AUTO) 2.1 % (2.0-12.0); NEUTROPHILS # (AUTO) 9.7 K/uL (1.8-8.9); NEUTROPHILS % (AUTO) 67.4 % (43.0-81.0); PLATELET COUNT (AUTO) 650 K/uL (150-450); RED BLOOD CELL COUNT(AUTO) 3.86 MIL/uL (4.0-5.2); WHITE BLOOD COUNT (AUTO) 14.4 K/uL (4.3-11.0)
--- NOTE | 2021-03-04 01:13 | NUR ---
TAKEN TO XRAY
--- NOTE | 2021-03-04 01:26 | NUR ---
RT AT BEDSIDE FOR ABG DRAW
[2021-03-04 01:48] LABS: ABG BASE EXCESS 2.8 mmol/L; ABG OXYGEN SATURATION 87.4 % (92.0-98.5); ABG PCO2 40.2 mmHg (35.0-45.0); ABG PH 7.445 (7.350-7.450); ABG PO2 51.9 mmHg (75.0-100.0); AaDO2 223.2 mmHg; COHb 0.4 % (0.5-1.5); MetHb 0.2 % (0.0-1.5); O2Hb 86.9 % (94.0-97.0); SITE, ABG Left Radial; VENT MODE, BG Nasal Cannula
[2021-03-04 01:54] LABS: CALCIUM, SERUM 8.2 mg/dL (8.5-10.1); CARBON DIOXIDE 27 mmol/L (21-32); CHLORIDE 90 mmol/L (98-107); CREATININE 0.8 mg/dL (0.6-1.3); GLUCOSE 93 mg/dL (74-106); POTASSIUM 4.1 mmol/L (3.5-5.1); SODIUM SERUM 127 mmol/L (136-145); UREA NITROGEN, BLOOD 12 mg/dL (7-18)
[2021-03-04 02:07] LABS: ALANINE AMINOTRANSFERASE 15 U/L (12-78); ALBUMIN 2.1 g/dL (3.4-5.0); ALKALINE PHOSPHATASE 154 U/L (46-116); ASPARTATE AMINOTRANSFERASE 30 U/L (15-37); BILIRUBIN,DIRECT 0.1 mg/dL (0.0-0.2); BILIRUBIN,TOTAL 0.2 mg/dL (0.2-1.0); TOTAL PROTEIN, SERUM 7.8 g/dL (6.4-8.2)
[2021-03-04] MEDS ORDERED: METH2.5T PO (02:14)
[2021-03-04] MEDS ORDERED: FOLI0.4T6 PO (02:14)
[2021-03-04] MEDS ORDERED: METO25TA4 PO (02:14)
[2021-03-04] MEDS ORDERED: ATEN25TA PO (02:14)
[2021-03-04] MEDS ORDERED: ACETAMINOPHEN 650 MG/SUPP.RECT RC PRN (03:00)
[2021-03-04] MEDS ORDERED: METHOTREXATE SODIUM (2.5MG) 2.5 MG TABLET PO SCH (03:00)
[2021-03-04] MEDS ORDERED: IV NS 0.9% 500 ML IV ONE (03:00)
[2021-03-04] MEDS ORDERED: ONDANSETRON HCL/PF 4 MG/2 ML VIAL IVP PRN (03:00)
[2021-03-04] MEDS ORDERED: ENOXAPARIN SODIUM 40 MG/0.4 ML DISP.SYRIN SQ SCH (03:00)
--- NOTE | 2021-03-04 03:16 | NUR ---
urine collected and sent to lab
--- NOTE | 2021-03-04 03:20 | NUR ---
RN NOTES RECEIVED ER ADMISSION REPORT FROM [facility] FISH. ALL PERTINENT ADMISSION INFO REGARDING PT NOTED. WILL WAIT FOR PT TO BE TRANSFERRED TO UNIT AND ADDRESS NEEDS ACCORDINGLY. ECG TECHNICIAN MADE AWARE.
--- NOTE | 2021-03-04 03:31 | NUR ---
RN NOTES RECEIVED PT FROM ER VIA GURNEY ACCOMPANIED BY 2 ER STAFF AND TRANSFERRED TO BED VIA 2 PERSON ASSIST. PT IS A/OX1-2; NON VERBAL; PT ON NB MASK @15L; WITH RESPIRATIONS EVEN AND UNLABORED. COMPREHENSIVE PHYSICAL ASSESSMENT AND PATIENT CARE DONE. CALL LIGHT WITHIN REACH, SAFETY MEASURES AND ISOLATION PRECAUTION IN PLACE, WILL CONTINUE MONITOR AND ASSESS THROUGHOUT THE SHIFT. WILL CARRY OUT MD ORDERS ACCORDINGLY. COMMERCIAL DRONE SOFTWARE DEVELOPER MADE AWARE.
--- NOTE | 2021-03-04 03:37 | NUR ---
PATIENT TRANSFERRED TO [facility] VIA ACLS PROTOCOL. REPORT GIVEN TO STEPHAN ATKINS FOR JOSE
[2021-03-04 04:20] LABS: BILIRUBIN,URINE NEGATIVE (NEGATIVE); COLOR,URINE YELLOW (YELLOW); LEUKOCYTE ESTERASE ,URINE SMALL (NEGATIVE); NITRITE, URINE POSITIVE (NEGATIVE); PROTEIN,URINE NEGATIVE (NEGATIVE); UGLUCOSE NEGATIVE (NEGATIVE); UROBILINOGEN,URINE 0.2 EU/dL (0.2)
[2021-03-04 04:28] LABS: BACTERIA,URINE Many /HPF (None Seen); RBC,URINE 0-2 /HPF (0-2); SQUAMOUS EPITHELIAL CELL,UR Few /HPF (None Seen); WBC,URINE 21-50 /HPF (0-3)
--- NOTE | 2021-03-04 06:54 | NUR ---
RN CLOSING NOTE: PATIENT REMAINS IN ROOM IN NO SIGNS OF RESPIRATORY DISTRESS, PATIENT STILL ON 12L OF 02 VIA NON-REBREATHER MASK; TOLERATING WELL SATURATING @ >95% SP02. SAFETY MEASURES IMPLEMENTED, BED IN LOWEST POSITION, LOCKED, SIDE RAILS UP, CALL LIGHT WITHIN REACH. ALL NEEDS AND ORDERS ADDRESSED DURING THE SHIFT. IV ACCESS MAINTAINED INTACT, SECURED AND FLUSHING WELL. ALL DUE MEDS GIVEN ORDERED & SCHEDULED ; PATIENT TOLERATED WELL. PATIENT KEPT CLEAN AND COMFORTABLE WITHIN THE SHIFT. PATIENT ENDORSED TO INCOMING SHIFT RN WITH STABLE VITAL SIGN AND FOR CONTINUITY OF CARE.
[2021-03-04 07:31] LABS: BASOPHILS # (AUTO) 0.2 K/uL (0.0-0.2); BASOPHILS % (AUTO) 1.1 % (0.0-2.0); HEMATOCRIT 32 % (33-45); HEMOGLOBIN 10.6 g/dL (11.5-14.8); LYMPHOCYTES # (AUTO) 2.3 K/uL (0.8-4.8); LYMPHOCYTES % (AUTO) 15.9 % (20.0-44.0); MEAN CORPUSCULAR HGB CONC 34 g/dl (31.0-36.0); MEAN CORPUSCULAR VOLUME 90 fL (82-100); MONOCYTES # (AUTO) 0.5 K/uL (0.1-1.30); MONOCYTES % (AUTO) 3.1 % (2.0-12.0); NEUTROPHILS # (AUTO) 11.1 K/uL (1.8-8.9); NEUTROPHILS % (AUTO) 77.9 % (43.0-81.0); PLATELET COUNT (AUTO) 521 K/uL (150-450); RED BLOOD CELL COUNT(AUTO) 3.52 MIL/uL (4.0-5.2); WHITE BLOOD COUNT (AUTO) 14.3 K/uL (4.3-11.0)
[2021-03-04 07:39] LABS: CALCIUM, SERUM 7.5 mg/dL (8.5-10.1); CREATININE 0.8 mg/dL (0.6-1.3); POTASSIUM 3.8 mmol/L (3.5-5.1)
[2021-03-04 07:44] LABS: ALBUMIN 1.8 g/dL (3.4-5.0); BILIRUBIN,TOTAL 0.3 mg/dL (0.2-1.0); MAGNESIUM 1.6 mg/dL (1.8-2.4); TOTAL PROTEIN, SERUM 6.7 g/dL (6.4-8.2)
[2021-03-04 07:52] LABS: THYROID STIMULATING HORMONE 0.68 uIU/mL (0.358-3.74)
[2021-03-04 08:00] VITALS: BP 91/52
[2021-03-04 08:01] LABS: C-REACTIVE PROTEIN 7.7 mg/dL (0.0-0.9)
--- NOTE | 2021-03-04 08:04 | NUR ---
RN OPENING NOTES RECEIVED PT IN BED RELAXED. NO S/S OF SOB OR C/O PAIN. PT IS A/OX1-2; NON VERBAL; PT ON NB MASK @12L; WITH RESPIRATIONS EVEN AND UNLABORED. CALL LIGHT WITHIN REACH, SAFETY MEASURES AND ISOLATION PRECAUTION IN PLACE, BED IN LOWEST LOCKED POSITION. CALL LIGHT WITHIN REACH. WILL CONTINUE MONITOR AND ASSESS THROUGHOUT THE SHIFT.
[2021-03-04] MEDS: METOPROLOL SUCCINATE 25 MG TAB.SR.24H PO SCH (09:00)
--- NOTE | 2021-03-04 09:15 | NUR ---
RN NOTES HELD METROPROLOL DUE TO PT LOW BP 91/52.
[2021-03-04] MEDS: DEXAMETHASONE SOD PHOSPHATE 10 MG/ML VIAL IV SCH ×2 (09:16→16:11)
[2021-03-04] MEDS: APIXABAN 5 MG TABLET PO SCH ×2 (09:17→16:11)
[2021-03-04] MEDS ORDERED: FUROSEMIDE 20 MG/2 ML VIAL IV SCH (10:00)
[2021-03-04] MEDS: Magnesium 1GM/D5W 100ML PREMIX 100 ML IV SCH ×2 (10:52→12:27)
[2021-03-04] MEDS ORDERED: VANCOMYCIN 1 GM in IV D5W 250 ML IV ONE (11:00)
--- NOTE | 2021-03-04 11:10 | NUR ---
RN NOTES PER MD ORDER, SWITCHED TO OXYGEN TO NC 6L. MIDLINE INSERTED TIN, CONSENT FOR CT PULM ANGIO OBTAINED.
[2021-03-04] MEDS ORDERED: IOHEXOL-350 100 ML VIAL IV ONE (11:30)
[2021-03-04] MEDS ORDERED: IV NS 0.9% 250 ML IV ONE (11:30)
--- NOTE | 2021-03-04 11:48 | NUR ---
PT TAKEN FOR CT PULM ANGIO AT 1130. WILL CONTINUE IV MEDS UPON RETURN.
[2021-03-04 12:00] VITALS: BP 89/59
[2021-03-04] MEDS: PIPERACILLIN /TAZOBACTAM 3.375 G in IV D5W 50 ML IV SCH ×3 (12:23→21:32)
--- NOTE | 2021-03-04 15:45 | NUR ---
WILL ADMINISTER 1300 ZOSYN AT 1823. 1300 DOSE HELD DUE TO 6 HR APART DOSAGE.
[2021-03-04 16:00] VITALS: BP 101/58
--- NOTE | 2021-03-04 18:49 | NUR ---
RN CLOSING NOTE PATIENT IS RESTING IN ROOM WITH NO SIGNS OF RESPIRATORY DISTRESS, PATIENT NOW ON NC 6L, SATING 96% SPO2. ALL NEEDS AND ORDERS ADDRESSED DURING THE SHIFT. PATIENT HAS NEW RIGHT UPPER ARM MIDLINE. IV ACCESS MAINTAINED INTACT, SECURED AND FLUSHING WELL. ALL DUE MEDS GIVEN ORDERED & SCHEDULED ; PATIENT TOLERATED WELL. PATIENT KEPT CLEAN AND COMFORTABLE WITHIN THE SHIFT. PT TOLERATES PO FEEDING. NPO DC'ED. STARTING PUREE DIET. SAFETY MEASURES IMPLEMENTED, BED IN LOWEST LOCKED POSITION, LOCKED, SIDE RAILS UP, CALL LIGHT WITHIN REACH. PATIENT ENDORSED TO GREENKEEPER NURSE.
--- NOTE | 2021-03-04 19:30 | NUR ---
RN NOTE PT RECEIVED IM BED. PT IS ON 6L OF O2 VIA NC SHOWING NO S/S OF RESP DISTRESS. PT IS ALERT AND ORIENTED X1-2, CITIZEN OF [place] AND [place] SPEAKING. ON SAMPLE MAKER SHOWING NSR. SKIN INTACT. IV ACCESS NOTED ON TIN MID AND LEFT WRIST. LINE FLUSHED, PATENT, AND INTACT WITH NO SIGNS OF INFILTRATION. ALL SAFETY MEASURES IMPLEMENTED. CALL LIGHT WITHIN REACH. BED ALARM ON. BED LOCKED AND IN LOWEST POSITION. SIDE RAILS UP. WILL CONTINUE TO MONITOR AND ASSESS FOR ANY CHANGES DURING SHIFT.
[2021-03-04 20:00] VITALS: BP 125/71
[2021-03-04] MEDS ORDERED: AZITHROMYCIN 500 MG in IV D5W 250 ML IV SCH (21:00)
[2021-03-04] MEDS ORDERED: CEFTRIAXONE 1 G in IV D5W 50 ML IV SCH (21:00)
[2021-03-04] MEDS ORDERED: VANCOMYCIN 0.75 GM in IV D5W 250 ML IV SCH (23:00)
[2021-03-05] VITALS: BP 106/68
[2021-03-05 04:00] VITALS: BP 106/68
--- NOTE | 2021-03-05 04:45 | NUR ---
RN NOTE SPOKE WITH LEILA GEORGES ABOUT PT PULLING OUT MIDLINE AND BEING HARD STICK. TIRED RE-INSERTING IV LINE WITH CHARGE, RN BUT WAS NOT ABLE TOO. LEILA GEORGES ORDERED TO RESCHEDULE IV ZOSYN/ANTIBIOTICS UNTIL MIDLINE NURSE COMES. ORDER NOTED AND CARRIED OUT.
[2021-03-05] MEDS: PIPERACILLIN /TAZOBACTAM 3.375 G in IV D5W 50 ML IV SCH ×3 (05:00→21:26)
--- NOTE | 2021-03-05 07:00 | NUR ---
RN NOTE 0500 ZOSYN HELD DUE TO NO IV ACCESS. AWAITING MIDLINE INSERTION.
--- NOTE | 2021-03-05 07:01 | NUR ---
RN NOTE NO CHANGES IN PT CONDITION DURING SHIFT. PT IS ON 6L OF O2 VIA NC SHOWING NO S/S OF RESP DISTRESS. PT IS ALERT AND ORIENTED X1-2, EGYPTIAN SPEAKING. ON STRAIGHTENING MACHINE FEEDER SHOWING NSR. PT REMOVED IV LINE, CURRENTLY WAITING FOR MIDLINE PLACEMENT. LANDCARE FACILITATOR JOSÉ MANUEL AWARE. ALL DUE MEDS GIVEN ORDERED. PT KEPT CLEAN AND COMFORTABLE. ALL SAFETY MEASURES IMPLEMENTED. CALL LIGHT WITHIN REACH. BED ALARM ON. BED LOCKED AND IN LOWEST POSITION. SIDE RAILS UP. WILL ENDORSE TO MORNING SHIFT RN FOR JOSE.
--- NOTE | 2021-03-05 07:12 | NUR ---
RN NOTE PATIENT IS IN BED WITH HOB AT SEMI FOWLERS POSITION. PATIENT IS ON 6L NC WITH NO SIGNS OF LABORED BREATHING. PATIENT IS AOX1. PATIENT HAS NO IV ACCESS. BED IS LOCKED IN THE LOWEST POSITION, 3 GUARD RAILS RAISED, CALL MCGOVERN WITHIN REACH, AND ALL HOSPITAL SAFETY PRECAUTIONS ARE BEING FOLLOWED. WILL CONTINUE TO MONITOR THROUGHOUT SHIFT.
[2021-03-05 08:00] VITALS: BP 102/67
[2021-03-05] MEDS: METOPROLOL SUCCINATE 25 MG TAB.SR.24H PO SCH (09:00)
[2021-03-05] MEDS: DEXAMETHASONE SOD PHOSPHATE 10 MG/ML VIAL IV SCH ×2 (09:00→16:01)
[2021-03-05] MEDS ORDERED: POTASSIUM CHLORIDE 20 MEQ TAB.PRT.SR PO SCH (09:00)
[2021-03-05] MEDS ORDERED: FUROSEMIDE 40 MG/4 ML VIAL IV SCH (09:00)
--- NOTE | 2021-03-05 09:00 | NUR ---
RN NOTE UNABLE TO ADMINISTER ANY IV MEDICATIONS UNTIL MIDLINE IS PLACED. DR. TAO AWARE.
[2021-03-05] MEDS: POTASSIUM CHLORIDE 20 MEQ POWDER PACKET PO SCH ×4 (09:15→12:00)
[2021-03-05] MEDS: FOLIC ACID 1 MG TABLET PO SCH (09:15)
[2021-03-05] MEDS: APIXABAN 5 MG TABLET PO SCH ×2 (09:16→16:02)
[2021-03-05 12:00] VITALS: BP 111/64
[2021-03-05] MEDS: FUROSEMIDE 40 MG/4 ML VIAL IV SCH ×3 (14:45→23:24)
[2021-03-05 15:25] LABS: BASOPHILS % (AUTO) 0.3 % (0.0-2.0); HEMATOCRIT 30 % (33-45); HEMOGLOBIN 9.7 g/dL (11.5-14.8); LYMPHOCYTES # (AUTO) 2.2 K/uL (0.8-4.8); LYMPHOCYTES % (AUTO) 18.3 % (20.0-44.0); MEAN CORPUSCULAR HGB CONC 33 g/dl (31.0-36.0); MEAN CORPUSCULAR VOLUME 91 fL (82-100); MONOCYTES # (AUTO) 0.3 K/uL (0.1-1.30); MONOCYTES % (AUTO) 2.6 % (2.0-12.0); NEUTROPHILS # (AUTO) 9.3 K/uL (1.8-8.9); NEUTROPHILS % (AUTO) 78.8 % (43.0-81.0); RED BLOOD CELL COUNT(AUTO) 3.27 MIL/uL (4.0-5.2); WHITE BLOOD COUNT (AUTO) 11.8 K/uL (4.3-11.0)
[2021-03-05 15:59] LABS: CALCIUM, SERUM 8.3 mg/dL (8.5-10.1); CREATININE 0.9 mg/dL (0.6-1.3); MAGNESIUM 2.4 mg/dL (1.8-2.4); POTASSIUM 3.1 mmol/L (3.5-5.1)
[2021-03-05 16:00] VITALS: BP 95/59
[2021-03-05] MEDS: VANCOMYCIN 0.75 GM in IV D5W 250 ML IV SCH (16:01)
[2021-03-05 16:07] LABS: IRON, SERUM 52 ug/dl (50-175); TOTAL IRON BINDING CAPACITY 157 ug/dl (250-450)
[2021-03-05 16:11] LABS: PLATELET COUNT (AUTO) 544 K/uL (150-450)
--- NOTE | 2021-03-05 18:51 | NUR ---
RN NOTE PATIENT IS IN BED WITH HOB AT SEMI FOWLERS POSITION. PATIENT IS ON 5L NC WITH NO SIGNS OF LABORED BREATHING. PATIENT IS AOX1. TIN MIDLINE IS PATENT AND INTACT. BED IS LOCKED IN THE LOWEST POSITION, 3 GUARD RAILS RAISED, CALL MCGOVERN WITHIN REACH, AND ALL HOSPITAL SAFETY PRECAUTIONS ARE BEING FOLLOWED. WILL ENDORSE TO ELECTRIC TRIPPER MACHINE OPERATOR RN.
--- NOTE | 2021-03-05 19:30 | NUR ---
RN NOTE PT RECEIVED IN BED. PT IS ON 6L OF O2 VIA NC SHOWING NO S/S OF RESP DISTRESS. BREATHING EVEN AND UNLABORED. PT IS ALERT AND ORIENTED X1-2, LATVIAN SPEAKING. ON LOGISTICS ASSOCIATE SHOWING NSR. IV ACCESS NOTED ON TIN MIDLINE #18. LINE FLUSHED, PATENT, AND INTACT WITH NO SIGNS OF INFILTRATION. ALL SAFETY MEASURES IMPLEMENTED. CALL LIGHT WITHIN REACH. BED ALARM ON. BED LOCKED AND IN LOWEST POSITION. SIDE RAILS UP. WILL CONTINUE TO MONITOR AND ASSESS FOR ANY CHANGES DURING SHIFT.
[2021-03-05 20:00] VITALS: BP 112/66
[2021-03-06] VITALS: BP 103/59
[2021-03-06] MEDS: VANCOMYCIN 0.75 GM in IV D5W 250 ML IV SCH ×2 (02:58→11:52)
--- NOTE | 2021-03-06 02:58 | NUR ---
RN NOTE SPOKE WITH [facility] REGARDING VANCOMYCIN TROUGH BEING 21. PHARMACY NOTED TO HOLD VANCO FOR THE EVENING AND HAVE OUR PHARMACY ADJUST IN THE MORNING. ORDER NOTED.
[2021-03-06 04:00] VITALS: BP 118/72
[2021-03-06] MEDS: PIPERACILLIN /TAZOBACTAM 3.375 G in IV D5W 50 ML IV SCH ×3 (05:26→21:25)
--- NOTE | 2021-03-06 06:42 | NUR ---
RN NOTE NO CHANGES IN PT CONDITION DURING SHIFT. PT IS NOW ON 5L OF O2 VIA NC SHOWING NO S/S OF RESP DISTRESS. BREATHING EVEN AND UNLABORED. PT IS ALERT AND ORIENTED X1-2, MALT[place] SPEAKING. IV ACCESS NOTED ON TIN MIDLINE #18. LINE FLUSHED, PATENT, AND INTACT WITH NO SIGNS OF INFILTRATION. ALL DUE MEDS GIVEN ORDERED. PT KEPT CLEAN AND COMFORTABLE. ALL SAFETY MEASURES IMPLEMENTED. CALL LIGHT WITHIN REACH. BED ALARM ON. BED LOCKED AND IN LOWEST POSITION. SIDE RAILS UP. WILL ENDORSE TO MORNING SHIFT RN FOR JOSE.
[2021-03-06 07:05] LABS: BASOPHILS % (AUTO) 0.4 % (0.0-2.0); EOSINOPHILS % (AUTO) 0.1 % (0.0-6.0); HEMATOCRIT 31 % (33-45); HEMOGLOBIN 10.3 g/dL (11.5-14.8); LYMPHOCYTES # (AUTO) 1.6 K/uL (0.8-4.8); LYMPHOCYTES % (AUTO) 15.6 % (20.0-44.0); MEAN CORPUSCULAR HGB CONC 34 g/dl (31.0-36.0); MEAN CORPUSCULAR VOLUME 90 fL (82-100); MONOCYTES # (AUTO) 0.3 K/uL (0.1-1.30); MONOCYTES % (AUTO) 3.4 % (2.0-12.0); NEUTROPHILS # (AUTO) 8.1 K/uL (1.8-8.9); NEUTROPHILS % (AUTO) 80.5 % (43.0-81.0); PLATELET COUNT (AUTO) 644 K/uL (150-450); RED BLOOD CELL COUNT(AUTO) 3.38 MIL/uL (4.0-5.2); WHITE BLOOD COUNT (AUTO) 10.1 K/uL (4.3-11.0)
[2021-03-06 07:07] LABS: IMMUNOGLOBULIN A, SERUM 328 mg/dL (64-422); IMMUNOGLOBULIN G, SERUM 1320 mg/dL (586-1602); IMMUNOGLOBULIN M, SERUM 266 mg/dL (26-217)
--- NOTE | 2021-03-06 07:09 | NUR ---
RN NOTE PATIENT IS IN BED WITH HOB AT SEMI FOWLERS POSITION. PATIENT IS ON 6L NC WITH NO SIGNS OF LABORED BREATHING. PATIENT IS AOX1. TIN MIDLINE IS PATENT AND INTACT. BED IS LOCKED IN THE LOWEST POSITION, 3 GUARD RAILS RAISED, CALL MCGOVERN WITHIN REACH, AND ALL HOSPITAL SAFETY PRECAUTIONS ARE BEING FOLLOWED. WILL CONTINUE TO MONITOR THROUGHOUT SHIFT.
[2021-03-06 08:00] VITALS: BP 102/62
[2021-03-06] MEDS: DEXAMETHASONE SOD PHOSPHATE 10 MG/ML VIAL IV SCH ×3 (08:16→17:12)
[2021-03-06] MEDS: METOPROLOL SUCCINATE 25 MG TAB.SR.24H PO SCH (08:16)
[2021-03-06] MEDS: FOLIC ACID 1 MG TABLET PO SCH (08:27)
[2021-03-06] MEDS: APIXABAN 5 MG TABLET PO SCH ×3 (08:27→17:13)
[2021-03-06 08:36] LABS: CALCIUM, SERUM 8.8 mg/dL (8.5-10.1); CREATININE 1.3 mg/dL (0.6-1.3)
[2021-03-06 09:08] LABS: *SPE A/G RATIO 0.5 (0.7-1.7); *SPE ALPHA-1-GLOBULIN 0.4 g/dL (0.0-0.4); *SPE M-SPIKE Not Observed g/dL (Not Observed)
--- NOTE | 2021-03-06 09:26 | NUR ---
per [facility] pcr negative.
[2021-03-06] MEDS: POTASSIUM CHLORIDE 20 MEQ TAB.PRT.SR PO SCH ×3 (10:00→12:00)
[2021-03-06 12:00] VITALS: BP 120/74
[2021-03-06] MEDS ORDERED: POTASSIUM CHLORIDE 20 MEQ TAB.PRT.SR PO SCH (13:00)
--- NOTE | 2021-03-06 13:05 | NUR ---
RN NOTE OKAY PER PHARMACY TO ADMINISTER PREVIOUSLY REFUSED 0900 ELIQUIS,
[2021-03-06] MEDS: POTASSIUM CHLORIDE 20 MEQ POWDER PACKET PO SCH ×3 (13:35→15:04)
[2021-03-06 16:00] VITALS: BP 114/72
--- NOTE | 2021-03-06 18:34 | NUR ---
RN NOTE PATIENT IS IN BED WITH HOB AT SEMI FOWLERS POSITION. PATIENT IS ON 5L NC WITH NO SIGNS OF LABORED BREATHING. PATIENT IS AOX1. TIN MIDLINE IS PATENT AND INTACT. BED IS LOCKED IN THE LOWEST POSITION, 3 GUARD RAILS RAISED, CALL MCGOVERN WITHIN REACH, AND ALL HOSPITAL SAFETY PRECAUTIONS ARE BEING FOLLOWED. ALL DUE MEDS GIVEN AND PATIENT REMAINED STABLE THROUGHOUT SHIFT. WILL ENDORSE TO MEDICAL RECORDS TECHNICIAN RN.
--- NOTE | 2021-03-06 19:53 | NUR ---
RN NOTE PATIENT IS IN BED WITH HOB AT SEMI FOWLERS POSITION. ON O2 6L NC WITH NO SIGNS OF LABORED BREATHING. PATIENT IS ALERT AND ORIENTED X1. FOR MIDLINE TONIGHT. NOTED WITH BILATERAL SOFT WRIST RESTRAINTS, POSITIVE CIRCULATION. NO S/S OF SKIN BREAKDOWN. DAUGHTER @ BEDSIDE. BED IS LOCKED IN THE LOWEST POSITION, 3 GUARD RAILS RAISED, CALL MCGOVERN WITHIN REACH, AND ALL HOSPITAL SAFETY PRECAUTIONS ARE BEING FOLLOWED. WILL CONTINUE TO MONITOR THROUGHOUT SHIFT.
[2021-03-06 20:00] VITALS: BP 92/73
[2021-03-07 04:00] VITALS: BP 130/79
[2021-03-07] MEDS: PIPERACILLIN /TAZOBACTAM 3.375 G in IV D5W 50 ML IV SCH ×3 (04:48→20:30)
[2021-03-07] MEDS: VANCOMYCIN 0.75 GM in IV D5W 250 ML IV SCH (05:30)
--- NOTE | 2021-03-07 06:29 | NUR ---
RN NOTE PATIENT RESTING IN BED. ON O2 5L NC WITH NO SIGNS OF LABORED BREATHING. NOTED WITH BILATERAL SOFT WRIST RESTRAINTS, POSITIVE CIRCULATION. NO S/S OF SKIN BREAKDOWN. IV ACCESS ON TIN MIDLINE PATENT AND INTACT. ALL DUE MEDS GIVEN ORDERED. KEPT CLEAN AND DRY. BED IS LOCKED IN THE LOWEST POSITION, 3 GUARD RAILS RAISED, CALL MCGOVERN WITHIN REACH. WILL ENDORSE TO AM SHIFT.
[2021-03-07 06:31] LABS: BASOPHILS # (AUTO) 0.1 K/uL (0.0-0.2); BASOPHILS % (AUTO) 0.8 % (0.0-2.0); EOSINOPHILS % (AUTO) 0.2 % (0.0-6.0); HEMATOCRIT 29 % (33-45); HEMOGLOBIN 9.7 g/dL (11.5-14.8); LYMPHOCYTES # (AUTO) 1.9 K/uL (0.8-4.8); LYMPHOCYTES % (AUTO) 23.7 % (20.0-44.0); MEAN CORPUSCULAR HGB CONC 34 g/dl (31.0-36.0); MEAN CORPUSCULAR VOLUME 92 fL (82-100); MONOCYTES # (AUTO) 0.6 K/uL (0.1-1.30); MONOCYTES % (AUTO) 6.9 % (2.0-12.0); NEUTROPHILS # (AUTO) 5.5 K/uL (1.8-8.9); NEUTROPHILS % (AUTO) 68.4 % (43.0-81.0); PLATELET COUNT (AUTO) 481 K/uL (150-450); RED BLOOD CELL COUNT(AUTO) 3.13 MIL/uL (4.0-5.2); WHITE BLOOD COUNT (AUTO) 8.1 K/uL (4.3-11.0)
--- NOTE | 2021-03-07 07:17 | NUR ---
RN NOTES PATIENT RESTING IN BED EYES CLOSED, ABLE TO BE AWAKENED. VERBALLY RESPONSIVE, A/O X1, CONFUSED, KHMER-SPEAKING. BREATHING EVEN AND UNLABORED, ON 5L O2 VIA NASAL CANNULA, NO RESP DISTRESS. MIDLINE INTACT AND PATENT. B/L SOFT WRIST RESTRAINTS ON, CIRCULATION CHECKED. SAFETY MEASURES INPLACE: BED LOCKED AND IN LOWEST POSITION, CALL LIGHT WITHIN REACH, BED ALARM ON. WILL CONTINUE TO MONITOR.
[2021-03-07 07:23] LABS: CALCIUM, SERUM 8.7 mg/dL (8.5-10.1); CREATININE 1.3 mg/dL (0.6-1.3); MAGNESIUM 2.2 mg/dL (1.8-2.4); PHOSPHORUS 3.8 mg/dL (2.5-4.9); POTASSIUM 3.6 mmol/L (3.5-5.1)
[2021-03-07] MEDS: METOPROLOL SUCCINATE 25 MG TAB.SR.24H PO SCH (09:00)
[2021-03-07] MEDS: DEXAMETHASONE SOD PHOSPHATE 10 MG/ML VIAL IV SCH ×2 (09:13→16:03)
[2021-03-07] MEDS: FOLIC ACID 1 MG TABLET PO SCH (09:13)
[2021-03-07] MEDS: APIXABAN 5 MG TABLET PO SCH ×2 (09:14→15:57)
[2021-03-07 12:00] VITALS: BP 113/69
--- NOTE | 2021-03-07 19:35 | NUR ---
RN NOTES RECEIVED PT FOR CONTINUITY OF CARE. PATIENT A/OX1-2; STATELESS SPEAKING IN NO S/SX OF ACUTE DISTRESS AT THIS TIME; CURRENTLY ON 5L OF 02 VIA NC; WITH 02 SAT >95% AT THIS TIME. WILL ENSURE SAFETY MEASURES WITHIN THE SHIFT. PATIENT BED ALARM IS ON. HEAD OF BED ELEVATED. BED IS LOCKED, IN LOWEST POSITION AND SIDE RAILS UP. CALL LIGHT WITHIN REACH OF THE PATIENT. APPLICABLE ISOLATION PRECAUTIONS IN PLACE. WILL CONTINUE TO MONITOR AND REASSESS FOR ANY CHANGES AND WILL CARRY OUT ANY ONGOING AND ACTIVE MD ORDER.
[2021-03-07 20:00] VITALS: BP 104/67
[2021-03-07] MEDS: LINEZOLID RTU BAG 600 MG in PREMIX 1 EA IV SCH (20:30)
[2021-03-08 04:00] VITALS: BP 117/70
--- NOTE | 2021-03-08 04:00 | NUR ---
RN NOTES NO NOTED CHANGES IN PATIENT CONDITION AT THIS TIME; PATIENT VITALS STABLE, NO SIGNS OF ACUTE RESPIRATORY DISTRESS. AM PATIENT CARE RENDERED.WILL CONTINUE TO MONITOR AND REASSESS FOR ANY CHANGES THROUGHOUT THE SHIFT.
[2021-03-08] MEDS: PIPERACILLIN /TAZOBACTAM 3.375 G in IV D5W 50 ML IV SCH (04:43)
--- NOTE | 2021-03-08 06:51 | NUR ---
RN CLOSING NOTE: PATIENT REMAINS IN ROOM IN NO SIGNS OF RESPIRATORY DISTRESS, PATIENT STILL ON 5L OF 02 VIA NC ;TOLERATING WELL SATURATING @ >95% SP02. SAFETY MEASURES IMPLEMENTED, BED IN LOWEST POSITION, LOCKED, SIDE RAILS UP, CALL LIGHT WITHIN REACH. ALL NEEDS AND ORDERS ADDRESSED DURING THE SHIFT. IV ACCESS MAINTAINED INTACT, SECURED AND FLUSHING WELL. ALL DUE MEDS GIVEN ORDERED & SCHEDULED ; PATIENT TOLERATED WELL. PATIENT KEPT CLEAN AND COMFORTABLE WITHIN THE SHIFT. PATIENT ENDORSED TO INCOMING SHIFT RN WITH STABLE VITAL SIGN AND FOR CONTINUITY OF CARE.
--- NOTE | 2021-03-08 07:43 | NUR ---
MS RN OPENING NOTES RECEIVED PATIENT IN BED, AWAKE, SLIGHTLY CONFUSED, A/O X1. PATIENT ON OXYGEN THERAPY AT 5 LPM VIA NASAL CANULA; BREATHING EVEN AND UNLABORED AT THIS TIME. NO COMPLAINS OF PAIN. TIN MIDLINE IN PLACE RUNNING NS AT TKO. ON BILATERAL SOFT WRIST RESTRAINS. SAFETY PRECAUTIONS IN PLACE: BED IN LOW POSITION AND LOCKED, RAILS UP X2, CALL LIGHT WITHIN REACH. WILL CONTINUE TO MONITOR PATIENT.
[2021-03-08] MEDS: METOPROLOL SUCCINATE 25 MG TAB.SR.24H PO SCH (08:12)
[2021-03-08] MEDS: LINEZOLID RTU BAG 600 MG in PREMIX 1 EA IV SCH ×2 (08:13→21:22)
[2021-03-08] MEDS: FOLIC ACID 1 MG TABLET PO SCH (08:13)
[2021-03-08] MEDS: DEXAMETHASONE SOD PHOSPHATE 10 MG/ML VIAL IV SCH ×2 (08:18→16:51)
[2021-03-08] MEDS: APIXABAN 5 MG TABLET PO SCH ×2 (08:18→16:52)
[2021-03-08] MEDS: ENSURE ENLIVE 237 ML LIQUID (VANILLA) PO SCH ×2 (09:00→16:52)
[2021-03-08 12:11] VITALS: BP 120/72
--- NOTE | 2021-03-08 18:43 | NUR ---
MS RN CLOSING NOTES PATIENT REMAINS IN BED, AWAKE, A/O X2. DAUGHTER AT BEDSIDE. PATIENT ON OXYGEN THERAPY AT 5 LPM VIA NASAL CANULA; BREATHING EVEN AND UNLABORED DURING SHIFT. NO COMPLAINS OF PAIN. TIN MIDLINE IN PLACE; SL. ON BILATERAL SOFT WRIST RESTRAINS. ALL NEEDS ATTENDED DURING THE DAY. SAFETY PRECAUTIONS IN PLACE: BED IN LOW POSITION AND LOCKED, RAILS UP X2, CALL LIGHT WITHIN REACH. WILL ENDORSE TO PHOTOGRAPH DEVELOPER NURSE FOR JOSE.
[2021-03-08 20:00] VITALS: BP 102/53
--- NOTE | 2021-03-08 20:00 | NUR ---
RN OPENING NOTES RECEIVED PATIENT AWAKE IN BED, BED IN LOW POSITION, CALL LIGHTS WITHIN REACH, NO COMPLAIN OF PAIN AND DISCOMFORT HAS BEEN OBSERVED, ON O2 INHALATION AT 5LPM SATURATING WELL, NO RESPIRATORY DISTRESS OBSERVED, , PATIENT ON RESTRAINT DUE TO ATTEMPT OF PULLING IV LINES, WITH TIN MIDLINE SL PATIENT ON PUREED DIET, PATIENT KEPT CLEAN ND DRY ALL NEEDS MET WILL CONTINUE TO MONITOR.
[2021-03-09 04:00] VITALS: BP 122/74
--- NOTE | 2021-03-09 05:44 | NUR ---
RN CLOSING NOTES: PATIENT SLEEP IN BED COMFORTABLY, AROUSABLE TO VERBAL STIMULI, BED IN LOW POSITION, CALL LIGHTS WITHIN REACH, NO COMPLAIN OF PAIN AND DISCOMFORT AT THIS TIME, ON O2 INHALATION AT 5LPM NO RESP. DISTRESS WAS OBSERVED, WITH TIN ML SL, ON BILATERAL SOFT RESTRAINT PATIENT WAS CONFUSED AND ATTEMPT TO PULL THE IV LINE., V/S WNR, PATIENT KEPT CLEAN AND DRY, ALL NEEDS MET ENDORSE TO INCOMING SHIFT.
[2021-03-09 06:46] LABS: BASOPHILS % (AUTO) 0.2 % (0.0-2.0); EOSINOPHILS % (AUTO) 0.1 % (0.0-6.0); HEMATOCRIT 31 % (33-45); HEMOGLOBIN 10.3 g/dL (11.5-14.8); LYMPHOCYTES % (AUTO) 25.5 % (20.0-44.0); MEAN CORPUSCULAR HGB CONC 33 g/dl (31.0-36.0); MEAN CORPUSCULAR VOLUME 91 fL (82-100); MONOCYTES # (AUTO) 0.4 K/uL (0.1-1.30); MONOCYTES % (AUTO) 5.5 % (2.0-12.0); NEUTROPHILS # (AUTO) 5.4 K/uL (1.8-8.9); NEUTROPHILS % (AUTO) 68.7 % (43.0-81.0); PLATELET COUNT (AUTO) 478 K/uL (150-450); WHITE BLOOD COUNT (AUTO) 7.9 K/uL (4.3-11.0)
--- NOTE | 2021-03-09 07:30 | NUR ---
RN OPENING NOTES RECEIVED PATIENT IN BED, AWAKE, ALERT, ORIENTED X1. PATIENT ON O2 AT 5 LPM VIA NASAL CANULA; BREATHING EVEN AND UNLABORED AT THIS TIME. NO SOB OR ANY RESPIRATORY DISTRESS NOTED AT THE TIME. TIN MIDLINE IN PLACE, FLUSHED, INTACT AND PATENT ON BILATERAL SOFT WRIST RESTRAINTS. SAFETY PRECAUTIONS IMPLEMENTED, BED IN LOW POSITION AND LOCKED, SIDE RAILS UP. CALL LIGHT WITHIN REACH OF PATIENT. WILL CONTINUE TO MONITOR.
[2021-03-09 07:33] LABS: CALCIUM, SERUM 8.7 mg/dL (8.5-10.1); CREATININE 0.9 mg/dL (0.6-1.3); POTASSIUM 3.1 mmol/L (3.5-5.1)
[2021-03-09] MEDS: LINEZOLID RTU BAG 600 MG in PREMIX 1 EA IV SCH (08:45)
[2021-03-09] MEDS: METOPROLOL SUCCINATE 25 MG TAB.SR.24H PO SCH (08:46)
[2021-03-09] MEDS: DEXAMETHASONE SOD PHOSPHATE 10 MG/ML VIAL IV SCH ×2 (08:47→16:30)
[2021-03-09] MEDS: FOLIC ACID 1 MG TABLET PO SCH (08:47)
[2021-03-09] MEDS: APIXABAN 5 MG TABLET PO SCH ×2 (08:48→16:31)
[2021-03-09] MEDS: ENSURE ENLIVE 237 ML LIQUID (VANILLA) PO SCH ×2 (09:06→16:47)
[2021-03-09] MEDS ORDERED: POTASSIUM CHLORIDE 20 MEQ TAB.PRT.SR PO ONE (09:30)
[2021-03-09] MEDS: FUROSEMIDE 40 MG/4 ML VIAL IV SCH ×3 (09:50→16:30)
[2021-03-09] MEDS ORDERED: POTASSIUM CHLORIDE 20 MEQ TAB.PRT.SR PO SCH (10:00)
[2021-03-09 12:00] VITALS: BP_SYST 104; BP_SYST 116; BP_DIAS 68; BP_DIAS 73
--- NOTE | 2021-03-09 18:40 | NUR ---
RN CLOSING NOTES PATIENT IN STABLE CONDITION THROUGHOUT SHIFT. NO SIGNIFICANT CHANGES THROUGHOUT SHIFT. PATIENT ON 5 LPM O2 VIA NC, TOLERATING WELL. BREATHING EVEN AND UNLABORED. NO SOB OR RESPIRATORY DISTRESS NOTED. TIN MIDLINE, PATENT AND INTACT. NO COMPLAINTS OF PAIN/DISCOMFORT NOTED. BILATERAL SOFT WRIST RESTRAINTS MAINTAINED, RELEASED FOR CIRCULATION, SKIN INTACT AND CLEAN. ALL DUE MEDS GIVEN ORDERED, TOLERATED WELL. ALL NEEDS MET. KEPT PATIENT CLEAN, DRY AND COMFORTABLE. ALL SAFETY MEASURES IMPLEMENTED. HOB ELEVATED. BED IN LOWEST POSITION, LOCKED WITH SIDE RAILS UP. CALL LIGHT WITHIN REACH OF PATIENT. WILL ENDORSE TO ONCOMING NURSE FOR CONTINUITY OF CARE.
--- NOTE | 2021-03-09 19:15 | NUR ---
RN OPENING NOTE PATIENT IN BED, CALM AT THIS TIME. DAUGHTER AT BEDSIDE. PATIENT IS A/O X 2- GUYANESE SPEAKING, NOT ABLE TO UNDERSTAND CITIZEN OF [place]. PATIENT HAS YARA. SOFT WRIST RESTRAINTS AT THIS TIME D/T PULLING OUT IV AND TAKING EQUIPMENT. PATIENT HAS A TIN MIDLINE, PATENT AND INTACT. NO SOB NOTED AT REST, PATIENT CURRENTLY ON 5LPM, TOLERATING WELL. SAFETY MEASURES IN PLACE: BED LOCKED AND IN LOWEST POSITION, CALL LIGHT WITHIN REACH, SIDE RAILS UP. WILL MONITOR PATIENT CLOSELY.
[2021-03-09 20:00] VITALS: BP 100/59
[2021-03-09] MEDS: LINEZOLID 600 MG TABLET PO SCH (20:38)
[2021-03-10 04:00] VITALS: BP 114/79
--- NOTE | 2021-03-10 06:47 | NUR ---
RN CLOSING NOTE PATIENT EYES CLOSED. PATIENT IS A/O X 2- BELARUSIAN SPEAKING, NOT ABLE TO UNDERSTAND KOREAN. PATIENT HAS YARA. SOFT WRIST RESTRAINTS AT THIS TIME D/T PULLING OUT IV AND TAKING EQUIPMENT. PATIENT HAS A TIN MIDLINE, PATENT AND INTACT, SALINE LOCKED ONLY. NO SOB NOTED AT REST, PATIENT CURRENTLY ON 5LPM, TOLERATING WELL. SAFETY MEASURES IMPLEMENTED, ALL NEEDS MET AND ATTENDED, ALL ORDERS CARRIED OUT. WILL ENDORSE TO DAYS SHIFT NURSE FOR JOSE.
--- NOTE | 2021-03-10 07:23 | NUR ---
RN Note Patient received in bed, AO x 2, Namibian speaking, able to responds all stimuli. Respiratory even and unlabored with oxygen at 5 Ls via NC. Skin is warm to touch, keep clean/dry. Patient does no appears pain or discomfort this morning. Call light within reach, kept elevated HOB for ensure airway and lower bed position for safety. Will continue to monitor.
[2021-03-10] MEDS: ENSURE ENLIVE 237 ML LIQUID (VANILLA) PO SCH ×2 (08:00→17:00)
[2021-03-10] MEDS: DEXAMETHASONE SOD PHOSPHATE 10 MG/ML VIAL IV SCH ×2 (08:42→16:28)
[2021-03-10] MEDS: FOLIC ACID 1 MG TABLET PO SCH (09:00)
[2021-03-10] MEDS: LINEZOLID 600 MG TABLET PO SCH ×2 (09:00→21:48)
[2021-03-10] MEDS: METOPROLOL SUCCINATE 25 MG TAB.SR.24H PO SCH (09:00)
[2021-03-10] MEDS: APIXABAN 5 MG TABLET PO SCH ×2 (09:00→16:28)
--- NOTE | 2021-03-10 09:16 | NUR ---
Patient refused all PO meds except Methadone via IV. made aware.
[2021-03-10] MEDS: FUROSEMIDE 40 MG/4 ML VIAL IV SCH ×3 (09:28→16:28)
[2021-03-10] MEDS: POTASSIUM CHLORIDE 20 MEQ TAB.PRT.SR PO SCH ×5 (09:28→12:44)
--- NOTE | 2021-03-10 13:00 | NUR ---
Patient transferred 3w room 313-1, given report Daniela ATKINS. In stable condition, denies respiratory distress.
--- NOTE | 2021-03-10 13:10 | NUR ---
RN NOTES PATIENT WAS TRANSFERRED TO MED. SURG. FROM [facility]. PATIENT IS IN BED RESTING, AWAKE. A/O X2. NO S/S OF PAIN NOTED AT THIS TIME. ON 5L OXYGEN VIA NC, NO DISTRESS OR SHORTNESS OF BREATH NOTED. IV TIN MIDLINE, INTACT AND PATENT. SKIN ASSESSMENT DONE, V/S STABLE. T: 97.6, R:20, P:71, BP:113/65, O2: 98%. EDUCATED PATIENT ABOUT UNIT AND HOW TO USE THE CALL LIGHT. FALL AND SAFETY MEASURES IN PLACE, BED ALARM ON, BED IN LOW AND LOCK POSITION, CALL LIGHT WITHIN EASY REACH, SIDE RAIL UP X2. WILL CONTINUE TO MONITOR.
[2021-03-10 13:47] VITALS: BP 113/65
[2021-03-10 16:15] VITALS: BP 101/51
--- NOTE | 2021-03-10 19:00 | NUR ---
RN CLOSING NOTES PATIENT IS IN BED RESTING, AWAKE. A/O X2. NO S/S OF PAIN NOTED AT THIS TIME. ON 4L OXYGEN VIA NC, NO DISTRESS OR SHORTNESS OF BREATH NOTED. IV TIN MIDLINE, INTACT AND PATENT. FALL AND SAFETY MEASURES IN PLACE, BED ALARM ON, BED IN LOW AND LOCK POSITION, CALL LIGHT WITHIN EASY REACH, SIDE RAIL UP X2. WILL ENDORSE TO MAGISTRATE.
--- NOTE | 2021-03-10 19:15 | NUR ---
MS RN OPENING NOTE PATIENT IN BED, CALM AT THIS TIME. DAUGHTER AT BEDSIDE. PATIENT IS A/O X 2- AMHARIC SPEAKING, NOT ABLE TO UNDERSTAND [place]. PATIENT WITH REGULAR AND UNLABORED BREATHING ON 5 LPM VIA NASAL CANULA TOLERATED WELL. PATIENT HAS A TIN MIDLINE, PATENT AND INTACT. SAFETY MEASURES IN PLACE: BED LOCKED AND IN LOWEST POSITION, CALL LIGHT WITHIN REACH, SIDE RAILS UP. WILL MONITOR PATIENT CLOSELY.
[2021-03-10 20:00] VITALS: BP 110/67
[2021-03-10 21:00] VITALS: BP 110/67
--- NOTE | 2021-03-11 07:48 | NUR ---
MS RN CLOSING NOTE PATIENT STILL IN BED, CALM AT THIS TIME. DAUGHTER AT BEDSIDE. PATIENT IS A/O X 2- BOLIVIAN SPEAKING, NOT ABLE TO UNDERSTAND GERMAN. PATIENT WITH REGULAR AND UNLABORED BREATHING ON 5 LPM VIA NASAL CANULA TOLERATED WELL. PATIENT HAS A TIN MIDLINE, PATENT AND INTACT. SAFETY MEASURES IN PLACE: BED LOCKED AND IN LOWEST POSITION, CALL LIGHT WITHIN REACH, SIDE RAILS UP. WILL ENDORSE JOSE TO DAY SHIFT NURSE.
--- NOTE | 2021-03-11 07:53 | NUR ---
MS RN OPENING NOTE Patient in bed, awake. A/O x 2, Prydeinig speaking. On O2 at 5 LPM via NC, no SOB or s/s of distress noted. IV access on TIN midline, SL; intact and patent. Bilateral soft restraints on both wrists noted. Safety precautions in place: bed in low, locked position; siderails up x 2; call light within reach. Will continue to monitor.
[2021-03-11 08:00] VITALS: BP 135/77
[2021-03-11] MEDS: FOLIC ACID 1 MG TABLET PO SCH (08:53)
[2021-03-11] MEDS: LINEZOLID 600 MG TABLET PO SCH ×2 (08:54→21:21)
[2021-03-11] MEDS: DEXAMETHASONE SOD PHOSPHATE 10 MG/ML VIAL IV SCH ×2 (08:54→17:06)
[2021-03-11] MEDS: METOPROLOL SUCCINATE 25 MG TAB.SR.24H PO SCH (08:54)
[2021-03-11] MEDS: ENSURE ENLIVE 237 ML LIQUID (VANILLA) PO SCH ×2 (08:55→17:14)
[2021-03-11] MEDS: APIXABAN 5 MG TABLET PO SCH ×2 (08:55→17:06)
[2021-03-11 16:00] VITALS: BP 132/56
--- NOTE | 2021-03-11 18:55 | NUR ---
MS RN CLOSING NOTE Patient in bed, asleep. A/O x 2, German speaking. On O2 at 4 LPM via NC, no SOB or s/s of distress noted. IV access on TIN midline, SL; intact , patent, and flushes well. Bilateral soft restraints on both wrists noted. Needs attended to. Due meds given. Safety precautions maintained: bed in low, locked position; siderails up x 2; call light within reach. Will endorse to police shift commander nurse for JOSE.
[2021-03-11 20:00] VITALS: BP 145/70
[2021-03-11 20:01] LABS: BASOPHILS # (AUTO) 0.1 K/uL (0.0-0.2); BASOPHILS % (AUTO) 0.7 % (0.0-2.0); EOSINOPHILS % (AUTO) 0.9 % (0.0-6.0); HEMATOCRIT 35 % (33-45); HEMOGLOBIN 11.2 g/dL (11.5-14.8); LYMPHOCYTES # (AUTO) 1.7 K/uL (0.8-4.8); LYMPHOCYTES % (AUTO) 10.2 % (20.0-44.0); MEAN CORPUSCULAR HGB CONC 32 g/dl (31.0-36.0); MEAN CORPUSCULAR VOLUME 93 fL (82-100); MONOCYTES # (AUTO) 0.2 K/uL (0.1-1.30); MONOCYTES % (AUTO) 1.3 % (2.0-12.0); NEUTROPHILS # (AUTO) 14.2 K/uL (1.8-8.9); NEUTROPHILS % (AUTO) 86.9 % (43.0-81.0); PLATELET COUNT (AUTO) 439 K/uL (150-450); RED BLOOD CELL COUNT(AUTO) 3.73 MIL/uL (4.0-5.2); WHITE BLOOD COUNT (AUTO) 16.4 K/uL (4.3-11.0)
[2021-03-11 20:25] LABS: ALBUMIN 2.4 g/dL (3.4-5.0); BILIRUBIN,TOTAL 0.1 mg/dL (0.2-1.0); CALCIUM, SERUM 8.1 mg/dL (8.5-10.1); CREATININE 1.2 mg/dL (0.6-1.3); PHOSPHORUS 4.5 mg/dL (2.5-4.9); POTASSIUM 4.4 mmol/L (3.5-5.1); TOTAL PROTEIN, SERUM 7.2 g/dL (6.4-8.2)
--- NOTE | 2021-03-11 20:43 | NUR ---
RN NOTES RECEIVED A CALL FROM LAB, BG [id number], NOTIFIED UM NURSE DR. TAO, NEW ORDER OF ACCUCHECK, MODERATE SLIDING SCALE, GIVE 12 UNITS NOW X1 AND AIC IN AM. ORDERS NOTED AND CARRIED OUT.
[2021-03-11] MEDS ORDERED: INSULIN REGULAR, HUMAN 100 UNIT/ML 3 ML VIAL SQ ONE ×2 (21:00→23:30)
[2021-03-11] MEDS ORDERED: *INSULIN REGULAR(HUMULIN R)HUM 100 UNIT/ML VIAL SQ PRN (21:00)
[2021-03-11] MEDS ORDERED: DEXTROSE 50%-WATER 50 ML DISP.SYRIN IV PRN (21:00)
[2021-03-11 21:45] LABS: LYMPHOCYTES % (MANUAL) 20 % (16-48); NEUTROPHILS % (MANUAL) 80 (42-76)
[2021-03-11] MEDS: BLOOD SUGAR DIAGNOSTIC 1 EACH STRIP VI SCH (22:43)
--- NOTE | 2021-03-12 02:00 | NUR ---
AFTER INSULIN ADMINISTRATION, RECHECKED BG AT 2252H, BG 444 MG/DL, NOTIFIED DR. TAO AND ORDERED ANOTHER 12 UNITS OF INSULIN, AFTER 2 HOURS, RECHECKED BG AGAIN AT 0131H, BG 231, NO COVERAGE, WILL RESUME ACCUCHECK AT 0630.
[2021-03-12 04:00] VITALS: BP 138/65
[2021-03-12] MEDS: INSULIN REGULAR, HUMAN 100 UNIT/ML 3 ML VIAL SQ PRN ×3 (06:24→12:17)
[2021-03-12] MEDS: BLOOD SUGAR DIAGNOSTIC 1 EACH STRIP VI SCH ×2 (06:45→12:14)
--- NOTE | 2021-03-12 06:53 | NUR ---
ALERT/ORIENTED X2, STABLE ON 4LPM VIA NC, NO COMPLAIN OF PAIN, BG ELEVATED, STARTED ON ACCUHECK AND SLIDING SCALE, BG THIS AM 76, GIVEN APPLE JUICE AND PUDDING, CLEARED FOR DISCHARGE TO HOME WITH SUPPLEMENTAL O2, FOLLOW UP WITH DR. REDDY AFTER 6 WEEKS OF DISCHARGE.
--- NOTE | 2021-03-12 07:40 | NUR ---
MS RN OPENING NOTE Patient in bed, asleep. A/O x 2, French speaking. On O2 at 4 LPM via NC, no SOB or s/s of distress noted. IV access on TIN midline, SL; intact and patent. Bilateral soft restraints on both wrists noted. Safety precautions in place: bed in low, locked position; siderails up x 2; call light within reach. Will continue to monitor.
[2021-03-12 08:00] VITALS: BP 128/76
[2021-03-12] MEDS: ENSURE ENLIVE 237 ML LIQUID (VANILLA) PO SCH (08:10)
[2021-03-12] MEDS: FOLIC ACID 1 MG TABLET PO SCH (08:13)
[2021-03-12] MEDS: LINEZOLID 600 MG TABLET PO SCH (08:13)
[2021-03-12 08:14] VITALS: BP 128/76
[2021-03-12] MEDS: METOPROLOL SUCCINATE 25 MG TAB.SR.24H PO SCH (08:14)
[2021-03-12] MEDS: DEXAMETHASONE SOD PHOSPHATE 10 MG/ML VIAL IV SCH (08:15)
[2021-03-12] MEDS: APIXABAN 5 MG TABLET PO SCH (08:18)
[2021-03-12] MEDS ORDERED: METH4TAB17 PO (10:21)
--- NOTE | 2021-03-12 14:22 | NUR ---
DISCHARGE NOTE Received order for discharge. Patient is A/O x 2, Nicaraguan speaking. On O2 at 4 LPM via NC, breathing evenly and unlabored. No SOB or s/s of distress noted. Denies any pain or discomfort at this time, as per daughter, Krissy, who translates for patient. Discharge instructions given both verbally and in written form to daughter, verbalized understanding. Belongings accounted for, belonging sheet signed. IV access removed, catheter tip intact; pressure dressing applied, no signs of bleeding noted. ID band removed. Exitcare folder given to terence Rey. Patient left in stable condition via ambulance with 2 houseman and daughter present.
== END 2021-03-12 14:15 | disposition home or self-care (01) | DRG 194 ==
LOC: ER 23:10 → TELE1 03-04 02:35 → TELE-TD 03-04 03:06 → TELE1 03-04 10:04 → MEDSG1 03-06 10:38 → MED 03-10 12:42
PROVIDERS: ADMIT Internal Medicine; ATTEND Internal Medicine
PROC: 05HD33Z Insertion of Infusion Device into Right Cephalic Vein, Percutaneous Approach (ICD-10-PCS; principal; 2021-03-04)
PROC: 05HB33Z Insertion of Infusion Device into Right Basilic Vein, Percutaneous Approach (ICD-10-PCS; 2021-03-05)
PROC: 05H933Z Insertion of Infusion Device into Right Brachial Vein, Percutaneous Approach (ICD-10-PCS; 2021-03-06)
DX: I11.0 Hypertensive heart disease with heart failure (principal); J96.21 Acute and chronic respiratory failure with hypoxia; G93.41 Metabolic encephalopathy; E87.2 Acidosis; I82.403 Acute embolism and thrombosis of unspecified deep veins of lower extremity, bilateral; E44.0 Moderate protein-calorie malnutrition; D84.9 Immunodeficiency, unspecified; D68.9 Coagulation defect, unspecified; E87.1 Hypo-osmolality and hyponatremia; J12.9 Viral pneumonia, unspecified; I50.33 Acute on chronic diastolic (congestive) heart failure; G93.89 Other specified disorders of brain; Z85.841 Personal history of malignant neoplasm of brain; Z86.718 Personal history of other venous thrombosis and embolism; Z86.73 Personal history of transient ischemic attack (TIA), and cerebral infarction without residual deficits; E83.42 Hypomagnesemia; D75.839 Thrombocytosis, unspecified; E66.9 Obesity, unspecified; Z20.822 Contact with and (suspected) exposure to COVID-19; Z86.011 Personal history of benign neoplasm of the brain; Z90.49 Acquired absence of other specified parts of digestive tract; Z79.01 Long term (current) use of anticoagulants; Z79.899 Other long term (current) drug therapy; Z79.51 Long term (current) use of inhaled steroids; E78.5 Hyperlipidemia, unspecified; J84.10 Pulmonary fibrosis, unspecified; Z98.890 Other specified postprocedural states; Z68.28 Body mass index [BMI] 28.0-28.9, adult; N39.0 Urinary tract infection, site not specified; B95.2 Enterococcus as the cause of diseases classified elsewhere; M06.9 Rheumatoid arthritis, unspecified; D64.9 Anemia, unspecified; Z86.16 Personal history of COVID-19
CPT/HCPCS: 36415; 36600; 70450-TC; 71045-TC; 76700-TC; 80048-TC; 80053-TC; 80061-TC; 80076-TC; 80202-TC; 81001; 82232; 82550-TC; 82728-TC; 82784; 82803-TC; 82962-TC; 83540-TC; 83605-TC; 83615-TC; 83735-TC; 83880; 84100-TC; 84155; 84165; 84443-TC; 84484-TC; 85025-TC; 85378-TC; 85385-TC; 85610-TC; 85730-TC; 86140-TC; 86334; 87040-TC; 87081-TC; 87086-TC; 87186-TC; 93976-TC; A4216; C9803; G0378; J0456; J0696; J1100; J1815; J1940; J2020; J2543; J3370; J3475; J7030; J7040; J7050; J7060; Q9967; U0003